=== PATIENT | male | born 1950 | race Caucasian/White ===

== ENCOUNTER 2019-12-04 10:09 | Outpatient (CLI) | payer MEDICARE, SELFPAY ==
--- NOTE | ~2019-12-04 | US_ITS ---
EXAMINATION: US carotid duplex BI DATE: 12/04/2019 11:09 INDICATION: Bilateral carotid stenosis. TECHNIQUE: Grayscale, color Doppler, and pulsed Doppler images of the cervical carotid arteries were obtained. The degree of vessel stenosis is placed in one of the following categories: normal, <50%, 5 0-69%, >=70% but less than near-occlusion, near-occlusion, or total occlusion. Note that percent sten osis relative to normal distal artery lumen diameter is indirectly measured from velocity measurement s as described by Stevan, et al. Radiology 2003; [id number]. COMPARISON: Ultrasound 03/21/2018 FINDINGS: RIGHT: The right common carotid artery (CCA) peak systolic velocity (PSV) is 64 cm/s. The right internal car otid artery (ICA) PSV is 167 cm/s. The right ICA end-diastolic velocity (EDV) is 36 cm/s. The right I CA/CCA PSV ratio is 2.6. Grayscale and color Doppler images yield an estimate of >=50% diameter reduc tion from plaque in the ICA. There is antegrade flow in the right vertebral artery. LEFT: The left CCA PSV is 69 cm/s. The left ICA PSV is 105 cm/s. The left ICA EDV is 29 cm/s. The left ICA/ CCA PSV ratio is 1.5. Grayscale and color Doppler images yield an estimate of >=50% diameter reductio n from plaque in the ICA. There is antegrade flow in the left vertebral artery. IMPRESSION: 1. 50-69% stenosis in the right internal carotid artery. 2. <50% stenosis in the left internal carotid artery. Reviewed, dictated and finalized at location A. NT BREAKER
== END 2019-12-04 10:10 | disposition home or self-care (01) ==
LOC: CHSIMG 10:12
PROVIDERS: PCP Internal Medicine; Visit Provider Internal Medicine
DX: I65.23 Occlusion and stenosis of bilateral carotid arteries (principal)
CPT/HCPCS: 93880

== ENCOUNTER 2020-03-13 20:00 | Inpatient (IN) | payer MEDICARE, SELFPAY ==
--- NOTE | ~2020-03-13 | US_ITS ---
EXAMINATION: US arterial ankle brachial ind DATE: 03/17/2020 10:22 INDICATION: Erythema and ulcers in the bilateral lower limbs. TECHNIQUE: Segmental pressures and plethysmographic and Doppler waveforms of the brachial and lower e xtremity arteries were obtained. COMPARISON: None. FINDINGS: Right and left brachial artery pressures of 147 mm Hg and 461 mm Hg, respectively, are concordant (no rmal difference <= 30 mmHg). The right ankle-brachial index (ANTHONY) is 0.50 (normal >= 0.9-1.0). The right great toe-brachial index (TBI) is unable to be ascertained due to no dopplerable pulse at the great toe (normal >= 0.65). Biph asic parvus et tardus arterial Doppler waveforms at the right posterior tibial and dorsalis pedis art eries. The left ANTHONY is 0.91. The left TBI is 0.78. Arterial Doppler waveforms are biphasic with brisk systol ic upstrokes at both the left posterior tibial and dorsalis pedis arteries. IMPRESSION: 1. Severe arterial occlusive disease to the right lower limb with severely decreased right ANTHONY and no dopplerable pulse at the right great toe. 2. Likely mild arterial occlusive disease in the left lower limb with borderline decreased left ANTHONY a nd normal left TBI. Reviewed, dictated and finalized at location A. IMPRESSION: 1. Severe arterial occlusive disease to the right lower limb with severely decr eased right ANTHONY and no dopplerable pulse at the right great toe. 2. Likely mild arterial occlusive disease in the left lower limb with borderlin e decreased left ANTHONY and normal left TBI.
--- NOTE | ~2020-03-13 | CT_ITS ---
EXAMINATION: CT abdomen pelvis wo con EXAM DATE: 03/13/2020 23:29 INDICATION: Left flank pain. TECHNIQUE: Spiral CT of the abdomen and pelvis was performed without contrast. Axial, coronal and sag ittal images were reviewed. The dose-length product (DLP) for this examination was 1174.10 mGy-cm. The exposure was tailored according to patient size (auto mA exposure control), and iterative reconst ruction (ASIR) was used as additional dose reduction technique. There is no prior study for comparis on. FINDINGS: There is no nephrolithiasis or hydronephrosis. The prostate is unremarkable. There are sm all bilateral inguinal fat-containing hernias. The right lateral wall of the bladder is thickened up to 1.3 cm. There is also bladder wall thickening below the left trigone. Possible transitional cell cancers. The liver, spleen, adrenal glands and pancreas are unremarkable. Gallbladder is unremarkab le. No biliary obstruction. There is no retroperitoneal or pelvic lymphadenopathy. There is moder ate scattered arteriosclerotic disease. The appendix is normal. The stomach and small bowel are unremarkable. There is expected amount of c olonic stool. No free intraperitoneal gas. The heart is normal in size. Sternotomy wires. There a re no pericardial or pleural effusions. The lung bases are unremarkable. There are no osteoblastic or osteolytic lesions identified. IMPRESSION: 1. 2 regions of bladder wall thickening, possible transitional cell cancers. Recommend cystoscopy. 2. No nephrolithiasis, hydronephrosis or acute intra-abdominal findings. 3. Moderate sigmoid diverticulosis. Reviewed, dictated and finalized at location G. IMPRESSION: 1. 2 regions of bladder wall thickening, possible transitional cell cancers. R ecommend cystoscopy. 2. No nephrolithiasis, hydronephrosis or acute intra-abdominal findings. 3. Moderate sigmoid diverticulosis.
--- NOTE | ~2020-03-13 | XR_ITS ---
EXAMINATION: XR lumbar spine 2-3V EXAM DATE: 03/13/2020 21:02 INDICATION: Left-sided low back pain. TECHNIQUE: Lumber spine frontal, lateral, lateral L5-S1 projections for interpretation. There is no prior study for comparison. FINDINGS: There are no acute fractures identified. Mild to moderate loss of L5 vertebral body height , mild diffuse loss of the other lumbar vertebral body heights. There is mild thoracolumbar disc dise ase. Mild to moderate lumbar facet arthropathy. No endplate erosive change. Sacrum, sacroiliac joints , sacral arcuate lines are intact. There is moderate abdominal aortic arteriosclerotic disease. IMPRESSION: 1. No acute lumbar findings. 2. Mild to moderate spondylosis. Reviewed, dictated and finalized at location A.
--- NOTE | ~2020-03-13 | XR_ITS ---
EXAMINATION: XR chest 2V EXAM DATE: 03/13/2020 21:02 INDICATION: Weakness. TECHNIQUE: Frontal and lateral projections of the chest obtained and reviewed. Comparison is made to prior examination from 05/24/2017. FINDINGS: Sternotomy wires are present without findings to suggest sternal dehiscence. The lungs are clear. There are no pleural effusions. The cardiomediastinal silhouette is within normal limits. There is no pneumothorax suspected. There are mild bony degenerative changes. IMPRESSION: No acute cardiopulmonary findings. Reviewed, dictated and finalized at location A.
--- NOTE | ~2020-03-13 | CT_ITS ---
EXAMINATION: CT abdomen pelvis wo/w con DATE: 03/16/2020 13:15 INDICATION: Gross hematuria TECHNIQUE: Computed tomography (CT) of the abdomen and pelvis was performed without intravenous contr ast. CT of the abdomen and pelvis was then performed with a total of 130 mL Omnipaque 350 intravenous contrast using a double-bolus technique for simultaneous opacification of the renal parenchyma and r enal collecting system. The dose-length product (DLP) was 2228.37 mGy-cm. Automated exposure control and iterative reconstruction technique were employed. COMPARISON: 03/13/2020 FINDINGS: The lung bases are clear. The heart size is normal. The liver, spleen,, gallbladder, and ad renal glands are normal. Punctate calcifications of the pancreas are consistent with chronic pancreat itis. The kidneys are unremarkable. There is irregular thickening in the left posterolateral wall and the right lateral wall of the urinary bladder. There is no hydronephrosis or hydroureter. There is c alcified atherosclerosis of the aorta and many of the other arteries. Bilateral inguinal lymph nodes measure up to 11 mm in short axis. There are surgical changes in the inguinal regions bilaterally. Va scular stents are noted in the partially imaged superficial femoral arteries. There is mild lumbar sp ondylosis. IMPRESSION: 1. Two areas of irregular wall thickening in the urinary bladder concerning for urothelial carcinoma. Mild bilateral inguinal lymphadenopathy may be reactive versus metastatic. Reviewed, dictated and finalized at location A.
[2020-03-13 20:06] VITALS: BP 165/85; PULSE 87; RESP 18; TEMP 36.5; O2SAT 100
--- NOTE | 2020-03-13 20:14 | PC.NURSE ---
Pt's states that he has not been to wound care in 3 weeks because patient is unable to get out of the house. took him to the ER at [facility] 2 weeks ago and was discharged home to f/u with wound care but has not done so.
--- NOTE | 2020-03-13 20:22 | ED.EXTPRO ---
HPI - Extremity Problem General Chief complaint: Extremity Problem,Nontraumatic Stated complaint: back pain/leg pain Time Seen by Provider: 03/13/20 20:13 History of Present Illness HPI Narrative: Patient is a 69-year-old male who presents the ER with his for left-sided back pain. Ongoing for 3 weeks. Was originally seen in [facility] at [facility] for his back pain. At that time they did not find anything but they want to admit him for possible fpc placement as he was having difficulty moving. He declined admission and went home. He has been at home since then. He is only able to assist with transfers first when he used to be able to ambulate independently with a walker. Patient has history of peripheral arterial disease and gets wound care in [place] as well for ulcerations and wounds to lower extremities that are all chronic. Patient has no new lower extremity pain or injury. Patient denies any injury related to his left side back pain. It is worsened with movements such as rolling over. No improvement with [facility]. Related Data Home Medications Medication Instructions Recorded Confirmed apixaban [Eliquis] mg 03/13/20 Allergies Allergy/AdvReac Type Severity Reaction Status Date / Time No Known Allergies Allergy Unknown Verified 03/13/20 20:11 Review of Systems Review of Systems: All systems reviewed & are unremarkable except as noted in HPI and below Constitutional: Constitutional: Denies chills, Denies fever(s) and Reports weakness ENT: Denies nasal congestion and Denies sore throat Respiratory: Respiratory: Denies cough and Denies dyspnea Gastrointestinal: Gastrointestinal: Denies abdominal pain, Denies nausea and Denies vomiting Genitourinary: Genitourinary: Denies dysuria and Denies urinary frequency Musculoskeletal: Musculoskeletal: Reports back pain (Left low back) and Denies arthralgias Integumentary/Breasts: Comments: Chronic skin changes lower extremities due to peripheral arterial disease. FOR[facility]LY [facility] Past Medical History Medical History (Updated 03/14/20 @ 00:26 by Sigifredo Diaz MD) Coronary artery disease DM type 2 (diabetes mellitus, type 2) GERD (gastroesophageal reflux disease) Hyperlipidemia Hypertension Peripheral arterial disease Surgical History Surgical History (Updated 03/14/20 @ 00:23 by Sigifredo Diaz MD) H/O cardiac catheterization History of revascularization procedure of lower extremity Hx of CABG Family History Family History (Updated 03/27/19 @ 14:12 by DOCTOR UNKNOWN) Other Cerebrovascular accident Depression Diabetes mellitus Family history of arthritis Family history of cardiovascular disease Family history of coronary artery disease Family history of hypercholesterolemia Family history of mental disorder Family history of obesity Family history of seizure disorder Hypertension Social History Social History Smoking status: Former smoker Smoking end date: 10/31/08 Alcohol intake: never Gender identity (if verbalized by the patient): Male Exam Narrative: Exam Narrative: GENERAL: Chronically ill-appearing, well-nourished, and in no acute distress. HEAD: Normocephalic, atraumatic. ENT: Mucous membranes moist. CHEST: Clear to auscultation. No respiratory distress. HEART: Regular rate and rhythm. Normal peripheral pulses. Dorsalis pedis pulses dopplered bilaterally. ABDOMEN: Soft, nontender, nondistended. EXTREMITIES: Normal range of motion. Tender to palpation over distal extremities is normal for him. Chronic venous stasis changes to bilateral lower extremities with sloughing skin and scabbing. No evidence of cellulitis or overt infection. Back: No midline tenderness of the thoracic or lumbar spine. There is mild left paraspinal muscular tenderness in the L5 region. No bruising or abrasions. SKIN: Warm, dry, no rash. Chronic changes lower legs. NEURO: No focal deficits. Alert and oriented x
[2020-03-13 20:50] LABS: Basophils Absolute Auto 0.1 K/mm3 (0.0-0.1); Basophils Percent Auto 0.6 % (0.2-1.2); Eosinophils Absolute Auto 0.2 K/mm3 (0-0.3); Hematocrit 49.6 % (42.0-52.0); Immature Granulocyte Absolute 0.03 K/mm3 (0.00-0.031); Immature Granulocyte Percent A 0.3 % (0-0.5); Lymphocytes Percent Auto 19.7 % (18.3-44.2); Mean Corpuscular HGB Conc 32.3 g/dl (32-36); Mean Corpuscular Hemoglobin 27.1 pg (26-34); Mean Corpuscular Volume 84.1 fl (80-100); Mean Platelet Volume 10.6 fl (7.4-10.4); Monocytes Absolute Auto 0.6 K/mm3 (0.1-0.6); Monocytes Percent Auto 6.4 % (2.6-8.5); Neutrophils Absolute Auto 6.9 K/mm3 (1.3-6.7); Platelet Count Result 309 k/mm3 (150-375); Red Cell Distribution Width 13.5 % (11.5-14.5); White Blood Count 9.7 K/mm3 (4.5-10.0)
[2020-03-13 21:03] LABS: Blood Urea Nitrogen 39 mg/dL (9-20); Calcium 9.8 mg/dL (8.4-10.2); Carbon Dioxide 30 mmol/L (22-30); Chloride 101 mmol/L (98-107); Estimated Glomerular Filt Rate > 60; Glucose 161 mg/dL (75-110); Potassium 4.5 mmol/L (3.4-5.0); Sodium 138 mmol/L (137-145)
[2020-03-13 21:12] VITALS: BP 132/47; PULSE 79; RESP 16; O2SAT 97
[2020-03-13 22:38] VITALS: BP 156/69; PULSE 77; RESP 18; O2SAT 97
[2020-03-13 22:51] LABS: Add Urine Microscopic? YES; Appearance Urine Cloudy (Clear); Bacteria Urine Trace /hpf; Bilirubin Urine Negative (Negative); Blood Urine 3+ (Negative); Color Urine Yellow (Yellow); Glucose Urine UA Negative (Negative); Ketones Urine Negative (Negative); Leukocyte Esterase Ur Negative LEU/UL (Negative); Mucus Urine Rare /lpf; Nitrate Urine Negative (Negative); Protein Urine 1+ mg/dL (Negative); RBC Urine 51-75 /hpf (0-2); Specific Grav Ur 1.016 (1.001-1.035); Squamous Epithelial Cell Urine Rare /hpf (Few)
[2020-03-14 00:09] VITALS: BP 125/60; PULSE 75; RESP 17; O2SAT 97
[2020-03-14 00:42] VITALS: BP 140/91; PULSE 82; RESP 19; O2SAT 95
--- NOTE | 2020-03-14 03:19 | ADMGEN ---
This patient, Ramana Gaines, was admitted to 2 Medical Room 257-. Patient/family oriented to hospital policies and general routines including ID bracelet, bed and alarms, visiting hours, pain management, procedures, bathroom and other care routines, personal items, smoking policy, room service/diet, and visiting hours. Valuables list has been completed. Information on how to activate the Rapid Response Team has been discussed. Patient/Family are encouraged to report perceived risks to care and to ask questions if they do not understand what they are told or what they should do.
[2020-03-14 03:24] VITALS: BMI 33.4
[2020-03-14 06:01] VITALS: BP 150/83; PULSE 79; RESP 18; TEMP 36.4; O2SAT 100
[2020-03-14 08:06] LABS: Glucose Point of Care 134 (65-105)
[2020-03-14 09:39] VITALS: BMI 10.0
[2020-03-14 09:40] VITALS: BMI 10.0
[2020-03-14] MEDS: TOLNAFTATE 1% POWDER 45 GM BTL 1 APPLIC TOPICAL ×2 (09:45→21:26)
[2020-03-14] MEDS: APIXABAN 5 MG TABLET PO (10:55)
[2020-03-14] MEDS: CLOPIDOGREL BISULFATE 75 MG TABLET PO (10:55)
[2020-03-14] MEDS: GABAPENTIN 300 MG CAPSULE PO ×2 (10:55→21:25)
[2020-03-14] MEDS: PANTOPRAZOLE 40 MG TABLET PO ×2 (10:56→21:26)
[2020-03-14] MEDS: LOSARTAN POTASSIUM 50 MG TABLET PO (10:56)
[2020-03-14 12:03] LABS: Glucose Point of Care 135 (65-105)
--- NOTE | 2020-03-14 12:44 | PM.IMHP ---
H&P: HPI History of Present Illness Chief complaint: Physical Deconditioning, Chronic Back Pain Narrative: Date of service: 03/14/2020 Ramana Gaines is a 69 year old male with a [facility] signficant for CAD, T2DM, HTN, and peripheral arterial disease who presented to the ED on on 03/13/2020 with complaints of back pain on his left side ongoing for 3 weeks. He has previously been evaluated at [facility] in [facility] for this pain. He was recommended to be admitted for possible retirement placement, however he denied admission. This information has been obtained via review of electronic medical records. Lumbar X-ray reveals mild to moderate spondylosis without any acute fracture. Patient is rather uncooperative. He refuses to answer my questions and repeatedly requests I leave the room and stop speaking to him. He is alert and oriented x3. He tells me he came to the hospital because his wanted him to. He denies having any back pain at this time. He is unable to tell me if he is having any back pain alarm symptoms including loss of bowel or bladder control, saddle anesthesia, acute weakness or numbness, or changes in gait. He does tell me he has been having diarrhea today. He also tells me that he has had wounds to his legs for quite a long time and sees a doctor for this but is unable to tell me where. He is unwilling to answer any further questions about his medical history, therefore additional information has been obtained from previous records. Attempts to reach his for further information have been unsuccessful. Review of Systems Review of Systems: Narrative: A 12 point review of systems was unobtainable due to patient refusal. ROS unobtainable: Yes other [facility] Past Medical History Medical History Coronary artery disease DM type 2 (diabetes mellitus, type 2) GERD (gastroesophageal reflux disease) Hyperlipidemia Hypertension Peripheral arterial disease Surgical History Surgical History H/O cardiac catheterization History of revascularization procedure of lower extremity Hx of CABG Family History Family History Sibling Family history of cardiovascular disease Father Family history of cardiovascular disease Other Cerebrovascular accident Depression Diabetes mellitus Family history of arthritis Family history of coronary artery disease Family history of hypercholesterolemia Family history of mental disorder Family history of obesity Family history of seizure disorder Hypertension Social History Social History (Updated 03/14/20 @ 17:01 by Carole Connors PA-C) Social History: The patient lives at home with his . He designates his as his surrogate decision maker. He is unwilling to disclose his code status to me, telling me my knows what I want. Additional social history obtained via review of records. Smoking status: Former smoker Tobacco type: cigarettes Second hand tobacco smoke exposure: Yes Smoking end date: 10/31/08 Alcohol intake: former Substance use: never Substance use type: does not use Gender identity (if verbalized by the patient): Male Spiritual care concerns: No Meds Home Medications and Allergies Home Medications Medication Instructions Recorded Confirmed Type apixaban [Eliquis] 5 mg PO DAILY 03/13/20 03/14/20 History atorvastatin 80 mg PO HS 03/14/20 03/14/20 History clopidogrel [Plavix] 75 mg PO DAILY 03/14/20 03/14/20 History diltiazem HCl 180 mg PO DAILY 03/14/20 03/14/20 History furosemide 40 mg PO DAILY 03/14/20 03/14/20 History gabapentin 300 mg PO TID 03/14/20 03/14/20 History glimepiride 4 mg PO BID 03/14/20 03/14/20 History isosorbide mononitrate 120 mg PO DAILY 03/14/20 03/14/20 History losartan 50 mg PO DAILY 03/14/20 03/14/20 H
[2020-03-14 13:22] LABS: Basophils Absolute Auto 0.1 K/mm3 (0.0-0.1); Basophils Percent Auto 0.5 % (0.2-1.2); Eosinophils Absolute Auto 0.1 K/mm3 (0-0.3); Eosinophils Percent Auto 1.3 % (0-4.4); Immature Granulocyte Absolute 0.03 K/mm3 (0.00-0.031); Immature Granulocyte Percent A 0.3 % (0-0.5); Lymphocytes Percent Auto 16.1 % (18.3-44.2); Mean Corpuscular HGB Conc 32.6 g/dl (32-36); Mean Corpuscular Hemoglobin 26.7 pg (26-34); Mean Platelet Volume 10.2 fl (7.4-10.4); Monocytes Absolute Auto 0.7 K/mm3 (0.1-0.6); Monocytes Percent Auto 6.5 % (2.6-8.5); Neutrophils Percent Auto 75.3 % (45.5-73.1); Platelet Count Result 287 k/mm3 (150-375); Red Blood Count 5.61 M/mm3 (4.6-6.20); Red Cell Distribution Width 13.3 % (11.5-14.5); White Blood Count 10.6 K/mm3 (4.5-10.0)
[2020-03-14 13:35] LABS: Alanine Aminotransferase 20 U/L (4-50); Albumin Level 3.9 g/dL (3.5-5.1); Alkaline Phosphatase 116 U/L (38-126); Aspartate Amino Transferase 26 U/L (17-59); Bilirubin,Total 0.5 mg/dL (0.2-1.3); Blood Urea Nitrogen 39 mg/dL (9-20); Calcium 9.4 mg/dL (8.4-10.2); Carbon Dioxide 23 mmol/L (22-30); Chloride 103 mmol/L (98-107); Estimated CRCL calculation 57 ml/min; Estimated Glomerular Filt Rate > 60; Glucose 139 mg/dL (75-110); Sodium 136 mmol/L (137-145)
[2020-03-14 13:43] LABS: INR 1.2; Prothrombin Time 14.6 Seconds (11.1-14.7)
[2020-03-14 13:44] LABS: Partial Thromboplastin Time 31.9 SECONDS (22.3-36.8)
[2020-03-14 16:00] VITALS: BP 136/80; PULSE 62; RESP 16; TEMP 36.3; O2SAT 94
[2020-03-14 16:44] LABS: Glucose Point of Care 136 (65-105)
--- NOTE | 2020-03-14 18:41 | PC.NURSE ---
multiple messages left with pharmacy about missing medications. 1700 dose of gabapentin due and medication is not on floor. med drawer is empty, requesting meds for bedtime and tomorrow
[2020-03-14] MEDS: ATORVASTATIN 40 MG TABLET 80 MG PO (21:26)
[2020-03-14 22:44] LABS: Glucose Point of Care 105 (65-105)
[2020-03-15] VITALS: BP 118/58; PULSE 74; RESP 18; TEMP 35.7; O2SAT 96
[2020-03-15 06:18] LABS: Basophils Percent Auto 0.4 % (0.2-1.2); Eosinophils Absolute Auto 0.2 K/mm3 (0-0.3); Eosinophils Percent Auto 2.5 % (0-4.4); Hematocrit 43.9 % (42.0-52.0); Hemoglobin 14.4 g/dL (14.0-18.0); Immature Granulocyte Absolute 0.03 K/mm3 (0.00-0.031); Immature Granulocyte Percent A 0.3 % (0-0.5); Lymphocytes Absolute Auto 1.95 K/mm3 (0.9-3.2); Lymphocytes Percent Auto 21.7 % (18.3-44.2); Mean Corpuscular HGB Conc 32.8 g/dl (32-36); Mean Corpuscular Hemoglobin 27.1 pg (26-34); Mean Corpuscular Volume 82.7 fl (80-100); Mean Platelet Volume 10.3 fl (7.4-10.4); Monocytes Absolute Auto 0.6 K/mm3 (0.1-0.6); Monocytes Percent Auto 6.5 % (2.6-8.5); Neutrophils Absolute Auto 6.2 K/mm3 (1.3-6.7); Neutrophils Percent Auto 68.6 % (45.5-73.1); Platelet Count Result 257 k/mm3 (150-375); Red Blood Count 5.31 M/mm3 (4.6-6.20); Red Cell Distribution Width 13.7 % (11.5-14.5)
[2020-03-15 06:37] LABS: Hemoglobin A1C 7.8 % (<5.7)
[2020-03-15 06:50] LABS: Alanine Aminotransferase 17 U/L (4-50); Albumin Level 3.7 g/dL (3.5-5.1); Alkaline Phosphatase 101 U/L (38-126); Aspartate Amino Transferase 25 U/L (17-59); Bilirubin,Total 0.7 mg/dL (0.2-1.3); Blood Urea Nitrogen 53 mg/dL (9-20); Calcium 9.1 mg/dL (8.4-10.2); Carbon Dioxide 22 mmol/L (22-30); Chloride 102 mmol/L (98-107); Estimated CRCL calculation 37 ml/min; Estimated Glomerular Filt Rate 40; Glucose 110 mg/dL (75-110); Magnesium 1.6 mg/dL (1.6-2.3); Potassium 4.2 mmol/L (3.4-5.0); Sodium 133 mmol/L (137-145)
[2020-03-15 07:59] LABS: Glucose Point of Care 93 (65-105)
[2020-03-15] MEDS: PANTOPRAZOLE 40 MG TABLET PO ×2 (09:47→22:08)
[2020-03-15] MEDS: TOLNAFTATE 1% POWDER 45 GM BTL 1 APPLIC TOPICAL ×2 (09:47→22:09)
[2020-03-15] MEDS: CLOPIDOGREL BISULFATE 75 MG TABLET PO (09:47)
[2020-03-15] MEDS: SACCHAROMYCES BOULARDII 250 MG CAPSULE PO ×2 (09:47→16:42)
[2020-03-15] MEDS: GABAPENTIN 300 MG CAPSULE PO ×3 (09:47→16:42)
[2020-03-15] MEDS: SODIUM CHLORIDE 0.9% IV 1,000 ML 100 ML IV CONT ×2 (09:48→22:07)
[2020-03-15] MEDS: APIXABAN 5 MG TABLET PO (09:48)
[2020-03-15 09:51] VITALS: BP 107/73; PULSE 80; RESP 18; TEMP 37.5; O2SAT 97
--- NOTE | 2020-03-15 11:04 | PM.IMPN ---
Progress Note: A&P Assessment and Plan (1) Back pain: Code(s): M54.9 - Dorsalgia, unspecified Status: Acute Assessment and Plan: Lumbar x-ray performed 03/13/2020 revealed mild to moderate spondylosis without any acute fracture or changes. Per chart review patient has had low back pain for 3 weeks which has decreased ability to perform ADLs. Back pain is localized to left lateral site without radiation or sensory deficits. Continue PT and OT Consult placed to care coordination for discharge planning. Home health has been arranged for further therapy Continue analgesics prn (2) Hematuria: Code(s): R31.9 - Hematuria, unspecified Status: Acute Assessment and Plan: Patient noted to have gross hematuria in ED. UA with 3+ blood and 51-[address] a/p reveals wall thickening with possible transitional cell cancers. Per conversation with , patient has had hematuria for approximately 1.5 months. He has previously been established with a urologist, Dr. Ramirez, for prostate issues, but hematuria has never been addressed. Consult placed to urology. Recommendations are greatly appreciated. Case was discussed with urologist Dr. Roman by Dr. Diaz in ED. Per documentation, patient can follow-up for outpatient cystoscopy with Dr. Roman. However, I have concerns that patient will be lost to follow-up if an outpatient appointment is not made for him shortly after discharge, as he is rather non-compliant with attending medical appointments. Continue to monitor. (3) Acute kidney injury: Code(s): N17.9 - Acute kidney failure, unspecified Status: Acute Assessment and Plan: At presentation, Cr 1.1, BUN 39, and GFR >60. Today, Cr is elevated at 1.7 and BUN 53. This may be prerenal as patient may be dehydrated due to diarrhea. He did appear euvolemic on exam. Additionally, this may be obstructive given possibility of bladder cancer, however CT did not note hydronephrosis. Patient does have a history of nonspecific prostate issues, per , and he endorses retention and hesitancy. He is urinating on his own without difficulty today. Begin trial of IV fluids Check urine sodium, urine creatinine, and urine eosinophils Will check bladder scan. Will consider placement of Ortiz catheter pending workup. Hold Losartan. Continue to monitor renal function Renally dose medications and avoid nephrotoxic agents. Metformin is on hold. (4) Diarrhea: Qualifiers: Diarrhea type: unspecified type Qualified Code(s): R19.7 - Diarrhea, unspecified Code(s): R19.7 - Diarrhea, unspecified Status: Acute Assessment and Plan: Patient had several episodes of loose stool upon admission. He reports diarrhea has been ongoing for several days. Patient appears euvolemic and electrolytes are stable. Etiology for diarrhea is unclear, however does not appear to be infectious cause. Patient is afebrile and without leukocytosis. Patient takes metformin sporadically which may contribute to GI upset. Continue to monitor Continue probiotic. Continue IV fluids given VIRGILIO (5) Physical deconditioning: Code(s): R53.81 - Other malaise Status: Acute Assessment and Plan: Patient was previously independent with his ADLs up until 3 weeks ago. Now he is requiring assistance with ADLs and has been unable to ambulate. Continue PT/OT. Recommendations are appreciated Home health has been arranged for further therapy upon discharge (6) Peripheral arterial disease: Code(s): I73.9 - Peripheral vascular disease, unspecified Status: Acute Assessment and Plan: Chronic. He is managed by wound care in [place]. Per discussion with his , he has not attended his wound care appointments in some time. She believes he sees a vascular specialist. He had a revascularization procedure on left lower extremity, however it is uncle
[2020-03-15 11:56] LABS: Glucose Point of Care 131 (65-105)
[2020-03-15 14:00] VITALS: BP 110/73; PULSE 65; RESP 15; TEMP 36.6; O2SAT 94
[2020-03-15 16:46] LABS: Glucose Point of Care 124 (65-105)
[2020-03-15 21:01] LABS: Creatinine Urine 136.6 mg/dL
[2020-03-15 21:09] LABS: Sodium Urine Random 33 meq/L
[2020-03-15 21:30] VITALS: BP 96/53; PULSE 66; RESP 14; TEMP 36.4; O2SAT 97
[2020-03-15] MEDS: ATORVASTATIN 40 MG TABLET 80 MG PO (22:08)
[2020-03-16 00:07] LABS: Glucose Point of Care 122 (65-105)
[2020-03-16 06:00] VITALS: BP 125/52; PULSE 67; RESP 16; TEMP 36.4; O2SAT 95
[2020-03-16 06:00] LABS: Hematocrit 42.8 % (42.0-52.0); Hemoglobin 13.8 g/dL (14.0-18.0); Mean Corpuscular HGB Conc 32.2 g/dl (32-36); Mean Corpuscular Hemoglobin 27.1 pg (26-34); Mean Corpuscular Volume 83.9 fl (80-100); Mean Platelet Volume 11.8 fl (7.4-10.4); Platelet Count Result 186 k/mm3 (150-375); Red Cell Distribution Width 13.6 % (11.5-14.5); White Blood Count 6.4 K/mm3 (4.5-10.0)
[2020-03-16] MEDS: SODIUM CHLORIDE 0.9% IV 1,000 ML 100 ML IV CONT ×2 (08:15→20:01)
[2020-03-16] MEDS: CLOPIDOGREL BISULFATE 75 MG TABLET PO (08:16)
[2020-03-16] MEDS: APIXABAN 5 MG TABLET PO (08:16)
[2020-03-16] MEDS: GABAPENTIN 300 MG CAPSULE PO ×2 (08:17→17:15)
[2020-03-16] MEDS: SACCHAROMYCES BOULARDII 250 MG CAPSULE PO ×2 (08:17→17:15)
[2020-03-16] MEDS: TOLNAFTATE 1% POWDER 45 GM BTL 1 APPLIC TOPICAL ×2 (08:17→20:03)
[2020-03-16] MEDS: PANTOPRAZOLE 40 MG TABLET PO ×2 (08:17→20:02)
[2020-03-16 08:36] LABS: Glucose Point of Care 89 (65-105)
[2020-03-16 10:12] LABS: Alanine Aminotransferase 17 U/L (4-50); Albumin Level 3.5 g/dL (3.5-5.1); Alkaline Phosphatase 88 U/L (38-126); Aspartate Amino Transferase 24 U/L (17-59); Bilirubin,Total 0.5 mg/dL (0.2-1.3); Blood Urea Nitrogen 44 mg/dL (9-20); Calcium 8.5 mg/dL (8.4-10.2); Carbon Dioxide 21 mmol/L (22-30); Chloride 107 mmol/L (98-107); Estimated CRCL calculation 52 ml/min; Estimated Glomerular Filt Rate 60; Glucose 129 mg/dL (75-110); Magnesium 1.6 mg/dL (1.6-2.3); Potassium 3.9 mmol/L (3.4-5.0); Sodium 136 mmol/L (137-145)
--- NOTE | 2020-03-16 11:48 | WPDURCON ---
Assessment and Plan Additional Plan Gross hematuria - creatinine elevation noted, but appears to have been transient; he would benefit from a CT urogram prior to cystoscopy. I have ordered the study. Urine for cytology as well. Urology Consult Note HPI Date Seen: 03/16/20 Requesting Physician: Carole Connors PA-C Primary Care Provider: Reshma Morelos MD Consult Narrative Narrative: Ramana Gaines is a 69 year old male who had hematuria noted in the ER. The patient states he has never seen blood in the urine. The note from the hospitalist states the patient's has seen hematuria in her for over 1 month. The patient has no current catheter. His CT scan without contrast showed bladder thickening, concerning for a bladder cancer. Review of Systems Review of Systems: All systems reviewed & are unremarkable except as noted in HPI and below (HPI) PMFSH Past Medical History Medical History Coronary artery disease DM type 2 (diabetes mellitus, type 2) GERD (gastroesophageal reflux disease) Hyperlipidemia Hypertension Peripheral arterial disease Surgical History Surgical History H/O cardiac catheterization History of revascularization procedure of lower extremity Hx of CABG Family History Family History Sibling Family history of cardiovascular disease Father Family history of cardiovascular disease Other Cerebrovascular accident Depression Diabetes mellitus Family history of arthritis Family history of coronary artery disease Family history of hypercholesterolemia Family history of mental disorder Family history of obesity Family history of seizure disorder Hypertension Social History Social History (Updated 03/14/20 @ 17:01 by Carole Connors PA-C) Social History: The patient lives at home with his . He designates his as his surrogate decision maker. He is unwilling to disclose his code status to me, telling me my knows what I want. Additional social history obtained via review of records. Smoking status: Former smoker Tobacco type: cigarettes Second hand tobacco smoke exposure: Yes Smoking end date: 10/31/08 Alcohol intake: former Substance use: never Substance use type: does not use Gender identity (if verbalized by the patient): Male Spiritual care concerns: No Meds Home Medications and Allergies Home Medications Medication Instructions Recorded Confirmed Type apixaban [Eliquis] 5 mg PO DAILY 03/13/20 03/14/20 History atorvastatin 80 mg PO HS 03/14/20 03/14/20 History clopidogrel [Plavix] 75 mg PO DAILY 03/14/20 03/14/20 History diltiazem HCl 180 mg PO DAILY 03/14/20 03/14/20 History furosemide 40 mg PO DAILY 03/14/20 03/14/20 History gabapentin 300 mg PO TID 03/14/20 03/14/20 History glimepiride 4 mg PO BID 03/14/20 03/14/20 History isosorbide mononitrate 120 mg PO DAILY 03/14/20 03/14/20 History losartan 50 mg PO DAILY 03/14/20 03/14/20 History metformin 500 mg PO BID 03/14/20 03/14/20 History omeprazole 40 mg PO DAILY 03/14/20 03/14/20 History Allergies Allergy/AdvReac Type Severity Reaction Status Date / Time No Known Allergies Allergy Unknown Verified 03/13/20 20:11 Vital Signs Vital Signs - 24 hr 03/15/20 14:00 03/15/20 21:30 03/16/20 06:00 Temperature 36.6 C 36.4 C L 36.4 C L Pulse Rate 65 66 67 Respiratory Rate 15 14 16 Blood Pressure 110/73 96/53 L 125/52 L Pulse Oximetry 94 97 95 Exam Const: General: comfortable and no acute distress Resp: Effort & Inspection: normal respiratory effort Psych: Appearance: disheveled Results Labs CBC & Chem 7: 03/16/20 05:17 03/16/20 09:52 Labs: Short CBC 03/13/20 03/14/20 03/15/20 Range/Units 20:42 13:05 05:34 WBC (4.5-10.0) K/mm3 Hgb (14.0
[2020-03-16 11:49] LABS: Glucose Point of Care 147 (65-105)
--- NOTE | 2020-03-16 12:53 | PC.NURSE ---
Unable to print specimen label for cystology pth urine specimen. Spoke with main lab, and was instructed to send urine in specimen cup with patient label and they will send it to pathology and print label for specimen.
--- NOTE | 2020-03-16 12:56 | PC.NURSE ---
Urine specimen sent to main lab with patient label on cup.
[2020-03-16 14:00] VITALS: BP 130/55; PULSE 66; RESP 18; TEMP 36.2; O2SAT 97
--- NOTE | 2020-03-16 16:19 | PM.IMPN ---
Progress Note: A&P Assessment and Plan (1) Back pain: Code(s): M54.9 - Dorsalgia, unspecified Status: Acute Assessment and Plan: Lumbar x-ray performed 03/13/2020 revealed mild to moderate spondylosis without any acute fracture or changes. Per chart review patient has had low back pain for 3 weeks which has decreased ability to perform ADLs. Back pain is localized to left lateral site without radiation or sensory deficits. Continue PT and OT Consult placed to care coordination for discharge planning. Home health previously arranged but patient is requiring jorge steady for lifts. would like to consider SNF placement. CC is working to secure SNF placement near patients home in [place]. (2) Hematuria: Code(s): R31.9 - Hematuria, unspecified Status: Acute Assessment and Plan: Patient noted to have gross hematuria in ED. UA with 3+ blood and 51-[address] a/p reveals wall thickening with possible transitional cell cancers. Per conversation with , patient has had hematuria for approximately 1.5 months. He has previously been established with a urologist, Dr. Ramirez, for prostate issues, but hematuria has never been addressed. Consult placed to urology. Recommendations are greatly appreciated. Patient had CT urogram today. Plan for cystoscopy soon. Urine has been collected for flow cytometry Continue to monitor. (3) Acute kidney injury: Code(s): N17.9 - Acute kidney failure, unspecified Status: Acute Assessment and Plan: At presentation, Cr 1.1, BUN 39, and GFR >60. Cr transiently elevated at 1.7 and BUN 53 on 03/15. This may have been prerenal as patient may be dehydrated due to diarrhea. He did appear euvolemic on exam. Additionally, this may be obstructive given possibility of bladder cancer, however CT did not note hydronephrosis. Patient does have a history of nonspecific prostate issues. Bladder scan performed 03/15 did not demonstrate retention. FeNa is 0.2% suggesting pre-renal etiology. Renal function has improved today with Cr 1.2 and BUN 44. Continue gentle IV fluids Continue to hold Losartan and metformin. Continue to monitor renal function Renally dose medications and avoid nephrotoxic agents. (4) Diarrhea: Qualifiers: Diarrhea type: unspecified type Qualified Code(s): R19.7 - Diarrhea, unspecified Code(s): R19.7 - Diarrhea, unspecified Status: Acute Assessment and Plan: Patient had several episodes of loose stool upon admission. He reports diarrhea has been ongoing for several days. Patient appears euvolemic and electrolytes are stable. Etiology for diarrhea is unclear, however does not appear to be infectious cause. Patient is afebrile and without leukocytosis. Patient takes metformin sporadically which may contribute to GI upset. No episodes of diarrhea today. Continue to monitor Continue probiotic. Continue IV fluids given VIRGILIO (5) Physical deconditioning: Code(s): R53.81 - Other malaise Status: Acute Assessment and Plan: Patient was previously independent with his ADLs up until 3 weeks ago. Now he is requiring assistance with ADLs and has been unable to ambulate. Continue PT/OT. Recommendations are appreciated SNF placement pending. Patient will require continued therapy. (6) Peripheral arterial disease: Code(s): I73.9 - Peripheral vascular disease, unspecified Status: Acute Assessment and Plan: Chronic. He is managed by wound care in [place]. Per discussion with his , he has not attended his wound care appointments in some time. She believes he sees a vascular specialist. He had a revascularization procedure on left lower extremity, however it is unclear when this was performed. He has good blood flow and sensation to legs. Wound care has evaluated his legs. Continue antifungal cream ANTHONY has been ordered Continue to monitor
[2020-03-16 16:48] LABS: Glucose Point of Care 154 (65-105)
[2020-03-16] MEDS: ATORVASTATIN 40 MG TABLET 80 MG PO (20:02)
[2020-03-16 22:00] VITALS: BP 117/53; PULSE 65; RESP 20; TEMP 36.5; O2SAT 96
[2020-03-17 00:45] LABS: Glucose Point of Care 125 (65-105)
[2020-03-17 05:46] LABS: Basophils Percent Auto 0.6 % (0.2-1.2); Eosinophils Absolute Auto 0.3 K/mm3 (0-0.3); Eosinophils Percent Auto 5.6 % (0-4.4); Hematocrit 38.7 % (42.0-52.0); Hemoglobin 12.6 g/dL (14.0-18.0); Immature Granulocyte Absolute 0.01 K/mm3 (0.00-0.031); Immature Granulocyte Percent A 0.2 % (0-0.5); Lymphocytes Absolute Auto 1.17 K/mm3 (0.9-3.2); Lymphocytes Percent Auto 22.7 % (18.3-44.2); Mean Corpuscular HGB Conc 32.6 g/dl (32-36); Mean Corpuscular Hemoglobin 27.2 pg (26-34); Mean Corpuscular Volume 83.6 fl (80-100); Mean Platelet Volume 10.2 fl (7.4-10.4); Monocytes Absolute Auto 0.3 K/mm3 (0.1-0.6); Monocytes Percent Auto 6.6 % (2.6-8.5); Neutrophils Absolute Auto 3.3 K/mm3 (1.3-6.7); Neutrophils Percent Auto 64.3 % (45.5-73.1); Platelet Count Result 187 k/mm3 (150-375); Red Blood Count 4.63 M/mm3 (4.6-6.20); Red Cell Distribution Width 13.5 % (11.5-14.5); White Blood Count 5.2 K/mm3 (4.5-10.0)
[2020-03-17 06:00] VITALS: BP 136/56; PULSE 64; RESP 18; TEMP 36.6; O2SAT 97
[2020-03-17] MEDS: SODIUM CHLORIDE 0.9% IV 1,000 ML 100 ML IV CONT (06:08)
[2020-03-17 06:09] LABS: Alanine Aminotransferase 15 U/L (4-50); Albumin Level 3.2 g/dL (3.5-5.1); Alkaline Phosphatase 81 U/L (38-126); Aspartate Amino Transferase 20 U/L (17-59); Bilirubin,Total 0.3 mg/dL (0.2-1.3); Blood Urea Nitrogen 28 mg/dL (9-20); Carbon Dioxide 26 mmol/L (22-30); Chloride 109 mmol/L (98-107); Estimated CRCL calculation 62 ml/min; Estimated Glomerular Filt Rate > 60; Glucose 110 mg/dL (75-110); Sodium 138 mmol/L (137-145)
[2020-03-17 08:16] LABS: Glucose Point of Care 86 (65-105)
[2020-03-17] MEDS: PANTOPRAZOLE 40 MG TABLET PO ×2 (09:45→20:45)
[2020-03-17] MEDS: CLOPIDOGREL BISULFATE 75 MG TABLET PO (09:45)
[2020-03-17] MEDS: SACCHAROMYCES BOULARDII 250 MG CAPSULE PO ×2 (09:45→16:38)
[2020-03-17] MEDS: APIXABAN 5 MG TABLET PO (09:46)
[2020-03-17] MEDS: GABAPENTIN 300 MG CAPSULE PO ×3 (09:46→16:38)
[2020-03-17] MEDS: TOLNAFTATE 1% POWDER 45 GM BTL 1 APPLIC TOPICAL ×2 (09:50→20:46)
[2020-03-17] MEDS: ACETAMINOPHEN 325 MG TABLET 650 MG PO (11:08)
[2020-03-17 11:45] LABS: Glucose Point of Care 159 (65-105)
--- NOTE | 2020-03-17 12:22 | WPDUROPN2 ---
Progress Note: A&P Assessment and Plan (1) Lesion of bladder: Code(s): N32.9 - Bladder disorder, unspecified Status: Acute Assessment and Plan: will plan for diagnostic cystoscopy tomorrow. Will likely do just under local. We are limited in what we can do as he is fully anticoagulated. If bladder abnormality is noted will need to schedule formal resection when he can be off blood thinner. (2) Hematuria: Code(s): R31.9 - Hematuria, unspecified Status: Acute Assessment and Plan: Resolved Subjective Subjective Date/Time Seen: 03/17/20 12:[address] scan noted. No specific complaints the current. He denies any gross hematuria. He has a urinal in his room with clear yellow urine. Exam Const: General: no acute distress Resp: Effort & Inspection: normal respiratory effort Urinary Catheter: Urinary Catheter: urine clear ( urinal. Not Ortiz) Skin: General skin exam: normal color Extrem: General: normal to inspection Psych: Mental Status: mental status grossly normal Objective Data Vital Signs Vital Signs: Vital Signs - 24 hr 03/16/20 14:00 03/16/20 22:00 03/17/20 06:00 Temperature 97.2 F L 97.7 F 97.9 F Pulse Rate 66 65 64 Respiratory Rate 18 20 18 Blood Pressure 130/55 L 117/53 L 136/56 L Pulse Oximetry 97 96 97 Intake/Output Intake/Output: Intake & Output 03/14/20 03/15/20 03/16/20 03/17/20 23:59 23:59 23:59 23:59 Intake Total 630 2130 2740 1440 Output Total 250 950 250 Balance 630 1880 1790 1190 Meds/Results Medications: Active Medications Generic Name Dose Route Start Last Admin Trade Name Freq PRN Reason Stop Dose Admin Acetaminophen 650 mg 03/14/20 00:13 03/17/20 11:08 Tylenol Tablet PO 650 mg Q4H PRN Administration Mild Pain (1-3) or Fever Hydrocodone Bitart/Acetaminophen 1 tab 03/14/20 00:13 03/15/20 22:07 [place] 5-325 Mg PO 1 tab Q4H PRN Administration Pain Rated 4-6 Apixaban 5 mg 03/14/20 09:00 03/17/20 09:46 Eliquis PO 5 mg DAILY ANNA Administration Atorvastatin Calcium 80 mg 03/14/20 21:00 03/16/20 20:02 Lipitor PO 80 mg HS ANNA Administration Clopidogrel Bisulfate 75 mg 03/14/20 09:00 03/17/20 09:45 Plavix PO 75 mg DAILY ANNA Administration Dextrose 12.5 gm 03/14/20 17:25 Dextrose 50% Syringe IV PUSH PRN PRN Hypoglycemia Protocol Diltiazem HCl 180 mg 03/14/20 09:00 03/17/20 09:46 Cardizem Cd PO 180 mg DAILY ANNA Administration Fentanyl Citrate 50 mcg 03/14/20 00:13 Sublimaze IV PUSH Q2H PRN Pain Rated 7-10 Gabapentin 300 mg 03/14/20 09:00 03/17/20 09:46 Neurontin PO 300 mg TID ANNA Administration Glucagon 1 mg 03/14/20 17:25 Glucagon For Inj IM PRN PRN Hypoglycemia Protocol Glucose 15 gm 03/14/20 17:25 Glutose 15 PO PRN PRN Hypoglycemia Protocol Dextrose 1,000 mls @ 100 mls/hr 03/14/20 17:25 Dextrose 5% 1,000 Ml IVPB PRN PRN Hypoglycemia Protocol Sodium Chloride 1,000 mls @ 100 mls/hr 03/15/20 09:00 03/17/20 06:08 Normal Saline Iv IV CONT 100 mls/hr .Q10H ANNA Administration Insulin Aspart 3 - 6 units 03/15/20 08:00 03/17/20 11:44 Novolog SUB-Q Not Given TIDWM ANNA Protocol Losartan Potassium 50 mg 03/14/20 09:00 03/14/20 10:56 Cozaar PO 04/14/20 09:01 50 mg DAILY ANNA Administration Miconazole Nitrate 1 applic 03/14/20 09:00 03/17/20 09:47 Aloe [place] TOPICAL 1 applic Q12HR ANNA Administration Ondansetron HCl 4 mg 03/14/20 00:13 Zofran Inj IV PUSH Q4H PRN Nausea Pantoprazole Sodium 40 mg 03/14/20 09:00 03/17/20 09:45 Protonix PO 40 mg Q12HR ANNA Administration Saccharomyces Boulardii 250 mg 03/15/20 09:00 03/17/20 09:45 Florastor PO 250 mg BID ANNA Administration Tolnaftate 1 applic 03/14/20 09:00 03/17/20 09:50 Tolnaftate 1% Powder
[2020-03-17 14:00] VITALS: BP 151/59; PULSE 66; RESP 19; TEMP 37.1; O2SAT 96
--- NOTE | 2020-03-17 15:43 | PM.IMPN ---
Progress Note: A&P Assessment and Plan (1) Hematuria: Code(s): R31.9 - Hematuria, unspecified Status: Acute Assessment and Plan: Patient noted to have gross hematuria in ED. UA with 3+ blood and 51-[address] a/p reveals wall thickening with possible transitional cell cancers. Per conversation with , patient has had hematuria for approximately 1.5 months. He has previously been established with a urologist, Dr. Ramirez, for prostate issues, but hematuria has never been addressed. Consult placed to urology. Recommendations are greatly appreciated. Plan for diagnostic cystoscopy tomorrow Urine has been collected for flow cytometry Continue to monitor. (2) Peripheral arterial disease: Code(s): I73.9 - Peripheral vascular disease, unspecified Status: Acute Assessment and Plan: Chronic. He is managed by wound care in [place]. Per discussion with his , he has not attended his wound care appointments in some time. She believes he sees a vascular specialist. He has a history of revascularization procedure on left lower extremity, however it is unclear when this was performed. He has good blood flow and sensation to legs. ANTHONY performed today reveals severe arterial occlusion to right lower limb with decreased right ANTHONY at 0.5 and no dopplerable pulse at right great toe, as well as mild arterial occlusive disease in left lower limb with borderline decreased left ANTHONY at 0.91. Consult placed to Dr. Ortiz for evaluation. Case discussed via phone. Wound care has evaluated his legs. Continue antifungal cream per wound care recommendations. Continue to monitor (3) Acute kidney injury: Code(s): N17.9 - Acute kidney failure, unspecified Status: Acute Assessment and Plan: At presentation, Cr 1.1, BUN 39, and GFR >60. Cr transiently elevated at 1.7 and BUN 53 on 03/15. This may have been prerenal as patient may be dehydrated due to diarrhea. He did appear euvolemic on exam. Additionally, this may be obstructive given possibility of bladder cancer, however CT did not note hydronephrosis. Patient does have a history of nonspecific prostate issues. Bladder scan performed 03/15 did not demonstrate retention. FeNa is 0.2% suggesting pre-renal etiology. Renal function has improved today with Cr 1.0 and BUN 28. Discontinue IV fluids. Patient is able to achieve adequate oral intake Continue to hold Losartan and metformin. Will likely be able to resume soon. Continue to monitor renal function Renally dose medications and avoid nephrotoxic agents. (4) Back pain: Code(s): M54.9 - Dorsalgia, unspecified Status: Acute Assessment and Plan: Lumbar x-ray performed 03/13/2020 revealed mild to moderate spondylosis without any acute fracture or changes. Per chart review patient has had low back pain for 3 weeks which has decreased ability to perform ADLs. Back pain is localized to left lateral site without radiation or sensory deficits. Continue PT and OT Consult placed to care coordination for discharge planning. Home health previously arranged but patient is requiring jorge steady for lifts. would like to consider SNF placement. He has been accepted for SNF placement in [place] pending negative COVID test. Nasopharyngeal swab has been ordered. (5) Diarrhea: Qualifiers: Diarrhea type: unspecified type Qualified Code(s): R19.7 - Diarrhea, unspecified Code(s): R19.7 - Diarrhea, unspecified Status: Acute Assessment and Plan: Patient had several episodes of loose stool upon admission. He reports diarrhea has been ongoing for several days. Patient appears euvolemic and electrolytes are stable. Etiology for diarrhea is unclear, however does not appear to be infectious cause. Patient is afebrile and without leukocytosis. Patient takes metformin sporadically which may contribute to GI upset. No episodes of diar
[2020-03-17 17:24] LABS: Glucose Point of Care 128 (65-105)
[2020-03-17] MEDS: ATORVASTATIN 40 MG TABLET 80 MG PO (20:45)
[2020-03-17 20:54] LABS: Glucose Point of Care 170 (65-105)
[2020-03-17 22:00] VITALS: BP 144/61; PULSE 62; RESP 16; TEMP 36.7; O2SAT 95
[2020-03-18] VITALS (7 sets, daily range): BP systolic 120–172; BP diastolic 50–93; PULSE 58–68; RESP 16–24; TEMP 36.2–36.7; O2SAT 93–100
--- NOTE | 2020-03-18 | ECHO_ITS ---
Patient Info Name: Ramana Gaines Age: 69 years : 1950 Gender: Male Ht: 65 in Wt: 201 lbs BSA: 2.08 m2 HR: 60 bpm BP: 150 / 62 mmHg Heart Rhythm: Sinus Rhythm Technical Quality: Good Exam Date: 03/18/2020 1:51 PM Exam Location: [facility] Patient Status: Inpatient Admit Date: 03/17/2020 Staff Ordering Physician: Baldemar Ortiz MD [employer] Technician: Nazario Brito RDCS Attending Provider: Patricia Acevedo PA-C Exam Type: CA echo doppler color flow Study Info Indications I48.0 - Paroxysmal atrial fibrillation Complete two-dimensional, color flow and Doppler transthoracic echocardiogram is performed. History/Risk Factors Atrial fibrillation. Summary 1. Left ventricular systolic function is normal, estimated at 55-60%. 2. Left ventricular septal wall motion is abnormal with septal motion related to bundle branch block. Left Ventricle Left ventricular systolic function is normal, estimated at 55-60%. Left ventricular septal wall motion is abnormal with septal motion related to bundle branch block. Left ventricular chamber dimension is normal. There is no increased left ventricular wall thickness. The left ventricular diastolic function is normal. Right Ventricle Right ventricular chamber dimension is normal. Right ventricular systolic function is normal. Left Atria Left atrial chamber dimension is normal. Right Atria Right atrial chamber dimension is normal. Aortic Valve The aortic valve is trileaflet. There is no aortic valve sclerosis. There is no aortic valve stenosis. There is no aortic valve regurgitation. Pulmonic Valve The pulmonic valve is normal. There is no pulmonic valve stenosis. There is no pulmonic regurgitation. Mitral Valve The mitral valve has normal leaflets. There is no mitral valve stenosis. There is no mitral valve regurgitation. Tricuspid Valve The tricuspid valve leaflets are normal. There is no significant tricuspid valve stenosis. There is no tricuspid valve regurgitation. Pericardium/Pleural The pericardium appears normal. There is no pericardial effusion. Aorta The aortic root size at the sinus of Valsalva is normal. The prox ascending aorta size is normal. Left Ventricular Outflow Tract Name Value Normal LVOT 2D LVOT Diameter 2.0 cm LVOT Doppler LVOT Peak Gradient 5 mmHg LVOT Mean Gradient 2 mmHg LVOT VTI 20 cm LVOT VTI/AV VTI Ratio 0.7 LVOT Stroke Volume 61 ml LVOT CO 3.7 l/min LVOT CI 1.8 l/min/m2 Mitral Valve Name Value Normal MV Doppler MV Decel [place] 442 cm/s2 MV PHT 48 ms
--- NOTE | 2020-03-18 04:34 | ECG_ITS ---
Measurements Intervals [place] Rate: 66 P: -31 IN: 142 QRS: 25 QRSD: 150 T: 26 QT: 414 QTc: 434 Interpretive Statements SINUS RHYTHM WITH SINUS ARRHYTHMIA RIGHT BUNDLE BRANCH BLOCK BASELINE ARTIFACT- I, II, III, AVR, V1-V2 ABNORMAL ECG Electronically Signed On 03-18-2020 11:28:35 CDT by Marty Wheat D.O.
[2020-03-18 05:43] LABS: Basophils Percent Auto 0.5 % (0.2-1.2); Eosinophils Absolute Auto 0.2 K/mm3 (0-0.3); Hematocrit 38.4 % (42.0-52.0); Hemoglobin 12.6 g/dL (14.0-18.0); Immature Granulocyte Absolute 0.02 K/mm3 (0.00-0.031); Immature Granulocyte Percent A 0.3 % (0-0.5); Lymphocytes Absolute Auto 1.35 K/mm3 (0.9-3.2); Lymphocytes Percent Auto 23.2 % (18.3-44.2); Mean Corpuscular HGB Conc 32.8 g/dl (32-36); Mean Corpuscular Hemoglobin 26.9 pg (26-34); Mean Corpuscular Volume 82.1 fl (80-100); Mean Platelet Volume 10.1 fl (7.4-10.4); Monocytes Absolute Auto 0.3 K/mm3 (0.1-0.6); Monocytes Percent Auto 5.5 % (2.6-8.5); Neutrophils Absolute Auto 3.9 K/mm3 (1.3-6.7); Neutrophils Percent Auto 66.5 % (45.5-73.1); Platelet Count Result 190 k/mm3 (150-375); Red Blood Count 4.68 M/mm3 (4.6-6.20); Red Cell Distribution Width 13.5 % (11.5-14.5); White Blood Count 5.8 K/mm3 (4.5-10.0)
[2020-03-18 06:04] LABS: Cholesterol 131 mg/dL (0-200); HDL Direct 29 mg/dL; Triglycerides 92 mg/dL (<150)
[2020-03-18 06:05] LABS: Alanine Aminotransferase 14 U/L (4-50); Albumin Level 3.3 g/dL (3.5-5.1); Alkaline Phosphatase 81 U/L (38-126); Aspartate Amino Transferase 19 U/L (17-59); Bilirubin,Total 0.3 mg/dL (0.2-1.3); Blood Urea Nitrogen 20 mg/dL (9-20); Calcium 8.2 mg/dL (8.4-10.2); Carbon Dioxide 25 mmol/L (22-30); Chloride 109 mmol/L (98-107); Estimated CRCL calculation 69 ml/min; Estimated Glomerular Filt Rate > 60; Glucose 114 mg/dL (75-110); Potassium 3.9 mmol/L (3.4-5.0); Sodium 140 mmol/L (137-145)
[2020-03-18 06:08] LABS: Iron 66 ug/dL (49-181)
[2020-03-18 06:14] LABS: LDL Cholesterol Direct 76 mg/dL
[2020-03-18 06:18] LABS: Percent Iron Saturation 23 % (20-50)
[2020-03-18 07:11] LABS: Folic Acid 9.6 ng/mL (2.76->20)
[2020-03-18 07:58] LABS: Glucose Point of Care 100 (65-105)
[2020-03-18] MEDS: PANTOPRAZOLE 40 MG TABLET PO ×2 (08:57→20:54)
[2020-03-18] MEDS: GABAPENTIN 300 MG CAPSULE PO ×2 (08:57→16:57)
[2020-03-18] MEDS: TOLNAFTATE 1% POWDER 45 GM BTL 1 APPLIC TOPICAL ×2 (08:58→20:55)
[2020-03-18] MEDS: SACCHAROMYCES BOULARDII 250 MG CAPSULE PO ×2 (08:58→16:58)
[2020-03-18] MEDS: APIXABAN 5 MG TABLET PO (11:01)
--- NOTE | 2020-03-18 11:05 | PM.CNCAR ---
Assessment and Plan Assessment and plan (1) Peripheral arterial disease: Code(s): I73.9 - Peripheral vascular disease, unspecified Status: Acute Assessment and Plan: He seems to have progressive disease, seems to be acute on chronic, with likely limb threatening ischemia of the right leg, in view of absent pulses and persistent pain. Will proceed with peripheral angiogram with possible treatment as indicated. (2) Hypertension: Code(s): I10 - Essential (primary) hypertension Status: Acute (3) Nonhealing ulcer of lower extremity limited to breakdown of skin: Code(s): L97.901 - Non-pressure chronic ulcer of unspecified part of unspecified lower leg limited to breakdown of skin Status: Acute Assessment and Plan: He has multiple ulcers more on the right leg, his skin lesions and skin disease of the legs seems to be due to arterial disease and venous disease at the same time in view of severe discoloration. However Dr. hugo is more responsible for his current symptoms now, will proceed with arterial angiogram and treatment as indicated, and consider further workup and treatment for the venous disease (4) Venous stasis dermatitis: Code(s): I87.2 - Venous insufficiency (chronic) (peripheral) Status: Acute Assessment and Plan: He has history of DVT recently, will need further venous workup with venous mapping, and venous duplex to evaluate the severity of his venous dysfunction, and to consider treatment as indicated. Obviously will treat the arterial disease 1st to prevent limb loss (5) History of DVT (deep vein thrombosis): Code(s): Z86.718 - Personal history of other venous thrombosis and embolism Status: Acute Assessment and Plan: He is on Eliquis, will have to put on hold for a day or so for angiogram Additional Plan Thank you for allowing me to participate in this patient's care, I will be following up with you. Please do not hesitate to call me for any other inquiry History of Present Illness History of Present Illness Consult date/time: 03/18/20 11:05 69 years old gentleman, with history of diabetes mellitus, history of known peripheral vascular disease, and history of coronary artery disease, was admitted to the hospital because of back pain, noted to have hematuria. Noted to have severe peripheral vascular disease with leg pain more so the right leg. He has severe discoloration of both legs with multiple ulcers on the right leg. He stated that he had a stent to the leg many years ago but does not recall details about that. He is not very active due to pain in the legs, he had history of DVT of left leg to month ago for which he is on Eliquis. He has history of known coronary disease with previous stent, but no recent chest pain, has mild shortness of breath, mild orthopnea no PNDs. He has severe leg pain, more so of the right leg with resting pain, and multiple ulcers on the right leg, with significant discoloration of both legs up to the knee Reason For Visit: Physical Deconditioning, Chronic Back Pain Review of Systems Constitutional: Constitutional: Reports as per HPI Cardiovascular: Cardiovascular: Reports as per HPI, Reports pedal edema and Reports leg edema Respiratory: Respiratory: Reports dyspnea on exertion Genitourinary: Genitourinary: Reports hematuria and Reports urinary hesitancy PMFSH Past Medical History Medical History Coronary artery disease DM type 2 (diabetes mellitus, type 2) DVT (deep venous thrombosis) GERD (gastroesophageal reflux disease) Hyperlipidemia Hypertension Peripheral arterial disease Surgical History Surgical History H/O cardiac catheterization History of revascularization procedure of lower extremity Hx of CABG Family History Family History S
[2020-03-18 11:36] LABS: Glucose Point of Care 97 (65-105)
[2020-03-18 12:33] LABS: Glucose Point of Care 86 (65-105)
[2020-03-18] MEDS: LIDOCAINE HCL 2% GEL UROJET 10 ML PKG MUCOUS MEM (13:10)
--- NOTE | 2020-03-18 13:10 | PM.PROC ---
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 As well as tumor along the right anterior wall lateral wall.) Procedure performed: Cystoscopy flexible Description of procedure: Patient was taken to the operative suite. He was correctly identified. He was prepped and draped usual sterile fashion. 2% viscous lidocaine was inserted into the urethra. Sixteen Tamazight flexible scope was then placed. His external sphincter was intact. Prostate has some lateral lobe hypertrophy was noted that the he he had a tumor growth at the bladder neck 2 o'clock position which probably measured at least cm and a half to 2 cm. He did has some discomfort with the scope and this was difficult to get a complete evaluation. It was noted however that he had further tumors along the right anterior lateral wall. The area in question altogether is greater than 5 cm. Scope was removed. Patient is taken recovery room stable condition. Patient has a lot of comorbid conditions and is dealing with clot clots and is legs. He has quite a bit of vascular issues in his lower extremities. He is currently on anticoagulants. Patient will require transurethral resection of these bladder tumors but will need to address his other issues and be able to come off of the Plavix. Anesthesia: local Surgeon: August Feliz MD Drains: No Packing: No Pathology: none sent Complications: No immediate complications Condition: stable Disposition: PACU
[2020-03-18 14:29] LABS: Glucose Point of Care 98 (65-105)
[2020-03-18 16:15] LABS: Glucose Point of Care 173 (65-105)
--- NOTE | 2020-03-18 16:20 | PM.IMPN ---
Progress Note: A&P Assessment and Plan (1) Hematuria: Code(s): R31.9 - Hematuria, unspecified Status: Acute Assessment and Plan: Patient noted to have gross hematuria in ED. UA with 3+ blood and 51-[address] abdomen/pelvis reveals wall thickening with possible transitional cell cancers. Per conversation with , patient has had hematuria for approximately 1.5 months. He has previously been established with a urologist, Dr. Ramirez, for prostate issues, but hematuria has never been addressed. He underwent cystoscopy today by Dr. Feliz which revealed tunmor growth at the bladder neck measuring approximately 1-2cm and further tumors at the right anterior lateral wall. He will need to be off plavix prior to further evaluation but will need transurethral resection of the bladder. He will undergo angiogram by Dr. Ortiz tomorrow. Continue follow-up with urology Urine has been collected for flow cytometry and pathology is pending Continue to monitor (2) Peripheral arterial disease: Code(s): I73.9 - Peripheral vascular disease, unspecified Status: Acute Assessment and Plan: Chronic. He is managed by wound care in [place]. Per discussion with his , he has not attended his wound care appointments in some time. She believes he sees a vascular specialist. He has a history of revascularization procedure on left lower extremity, however it is unclear when this was performed. He has palpable left DP and non-palpable right pedal pulses with doppler signal present to the right PT and DP. ANTHONY revealed severe arterial occlusion to right lower limb with decreased right ANTHONY at 0.5 and no dopplerable pulse at right great toe, as well as mild arterial occlusive disease in left lower limb with borderline decreased left ANTHONY at 0.91. Dr. Ortiz is on board. He likely has multifactorial venous and arterial disease and will plan to proceed with peripheral angiogram tomorrow with possible intervention as indicated. He will follow-up outpatient for his venous insuffiency. Wound care has evaluated his legs. Continue antifungal cream per wound care recommendations. Continue to monitor (3) Acute kidney injury: Code(s): N17.9 - Acute kidney failure, unspecified Status: Acute Assessment and Plan: At presentation, Cr 1.1, BUN 39, and GFR >60. Cr transiently elevated at 1.7 and BUN 53 on 03/15. This may have been prerenal as patient may be dehydrated due to diarrhea. He did appear euvolemic on exam. Additionally, this may be obstructive given possibility of bladder cancer, however CT did not note hydronephrosis. Patient does have a history of nonspecific prostate issues. Bladder scan performed 03/15 did not demonstrate retention. FeNa is 0.2% suggesting pre-renal etiology. Renal function has improved today with Cr 0.9 and BUN 20. Continue to hold metformin for now as glycemic control is adequate Continue to monitor renal function Renally dose medications and avoid nephrotoxic agents. (4) Back pain: Code(s): M54.9 - Dorsalgia, unspecified Status: Resolved Assessment and Plan: Lumbar x-ray performed 03/13/2020 revealed mild to moderate spondylosis without any acute fracture or changes. Per chart review patient has had low back pain for 3 weeks which has decreased ability to perform ADLs. Back pain is localized to left lateral site without radiation or sensory deficits. He reports that he is not having any back pain today. He reports that he feels his limited mobility is due to his lower extremity discomfort. Continue PT and OT Consult placed to care coordination for discharge planning and the patient will plan to discharge to SNF in [place]. COVID-19 testing required for admission to SNF was negative. Plan for outpatient follow-up if his back pain recurs (5) Diarrhea: Qualifiers: Diarrhea type: unspecified type Qualified Code(s): R19.7 - Diarrhe
[2020-03-18] MEDS: LOSARTAN POTASSIUM 50 MG TABLET PO (16:55)
[2020-03-18] MEDS: CLOPIDOGREL BISULFATE 75 MG TABLET PO (16:56)
[2020-03-18] MEDS: SODIUM CHLORIDE 0.9% IV 500 ML 100 ML IV CONT ×2 (17:01→22:04)
[2020-03-18] MEDS: ATORVASTATIN 40 MG TABLET 80 MG PO (20:55)
[2020-03-18] MEDS: ACETAMINOPHEN 325 MG TABLET 650 MG PO (20:58)
[2020-03-18 21:26] LABS: Glucose Point of Care 147 (65-105)
[2020-03-19] VITALS (20 sets, daily range): BP systolic 133–198; BP diastolic 56–92; PULSE 50–67; RESP 11–20; TEMP 35.8–36.6; O2SAT 96–99
[2020-03-19] MEDS: SODIUM CHLORIDE 0.9% IV 500 ML 100 ML IV CONT ×2 (03:08→08:27)
[2020-03-19 05:33] LABS: Hemoglobin 12.4 g/dL (14.0-18.0); Mean Corpuscular HGB Conc 32.6 g/dl (32-36); Mean Corpuscular Hemoglobin 27.1 pg (26-34); Mean Corpuscular Volume 83.2 fl (80-100); Mean Platelet Volume 10.4 fl (7.4-10.4); Platelet Count Result 164 k/mm3 (150-375); Red Blood Count 4.57 M/mm3 (4.6-6.20); Red Cell Distribution Width 13.6 % (11.5-14.5); White Blood Count 5.5 K/mm3 (4.5-10.0)
[2020-03-19 05:47] LABS: Alanine Aminotransferase 12 U/L (4-50); Albumin Level 2.9 g/dL (3.5-5.1); Alkaline Phosphatase 72 U/L (38-126); Aspartate Amino Transferase 19 U/L (17-59); Bilirubin,Total 0.3 mg/dL (0.2-1.3); Blood Urea Nitrogen 16 mg/dL (9-20); Calcium 8.2 mg/dL (8.4-10.2); Carbon Dioxide 26 mmol/L (22-30); Chloride 109 mmol/L (98-107); Estimated CRCL calculation 69 ml/min; Estimated Glomerular Filt Rate > 60; Glucose 109 mg/dL (75-110); Magnesium 1.3 mg/dL (1.6-2.3); Potassium 3.8 mmol/L (3.4-5.0); Sodium 137 mmol/L (137-145)
[2020-03-19 08:15] LABS: Glucose Point of Care 87 (65-105)
[2020-03-19] MEDS: MAGNESIUM SULF 2 GM/WATER 50ML 2 GM/50 ML BAG IVPB (08:25)
--- NOTE | 2020-03-19 08:36 | PM.IMPN ---
Progress Note: A&P Assessment and Plan (1) Hematuria: Qualifiers: Hematuria type: gross Qualified Code(s): R31.0 - Gross hematuria Code(s): R31.9 - Hematuria, unspecified Status: Acute Assessment and Plan: Patient noted to have gross hematuria in ED. UA with 3+ blood and 51-[address] abdomen/pelvis reveals wall thickening with possible transitional cell cancers. Per conversation with , patient has had hematuria for approximately 1.5 months. He has previously been established with a urologist, Dr. Ramirez, for prostate issues, but hematuria has never been addressed. He underwent cystoscopy today by Dr. Feliz which revealed tunmor growth at the bladder neck measuring approximately 1-2cm and further tumors at the right anterior lateral wall. He will need to be off plavix prior to further evaluation but will need transurethral resection of the bladder per urology. Continue follow-up with urology Urine has been collected for flow cytometry and reveals urothelial carcinoma. Await further urology recommendations which are greatly appreciated. Continue to monitor (2) Peripheral arterial disease: Code(s): I73.9 - Peripheral vascular disease, unspecified Status: Acute Assessment and Plan: Chronic. He is managed by wound care in [place]. Per discussion with his , he has not attended his wound care appointments in some time. She believes he sees a vascular specialist. He has a history of revascularization procedure on left lower extremity, however it is unclear when this was performed. He has palpable left DP and non-palpable right pedal pulses with doppler signal present to the right PT and DP. ANTHONY revealed severe arterial occlusion to right lower limb with decreased right ANTHONY at 0.5 and no dopplerable pulse at right great toe, as well as mild arterial occlusive disease in left lower limb with borderline decreased left ANTHONY at 0.91. Dr. Ortiz is on board. He likely has multifactorial venous and arterial disease and will plan to proceed with peripheral angiogram today with possible intervention as indicated. He will follow-up outpatient for his venous insufficiency. Wound care has evaluated his legs. Continue antifungal cream per wound care recommendations. Continue to monitor (3) Acute kidney injury: Code(s): N17.9 - Acute kidney failure, unspecified Status: Acute Assessment and Plan: At presentation, Cr 1.1, BUN 39, and GFR >60. Cr transiently elevated at 1.7 and BUN 53 on 5/16. This may have been prerenal as patient may be dehydrated due to diarrhea. He did appear euvolemic on exam. Additionally, this may be obstructive given possibility of bladder cancer, however CT did not note hydronephrosis. Patient does have a history of nonspecific prostate issues. Bladder scan performed 03/15 did not demonstrate retention. FeNa is 0.2% suggesting pre-renal etiology. Renal function has improved today with Cr 0.9 and BUN 16. Continue to hold metformin for now as glycemic control is adequate Continue to monitor renal function Renally dose medications and avoid nephrotoxic agents. (4) Back pain: Qualifiers: Back pain location: low back pain Chronicity: chronic Back pain laterality: bilateral Sciatica presence: without sciatica Qualified Code(s): M54.5 - Low back pain; G89.29 - Other chronic pain Code(s): M54.9 - Dorsalgia, unspecified Status: Resolved Assessment and Plan: Lumbar x-ray performed 03/13/2020 revealed mild to moderate spondylosis without any acute fracture or changes. Per chart review patient has had low back pain for 3 weeks which has decreased ability to perform ADLs. Back pain is localized to left lateral site without radiation or sensory deficits. He reports that he is not having any back pain today. He reports that he feels his limited mobility is due to his lower extremity discomfort. Continue PT and OT C
--- NOTE | 2020-03-19 08:49 | PC.NURSE ---
Spoke with medical laboratory technical officer, instructed to give all po 0900 meds except Lasix.
--- NOTE | 2020-03-19 08:55 | WPDANESPN ---
Anes - Prog Note Post-Op Date/Time: 03/19/20 08:55 Cardiovascular status: normal Respiratory status: normal Airway patency: baseline Mental status: baseline Post-Op hydration status: normal Vital Signs: Last Vital Signs Temp 35.8 C L 03/19/20 04:00 Pulse 57 L 03/19/20 04:00 Resp 20 03/19/20 04:00 BP 137/62 03/19/20 04:00 Pulse Ox 98 03/19/20 04:00 I/O: Intake & Output 03/18/20 03/19/20 03/19/20 23:59 07:59 15:59 Intake Total 740 500 500 Output Total 350 300 Balance 390 200 500 Laboratory Tests 03/19/20 05:10 03/19/20 05:10 03/17/20 03/18/20 03/18/20 12:04 11:28 12:30 WBC RBC Hgb Hct MCV MCH MCHC RDW Plt Count MPV Sodium Potassium Chloride Carbon Dioxide BUN Creatinine Estim Creat Clear Calc Estimated GFR Glucose POC Capillary Glucose 97 86 Calcium Magnesium Total Bilirubin AST ALT Alkaline Phosphatase Total Protein Albumin COVID-19 PCR Interp Not detected 03/18/20 03/18/20 03/18/20 14:26 16:13 20:53 WBC RBC Hgb Hct MCV MCH MCHC RDW Plt Count MPV Sodium Potassium Chloride Carbon Dioxide BUN Creatinine Estim Creat Clear Calc Estimated GFR Glucose POC Capillary Glucose 98 173 H 147 H Calcium Magnesium Total Bilirubin AST ALT Alkaline Phosphatase Total Protein Albumin COVID-19 PCR Interp 03/19/20 03/19/20 03/19/20 05:10 05:10 07:55 WBC 5.5 RBC 4.57 L Hgb 12.4 L Hct 38.0 L MCV 83.2 MCH 27.1 MCHC 32.6 RDW 13.6 Plt Count 164 MPV 10.4 Sodium 137 Potassium 3.8 Chloride 109 H Carbon Dioxide 26 BUN 16 Creatinine 0.90 Estim Creat Clear Calc 69 Estimated GFR > 60 Glucose 109 POC Capillary Glucose 87 Calcium 8.2 L Magnesium 1.3 L Total Bilirubin 0.3 AST 19 ALT 12 Alkaline Phosphatase 72 Total Protein 6.0 L Albumin 2.9 L COVID-19 PCR Interp Post-procedural complaints: none Patient Feedback: Patient satisfied with anesthetic care.
[2020-03-19] MEDS: GABAPENTIN 300 MG CAPSULE PO ×2 (08:57→17:40)
[2020-03-19] MEDS: SACCHAROMYCES BOULARDII 250 MG CAPSULE PO ×2 (08:57→17:40)
[2020-03-19] MEDS: LOSARTAN POTASSIUM 50 MG TABLET PO (08:58)
[2020-03-19] MEDS: PANTOPRAZOLE 40 MG TABLET PO ×2 (08:58→20:18)
[2020-03-19] MEDS: TOLNAFTATE 1% POWDER 45 GM BTL 1 APPLIC TOPICAL ×2 (09:10→20:25)
[2020-03-19] MEDS: CLOPIDOGREL BISULFATE 75 MG TABLET PO (09:48)
[2020-03-19 11:38] LABS: Glucose Point of Care 87 (65-105)
--- NOTE | 2020-03-19 12:58 | PC.NURSE ---
Pt to dairy laboratory technician via hospital bed. IV intact.
--- NOTE | 2020-03-19 12:59 | WPDMODSED ---
Moderate Sedation Note-Pt Data Patient Data Allergies Allergy/AdvReac Type Severity Reaction Status Date / Time No Known Allergies Allergy Unknown Verified 03/13/20 20:11 Home Medications Medication Instructions Recorded Confirmed Type apixaban [Eliquis] 5 mg PO DAILY 03/13/20 03/14/20 History atorvastatin 80 mg PO HS 03/14/20 03/14/20 History clopidogrel [Plavix] 75 mg PO DAILY 03/14/20 03/14/20 History diltiazem HCl 180 mg PO DAILY 03/14/20 03/14/20 History furosemide 40 mg PO DAILY 03/14/20 03/14/20 History gabapentin 300 mg PO TID 03/14/20 03/14/20 History glimepiride 4 mg PO BID 03/14/20 03/14/20 History isosorbide mononitrate 120 mg PO DAILY 03/14/20 03/14/20 History losartan 50 mg PO DAILY 03/14/20 03/14/20 History metformin 500 mg PO BID 03/14/20 03/14/20 History omeprazole 40 mg PO DAILY 03/14/20 03/14/20 History Current Medications: Active Medications Acetaminophen (Tylenol Tablet) 650 mg PO Q4H PRN PRN Reason: Mild Pain (1-3) or Fever Last Admin: 03/18/20 20:58 Dose: 650 mg Documented by: Hydrocodone Bitart/Acetaminophen ([place] 5-325 Mg) 1 tab PO Q4H PRN PRN Reason: Pain Rated 4-6 Last Admin: 03/19/20 09:01 Dose: 1 tab Documented by: Atorvastatin Calcium (Lipitor) 80 mg PO [facility] Last Admin: 03/18/20 20:55 Dose: 80 mg Documented by: Clopidogrel Bisulfate (Plavix) 75 mg PO DAILY [facility] Last Admin: 03/19/20 09:48 Dose: 75 mg Documented by: Dextrose (Dextrose 50% Syringe) 12.5 gm IV PUSH PRN PRN; Protocol PRN Reason: Hypoglycemia Diltiazem HCl (Cardizem Cd) 180 mg PO DAILY [facility] Last Admin: 03/19/20 08:58 Dose: 180 mg Documented by: Fentanyl Citrate (Sublimaze) 50 mcg IV PUSH Q2H PRN PRN Reason: Pain Rated 7-10 Furosemide (Lasix Tablet) 20 mg PO DAILY [facility] Last Admin: 03/19/20 08:49 Dose: Not Given Documented by: Gabapentin (Neurontin) 300 mg PO TID [facility] Last Admin: 03/19/20 08:57 Dose: 300 mg Documented by: Glucagon (Glucagon For Inj) 1 mg IM PRN PRN; Protocol PRN Reason: Hypoglycemia Glucose (Glutose 15) 15 gm PO PRN PRN; Protocol PRN Reason: Hypoglycemia Dextrose (Dextrose 5% 1,000 Ml) 1,000 mls @ 100 mls/hr IVPB PRN PRN; Protocol PRN Reason: Hypoglycemia Sodium Chloride (Normal Saline Iv) 500 mls @ 100 mls/hr IV CONT .Q5H [facility] Last Admin: 03/19/20 08:27 Dose: 100 mls/hr Documented by: Insulin Aspart (Novolog) 3 - 6 units SUB-Q TIDWM [facility]; Protocol Last Admin: 03/19/20 08:27 Dose: Not Given Documented by: Losartan Potassium (Cozaar) 50 mg PO DAILY [facility] Stop: 04/14/20 09:01 Last Admin: 03/19/20 08:58 Dose: 50 mg Documented by: Miconazole Nitrate (Aloe [place]) 1 applic TOPICAL Q12HR [facility] Last Admin: 03/18/20 20:55 Dose: 1 applic Documented by: Ondansetron HCl (Zofran Inj) 4 mg IV PUSH Q4H PRN PRN Reason: Nausea Pantoprazole Sodium (Protonix) 40 mg PO Q12HR [facility] Last Admin: 03/19/20 08:58 Dose: 40 mg Documented by: Saccharomyces Boulardii (Florastor) 250 mg PO BID [facility] Last Admin: 03/19/20 08:57 Dose: 250 mg Documented by: Silver Nitrate (Aquacel-Ag 4 X 4.7 Dressing) 1 each TOPICAL QAM [facility] Tolnaftate (Tolnaftate 1% Powder) 1 applic TOPICAL Q12HR [facility] Last Admin: 03/18/20 20:55 Dose: 1 applic Documented by: Sedation/Anesthesia: No previous sedation/anesthesia problems (including family history). [facility] Past Medical History Medical History Coronary artery disease DM type 2 (diabetes mellitus, type 2) DVT (deep venous thrombosis) GERD (gastroesophageal reflux disease) Hyperlipidemia Hypertension Peripheral arterial disease Surgical History Surgical History H/O cardiac catheterization History of revascularization procedure of lower extremity Hx of CABG Family History Family History Sibling Family history of cardiovascular disease Father Family history of cardiovascu
--- NOTE | 2020-03-19 14:11 | PCOTNOTE ---
Attempted to see patient this pm, however patient off floor to cath lab manager for angiogram.
[2020-03-19 14:57] LABS: Activated Clotting Time 219 sec (74-137)
--- NOTE | 2020-03-19 15:43 | WPDCARDPROC ---
Cardiac Cath Procedure Note Date of procedure:: 03/19/20 Performing physician:: Baldemar Ortiz MD Procedure: 1. Access to the left common femoral artery using ultrasound guidance. 2. Insertion of a catheter into the left common femoral artery, and advancement of the catheter to the abdominal aorta. 3. Abdominal aorta angiogram with distal runoff. 4. Selective right common femoral artery angiogram with distal runoff. 5. Selective right SFA angiogram using contralateral access. 6. Balloon angioplasty to the distal SFA mid SFA and proximal SFA. 7. Intravascular ultrasound to the popliteal artery on the right side, distal SFA, mid right SFA, proximal right SFA, and right common femoral. 8. Final angiogram 9. Conscious sedation starting time is 1:30, ending time is 3:30 p.m. using total of 4 mg of Versed, 125 micro crown fentanyl Checkout Supervisor: Dr. Baldemar Ortiz Complications: None. Sedation: Conscious sedation, local anesthesia, using 4 mg of Versed said, 125 mcg of fentanyl, and using 1% lidocaine for local anesthesia. Technique: After informed consent was obtained from patient, was brought to the research lab assistant, put in the research lab assistant table, prepped and draped in usual sterile fashion. Five [place] sheath was inserted into the left common femoral artery using ultrasound guidance, through the sheath 5 [place] omni Flush catheter was inserted advanced to the abdominal aorta abdominal aorta angiogram with distal runoff was obtained. Catheter then was pulled to the level of the aortic bifurcation and subsequently over the guidewire was advanced to the contralateral side, advanced all the way to right common femoral artery, the wire was used to exchange the catheter into glide catheter, over the catheter the wire was exchanged into glide wire, and was advanced through the stented area of the right SFA. Subsequently the sheath was exchanged over the guidewire into 6 [place] crossover sheath for applying treatment. Lesions were identified, subsequently I was able to cross the total occlusion of the SFA stents with using support catheter seeker and Glidewire. Once the Glidewire and the Seeker catheter reached the popliteal artery popliteal artery angiogram was done to ensure the presence of the catheter into the true. The wire was exchanged into 014 [place] wire, and over the wire balloon angioplasty was done using 7 x 100 balloon, doing multiple inflation to the area that is occluded. Post balloon angioplasty, angiogram was done showed presybeterian of the flow but with very sluggish flow and with multiple lesions. This was treated with high-pressure balloons, but in spite of multiple inflations of the there continued to be significant limitation of the flow, and due to that and it was decided to do intravascular ultrasound. Intravascular ultrasound was done throughout vessels showed diffuse thrombosis of the SFA possibly causing the total occlusion and causing diminished flow. At that time it was decided that this would be to put a [place] catheter for tPA infusion overnight with low dose to try to improve the blood flow. Infusion catheter was inserted over the guidewire, and connected to tPA for infusion overnight. This sheath was sutured in place, patient observed no complication, he was taken from the research lab assistant to his room in stable condition stable vital signs. Hemodynamics: aortic pressure 164/60 . Angiographic findings: Abdominal aorta shows [id number] diffuse disease with no obstructive lesions. Renal arteries patent bilaterally. Left common iliac is patent with minimal disease, left external iliac is patent left common femoral is patent with minimal disease, left internal iliac is patent, left SFA showed multiple stents but seems to be widely open. On the right side right common iliac is patent, with minimal disease, right external iliac is patent with minimal disease, right internal iliac is patent with minimal disease, right common femoral is patent with minimal
[2020-03-19 16:15] LABS: Basophils Percent Auto 0.7 % (0.2-1.2); Eosinophils Absolute Auto 0.4 K/mm3 (0-0.3); Eosinophils Percent Auto 6.4 % (0-4.4); Hematocrit 39.2 % (42.0-52.0); Hemoglobin 12.9 g/dL (14.0-18.0); Immature Granulocyte Absolute 0.02 K/mm3 (0.00-0.031); Immature Granulocyte Percent A 0.3 % (0-0.5); Lymphocytes Absolute Auto 1.42 K/mm3 (0.9-3.2); Lymphocytes Percent Auto 23.9 % (18.3-44.2); Mean Corpuscular HGB Conc 32.9 g/dl (32-36); Mean Corpuscular Hemoglobin 27.1 pg (26-34); Mean Corpuscular Volume 82.4 fl (80-100); Mean Platelet Volume 10.3 fl (7.4-10.4); Monocytes Absolute Auto 0.3 K/mm3 (0.1-0.6); Monocytes Percent Auto 5.5 % (2.6-8.5); Neutrophils Absolute Auto 3.8 K/mm3 (1.3-6.7); Neutrophils Percent Auto 63.2 % (45.5-73.1); Platelet Count Result 168 k/mm3 (150-375); Red Blood Count 4.76 M/mm3 (4.6-6.20); Red Cell Distribution Width 13.6 % (11.5-14.5)
[2020-03-19 16:24] LABS: INR 1.2; Prothrombin Time 14.6 Seconds (11.1-14.7)
--- NOTE | 2020-03-19 16:30 | PC.NURSE ---
This patient, Ramana Gaines, was received from [[phone] ] on 03/19/20 at 1656. Personal belongings list checked and signed. Patient/family oriented to unit policies and routines Report received from MARYLU Beltrán at bedside.
[2020-03-19] MEDS: HEPARIN SOD/D5W 100 UNITS/ML 25,000 UNITS/250 ML BAG 10 UNITS IV CONT (16:40)
[2020-03-19] MEDS: SODIUM CHLORIDE 0.9% IV 1,000 ML 60 ML IV CONT (16:41)
[2020-03-19 16:43] LABS: Partial Thromboplastin Time > 200.0 SECONDS (22.3-36.8)
[2020-03-19 17:35] LABS: Glucose Point of Care 84 (65-105)
[2020-03-19] MEDS: ATORVASTATIN 40 MG TABLET 80 MG PO (20:18)
[2020-03-19 22:20] LABS: Fibrinogen 410 mg/dl (215-510)
[2020-03-20] VITALS (38 sets, daily range): BP systolic 107–169; BP diastolic 46–108; PULSE 49–79; RESP 12–18; TEMP 36.1–36.9; O2SAT 90–100
[2020-03-20 04:49] LABS: Basophils Percent Auto 0.6 % (0.2-1.2); Eosinophils Absolute Auto 0.3 K/mm3 (0-0.3); Eosinophils Percent Auto 4.6 % (0-4.4); Hematocrit 39.8 % (42.0-52.0); Hemoglobin 12.9 g/dL (14.0-18.0); Immature Granulocyte Absolute 0.02 K/mm3 (0.00-0.031); Immature Granulocyte Percent A 0.3 % (0-0.5); Lymphocytes Absolute Auto 1.09 K/mm3 (0.9-3.2); Lymphocytes Percent Auto 17.3 % (18.3-44.2); Mean Corpuscular HGB Conc 32.4 g/dl (32-36); Mean Corpuscular Hemoglobin 27.3 pg (26-34); Mean Corpuscular Volume 84.3 fl (80-100); Mean Platelet Volume 10.7 fl (7.4-10.4); Monocytes Absolute Auto 0.3 K/mm3 (0.1-0.6); Neutrophils Absolute Auto 4.6 K/mm3 (1.3-6.7); Neutrophils Percent Auto 73.2 % (45.5-73.1); Platelet Count Result 118 k/mm3 (150-375); Red Blood Count 4.72 M/mm3 (4.6-6.20); Red Cell Distribution Width 13.7 % (11.5-14.5); White Blood Count 6.3 K/mm3 (4.5-10.0)
[2020-03-20 06:58] LABS: Blood Urea Nitrogen 11 mg/dL (9-20); Calcium 8.2 mg/dL (8.4-10.2); Carbon Dioxide 25 mmol/L (22-30); Chloride 105 mmol/L (98-107); Estimated CRCL calculation 87 ml/min; Estimated Glomerular Filt Rate > 60; Glucose 108 mg/dL (75-110); Magnesium 1.4 mg/dL (1.6-2.3); Potassium 4.2 mmol/L (3.4-5.0); Sodium 135 mmol/L (137-145)
--- NOTE | 2020-03-20 08:41 | P.PCNCC_ITS ---
Cardiac Cath Procedure Note Date of procedure:: 03/20/20 Performing physician:: Baldemar Ortiz MD Procedure: 1. Selective angiogram to the right SFA using contralateral access, using previously inserted catheter. 2. Selective angiogram to the left common femoral artery with distal runoff. Technique: After informed consent obtained the patient was brought to the photographic laboratory technician prepped and draped usual sterile fashion, the catheter was already inserted into the right SFA, was pulled to mid level and hand injection of contrast was done to visualize the distal portion of the stented SFA, the catheter then was pulled to the proximal portion of the SFA and repeat angiogram was done. At this point the catheter was completely removed out of the body, and the crossover sheath was exchanged over guidewire into a short 6 [place] sheath, the sheath was used for angiogram to the left common femoral artery with distal runoff. At the end the sheath was removed applying pressure for hemostasis. Angiographic findings: Right SFA is patent with good flow, minimal distal SFA disease, but good flow noted. Popliteal vessel noted and good 2 vessel distal runoff left common femoral is patent, profundus is patent on the left, there is a graft going from the common femoral going to popliteal which is patent. Summary: successful lysis of the thrombus and the right SFA, with patent SFA and now on the right side. Patent left-sided fem-pop graft. Recommendation: continue medical treatment start medication, long-term he will be better with long-term anticoagulation to prevent further thrombosis
--- NOTE | 2020-03-20 08:52 | PM.PNCARD ---
Progress Note: A&P Assessment and Plan (1) Peripheral arterial disease: Code(s): I73.9 - Peripheral vascular disease, unspecified Status: Acute Assessment and Plan: had angiogram yesterday revealing totally occluded right SFA, treated with balloon angioplasty and subsequently had a catheter infusion overnight with tPA, today has repeat angiogram showed patent right SFA. A he will be better on anticoagulation long-term to prevent further thrombosis. Will start his Eliquis as soon as okay with Urology. (2) Hypertension: Qualifiers: Hypertension type: essential hypertension Qualified Code(s): I10 - Essential (primary) hypertension Code(s): I10 - Essential (primary) hypertension Status: Chronic (3) Nonhealing ulcer of lower extremity limited to breakdown of skin: Code(s): L97.901 - Non-pressure chronic ulcer of unspecified part of unspecified lower leg limited to breakdown of skin Status: Acute Assessment and Plan: He has multiple ulcers more on the right leg, his skin lesions and skin disease of the legs seems to be due to arterial disease and venous disease. he still has multiple venous ulcers, which should be treated with wound care, and subsequently in the long-term future I would work on treatment of his veins to improve that, for the time being his totally occluded right SFA is treated, to prevent limb loss (4) Venous stasis dermatitis: Code(s): I87.2 - Venous insufficiency (chronic) (peripheral) Status: Acute Assessment and Plan: He has history of DVT recently, will need further venous workup with venous mapping, and venous duplex to evaluate the severity of his venous dysfunction, and to consider treatment as indicated. Obviously will treat the arterial disease 1st to prevent limb loss (5) History of DVT (deep vein thrombosis): Code(s): Z86.718 - Personal history of other venous thrombosis and embolism Status: Acute Assessment and Plan: He is okay start back on Eliquis whenever it is okay with Urology Additional Plan Thank you for allowing me to participate in this patient's care, I will be following up with you. Please do not hesitate to call me for any other inquiry Subjective Date/time seen: 03/20/20 08:52 He feels okay today, he had infusion of tPA overnight through a catheter, catheter was removed today angiogram was done showed patent SFA stents. Exam Narrative: Exam Narrative: Awake alert oriented x3 not in acute distress Neck is supple no obvious JVD, no carotid bruit Chest: Good air entry bilaterally, lungs are clear to auscultation and percussion bilaterally Cardiovascular: Regular rate and rhythm, 2/6 systolic murmur noted left sternal border Abdomen: Soft nontender bowel sounds positive Extremities: Full significant discoloration of both legs, with multiple oozing ulcers on the right leg, he has decreased pulses in the left leg and absent pulses on the right leg Objective Data Vital Signs Vital Signs: Vital Signs - 24 hr 03/19/20 16:30 03/19/20 16:45 03/19/20 17:00 Temperature 36.4 C Pulse Rate 63 62 63 Respiratory Rate 15 16 15 Blood Pressure 198/65 H 136/59 L 156/62 H Pulse Oximetry 97 97 97 03/19/20 17:15 03/19/20 17:30 03/19/20 17:45 Temperature Pulse Rate 67 54 L 67 Respiratory Rate 13 12 17 Blood Pressure 145/65 H 154/63 H 151/56 H Pulse Oximetry 98 97 99 03/19/20 18:00 03/19/20 18:15 03/19/20 18:30 Temperature Pulse Rate 63 62 58 L Respiratory Rate 16 16 13 Blood Pressure 135/63 150/65 H 143/92 H Pulse Oximetry 97 99 98 03/19/20 19:05 03/19/20 19:16 03/19/20 19:30 Temperature Pulse Rate 51 L 53 L 55 L Respiratory Rate 13 11 L 13 Blood Pressure 139/64 Pulse Oximetry 96 98 96 03/19/20 20:00 03/19/20 20:01 03/19/20 20:30 Temperature 36.6 C Pulse Rate 52 L 51 L 54 L Respiratory Rate 11 L 13 11 L Blood Pressure 133/59 L Pulse Oximetry 98 98 99 03/19
--- NOTE | 2020-03-20 08:55 | PM.PNCARD ---
Progress Note: A&P Assessment and Plan (1) Peripheral arterial disease: Code(s): I73.9 - Peripheral vascular disease, unspecified Status: Acute Assessment and Plan: had angiogram yesterday revealing totally occluded right SFA, treated with balloon angioplasty and subsequently had a catheter infusion overnight with tPA. (2) Hypertension: Qualifiers: Hypertension type: essential hypertension Qualified Code(s): I10 - Essential (primary) hypertension Code(s): I10 - Essential (primary) hypertension Status: Chronic (3) Nonhealing ulcer of lower extremity limited to breakdown of skin: Code(s): L97.901 - Non-pressure chronic ulcer of unspecified part of unspecified lower leg limited to breakdown of skin Status: Acute Assessment and Plan: He has multiple ulcers more on the right leg, his skin lesions and skin disease of the legs seems to be due to arterial disease and venous disease. he still has multiple venous ulcers, which should be treated with wound care, and subsequently in the long-term future I would work on treatment of his veins to improve that, for the time being his totally occluded right SFA is treated, to prevent limb loss (4) Venous stasis dermatitis: Code(s): I87.2 - Venous insufficiency (chronic) (peripheral) Status: Acute Assessment and Plan: He has history of DVT recently, will need further venous workup with venous mapping, and venous duplex to evaluate the severity of his venous dysfunction, and to consider treatment as indicated. Obviously will treat the arterial disease 1st to prevent limb loss (5) History of DVT (deep vein thrombosis): Code(s): Z86.718 - Personal history of other venous thrombosis and embolism Status: Acute Assessment and Plan: He is okay start back on Eliquis whenever it is okay with Urology Additional Plan Thank you for allowing me to participate in this patient's care, I will be following up with you. Please do not hesitate to call me for any other inquiry Subjective Date/time seen: 03/19/20 15:55 underwent angiogram revealed total occluded right SFA stents, treated with balloon angioplasty followed by insertion of infusion catheter to treat the thrombosis Exam Narrative: Exam Narrative: Awake alert oriented x3 not in acute distress Neck is supple no obvious JVD, no carotid bruit Chest: Good air entry bilaterally, lungs are clear to auscultation and percussion bilaterally Cardiovascular: Regular rate and rhythm, 2/6 systolic murmur noted left sternal border Abdomen: Soft nontender bowel sounds positive Extremities: Full significant discoloration of both legs, with multiple oozing ulcers on the right leg, he has decreased pulses in the left leg and absent pulses on the right leg Objective Data Vital Signs Vital Signs: Vital Signs - 24 hr 03/19/20 16:30 03/19/20 16:45 03/19/20 17:00 Temperature 36.4 C Pulse Rate 63 62 63 Respiratory Rate 15 16 15 Blood Pressure 198/65 H 136/59 L 156/62 H Pulse Oximetry 97 97 97 03/19/20 17:15 03/19/20 17:30 03/19/20 17:45 Temperature Pulse Rate 67 54 L 67 Respiratory Rate 13 12 17 Blood Pressure 145/65 H 154/63 H 151/56 H Pulse Oximetry 98 97 99 03/19/20 18:00 03/19/20 18:15 03/19/20 18:30 Temperature Pulse Rate 63 62 58 L Respiratory Rate 16 16 13 Blood Pressure 135/63 150/65 H 143/92 H Pulse Oximetry 97 99 98 03/19/20 19:05 03/19/20 19:16 03/19/20 19:30 Temperature Pulse Rate 51 L 53 L 55 L Respiratory Rate 13 11 L 13 Blood Pressure 139/64 Pulse Oximetry 96 98 96 03/19/20 20:00 03/19/20 20:01 03/19/20 20:30 Temperature 36.6 C Pulse Rate 52 L 51 L 54 L Respiratory Rate 11 L 13 11 L Blood Pressure 133/59 L Pulse Oximetry 98 98 99 03/19/20 21:01 03/19/20 22:00 03/19/20 23:00 Temperature Pulse Rate 52 L 58 L 50 L Respiratory Rate 11 L 14 13 Blood Pressure 148/66 H 161/75 H 137/63 Pulse Oximetry 9
[2020-03-20] MEDS: LOSARTAN POTASSIUM 25 MG TABLET 75 MG PO (09:54)
[2020-03-20] MEDS: FUROSEMIDE 20 MG TABLET PO (09:54)
[2020-03-20] MEDS: CLOPIDOGREL BISULFATE 75 MG TABLET PO (09:54)
[2020-03-20] MEDS: GABAPENTIN 300 MG CAPSULE PO ×3 (09:54→18:25)
[2020-03-20] MEDS: PANTOPRAZOLE 40 MG TABLET PO ×2 (09:54→20:30)
[2020-03-20] MEDS: TOLNAFTATE 1% POWDER 45 GM BTL 1 APPLIC TOPICAL ×2 (09:55→20:30)
[2020-03-20] MEDS: SACCHAROMYCES BOULARDII 250 MG CAPSULE PO ×2 (09:55→18:25)
[2020-03-20 09:56] LABS: Activated Clotting Time 158 sec (74-137)
[2020-03-20] MEDS: SODIUM CHLORIDE 0.9% IV 1,000 ML 50 ML IV CONT (09:56)
[2020-03-20] MEDS: MAGNESIUM SULF 2 GM/WATER 50ML 2 GM/50 ML BAG IVPB (09:56)
[2020-03-20 09:57] LABS: Glucose Point of Care 85 (65-105)
--- NOTE | 2020-03-20 10:01 | WPDCNINT ---
Assessment and Plan Assessment and plan (1) Arterial thrombosis: Code(s): I74.9 - Embolism and thrombosis of unspecified artery Status: Acute Assessment and Plan: patient had angiogram done yesterday which showed SFA thrombosis. balloon angioplasty was done and tPA infusion was started through the arterial catheter. patient patient went back back for repeat angiogram to medical lab assistant today which showed right SFA to be patent with good flow. tPA catheter was removed and infusion discontinued patient will need anticoagulation to be resumed once cleared by urology (2) Peripheral arterial disease: Code(s): I73.9 - Peripheral vascular disease, unspecified Status: Acute Assessment and Plan: see above (3) Hematuria: Qualifiers: Hematuria type: gross Qualified Code(s): R31.0 - Gross hematuria Code(s): R31.9 - Hematuria, unspecified Status: Acute Assessment and Plan: management per urology. patient is being worked up for bladder cancer anticoagulation is on hold (4) Acute kidney injury: Code(s): N17.9 - Acute kidney failure, unspecified Status: Acute Assessment and Plan: Creatinine has normalized replace low magnesium (5) Nonhealing ulcer of lower extremity limited to breakdown of skin: Code(s): L97.901 - Non-pressure chronic ulcer of unspecified part of unspecified lower leg limited to breakdown of skin Status: Acute Assessment and Plan: wound care is following patient is being transferred out of ICU postprocedure now once the sheath is removed as he is hemodynamically stable asymptomatic apart from chronic pain in his leg and not on any IV infusions [employer] Consult Note Consult date: 03/20/20 Time Seen: 10:00 HPI: Ramana Gaines is a 69 year old male with past medical history of coronary artery disease, diabetes, hypertension, PAD who was admitted on 03/13 with back pain and hematuria. patient was seen by urology and his CT scan showed bladder thickening. patient was also in [facility] and was managed with IV fluid and discontinuation of his ARB and metformin. patient had a cystoscopy done on 03/18 patient had chronic foot wounds from peripheral arterial disease. patient underwent diagnostic angiogram yesterday which showed severe peripheral arterial disease and total occlusion of SFA that has an old stent in it. Right-sided. double balloon angioplasties were done but good results were not obtained hence patient was started on tPA infusion true left femoral catheter and admitted to ICU for closer monitoring overnight. this morning when I saw the patient complained of pain in his right leg which was unchanged but 10/, pain was sharp did not radiate anywhere else, continuous, relieved with pain medication, worse with movement and touching Review of Systems Review of Systems: Narrative: pain in right leg 10 at the wound site All systems reviewed & are unremarkable except as noted in HPI and below PMFSH Past Medical History Medical History Coronary artery disease DM type 2 (diabetes mellitus, type 2) DVT (deep venous thrombosis) GERD (gastroesophageal reflux disease) Hyperlipidemia Hypertension Peripheral arterial disease Surgical History Surgical History H/O cardiac catheterization History of revascularization procedure of lower extremity Hx of CABG Family History Family History Sibling Family history of cardiovascular disease Father Family history of cardiovascular disease Other Cerebrovascular accident Depression Diabetes mellitus Family history of arthritis Family history of coronary artery disease Family history of hypercholesterolemia Family history of mental disorder Family history of obesity Family history of seizure disor
--- NOTE | 2020-03-20 10:02 | PCPTNOTE ---
Spoke with nurse regarding therapy re-evaluation due to decline in medical status. However, unable to participate in therapy due to sheath in leg. Will attempt re-eval on 03/21/20.
[2020-03-20 11:07] LABS: Partial Thromboplastin Time 38.8 SECONDS (22.3-36.8)
--- NOTE | 2020-03-20 11:50 | PM.IMPN ---
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 UA with 3+ blood and 51-[address] abdomen/pelvis revealed wall thickening with possible transitional cell cancers. Per conversation with , patient had hematuria for approximately 1.5 months. He was previously established with Dr. Ramirez, urology, for prostate issues, but hematuria has never been addressed. He underwent cystoscopy today by Dr. Feliz which revealed tumor growth at the bladder neck measuring approximately 1-2cm and further tumors at the right anterior lateral wall. He will need to be off plavix prior to further evaluation but will need transurethral resection of the bladder per urology. He did develop hematuria earlier today per nursing reports. He received tPA per Dr. Ortiz overnight due to arterial stent thrombosis. Continue follow-up with urology. Will await further urology recommendations but Dr. Ortiz would like to resume eliquis with his first dose tonight pending urology clearance. Urine has been collected for flow cytometry and reveals urothelial carcinoma. Await further urology recommendations which are greatly appreciated. Continue to monitor (2) Peripheral arterial disease: Code(s): I73.9 - Peripheral vascular disease, unspecified Status: Acute Assessment and Plan: Chronic. He is managed by wound care in [place]. Per discussion with his , he has not attended his wound care appointments in some time. She believes he sees a vascular specialist and has a hx of revascularization. He has wounds to the lower extremities bilaterally with rest pain in the RLE. ANTHONY revealed severe arterial occlusion to right lower limb with decreased right ANTHONY at 0.5 and no dopplerable pulse at right great toe, as well as mild arterial occlusive disease in left lower limb with borderline decreased left ANTHONY at 0.91. He underwent angiogram by Dr. Ortiz 03/19 which revealed total occlusion of the right SFA stent and balloon angioplasty was performed with persistent thrombosis so he was treated with overnight tPA. He underwent repeat angiogram today which revealed patent right SFA. Dr. Ortiz has recommended eliquis long-term to prevent further thrombosis. Dr. Ortiz is on board. He likely has multifactorial venous and arterial disease contributing to his pain and lower extremity ulcers. He will continue to follow-up outpatient with Dr. Ortiz for his multifactorial PVD. Continue plavix Plan to begin eliquis this evening pending urology clearance Wound care has evaluated his legs. Continue recommendations per wound care. Continue to monitor (3) Acute kidney injury: Code(s): N17.9 - Acute kidney failure, unspecified Status: Acute Assessment and Plan: At presentation, Cr 1.1, BUN 39, and GFR >60. Cr transiently elevated at 1.7 and BUN 53 on 03/15. Cr is 0.7 and BUN 11. Continue to hold metformin for now as glycemic control is adequate Continue to monitor renal function Renally dose medications and avoid nephrotoxic agents. (4) Back pain: Qualifiers: Back pain laterality: bilateral Back pain location: low back pain Chronicity: chronic Sciatica presence: without sciatica Qualified Code(s): M54.5 - Low back pain; G89.29 - Other chronic pain Code(s): M54.9 - Dorsalgia, unspecified Status: Resolved Assessment and Plan: Resolved. Lumbar x-ray performed 03/13/2020 revealed mild to moderate spondylosis without any acute fracture or changes. Per chart review patient has had low back pain localized to the left lateral side for 3 weeks which has decreased ability to perform ADLs. Back pain is localized to left lateral site without radiation or sensory deficits. His pain has resolved. Continue PT and OT Cons
[2020-03-20 13:42] LABS: Glucose Point of Care 96 (65-105)
--- NOTE | 2020-03-20 13:55 | PCOTNOTE ---
Pt unable to be seen of occupational therapy on 03/20/2020 due to change in medical status. PT reported that pt was not appropriate to be seen for therapy due to sheath placed in leg. Will continue per POC frequency and duration tomorrow.
--- NOTE | 2020-03-20 15:26 | WPDUROPN2 ---
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 Schwartz on 04/09/2020 at 9:45am to discuss surgical approach. (2) Hematuria: Qualifiers: Hematuria type: gross Qualified Code(s): R31.0 - Gross hematuria Code(s): R31.9 - Hematuria, unspecified Status: Acute Assessment and Plan: Resolved at this time. Ok to restart Eliquis with Plavix. If patient starts to have gross hematuria, place a 3 way [place]antiago and start CBI. Will re-assess patient tomorrow after being on both anticoagulants. Ultimately, he does need these bladder tumors resected eventually and will have to come off of anticoagulants to do so, this can be done down the road when his wounds improve. If these anticoagulants are absolutely necessary to improve his condition, proceed with them and the catheter will have to be present if gross hematuria presents itself. Subjective Subjective Date/Time Seen: 03/20/20 15:26 Patient was given TPA/Heparin infusion overnight which caused gross hematuria, which has improved throughout the day. Most recent urination shows resolution of the hematuria, it was reported to be yellow and clear. We were asked to evaluate him to see if starting Eliquis with Plavix is permitted. Review of Systems Cardiovascular: Cardiovascular: Reports no additional cardiovascular complaints Respiratory: Respiratory: Reports no additional respiratory complaints Gastrointestinal: Gastrointestinal: Denies abdominal pain, Denies nausea and Denies vomiting Genitourinary: Genitourinary: Denies hematuria, Denies dysuria, Denies flank pain, Denies testicular pain and Denies urinary urgency Exam Cardio: Rate: regular rate Rhythm: regular rhythm GI: GI Palp: No abdominal tenderness : Meatus: meatus normal Scrotum: scrotum normal (mildly edematous ) Skin: Wounds: wounds noted (BLE upper and lower portions circumfrentially, with bloody/clear drainage) Objective Data Vital Signs Vital Signs: Vital Signs - 24 hr 03/19/20 16:30 03/19/20 16:45 03/19/20 17:00 Temperature 97.6 F Pulse Rate 63 62 63 Respiratory Rate 15 16 15 Blood Pressure 198/65 H 136/59 L 156/62 H Pulse Oximetry 97 97 97 03/19/20 17:15 03/19/20 17:30 03/19/20 17:45 Temperature Pulse Rate 67 54 L 67 Respiratory Rate 13 12 17 Blood Pressure 145/65 H 154/63 H 151/56 H Pulse Oximetry 98 97 99 03/19/20 18:00 03/19/20 18:15 03/19/20 18:30 Temperature Pulse Rate 63 62 58 L Respiratory Rate 16 16 13 Blood Pressure 135/63 150/65 H 143/92 H Pulse Oximetry 97 99 98 03/19/20 19:05 03/19/20 19:16 03/19/20 19:30 Temperature Pulse Rate 51 L 53 L 55 L Respiratory Rate 13 11 L 13 Blood Pressure 139/64 Pulse Oximetry 96 98 96 03/19/20 20:00 03/19/20 20:01 03/19/20 20:30 Temperature 97.9 F Pulse Rate 52 L 51 L 54 L Respiratory Rate 11 L 13 11 L Blood Pressure 133/59 L Pulse Oximetry 98 98 99 03/19/20 21:01 03/19/20 22:00 03/19/20 23:00 Temperature Pulse Rate 52 L 58 L 50 L Respiratory Rate 11 L 14 13 Blood Pressure 148/66 H 161/75 H 137/63 Pulse Oximetry 98 98 99 03/19/20 23:20 03/20/20 00:00 03/20/20 01:00 Temperature 97.9 F Pulse Rate 50 L 58 L 49 L Respiratory Rate 13 12 12 Blood Pressure 153/67 H 142/55 H Pulse Oximetry 99 98 99 03/20/20 02:00 03/20/20 03:00 03/20/20 03:27 Temperature Pulse Rate 58 L 61 58 L Respiratory Rate 13 15 15 Blood Pressure 154/59 H 150/62 H Pulse Oximetry 97 98 97 03/20/20 04:00 03/20/20 04:56 03/20/20 06:00 Temperature 97.8 F Pulse Rate 61 58 L 66 Respiratory Rate 15 16 17 Blood Pressure 154/65 H 160/58 H Pulse Oximetry 100 100 100 03/20/20 07:45 03/20/20 08:00 03/20/20 09:00 Temperature 98.4 F Pulse Rate 68 72 72 Respiratory Rate 16 17 Blood Pressure 143/66
[2020-03-20 18:30] LABS: Glucose Point of Care 97 (65-105)
--- NOTE | 2020-03-20 18:50 | PC.NURSE ---
Patient received from ICU room 6. Patient oriented to the room.
--- NOTE | 2020-03-20 18:58 | PC.NURSE ---
This patient, Ramana Gaines, was transferred to [facility] on 03/20/20 at 1845. Personal belongings sent with patient. Belongings list checked. Report given to MARYLU Collado. Left groin puncture site and all skin wounds assessed at bedside with receiving RN. Appropriate documentation sent with patient.
[2020-03-20] MEDS: APIXABAN 5 MG TABLET PO (20:30)
[2020-03-20] MEDS: ATORVASTATIN 40 MG TABLET 80 MG PO (20:30)
[2020-03-20 20:52] LABS: Glucose Point of Care 133 (65-105)
[2020-03-21] VITALS (9 sets, daily range): BP systolic 110–125; BP diastolic 47–56; PULSE 57–74; RESP 16–22; TEMP 36–36.9; O2SAT 95–99; BMI 10.0
[2020-03-21 05:38] LABS: Hematocrit 36.2 % (42.0-52.0); Hemoglobin 11.7 g/dL (14.0-18.0); Mean Corpuscular HGB Conc 32.3 g/dl (32-36); Mean Corpuscular Hemoglobin 26.8 pg (26-34); Mean Platelet Volume 10.8 fl (7.4-10.4); Platelet Count Result 152 k/mm3 (150-375); Red Blood Count 4.36 M/mm3 (4.6-6.20); Red Cell Distribution Width 13.8 % (11.5-14.5); White Blood Count 9.3 K/mm3 (4.5-10.0)
[2020-03-21 05:49] LABS: Blood Urea Nitrogen 13 mg/dL (9-20); Calcium 8.1 mg/dL (8.4-10.2); Carbon Dioxide 26 mmol/L (22-30); Chloride 106 mmol/L (98-107); Estimated CRCL calculation 62 ml/min; Estimated Glomerular Filt Rate > 60; Glucose 127 mg/dL (75-110); Magnesium 1.5 mg/dL (1.6-2.3); Potassium 4.5 mmol/L (3.4-5.0); Sodium 135 mmol/L (137-145)
[2020-03-21 07:58] LABS: Glucose Point of Care 113 (65-105)
[2020-03-21] MEDS: SACCHAROMYCES BOULARDII 250 MG CAPSULE PO ×2 (09:02→16:43)
[2020-03-21] MEDS: PANTOPRAZOLE 40 MG TABLET PO ×2 (09:02→20:27)
[2020-03-21] MEDS: GABAPENTIN 300 MG CAPSULE PO ×3 (09:02→16:43)
[2020-03-21] MEDS: APIXABAN 5 MG TABLET PO ×2 (09:02→20:27)
[2020-03-21] MEDS: FUROSEMIDE 20 MG TABLET PO (09:02)
[2020-03-21] MEDS: LOSARTAN POTASSIUM 25 MG TABLET 75 MG PO (09:02)
[2020-03-21] MEDS: CLOPIDOGREL BISULFATE 75 MG TABLET PO (09:02)
[2020-03-21] MEDS: TOLNAFTATE 1% POWDER 45 GM BTL 1 APPLIC TOPICAL ×2 (09:03→20:27)
--- NOTE | 2020-03-21 09:26 | WPDUROPN2 ---
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 Feliz at upcoming telehealth appointment in March. No further evaluation or treatment at this time, ok to discharge when medically stable. (2) Hematuria: Qualifiers: Hematuria type: gross Qualified Code(s): R31.0 - Gross hematuria Code(s): R31.9 - Hematuria, unspecified Status: Acute Assessment and Plan: Resolved. Subjective Subjective Date/Time Seen: 03/21/20 09:26 Patient doing very well after starting Eliquis combined with Plavix. Urine is clear and [place] in color, no hematuria noted. Review of Systems Cardiovascular: Cardiovascular: Reports no additional cardiovascular complaints Respiratory: Respiratory: Reports no additional respiratory complaints Gastrointestinal: Gastrointestinal: Denies abdominal pain, Denies nausea and Denies vomiting Genitourinary: Genitourinary: Denies hematuria, Denies dysuria, Denies flank pain and Denies urinary urgency Exam Resp: Effort & Inspection: normal respiratory effort Cardio: Rate: regular rate GI: GI Palp: No Tenderness to palpation present (GI) : Meatus: meatus normal Scrotum: scrotum normal Objective Data Vital Signs Vital Signs: Vital Signs - 24 hr 03/20/20 10:00 03/20/20 11:00 03/20/20 11:30 Temperature Pulse Rate 67 68 67 Respiratory Rate 18 18 16 Blood Pressure 142/64 H 150/76 H 162/76 H Pulse Oximetry 100 100 96 03/20/20 11:40 03/20/20 11:45 03/20/20 11:50 Temperature Pulse Rate 71 69 77 Respiratory Rate 18 16 15 Blood Pressure 136/59 L 142/55 H 150/103 H Pulse Oximetry 90 96 100 03/20/20 11:55 03/20/20 12:00 03/20/20 12:05 Temperature Pulse Rate 79 78 75 Respiratory Rate 12 16 17 Blood Pressure 164/79 H 169/63 H 142/67 H Pulse Oximetry 100 100 100 03/20/20 12:10 03/20/20 12:15 03/20/20 12:20 Temperature Pulse Rate 76 76 73 Respiratory Rate 18 16 18 Blood Pressure 166/73 H 132/108 H 162/64 H Pulse Oximetry 95 96 92 03/20/20 12:30 03/20/20 12:45 03/20/20 13:00 Temperature Pulse Rate 73 68 68 Respiratory Rate 18 17 15 Blood Pressure 168/64 H 139/64 107/67 Pulse Oximetry 92 92 92 03/20/20 13:15 03/20/20 13:30 03/20/20 13:42 Temperature 97.9 F Pulse Rate 59 L 66 68 Respiratory Rate 14 15 17 Blood Pressure 125/50 L 118/53 L 118/53 L Pulse Oximetry 100 100 98 03/20/20 13:45 03/20/20 14:00 03/20/20 14:15 Temperature Pulse Rate 66 65 66 Respiratory Rate 15 16 15 Blood Pressure 118/53 L 130/52 L 118/53 L Pulse Oximetry 100 100 100 03/20/20 15:15 03/20/20 16:00 03/20/20 16:15 Temperature Pulse Rate 66 65 56 L Respiratory Rate 15 16 14 Blood Pressure 118/53 L 124/58 L 123/62 Pulse Oximetry 100 98 96 03/20/20 20:00 03/20/20 21:07 03/20/20 22:00 Temperature 97.0 F L Pulse Rate 74 74 71 Respiratory Rate 14 16 Blood Pressure 122/46 L Pulse Oximetry 96 98 03/21/20 00:00 03/21/20 04:10 03/21/20 05:58 Temperature 98.4 F Pulse Rate 64 69 67 Respiratory Rate 16 Blood Pressure 118/52 L Pulse Oximetry 95 03/21/20 08:00 Temperature Pulse Rate 74 Respiratory Rate Blood Pressure Pulse Oximetry Intake/Output Intake/Output: Intake & Output 03/18/20 03/19/20 03/20/20 03/21/20 23:59 23:59 23:59 23:59 Intake Total 1680 1165 193 2160 Output Total 0621 779 8363 300 Balance 330 320 -993 858 Meds/Results Medications: Active Medications Generic Name Dose Route Start Last Admin Trade Name Freq PRN Reason Stop Dose Admin Acetaminophen 650 mg 03/14/20 00:13 03/18/20 20:58 Tylenol Tablet PO 650 mg Q4H PRN Administration Mild Pain (1-3) or Fever Hydrocodone Bitart/Acetaminophen 1 tab 03/14/20 00:13 03/21/20 09:06 [place] 5-325 Mg PO 1 tab Q4H PRN Administration Pain Rated 4-6
--- NOTE | 2020-03-21 10:33 | PM.DS ---
DS: Admitting Diagnosis Admitting Diagnosis Admitting Diagnosis: Dorsalgia, unspecified DS: Summary Time Spent with Patient Time attestation: Total time spent providing and/or coordinating discharge services: 45 minutes DS: Data Data Completed and Pending Completed studies during hospitalization: Pending at discharge 03/16/20 11:57 Cytology [PTH] Routine Labs on day of discharge: Labs from last 24 hours 03/21/20 03/21/20 03/21/20 07:54 05:10 05:10 WBC 9.3 RBC 4.36 L Hgb 11.7 L Hct 36.2 L MCV 83.0 MCH 26.8 MCHC 32.3 RDW 13.8 Plt Count 152 MPV 10.8 H APTT Sodium 135 L Potassium 4.5 Chloride 106 Carbon Dioxide 26 BUN 13 Creatinine 1.00 Estim Creat Clear Calc 62 Estimated GFR > 60 Glucose 127 H POC Capillary Glucose 113 H Calcium 8.1 L Magnesium 1.5 L 03/20/20 03/20/20 03/20/20 20:29 18:28 13:39 WBC RBC Hgb Hct MCV MCH MCHC RDW Plt Count MPV APTT Sodium Potassium Chloride Carbon Dioxide BUN Creatinine Estim Creat Clear Calc Estimated GFR Glucose POC Capillary Glucose 133 H 97 96 Calcium Magnesium 03/20/20 10:40 WBC RBC Hgb Hct MCV MCH MCHC RDW Plt Count MPV APTT 38.8 H Sodium Potassium Chloride Carbon Dioxide BUN Creatinine Estim Creat Clear Calc Estimated GFR Glucose POC Capillary Glucose Calcium Magnesium Discharge Plan Discharge Attending physician on discharge: Carolin Pearson Consulting providers: Teofilo Simon ; Baldemar Ortiz Discharging Clinician: Patricia Acevedo Patient Disposition: SNF Activity: as tolerated Diet: heart healthy Discharge Instructions: Hospital Discharge Instructions Proceed to the emergency department if you develop chest pain, shortness of breath or difficulty breathing, lightheadedness, dizziness, or any other life-threatening symptoms. For all other concerns, follow-up with your PCP or specialists. Follow-up Instructions Follow-up with Dr. Feliz, urology, regarding your bladder tumors. Follow-up with Dr. Ortiz, cardiology, for your peripheral arterial disease and venous disease in your legs. Follow-up with your primary care doctor within 1 week for a hospital check-up. You will have labs repeated at [facility]. The results will be sent to your PCP and domestic freight forwarder. You will need to follow-up on these lab results. Urology Instructions: Follow up with Dr. Feliz for a Telehealth appointment on 04/09/2020 at 9:45am. He will send a text message to the patient's cell phone, patient will select the message and engage in person to person conversation. Patient Instructions: Antibiotic Form, Apixaban (By mouth), Pain Management (GEN) Stand Alone Forms: General Discharge Information, Correction Discharge Follow-up/Referrals: Baldemar Ortiz MD [Physician] - Call for Appointment (Follow-up with Dr. Ortiz in 1 week. Call his office to schedule your appointment. ) Reshma Morelos MD [Primary Care Provider] - Call for Appointment (Follow-up with Dr. Morelos in 1 week for a hospital follow-up appointment. ) August Feliz MD [Physician] - 04/09/20 9:45 am (This will be a telehealth appointment. You will get a text message to your cell phone, patient will select the message and engage in person to person conversation.) Discharge Medications: New hydrocodone-acetaminophen 5-325 mg Tablet 1 tab PO Q4H PRN (Reason: Pain Rated 4-6) 14 Days Qty: 30 RF: 0 acetaminophen [Mapap (acetaminophen)] 325 mg Tablet 650 mg PO Q4H PRN (Reason: Mild Pain (1-3) Or Fever) 14 Days Qty: 30 RF: 0 Aloe [place] Antifungal (micon) 2 % Ointment 1 applic topical Q12HR Qty: 1692 RF: 0 Eliquis 5 mg Tablet 5 mg PO Q12HR 14 Days Qty: 28 RF: 0 magnesium oxide 400 mg (241.3 mg magnesium) Tablet 200 mg PO Q12HR
[2020-03-21] MEDS: MAGNESIUM OXIDE 200 MG TABLET PO ×2 (11:27→20:27)
[2020-03-21 11:33] LABS: Glucose Point of Care 180 (65-105)
[2020-03-21 16:46] LABS: Glucose Point of Care 123 (65-105)
[2020-03-21] MEDS: ATORVASTATIN 40 MG TABLET 80 MG PO (20:26)
[2020-03-21 20:51] LABS: Glucose Point of Care 117 (65-105)
[2020-03-22] VITALS (7 sets, daily range): BP systolic 96–116; BP diastolic 45–60; PULSE 61–83; RESP 18–20; TEMP 36–36.7; O2SAT 95–99
--- NOTE | 2020-03-22 08:42 | PM.IMPN ---
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 UA with 3+ blood and 51-[address] abdomen/pelvis revealed wall thickening with possible transitional cell cancers. Per conversation with , patient had hematuria for approximately 1.5 months. He was previously established with Dr. Ramirez, urology, for prostate issues, but hematuria has never been addressed. He underwent cystoscopy today by Dr. Feliz which revealed tumor growth at the bladder neck measuring approximately 1-2cm and further tumors at the right anterior lateral wall. He will need to hold plavix and eliquis for surgical intervention for his bladder tumors which will be done outpatient once he is cleared from cardiology to hold these mediations. He received overnight tPA per Dr. Ortiz overnight 03/19 due to arterial stent thrombosis and developed transient hematuria while on tPA but this has resolved and urine is clear today on eliquis and plavix. Urine has been collected for flow cytometry and reveals urothelial carcinoma. He will follow-up with Dr. Feliz outpatient to discuss surgical options for his bladder tumor. An appointment has been scheduled. Continue to monitor (2) Peripheral arterial disease: Code(s): I73.9 - Peripheral vascular disease, unspecified Status: Acute Assessment and Plan: Chronic. He is managed by wound care in [place]. Per discussion with his , he has not attended his wound care appointments in some time. She believes he sees a vascular specialist and has a hx of revascularization. He has wounds to the lower extremities bilaterally with rest pain in the RLE. ANTHONY revealed severe arterial occlusion to right lower limb with decreased right ANTHONY at 0.5 and no dopplerable pulse at right great toe, as well as mild arterial occlusive disease in left lower limb with borderline decreased left ANTHONY at 0.91. He underwent angiogram by Dr. Ortiz 03/19 which revealed total occlusion of the right SFA stent and balloon angioplasty was performed with persistent thrombosis so he was treated with overnight tPA. He underwent repeat angiogram today which revealed patent right SFA. Dr. Ortiz has recommended eliquis long-term to prevent further thrombosis. Dr. Ortiz is on board. He likely has multifactorial venous and arterial disease contributing to his pain and lower extremity ulcers. He will continue to follow-up outpatient with Dr. Ortiz for his multifactorial PVD. Continue plavix Continue eliquis 5mg PO BID. Monitor closely for bleeding. I spent extensive time explaining signs of bleeding and what to watch out for with the patient. Wound care has evaluated his legs. Continue recommendations per wound care. Continue to monitor (3) Acute kidney injury: Code(s): N17.9 - Acute kidney failure, unspecified Status: Acute Assessment and Plan: At presentation, Cr 1.1, BUN 39, and GFR >60. Cr transiently elevated at 1.7 and BUN 53 on 03/15. On 03/21, Cr is 1.0 and BUN 13. Will plan to resume metformin at discharge as his renal function is at baseline and will repeat BMP in 5 days. Continue to monitor renal function Renally dose medications and avoid nephrotoxic agents. (4) Back pain: Qualifiers: Back pain laterality: bilateral Back pain location: low back pain Chronicity: chronic Sciatica presence: without sciatica Qualified Code(s): M54.5 - Low back pain; G89.29 - Other chronic pain Code(s): M54.9 - Dorsalgia, unspecified Status: Resolved Assessment and Plan: Resolved. Lumbar x-ray performed 03/13/2020 revealed mild to moderate spondylosis without any acute fracture or changes. Per chart review patient has had low back pain localized to the left lateral side for 3 weeks which has decreased abili
[2020-03-22] MEDS: GABAPENTIN 300 MG CAPSULE PO ×3 (08:45→17:09)
[2020-03-22] MEDS: FUROSEMIDE 20 MG TABLET PO (08:45)
[2020-03-22] MEDS: MAGNESIUM OXIDE 200 MG TABLET PO ×2 (08:45→20:41)
[2020-03-22] MEDS: TOLNAFTATE 1% POWDER 45 GM BTL 1 APPLIC TOPICAL ×2 (08:46→20:42)
[2020-03-22] MEDS: PANTOPRAZOLE 40 MG TABLET PO ×2 (08:46→20:41)
[2020-03-22] MEDS: APIXABAN 5 MG TABLET PO ×2 (08:46→20:41)
[2020-03-22] MEDS: SACCHAROMYCES BOULARDII 250 MG CAPSULE PO ×2 (08:46→17:09)
[2020-03-22] MEDS: CLOPIDOGREL BISULFATE 75 MG TABLET PO (08:46)
[2020-03-22] MEDS: LOSARTAN POTASSIUM 25 MG TABLET 75 MG PO (08:46)
[2020-03-22 09:15] LABS: Magnesium 1.3 mg/dL (1.6-2.3)
--- NOTE | 2020-03-22 09:16 | PM.IMPN ---
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 UA with 3+ blood and 51-[address] abdomen/pelvis revealed wall thickening with possible transitional cell cancers. Per conversation with , patient had hematuria for approximately 1.5 months. He was previously established with Dr. Ramirez, urology, for prostate issues, but hematuria has never been addressed. He underwent cystoscopy by Dr. Feliz 03/18 which revealed tumor growth at the bladder neck measuring approximately 1-2cm and further tumors at the right anterior lateral wall. He will need to hold plavix and eliquis for surgical intervention for his bladder tumors which will be done outpatient once he is cleared from cardiology to hold these mediations. He received overnight tPA per Dr. Ortiz overnight 03/19 due to arterial stent thrombosis and developed transient hematuria while on tPA but this has resolved and urine remains clear on eliquis and plavix. Urine has been collected for flow cytometry and reveals urothelial carcinoma. He will follow-up with Dr. Feliz outpatient to discuss surgical options for his bladder tumor. An appointment has been scheduled. Continue to monitor (2) Peripheral arterial disease: Code(s): I73.9 - Peripheral vascular disease, unspecified Status: Acute Assessment and Plan: Chronic. He is managed by wound care in [place]. Per discussion with his , he has not attended his wound care appointments in some time. She believes he sees a vascular specialist and has a hx of revascularization. He has wounds to the lower extremities bilaterally with rest pain in the RLE. ANTHONY revealed severe arterial occlusion to right lower limb with decreased right ANTHONY at 0.5 and no dopplerable pulse at right great toe, as well as mild arterial occlusive disease in left lower limb with borderline decreased left ANTHONY at 0.91. He underwent angiogram by Dr. Ortiz 03/19 which revealed total occlusion of the right SFA stent and balloon angioplasty was performed with persistent thrombosis so he was treated with overnight tPA. He underwent repeat angiogram 03/20 which revealed patent right SFA. Dr. Ortiz has recommended eliquis long-term to prevent further thrombosis. Dr. Ortiz is on board. He likely has multifactorial venous and arterial disease contributing to his pain and lower extremity ulcers. He will continue to follow-up outpatient with Dr. Ortiz for his multifactorial PVD. Continue plavix Continue atorvastatin, he is on high-intensity dosing Continue eliquis 5mg PO BID Monitor closely for bleeding. I spent extensive time explaining signs of bleeding and what to watch out for with the patient. Wound care has evaluated his legs. Continue recommendations per wound care. Continue to monitor (3) Acute kidney injury: Code(s): N17.9 - Acute kidney failure, unspecified Status: Acute Assessment and Plan: At presentation, Cr 1.1, BUN 39, and GFR >60. Cr transiently elevated at 1.7 and BUN 53 on 03/15. On 03/21, Cr is 1.0 and BUN 13. Will resume metformin today as he is at baseline renal function Continue to monitor renal function Renally dose medications and avoid nephrotoxic agents. (4) Back pain: Qualifiers: Back pain laterality: bilateral Back pain location: low back pain Chronicity: chronic Sciatica presence: without sciatica Qualified Code(s): M54.5 - Low back pain; G89.29 - Other chronic pain Code(s): M54.9 - Dorsalgia, unspecified Status: Resolved Assessment and Plan: Resolved. Lumbar x-ray performed 03/13/2020 revealed mild to moderate spondylosis without any acute fracture or changes. Per chart review patient has had low back pain localized to the left lateral side for 3 weeks which has decreased
[2020-03-22] MEDS: ISOSORBIDE MONONITRATE 60 MG TAB.ER.24H 120 MG PO (09:28)
[2020-03-22] MEDS: metFORMIN HCL 500 MG TABLET PO ×2 (10:11→17:09)
[2020-03-22] MEDS: MAGNESIUM SULF 2 GM/WATER 50ML 2 GM/50 ML BAG IVPB (10:11)
[2020-03-22 12:21] LABS: Glucose Point of Care 126 (65-105)
[2020-03-22 18:08] LABS: Glucose Point of Care 127 (65-105)
[2020-03-22] MEDS: ATORVASTATIN 40 MG TABLET 80 MG PO (20:41)
[2020-03-22 20:57] LABS: Glucose Point of Care 112 (65-105)
[2020-03-23 06:00] VITALS: BP 108/54; PULSE 71; RESP 18; TEMP 36.2; O2SAT 97
[2020-03-23 06:14] LABS: Blood Urea Nitrogen 23 mg/dL (9-20); Carbon Dioxide 27 mmol/L (22-30); Chloride 103 mmol/L (98-107); Estimated CRCL calculation 40 ml/min; Estimated Glomerular Filt Rate 43; Glucose 110 mg/dL (75-110); Magnesium 1.7 mg/dL (1.6-2.3); Potassium 3.9 mmol/L (3.4-5.0); Sodium 132 mmol/L (137-145)
[2020-03-23] MEDS: SACCHAROMYCES BOULARDII 250 MG CAPSULE PO ×2 (08:08→16:47)
[2020-03-23] MEDS: MAGNESIUM OXIDE 200 MG TABLET PO ×2 (08:08→20:09)
[2020-03-23] MEDS: GABAPENTIN 300 MG CAPSULE PO ×3 (08:08→16:47)
[2020-03-23] MEDS: metFORMIN HCL 500 MG TABLET PO (08:08)
[2020-03-23] MEDS: PANTOPRAZOLE 40 MG TABLET PO ×2 (08:08→20:09)
[2020-03-23] MEDS: FUROSEMIDE 20 MG TABLET PO (08:08)
[2020-03-23] MEDS: LOSARTAN POTASSIUM 25 MG TABLET 75 MG PO (08:09)
[2020-03-23] MEDS: ISOSORBIDE MONONITRATE 60 MG TAB.ER.24H 120 MG PO (08:09)
[2020-03-23] MEDS: CLOPIDOGREL BISULFATE 75 MG TABLET PO (08:09)
[2020-03-23] MEDS: APIXABAN 5 MG TABLET PO ×2 (08:09→20:09)
[2020-03-23] MEDS: TOLNAFTATE 1% POWDER 45 GM BTL 1 APPLIC TOPICAL ×2 (08:10→20:10)
[2020-03-23 09:22] LABS: Glucose Point of Care 90 (65-105)
[2020-03-23 12:24] LABS: Glucose Point of Care 109 (65-105)
[2020-03-23] MEDS: ACETAMINOPHEN 325 MG TABLET 650 MG PO (12:41)
[2020-03-23 14:00] VITALS: BP 94/44; PULSE 63; RESP 16; TEMP 36.1; O2SAT 95
--- NOTE | 2020-03-23 15:25 | PM.IMPN ---
Progress Note: A&P Assessment and Plan (1) Acute kidney injury: Code(s): N17.9 - Acute kidney failure, unspecified Status: Acute Assessment and Plan: At presentation, Cr 1.1, BUN 39, and GFR >60. Cr transiently elevated at 1.7 and BUN 53 on 03/15. On 03/21, Cr is 1.0 and BUN 13. Today, Cr is 1.6 and BUN 23. I suspect that he may have a component of contrast-induced nephropathy from angiogram x2. Will hold metformin and losartan for now Continue to monitor renal function Renally dose medications and avoid nephrotoxic agents. 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 UA with 3+ blood and 51-[address] abdomen/pelvis revealed wall thickening with possible transitional cell cancers. Per conversation with , patient had hematuria for approximately 1.5 months. He was previously established with Dr. Ramirez, urology, for prostate issues, but hematuria has never been addressed. He underwent cystoscopy by Dr. Feliz 03/18 which revealed tumor growth at the bladder neck measuring approximately 1-2cm and further tumors at the right anterior lateral wall. He will need to hold plavix and eliquis for surgical intervention for his bladder tumors which will be done outpatient once he is cleared from cardiology to hold these mediations. He received overnight tPA per Dr. Ortiz overnight 03/19 due to arterial stent thrombosis and developed transient hematuria while on tPA but this has resolved and urine remains clear on eliquis and plavix. Urine has been collected for flow cytometry and reveals urothelial carcinoma. He will follow-up with Dr. Feliz outpatient to discuss surgical options for his bladder tumor. An appointment has been scheduled. Continue to monitor (3) Peripheral arterial disease: Code(s): I73.9 - Peripheral vascular disease, unspecified Status: Acute Assessment and Plan: Chronic. He is managed by wound care in [place]. Per discussion with his , he has not attended his wound care appointments in some time. She believes he sees a vascular specialist and has a hx of revascularization. He has wounds to the lower extremities bilaterally with rest pain in the RLE. ANTHONY revealed severe arterial occlusion to right lower limb with decreased right ANTHONY at 0.5 and no dopplerable pulse at right great toe, as well as mild arterial occlusive disease in left lower limb with borderline decreased left ANTHONY at 0.91. He underwent angiogram by Dr. Ortiz 03/19 which revealed total occlusion of the right SFA stent and balloon angioplasty was performed with persistent thrombosis so he was treated with overnight tPA. He underwent repeat angiogram 03/20 which revealed patent right SFA. Dr. Ortiz has recommended eliquis long-term to prevent further thrombosis. Dr. Ortiz is on board. He likely has multifactorial venous and arterial disease contributing to his pain and lower extremity ulcers. He will continue to follow-up outpatient with Dr. Ortiz for his multifactorial PVD. Continue plavix Continue atorvastatin, he is on high-intensity dosing Continue eliquis 5mg PO BID Monitor closely for bleeding. I spent extensive time explaining signs of bleeding and what to watch out for with the patient. Wound care has evaluated his legs. Continue recommendations per wound care. Continue to monitor (4) Back pain: Qualifiers: Back pain laterality: bilateral Back pain location: low back pain Chronicity: chronic Sciatica presence: without sciatica Qualified Code(s): M54.5 - Low back pain; G89.29 - Other chronic pain Code(s): M54.9 - Dorsalgia, unspecified Status: Resolved Assessment and Plan: Resolved. He initially presented with low back pain for 3 weeks which decreased his ability to perform ADLs and likely contributed to his
[2020-03-23 18:18] LABS: Glucose Point of Care 144 (65-105)
[2020-03-23 20:00] VITALS: PULSE 63; RESP 16; O2SAT 95
[2020-03-23] MEDS: ATORVASTATIN 40 MG TABLET 80 MG PO (20:09)
[2020-03-23 20:28] LABS: Glucose Point of Care 147 (65-105)
[2020-03-23 22:00] VITALS: BP 100/50; PULSE 59; RESP 12; TEMP 36.4; O2SAT 95
[2020-03-24 06:00] VITALS: BP 109/52; PULSE 58; RESP 18; TEMP 36.8; O2SAT 93
[2020-03-24 06:04] LABS: Blood Urea Nitrogen 30 mg/dL (9-20); Calcium 8.2 mg/dL (8.4-10.2); Carbon Dioxide 28 mmol/L (22-30); Chloride 101 mmol/L (98-107); Estimated CRCL calculation 35 ml/min; Estimated Glomerular Filt Rate 37; Glucose 118 mg/dL (75-110); Magnesium 1.6 mg/dL (1.6-2.3); Potassium 3.9 mmol/L (3.4-5.0); Sodium 133 mmol/L (137-145)
[2020-03-24 06:06] LABS: Hemoglobin 9.8 g/dL (14.0-18.0); Mean Corpuscular HGB Conc 31.6 g/dl (32-36); Mean Corpuscular Hemoglobin 26.8 pg (26-34); Mean Corpuscular Volume 84.7 fl (80-100); Mean Platelet Volume 11.2 fl (7.4-10.4); Platelet Count Result 151 k/mm3 (150-375); Red Blood Count 3.66 M/mm3 (4.6-6.20); Red Cell Distribution Width 14.4 % (11.5-14.5); White Blood Count 6.2 K/mm3 (4.5-10.0)
[2020-03-24 08:37] LABS: Glucose Point of Care 102 (65-105)
[2020-03-24] MEDS: SODIUM CHLORIDE 0.9% IV 1,000 ML 75 ML IV CONT ×2 (09:15→22:45)
[2020-03-24] MEDS: APIXABAN 5 MG TABLET PO ×2 (09:16→20:10)
[2020-03-24] MEDS: CLOPIDOGREL BISULFATE 75 MG TABLET PO (09:16)
[2020-03-24] MEDS: FUROSEMIDE 20 MG TABLET PO (09:16)
[2020-03-24] MEDS: MAGNESIUM OXIDE 200 MG TABLET PO ×2 (09:17→20:10)
[2020-03-24] MEDS: GABAPENTIN 300 MG CAPSULE PO ×3 (09:17→16:07)
[2020-03-24] MEDS: SACCHAROMYCES BOULARDII 250 MG CAPSULE PO ×2 (09:17→16:07)
[2020-03-24] MEDS: TOLNAFTATE 1% POWDER 45 GM BTL 1 APPLIC TOPICAL ×2 (09:17→20:09)
[2020-03-24] MEDS: PANTOPRAZOLE 40 MG TABLET PO ×2 (09:17→20:10)
[2020-03-24] MEDS: ISOSORBIDE MONONITRATE 60 MG TAB.ER.24H 120 MG PO (09:17)
[2020-03-24 11:55] LABS: Glucose Point of Care 117 (65-105)
[2020-03-24 14:00] VITALS: BP 123/60; PULSE 72; RESP 18; TEMP 36.6; O2SAT 94
--- NOTE | 2020-03-24 16:00 | PM.IMPN ---
Progress Note: A&P Assessment and Plan (1) Acute kidney injury: Code(s): N17.9 - Acute kidney failure, unspecified Status: Acute Assessment and Plan: At presentation, Cr 1.1, BUN 39, and GFR >60. Cr transiently elevated at 1.7 and BUN 53 on 03/15. On 03/21, Cr is 1.0 and BUN 13. Today, Cr is 1.8 and BUN 30. I suspect that he may have a component of contrast-induced nephropathy from angiogram x2. Continue gentle IV fluids which were started today (03/24) Will hold metformin and losartan for now Continue to monitor renal function Renally dose medications and avoid nephrotoxic agents. 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 UA with 3+ blood and 51-[address] abdomen/pelvis revealed wall thickening with possible transitional cell cancers. Per conversation with , patient had hematuria for approximately 1.5 months. He was previously established with Dr. Ramirez, urology, for prostate issues, but hematuria has never been addressed. He underwent cystoscopy by Dr. Feliz 03/18 which revealed tumor growth at the bladder neck measuring approximately 1-2cm and further tumors at the right anterior lateral wall. He will need to hold plavix and eliquis for surgical intervention for his bladder tumors which will be done outpatient once he is cleared from cardiology to hold these mediations. He received overnight tPA per Dr. Ortiz overnight 03/19 due to arterial stent thrombosis and developed transient hematuria while on tPA but this has resolved and urine remains clear on eliquis and plavix. Urine has been collected for flow cytometry and reveals urothelial carcinoma. He will follow-up with Dr. Feliz outpatient to discuss surgical options for his bladder tumor. An appointment has been scheduled. Continue to monitor (3) Peripheral arterial disease: Code(s): I73.9 - Peripheral vascular disease, unspecified Status: Acute Assessment and Plan: Chronic. He is managed by wound care in [place]. Per discussion with his , he has not attended his wound care appointments in some time. She believes he sees a vascular specialist and has a hx of revascularization. He has wounds to the lower extremities bilaterally with rest pain in the RLE. ANTHONY revealed severe arterial occlusion to right lower limb with decreased right ANTHONY at 0.5 and no dopplerable pulse at right great toe, as well as mild arterial occlusive disease in left lower limb with borderline decreased left ANTHONY at 0.91. He underwent angiogram by Dr. Ortiz 03/19 which revealed total occlusion of the right SFA stent and balloon angioplasty was performed with persistent thrombosis so he was treated with overnight tPA. He underwent repeat angiogram 03/20 which revealed patent right SFA. Dr. Ortiz has recommended eliquis long-term to prevent further thrombosis. Dr. Ortiz is on board. He likely has multifactorial venous and arterial disease contributing to his pain and lower extremity ulcers. He will continue to follow-up outpatient with Dr. Ortiz for his multifactorial PVD. Continue plavix Continue atorvastatin, he is on high-intensity dosing Continue eliquis 5mg PO BID Monitor closely for bleeding. I spent extensive time explaining signs of bleeding and what to watch out for with the patient. Wound care has evaluated his legs. Continue recommendations per wound care. Continue to monitor (4) Back pain: Qualifiers: Back pain laterality: bilateral Back pain location: low back pain Chronicity: chronic Sciatica presence: without sciatica Qualified Code(s): M54.5 - Low back pain; G89.29 - Other chronic pain Code(s): M54.9 - Dorsalgia, unspecified Status: Resolved Assessment and Plan: Resolved. He initially presented with low back pain for 3 weeks which decreas
[2020-03-24 17:14] LABS: Glucose Point of Care 138 (65-105)
[2020-03-24] MEDS: ATORVASTATIN 40 MG TABLET 80 MG PO (20:10)
[2020-03-24 22:00] VITALS: BP 132/61; PULSE 62; RESP 16; TEMP 36.1; O2SAT 95
[2020-03-24 22:52] LABS: Glucose Point of Care 149 (65-105)
[2020-03-25 05:34] LABS: Blood Urea Nitrogen 22 mg/dL (9-20); Calcium 8.3 mg/dL (8.4-10.2); Carbon Dioxide 30 mmol/L (22-30); Chloride 103 mmol/L (98-107); Estimated CRCL calculation 52 ml/min; Estimated Glomerular Filt Rate 60; Glucose 130 mg/dL (75-110); Magnesium 1.2 mg/dL (1.6-2.3); Potassium 3.6 mmol/L (3.4-5.0); Sodium 135 mmol/L (137-145)
[2020-03-25 05:58] VITALS: BP 128/51; PULSE 60; RESP 16; TEMP 36.1; O2SAT 95
[2020-03-25 07:59] LABS: Glucose Point of Care 116 (65-105)
[2020-03-25] MEDS: MAGNESIUM SULF 2 GM/WATER 50ML 2 GM/50 ML BAG IVPB (09:35)
[2020-03-25] MEDS: SACCHAROMYCES BOULARDII 250 MG CAPSULE PO ×2 (09:39→16:54)
[2020-03-25] MEDS: ISOSORBIDE MONONITRATE 60 MG TAB.ER.24H 120 MG PO (09:40)
[2020-03-25] MEDS: CLOPIDOGREL BISULFATE 75 MG TABLET PO (09:40)
[2020-03-25] MEDS: FUROSEMIDE 20 MG TABLET PO (09:40)
[2020-03-25] MEDS: GABAPENTIN 300 MG CAPSULE PO ×3 (09:40→16:54)
[2020-03-25] MEDS: PANTOPRAZOLE 40 MG TABLET PO (09:40)
[2020-03-25] MEDS: APIXABAN 5 MG TABLET PO (09:41)
[2020-03-25] MEDS: TOLNAFTATE 1% POWDER 45 GM BTL 1 APPLIC TOPICAL (09:42)
[2020-03-25 11:32] LABS: Glucose Point of Care 129 (65-105)
--- NOTE | 2020-03-25 13:44 | PM.DS ---
DS: Admitting Diagnosis Admitting Diagnosis Admitting Diagnosis: Dorsalgia, unspecified DS: Discharge Diagnosis Discharge Diagnosis (1) Peripheral arterial disease: Code(s): I73.9 - Peripheral vascular disease, unspecified Status: Acute Assessment and Plan: S/p balloon angioplasty and tPA by Dr. Ortiz. He will continue eliquis. He will continue antifungal ointment to wounds. He will follow up with Dr. Trujillo on 03/31/2020 at 11:45 am. 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 Feliz 03/18 which revealed tumor growth at the bladder neck measuring approximately 1-2cm and further tumors at the right anterior lateral wall. He has a phone visit with Dr. Feliz scheduled for 04/09/20 at 9:45 am (3) Acute kidney injury: Code(s): N17.9 - Acute kidney failure, unspecified Status: Acute Assessment and Plan: Improved at discharge with BUN 22 and Creatinine 1.2. He will repeat BMP in 5 days. (4) Back pain: Qualifiers: Back pain laterality: bilateral Back pain location: low back pain Chronicity: chronic Sciatica presence: without sciatica Qualified Code(s): M54.5 - Low back pain; G89.29 - Other chronic pain Code(s): M54.9 - Dorsalgia, unspecified Status: Resolved Assessment and Plan: He will continue PT/OT at [facility] in [place]. (5) Normocytic anemia: Code(s): D64.9 - Anemia, unspecified Status: Acute Assessment and Plan: Iron panel, B12, and folate within normal limits. At discharge, Hgb 9.8 and Hct 31.0. He will repeat CBC in 5 days. (6) DM type 2 (diabetes mellitus, type 2): Qualifiers: Diabetes mellitus complication detail: with other skin ulcer Diabetes mellitus complication status: with skin complications Diabetes mellitus primary clinician insulin use: without fdc use Qualified Code(s): E11.622 - Type 2 diabetes mellitus with other skin ulcer Code(s): E11.9 - Type 2 diabetes mellitus without complications Status: Chronic Assessment and Plan: A1c on 03/15/2020 was 7.8. His blood sugers were well controlled and glimepiride was held in order to prevent hypoglycemia. Recommended to monitor blood sugars at SNF and record for PCP review. (7) Hypertension: Qualifiers: Hypertension type: essential hypertension Qualified Code(s): I10 - Essential (primary) hypertension Code(s): I10 - Essential (primary) hypertension Status: Chronic Assessment and Plan: Blood pressures were well controlled in the low/normal range. (8) Physical deconditioning: Code(s): R53.81 - Other malaise Status: Acute Assessment and Plan: He will continue PT/OT at [facility] in [place]. (9) Hypomagnesemia: Code(s): E83.42 - Hypomagnesemia Status: Acute Assessment and Plan: He will continue PO magnesium oxide and repeat magnesium levels in 5 days with results to PCP. DS: Summary Hospital Course Reason for hospitalization: Back Pain Hospital Course: Date of admission: 03/13/2020 Date of discharge: 03/25/2020 Ramana Gaines is a 69 year old male with a PMH significant for CAD, T2DM, HTN, and peripheral arterial disease who presented to the ED on 03/13/2020 with complaints of back pain on his left side ongoing for 3 weeks and difficulty ambulating. At presentation, CBC wnl, BMP wnl with exception of BUN elevated at 39, urine cloudy with 3+ blood and 51-75 RBC, CXR with no acute cardiopulmonary findings, lumbar spine X-ray revealing no acute lumbar changes with mild to moderate spondylosis, and CT a/p revealing 2 regions of bladder wall thickening suggestive of possible transitional cell cancers, no nephrolithiasis, hydronephosis, or acute abdominal findings. He was admitted to the hospitalist service
--- NOTE | 2020-03-25 13:50 | PCDIET ---
Nutrition LOS Complete: Pt current nutrition is DBCC. Nutrition recommendation: Agree Last recorded weight is 91.1 kg. Bowel Motility: 03/18 (mg oxide noted) Labs Reviewed:Na 135, BUN 22, Glucose 130, Mg 1.2 Meds Noted:Mag Oxide, Lasix, Lipitor, Metformin, Florastor, Protonix Additional Notes: Seeing pt today due to LOS. Pt awaiting placement to SNF. Diet is appropriate and pt is eating 95-100% of meals. No n/v or GI pain. Skin WNL. No immediate nutrition needs at this time. We will continue to monitor every seven days.
[2020-03-25 14:00] VITALS: BP 132/54; PULSE 78; RESP 18; TEMP 36.8; O2SAT 100
[2020-03-25 18:24] LABS: Glucose Point of Care 167 (65-105)
== END 2020-03-25 17:34 | DRG 253 ==
LOC: ANHED 03-14 00:25 → ANH2MED 03-14 00:35 → ANHICU 03-20 07:28 → ANH2MED 03-24 14:39 → ANHICU 03-26 08:17
PROVIDERS: Physician Assistant; Specialist; Urology; Admitting Provider Internal Medicine; Emergency Provider Emergency Medicine; PCP Internal Medicine; Visit Provider Physician Assistant
PROC: 0TJB8ZZ Inspection of Bladder, Via Natural or Artificial Opening Endoscopic (ICD-10-PCS; CPT 52352; principal; 2020-03-18 13:00)
PROC: 047K3ZZ Dilation of Right Femoral Artery, Percutaneous Approach (ICD-10-PCS; CPT 75630; principal; 2020-03-19 13:00)
PROC: 047K3ZZ Dilation of Right Femoral Artery, Percutaneous Approach (ICD-10-PCS; CPT 36200; 2020-03-19 13:00)
PROC: 047K3ZZ Dilation of Right Femoral Artery, Percutaneous Approach (ICD-10-PCS; CPT 37224; 2020-03-19 13:00)
PROC: 047K3ZZ Dilation of Right Femoral Artery, Percutaneous Approach (ICD-10-PCS; CPT 37252; 2020-03-19 13:00)
PROC: 047K3ZZ Dilation of Right Femoral Artery, Percutaneous Approach (ICD-10-PCS; 2020-03-19 13:00)
PROC: (CPT 75716; principal; 2020-03-20 08:00)
PROC: (CPT 36200; 2020-03-20 08:00)
DX: I70.239 Atherosclerosis of native arteries of right leg with ulceration of unspecified site (principal); N17.9 Acute kidney failure, unspecified; I70.92 Chronic total occlusion of artery of the extremities; T82.856A Stenosis of peripheral vascular stent, initial encounter; L97.911 Non-pressure chronic ulcer of unspecified part of right lower leg limited to breakdown of skin; C67.2 Malignant neoplasm of lateral wall of bladder; I87.2 Venous insufficiency (chronic) (peripheral); D64.9 Anemia, unspecified; I10 Essential (primary) hypertension; R31.9 Hematuria, unspecified; M54.5 Low back pain; G89.29 Other chronic pain; R19.7 Diarrhea, unspecified; Z86.718 Personal history of other venous thrombosis and embolism; E11.622 Type 2 diabetes mellitus with other skin ulcer; R53.81 Other malaise; E83.42 Hypomagnesemia; Z11.59 Encounter for screening for other viral diseases
CPT/HCPCS: 36200; 36415; 37211; 37224; 37252; 71046; 72100; 74176; 74178; 75630; 75716; 80048; 80053; 80061; 81001; 82570; 82607; 82728; 82746; 83036; 83540; 83550; 83735; 84300; 85025; 85027; 85384; 85610; 85730; 85999; 87635; 88108; 93005; 93306; 93922; 96361; 96374; 97110; 97116; 97162; 97164; 97165; 97168; 97530; 97535; 99285; A9270; C1725; C1753; C1757; C1769; C1887; C1894; G0378; J1644; J2250; J2997; J3010; J3370; J3475; J7030; J7040; Q9967; U0003

== ENCOUNTER 2021-06-08 22:39 | Observation (INO) | payer MEDICARE, SELFPAY ==
--- NOTE | ~2021-06-08 | US_ITS ---
EXAMINATION: US art doppler w press LE BI DATE: 06/09/2021 10:37 INDICATION: Peripheral vascular disease. TECHNIQUE: Doppler waveforms and Doppler ultrasound images of the lower extremity arteries were obtai simi. COMPARISON: ABIs 03/17/2020 FINDINGS: The patient was unable to tolerate the cuffs for pressure measurements. The Doppler waveforms are bip hasic in right common femoral artery and popliteal artery. There is no detectable flow in right super ficial femoral artery or posterior tibial artery. Right dorsalis pedis is obscured by bandages. Doppl er waveforms are biphasic in left common femoral artery and left dorsalis pedis. There is no detectab le flow in left superficial femoral artery. Doppler of left popliteal artery demonstrates retrograde flow, likely from distal collateral inflow. Arterial flow in left posterior tibial artery was audible , but could not be recorded. IMPRESSION: 1. No detectable flow in right superficial femoral artery. Reestablish flow in right popliteal artery , but no flow in right posterior tibial artery. Right dorsalis pedis not evaluated. 2. No detectable flow in left superficial femoral artery. Reestablish flow in left popliteal artery. Reviewed, dictated and finalized at location A. IMPRESSION: 1. No detectable flow in right superficial femoral artery. Reestablish flow in right popliteal artery, but no flow in right posterior tibial artery. Right james salis pedis not evaluated. 2. No detectable flow in left superficial femoral artery. Reestablish flow in l eft popliteal artery.
--- NOTE | ~2021-06-08 | CT_ITS ---
EXAMINATION: CT brain wo con DATE: 06/09/2021 03:09 INDICATION: Fall. Weakness. TECHNIQUE: Computed tomography (CT) of the head was performed without intravenous contrast. The mA wa s adjusted according to patient size. Iterative reconstruction technique was employed. Exam dose: 60 5.33 mGy-cm total exam DLP. COMPARISON: None FINDINGS: Bilateral vertebral artery, basilar artery and bilateral carotid siphon internal carotid ar kinza calcifications. There is nonspecific diminished attenuation of the cerebral white matter, likely due to chronic small vessel ischemic changes. No intracranial mass lesion or hemorrhage or cerebrovascular accident is evident. No midline shift or mass effect effect. No subdural or epidural hematoma. The orbital contents are unremarkable. There is central and cortical cerebral atrophy with moderately prominent degree and moderate cerebell ar atrophy. IMPRESSION: Cerebral and cerebellar volume loss Cerebral atherosclerosis and chronic small vessel ischemic changes of cerebral white matter No acute intracranial abnormality Reviewed, dictated and finalized at [facility]. Reviewed, dictated and finalized at location A.
--- NOTE | ~2021-06-08 | XR_ITS ---
EXAMINATION: XR hip RT 2V w AP pelvis DATE: 06/08/2021 23:11 INDICATION: Right hip pain post fall TECHNIQUE: Anteroposterior view of the pelvis and anteroposterior and frog-leg lateral views of the r ight hip were obtained. COMPARISON: None. FINDINGS: Bone alignment is normal. No fracture. Bilateral hip joint spaces are relatively preserved. Postopera tive changes along the medial aspect of the bilateral thighs with multiple surgical clips as well as vascular stenting along the bilateral femoral arteries. IMPRESSION: 1. No acute osseous abnormality. Reviewed, dictated and finalized at location A.
--- NOTE | ~2021-06-08 | XR_ITS ---
EXAMINATION: XR chest 2V DATE: 06/08/2021 23:11 INDICATION: Weakness and generalized chest pain after multiple falls. TECHNIQUE: frontal and lateral views of the chest were obtained. COMPARISON: Chest radiograph dated 03/13/2020 FINDINGS: The lungs remain clear with no focal airspace opacities, pulmonary edema, pleural effusion or pneumot horax. The cardiomediastinal silhouette is normal. Median sternotomy wires, ostial markers and medias tinal surgical clips consistent with prior coronary artery bypass grafting. IMPRESSION: 1. No acute cardiopulmonary disease. Reviewed, dictated and finalized at location A.
[2021-06-08 22:42] VITALS: BP 128/84; PULSE 82; RESP 16; TEMP 36.9; O2SAT 98
--- NOTE | 2021-06-08 22:46 | ECG_ITS ---
Measurements Intervals [place] Rate: 80 P: [place]: 0 QRS: 26 QRSD: 132 T: 7 QT: 372 QTc: 430 Interpretive Statements SINUS RHYTHM WITH SINUS ARRHYTHMIA ATRIAL PREMATURE COMPLEXES RIGHT BUNDLE BRANCH BLOCK BASELINE ARTIFACT- I, II, III, AVR, AVL, AVF, V6 ABNORMAL ECG Electronically Signed On 06-10-2021 8:56:05 CDT by Marty Wheat D.O.
[2021-06-08 23:44] LABS: Basophils Absolute Auto 0.1 K/mm3 (0.0-0.1); Basophils Percent Auto 0.6 % (0.2-1.2); Eosinophils Absolute Auto 0.4 K/mm3 (0-0.3); Eosinophils Percent Auto 3.7 % (0-4.4); Hematocrit 42.7 % (42.0-52.0); Hemoglobin 13.2 g/dL (14.0-18.0); Immature Granulocyte Absolute 0.05 K/mm3 (0.00-0.031); Immature Granulocyte Percent A 0.5 % (0-0.5); Lymphocytes Absolute Auto 1.15 K/mm3 (0.9-3.2); Lymphocytes Percent Auto 12.3 % (18.3-44.2); Mean Corpuscular HGB Conc 30.9 g/dl (32-36); Mean Corpuscular Hemoglobin 25.7 pg (26-34); Mean Corpuscular Volume 83.1 fl (80-100); Mean Platelet Volume 10.1 fl (7.4-10.4); Monocytes Absolute Auto 0.6 K/mm3 (0.1-0.6); Monocytes Percent Auto 5.9 % (2.6-8.5); Neutrophils Absolute Auto 7.2 K/mm3 (1.3-6.7); Platelet Count Result 304 k/mm3 (150-375); Red Blood Count 5.14 M/mm3 (4.6-6.20); Red Cell Distribution Width 16.3 % (11.5-14.5); White Blood Count 9.4 K/mm3 (4.5-10.0)
[2021-06-08 23:56] LABS: Alanine Aminotransferase 16 U/L (4-50); Albumin Level 4.2 g/dL (3.5-5.1); Alkaline Phosphatase 106 U/L (38-126); Anion Gap 10 mmol/L (8-16); Aspartate Amino Transferase 30 U/L (17-59); Bilirubin,Total 0.6 mg/dL (0.2-1.3); Blood Urea Nitrogen 52 mg/dL (9-20); Calcium 9.9 mg/dL (8.4-10.2); Carbon Dioxide 26 mmol/L (22-30); Chloride 100 mmol/L (98-107); Estimated CRCL calculation 30 ml/min; Estimated Glomerular Filt Rate 31; Glucose 218 mg/dL (65-110); Potassium 4.3 mmol/L (3.4-5.0); Sodium 136 mmol/L (137-145)
[2021-06-09 01:41] VITALS: BP 133/68; PULSE 78; RESP 14; O2SAT 98
--- NOTE | 2021-06-09 02:30 | PC.NURSE ---
asked pt for urine sample. pt states he is unable to go at this time and is declining a straight catheter.
[2021-06-09] MEDS: SODIUM CHLORIDE 0.9% IV 1,000 ML 999 ML IV CONT (03:51)
--- NOTE | 2021-06-09 04:27 | ED.WEAKNESS ---
HPI - Weakness General Chief complaint: Weakness Stated complaint: R hip pain Time Seen by Provider: 06/09/21 02:17 Source: patient, family, RN notes reviewed and old records reviewed Mode of arrival: wheelchair History of Present Illness HPI Narrative: This is a 70 year old male with history of DM, Peripheral arterial disease, hyper tension who presents for evaluation of weakness. Patient has chronic pain to his legs and chronic wounds. His is stating that last week fell but he reported he was fine so he was not sent to hospital. He started feeling weak since then. He has decreased appetite and he is not eating or drinking much. He states he does not want to walk due to increasing pain to his legs. He has wounds to his legs that are followed by wound clinic but he has not been to his oppointment this week. He denies chest pain, nausea, vomiting, cough or shortness of breath. He reports chronic numbness to left leg but denies worsen numbness. Related Data Home Medications Medication Instructions Recorded Confirmed atorvastatin 80 mg PO HS 03/14/20 03/14/20 clopidogrel [Plavix] 75 mg PO DAILY 03/14/20 03/14/20 diltiazem HCl 180 mg PO DAILY 03/14/20 03/14/20 furosemide 40 mg PO DAILY 03/14/20 03/14/20 gabapentin 300 mg PO TID 03/14/20 03/14/20 glimepiride 4 mg PO BID 03/14/20 03/14/20 isosorbide mononitrate 120 mg PO DAILY 03/14/20 03/14/20 losartan 50 mg PO DAILY 03/14/20 03/14/20 metformin 500 mg PO BID 03/14/20 03/14/20 omeprazole 40 mg PO DAILY 03/14/20 03/14/20 Allergies Allergy/AdvReac Type Severity Reaction Status Date / Time No Known Allergies Allergy Unknown Verified 06/09/21 07:51 Review of Systems Review of Systems: All systems reviewed & are unremarkable except as noted in HPI and below Constitutional: Constitutional: Reports weakness ENT: Denies epistaxis and Denies sore throat Cardiovascular: Cardiovascular: Denies chest pain Respiratory: Respiratory: Denies cough and Denies dyspnea Gastrointestinal: Gastrointestinal: Denies abdominal pain, Reports nausea and Denies vomiting Musculoskeletal: Musculoskeletal: Reports arthralgias Neurologic: Denies headache(s), Denies focal weakness and Reports weakness PMFSH Past Medical History Medical History (Updated 06/09/21 @ 05:28 by Alysa Doshi MD) Coronary artery disease DM type 2 (diabetes mellitus, type 2) DVT (deep venous thrombosis) GERD (gastroesophageal reflux disease) Hyperlipidemia Hypertension Peripheral arterial disease Surgical History Surgical History H/O cardiac catheterization History of revascularization procedure of lower extremity Hx of CABG Family History Family History Sibling Family history of cardiovascular disease Father Family history of cardiovascular disease Other Cerebrovascular accident Depression Diabetes mellitus Family history of arthritis Family history of coronary artery disease Family history of hypercholesterolemia Family history of mental disorder Family history of obesity Family history of seizure disorder Hypertension Social History Social History Social History: The patient lives at home with his . He designates his as his surrogate decision maker. He is unwilling to disclose his code status to me, telling me my knows what I want. Additional social history obtained via review of records. Smoking status: Former smoker Tobacco type: cigarettes Second hand tobacco smoke exposure: Yes Smoking end date: 10/31/08 Alcohol intake: never Substance use: never Substance use type: does not use Gender identity (if verbalized by the patient): Male Spiritual care concerns: No Exam Const: General: no acute distress, alert and ill appearing chronically Nutritional Appearance: ob
[2021-06-09 05:32] VITALS: BP 136/55; PULSE 61; RESP 13; O2SAT 97
--- NOTE | 2021-06-09 06:01 | PC.NURSE ---
pt is refusing to give urine sample. pt refusing straight catheter at this time.
[2021-06-09 07:30] VITALS: BP 147/55; PULSE 100; RESP 18; TEMP 36.4; O2SAT 99; BMI 34.8
--- NOTE | 2021-06-09 07:57 | ADMGEN ---
This patient, Ramana Gaines, was admitted to Medical Room 243-. Patient/family oriented to hospital policies and general routines including ID bracelet, bed and alarms, visiting hours, pain management, procedures, bathroom and other care routines, personal items, smoking policy, room service/diet, and visiting hours. Information on how to activate the Rapid Response Team has been discussed. Patient/Family are encouraged to report perceived risks to care and to ask questions if they do not understand what they are told or what they should do.
[2021-06-09 08:49] LABS: Glucose Point of Care 90 mg/dl (65-105)
--- NOTE | 2021-06-09 08:55 | PM.IMHP ---
H&P: HPI History of Present Illness Date/Time: 06/09/21 08:55 Chief Complaint: weakness Narrative: Ramana Gaines is a 70 year old man with a past medical history significant for PAD (with chronic BLE ulcers); hypertension; and DM type II; who has been admitted after presenting to the ED with complaints of weakness. The patient is a poor historian and reluctant to answer any questions. While in the ED his reported that he had a fall last week without injury and has been feeling weak since then. He reported a poor oral intake while in the ED. When I asked him about his appetite he did not provide any details and just said he eats sometimes. He does tell me he hasn't been walking and wants to be able to walk. He was discharged from our facility back in February and is supposed to be seen weekly by the wound care center, however he tells me he has not been seen in over a month. He was seen by Dr. Ortiz (cardiology) on last admission, but he doesn't know if he has had any follow up visit. During interview and exam he denied any BAILEY, fever, chills, CP, SOB, N/V/D. ED evaluation included and revealed: BUN/Cr 52/2.1; BG 218; Hgb 13.2. WBC is within normal limits. IV antibiotics were initiated and wound care nurse was consulted. The patient has been admitted for further treatment and evaluation. Review of Systems Review of Systems: All systems reviewed & are unremarkable except as noted in HPI and below PMFSH Past Medical History Medical History Coronary artery disease DM type 2 (diabetes mellitus, type 2) DVT (deep venous thrombosis) GERD (gastroesophageal reflux disease) Hyperlipidemia Hypertension Peripheral arterial disease Surgical History Surgical History H/O cardiac catheterization History of revascularization procedure of lower extremity Hx of CABG Family History Family History Sibling Family history of cardiovascular disease Father Family history of cardiovascular disease Son Depression Son Family history of seizure disorder Other Family history of seizure disorder Other Cerebrovascular accident Diabetes mellitus Family history of arthritis Family history of coronary artery disease Family history of hypercholesterolemia Family history of mental disorder Family history of obesity Hypertension Social History Social History Social History: The patient lives at home with his . He designates his as his surrogate decision maker. He is unwilling to disclose his code status to me, telling me my knows what I want. Additional social history obtained via review of records. Smoking status: Former smoker Tobacco type: cigarettes Second hand tobacco smoke exposure: Yes Smoking end date: 10/31/08 Alcohol intake: never Substance use: never Substance use type: does not use Gender identity (if verbalized by the patient): Male Spiritual care concerns: No Meds Home Medications and Allergies Home Medications Medication Instructions Recorded Confirmed Type atorvastatin 80 mg PO HS 03/14/20 06/09/21 History diltiazem HCl 120 mg PO DAILY 03/14/20 06/09/21 History furosemide 40 mg PO DAILY 03/14/20 06/09/21 History gabapentin 600 mg PO TID 03/14/20 06/09/21 History glimepiride 4 mg PO BID 03/14/20 06/09/21 History isosorbide mononitrate 120 mg PO DAILY 03/14/20 06/09/21 History losartan 50 mg PO DAILY 03/14/20 06/09/21 History metformin 500 mg PO BID 03/14/20 06/09/21 History omeprazole 40 mg PO DAILY 03/14/20 06/09/21 History acetaminophen [Mapap 650 mg PO Q4H PRN 14 Days #30 03/21/20 06/09/21 Rx (acetaminophen)] tablet magnesium oxide 200 mg PO Q12HR 3 Days #3 tablet 03/21/20 Rx miconazole nitrate [Aloe [place] 1 applic TOPICAL Q
--- NOTE | 2021-06-09 10:01 | PM.CNCAR ---
Assessment and Plan Assessment and plan (1) Peripheral arterial disease: Code(s): I73.9 - Peripheral vascular disease, unspecified Status: Acute Assessment and Plan: 70-year-old male with CAD with history of CABG per patient- op report not available, PAD, hypertension, diabetes mellitus, CKD, history of DVT on chronic anticoagulation. Patient is status post right SFA balloon angioplasty followed by local thrombolytic treatment with tPA on 03/19/[address] Ortiz. Patient presents with generalized weakness and lower extremity discomfort. He has chronic bilateral lower extremity wounds. - Severe obstructive PAD is reported on noninvasive vascular testing. Initiate anticoagulation with heparin. Patient has acute kidney injury. IV hydration, and plan on peripheral angiogram as soon as renal function stabilizes. - Resume antiplatelet treatment with clopidogrel 75 mg p.o. daily. Continue statin. (2) Nonhealing ulcer of lower extremity limited to breakdown of skin: Code(s): L97.901 - Non-pressure chronic ulcer of unspecified part of unspecified lower leg limited to breakdown of skin Status: Acute Assessment and Plan: Local wound care; appropriate antibiotics as necessary (3) Acute on chronic kidney failure: Code(s): N17.9 - Acute kidney failure, unspecified; N18.9 - Chronic kidney disease, unspecified Status: Acute Assessment and Plan: IV hydration. Consider Nephrology evaluation. History of Present Illness History of Present Illness Consult date/time: 06/09/21 10:01 DATE OF CONSULT: 06/09/2021 REASON FOR CONSULT: PVD REQUESTING PHYSICIAN:Marcelina Ortega APN-C CHIEF COMPLAINT: leg pain HPI: 70-year-old male with CAD with history of CABG per patient- op report not available, PAD, hypertension, diabetes mellitus, CKD, history of DVT on chronic anticoagulation. Patient presented to [facility] Room on 06/09/2021 with complaints of generalized weakness and leg discomfort. Patient is status post right SFA balloon angioplasty followed by local thrombolytic treatment with tPA on 03/19/[address] Ortiz. Apparently, patient has not had follow-up with the Wound Care Clinic post intervention. Patient is somewhat a poor historian due to what appears to be cognitive impairment. He states that he has had chronic ulcers for about 1 month. He is unable to walk at baseline. At present, he denies chest pain or shortness of breath. He gives history of CAD with unknown interventions in the past. 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 Patient's lab work shows acute on chronic renal insufficiency. Echo from 03/18/2020 showed normal LV systolic function. Reason For Visit: acute kidney injury,weakness,bilateral leg ulcers Review of Systems Review of Systems: General: Positive for fatigue Psychological: Negative for anxiety, depression Ophthalmic: negative for loss of vision ENT: Negative for epistaxis, headaches Allergy and immunology: Negative for hives, nasal congestion Hematologic and lymphatic: Negative for overt bleeding problems Endocrine: Negative for hot flashes, palpitations Respiratory: Negative for cough, hemoptysis Cardiovascular: Negative for chest pain Gastrointestinal: Negative for abdominal pain Musculoskeletal: positive for leg pain Neurological: Negative for weakness Dermatological: positive for bilateral lower extremity ulcers with discoloration PMFSH Past Medical History Medical History Coronary artery disease DM type 2 (diabetes mellitus, type 2) DVT (deep venous thrombosis) GERD (gastroesophageal reflux disease) Hyperlipidemia Hypertension Peripheral arterial disease Surgical History Surgical History H/O cardiac catheterization History of revascularization procedure of lower extremity Hx of CABG
[2021-06-09] MEDS: SODIUM CHLORIDE 0.9% IV 1,000 ML 50 ML IV CONT (10:59)
[2021-06-09 11:01] LABS: Hemoglobin A1C 7.2 % (<5.7)
[2021-06-09 11:48] LABS: Magnesium 1.5 mg/dL (1.6-2.3)
[2021-06-09 12:00] VITALS: BP 136/67; PULSE 71; RESP 18; TEMP 36.1; O2SAT 93
--- NOTE | 2021-06-09 12:07 | WPDMODSED ---
Moderate Sedation Note-Pt Data Patient Data Allergies Allergy/AdvReac Type Severity Reaction Status Date / Time No Known Allergies Allergy Unknown Verified 06/09/21 07:51 Home Medications Medication Instructions Recorded Confirmed Type atorvastatin 80 mg PO HS 03/14/20 06/09/21 History clopidogrel [Plavix] 75 mg PO DAILY 03/14/20 06/09/21 History diltiazem HCl 120 mg PO DAILY 03/14/20 06/09/21 History furosemide 40 mg PO DAILY 03/14/20 06/09/21 History gabapentin 600 mg PO TID 03/14/20 06/09/21 History glimepiride 4 mg PO BID 03/14/20 06/09/21 History isosorbide mononitrate 120 mg PO DAILY 03/14/20 06/09/21 History losartan 50 mg PO DAILY 03/14/20 06/09/21 History metformin 500 mg PO BID 03/14/20 03/14/20 History omeprazole 40 mg PO DAILY 03/14/20 06/09/21 History acetaminophen [Mapap 650 mg PO Q4H PRN 14 Days #30 03/21/20 06/09/21 Rx (acetaminophen)] tablet apixaban [Eliquis] 5 mg PO Q12HR 14 Days #28 tablet 03/21/20 Rx magnesium oxide 200 mg PO Q12HR 3 Days #3 tablet 03/21/20 Rx miconazole nitrate [Aloe [place] 1 applic TOPICAL Q12HR #1692 gm 03/21/20 Rx Antifungal (micon)] hydrocodone-acetaminophen 1 tab PO Q6-8H PRN 06/09/21 06/09/21 History Current Medications: Active Medications Clopidogrel Bisulfate (Clopidogrel Bisulfate 75 Mg Tablet) 75 mg PO QAM ANNA Dextrose (Dextrose 50% 25 Gm/50 Ml Syringe) 12.5 gm IV PUSH PRN PRN; Protocol PRN Reason: Hypoglycemia Glucagon (Glucagon For Inj 1 Mg Vial) 1 mg IM PRN PRN; Protocol PRN Reason: Hypoglycemia Glucose (Glucose Oral Gel 15 Gm Of Glucse In 37.5 Gm Tube) 15 gm PO PRN PRN; Protocol PRN Reason: Hypoglycemia Piperacillin Sod/Tazobactam Sod (Zosyn 2.25 Gm/D5w 50 Ml) 2.25 gm in 50 mls @ 100 mls/hr IVPB Q6H ANNA Last Admin: 06/09/21 10:58 Dose: 100 mls/hr Documented by: Sodium Chloride (Normal Saline Iv) 1,000 mls @ 50 mls/hr IV CONT .Q20H ANNA Last Admin: 06/09/21 10:59 Dose: 50 mls/hr Documented by: Dextrose (Dextrose 5% 1,000 Ml) 1,000 mls @ 100 mls/hr IVPB PRN PRN; Protocol PRN Reason: Hypoglycemia Insulin Aspart (Insulin Aspart (*Bkc) 100 Units/Ml) 2 - 5 units SUB-Q TIDWM ANNA; Protocol Ondansetron HCl (Ondansetron Inj 4 Mg/2 Ml Vial) 4 mg IV PUSH Q4H PRN PRN Reason: Nausea Sedation/Anesthesia: No previous sedation/anesthesia problems (including family history). PMFSH Past Medical History Medical History Coronary artery disease DM type 2 (diabetes mellitus, type 2) DVT (deep venous thrombosis) GERD (gastroesophageal reflux disease) Hyperlipidemia Hypertension Peripheral arterial disease Surgical History Surgical History H/O cardiac catheterization History of revascularization procedure of lower extremity Hx of CABG Family History Family History Sibling Family history of cardiovascular disease Father Family history of cardiovascular disease Son Depression Son Family history of seizure disorder Other Family history of seizure disorder Other Cerebrovascular accident Diabetes mellitus Family history of arthritis Family history of coronary artery disease Family history of hypercholesterolemia Family history of mental disorder Family history of obesity Hypertension Social History Social History Social History: The patient lives at home with his . He designates his as his surrogate decision maker. He is unwilling to disclose his code status to me, telling me my knows what I want. Additional social history obtained via review of records. Smoking status: Former smoker Tobacco type: cigarettes Second hand tobacco smoke exposure: Yes Smoking end date: 10/31/08 Alcohol intake: never Substance use: never Substance use type: does not use Gender identity (if verbalized by the patient): Male Sp
--- NOTE | 2021-06-09 12:08 | PM.IMHP ---
H&P: HPI History of Present Illness Date/Time: 06/09/21 12:08 chief complaint: Chest pain, shortness of breath HPI: 70-year-old male with CAD, history of PCI/stenting of LCX at outside hospital -intervention report not available; hypertension, diabetes mellitus, ESRD on hemodialysis, dyslipidemia with history of intolerance to statins in the form of myalgia. Patient was referred by Dr. Wheat for coronary angiogram in the setting of anginal chest pain, shortness of breath and abnormal dobutamine stress echo. Patient had dobutamine stress echo performed at [facility] on 03/12/2021 which reportedly showed global hypokinesis at peak stress with apical akinesis. Patient reports that he is awaiting renal transplant as well. Chief Complaint: chest pain, shortness of breath PMFSH Past Medical History Medical History (Updated 06/09/21 @ 12:11 by Orlando Posey MD) Coronary artery disease DM type 2 (diabetes mellitus, type 2) DVT (deep venous thrombosis) GERD (gastroesophageal reflux disease) Hyperlipidemia Hypertension Peripheral arterial disease Surgical History Surgical History H/O cardiac catheterization History of revascularization procedure of lower extremity Hx of CABG Family History Family History Sibling Family history of cardiovascular disease Father Family history of cardiovascular disease Son Depression Son Family history of seizure disorder Other Family history of seizure disorder Other Cerebrovascular accident Diabetes mellitus Family history of arthritis Family history of coronary artery disease Family history of hypercholesterolemia Family history of mental disorder Family history of obesity Hypertension Social History Social History Social History: The patient lives at home with his . He designates his as his surrogate decision maker. He is unwilling to disclose his code status to me, telling me my knows what I want. Additional social history obtained via review of records. Smoking status: Former smoker Tobacco type: cigarettes Second hand tobacco smoke exposure: Yes Smoking end date: 10/31/08 Alcohol intake: never Substance use: never Substance use type: does not use Gender identity (if verbalized by the patient): Male Spiritual care concerns: No Meds Home Medications and Allergies Home Medications Medication Instructions Recorded Confirmed Type atorvastatin 80 mg PO HS 03/14/20 06/09/21 History clopidogrel [Plavix] 75 mg PO DAILY 03/14/20 06/09/21 History diltiazem HCl 120 mg PO DAILY 03/14/20 06/09/21 History furosemide 40 mg PO DAILY 03/14/20 06/09/21 History gabapentin 600 mg PO TID 03/14/20 06/09/21 History glimepiride 4 mg PO BID 03/14/20 06/09/21 History isosorbide mononitrate 120 mg PO DAILY 03/14/20 06/09/21 History losartan 50 mg PO DAILY 03/14/20 06/09/21 History metformin 500 mg PO BID 03/14/20 03/14/20 History omeprazole 40 mg PO DAILY 03/14/20 06/09/21 History acetaminophen [Mapap 650 mg PO Q4H PRN 14 Days #30 03/21/20 06/09/21 Rx (acetaminophen)] tablet apixaban [Eliquis] 5 mg PO Q12HR 14 Days #28 tablet 03/21/20 Rx magnesium oxide 200 mg PO Q12HR 3 Days #3 tablet 03/21/20 Rx miconazole nitrate [Aloe [place] 1 applic TOPICAL Q12HR #1692 gm 03/21/20 Rx Antifungal (micon)] hydrocodone-acetaminophen 1 tab PO Q6-8H PRN 06/09/21 06/09/21 History Allergies Allergy/AdvReac Type Severity Reaction Status Date / Time No Known Allergies Allergy Unknown Verified 06/09/21 07:51 Vital Signs Vital Signs - 24 hr 06/08/21 22:42 06/09/21 01:41 06/09/21 05:32 Temperature 36.9 C Pulse Rate 82 78 61 Respiratory Rate 16 14 13 Blood Pressure 128/84 133/68 136/55 L Pulse Oximetry 98 98 97 06/09/21 07:30 Temperature 36.4 C L Pulse Rate 100 Respiratory Rate 18 Bl
--- NOTE | 2021-06-09 12:12 | WPDCARDPROC ---
Cardiac Cath Procedure Note Date of procedure:: 06/09/21 Performing physician:: Orlando Posey MD Procedure Procedure performed:: CARDIAC CATHETERIZATION AND PERCUTANEOUS CORONARY INTERVENTION REPORT DATE OF PROCEDURE: 06/09/2021 INDICATION FOR PROCEDURE: chest pain, shortness of breath, abnormal dobutamine stress echo; history of CAD BRIEF CLINICAL HISTORY: 70-year-old male with CAD, history of PCI/stenting of LCX at outside hospital -intervention report not available; hypertension, diabetes mellitus, ESRD on hemodialysis, dyslipidemia with history of intolerance to statins in the form of myalgia. Patient was referred by Dr. Wheat for coronary angiogram in the setting of anginal chest pain, shortness of breath and abnormal dobutamine stress echo. Patient had dobutamine stress echo performed at [facility] on 03/12/2021 prior consideration for renal transplant which reportedly showed global hypokinesis at peak stress with apical akinesis. Coronary angiogram was recommended. Benefits and risks of the procedure were discussed with the patient in depth, and informed consent was obtained prior to the procedure. Risks of the procedure include but are not limited to vascular complications including groin hematoma, retroperitoneal bleed, vessel perforation; periprocedural NM, cardiac arrhythmias, stroke, contrast induced nephropathy, and . After discussing all the benefits, risks and alternatives, patient was willing to proceed with the procedure. PROCEDURES PERFORMED: 1. Left heart catheterization- Selective left and right coronary angiogram; left ventriculogram and hemodynamic assessment 2. Percutaneous coronary intervention- a) IFR of proximal LAD b) intravascular ultrasound (IVUS) of ostial-proximal LAD 3. Moderate sedation-CPT code 20523 MODERATE SEDATION: Midazolam 2 mg; fentanyl 50 mcg. Start time 1109 , Stop time 1202 ; Total [id number] time 53 minutes; Leigh Ann Bran RN was trained observer for moderate sedation. ACCESS SITE: Right common femoral artery PROCEDURE NOTE: After obtaining informed consent, patient was brought to catheterization lab and prepped and draped in a usual sterile manner. After local anesthesia with lidocaine, right common femoral artery access was taken with micropuncture needle followed by insertion of a 5 Estonian sheath. Selective left and right coronary angiogram was performed using 5 Estonian JL4 and JR4 catheters respectively. Orthogonal views were taken. Next, a 5 Estonian pigtail catheter was advanced in the LV cavity and was flushed with normal saline. LV pressure measurement was performed. After this, left ventriculogram was performed. The catheter was flushed again, and gradient across the aortic valve was measured on the pullback of the catheter. The angiographic and IFR and IVUS findings are given below. FINDINGS: LEFT MAIN CORONARY: The left main coronary artery is a large caliber, long vessel with minimal plaque in the distal segment. The vessel bifurcates into LAD and left circumflex branches. LEFT ANTERIOR DESCENDING ARTERY: The LAD is a large caliber vessel in the proximal most segment, poorly defined about 50 to 60% stenosis seen in the proximal segment at the origin of the diagonal branch ( IFR and IVUS findings described below). The vessel tapers distally and reaches LV apex. D1 is a medium caliber vessel with poorly defined stenosis at the ostium. D2 is a medium caliber vessel without significant focal stenosis. Remaining diagonal branches are small caliber vessels. LEFT CIRCUMFLEX ARTERY: The left circumflex artery is a medium caliber vessel; gives rise to small caliber OM1 branch with mild diffuse disease in the proximal segment; a medium caliber OM2 branch with mild diffuse disease in the proximal segment. Mid distal LCX has stents extending into the proximal segment of the OM 3 branch. High-grade, multi segment about 90% InStent restenoses seen. RIGHT CORONARY AR
[2021-06-09] MEDS: CLOPIDOGREL BISULFATE 75 MG TABLET PO (12:53)
[2021-06-09] MEDS: MAGNESIUM SULF 2 GM/WATER 50ML 2 GM/50 ML BAG IVPB (12:53)
[2021-06-09 13:19] LABS: Basophils Absolute Auto 0.1 K/mm3 (0.0-0.1); Basophils Percent Auto 0.8 % (0.2-1.2); Eosinophils Absolute Auto 0.6 K/mm3 (0-0.3); Eosinophils Percent Auto 8.1 % (0-4.4); Hematocrit 39.2 % (42.0-52.0); Immature Granulocyte Absolute 0.03 K/mm3 (0.00-0.031); Immature Granulocyte Percent A 0.4 % (0-0.5); Lymphocytes Absolute Auto 1.34 K/mm3 (0.9-3.2); Lymphocytes Percent Auto 17.3 % (18.3-44.2); Mean Corpuscular HGB Conc 30.6 g/dl (32-36); Mean Corpuscular Hemoglobin 25.7 pg (26-34); Mean Corpuscular Volume 83.9 fl (80-100); Monocytes Absolute Auto 0.7 K/mm3 (0.1-0.6); Monocytes Percent Auto 8.4 % (2.6-8.5); Platelet Count Result 262 k/mm3 (150-375); Red Blood Count 4.67 M/mm3 (4.6-6.20); Red Cell Distribution Width 16.3 % (11.5-14.5); White Blood Count 7.7 K/mm3 (4.5-10.0)
[2021-06-09 14:37] LABS: Glucose Point of Care 101 mg/dl (65-105)
[2021-06-09] MEDS: HYDROcodone/acetaminophen (*CRX) 5-325 MG TABLET 1 TAB PO (15:57)
[2021-06-09] MEDS: GABAPENTIN 300 MG CAPSULE 600 MG PO (16:00)
[2021-06-09 16:16] LABS: Add Urine Microscopic? YES; Appearance Urine Clear (Clear); Bilirubin Urine Negative (Negative); Blood Urine 1+ (Negative); Color Urine Yellow (Yellow); Glucose Urine UA Negative (Negative); Ketones Urine Negative (Negative); Leukocyte Esterase Ur 1+ LEU/UL (Negative); Nitrate Urine Negative (Negative); Protein Urine Negative (Negative); Specific Grav Ur 1.018 (1.001-1.035); Squamous Epithelial Cell Urine Occasional /hpf (Few)
[2021-06-09] MEDS: HEPARIN SOD/D5W 100 UNITS/ML 25,000 UNITS/250 ML BAG 13 UNITS IV CONT (16:36)
[2021-06-09 18:15] LABS: Glucose Point of Care 181 mg/dl (65-105)
[2021-06-09 21:47] VITALS: BP 142/58; PULSE 67; RESP 18; TEMP 36.2; O2SAT 95
[2021-06-09] MEDS: PANTOPRAZOLE 40 MG TABLET PO (22:14)
[2021-06-09] MEDS: ATORVASTATIN 40 MG TABLET 80 MG PO (22:14)
[2021-06-09] MEDS: MAGNESIUM OXIDE 200 MG TABLET PO (22:14)
[2021-06-09 22:30] LABS: Glucose Point of Care 129 mg/dl (65-105)
[2021-06-09 22:59] LABS: Partial Thromboplastin Time 78.2 SECONDS (22.3-36.8)
[2021-06-10] MEDS: HYDROcodone/acetaminophen (*CRX) 5-325 MG TABLET 1 TAB PO ×2 (02:03→08:41)
[2021-06-10 05:45] LABS: Basophils Absolute Auto 0.1 K/mm3 (0.0-0.1); Basophils Percent Auto 0.7 % (0.2-1.2); Eosinophils Absolute Auto 0.7 K/mm3 (0-0.3); Eosinophils Percent Auto 8.5 % (0-4.4); Hematocrit 34.8 % (42.0-52.0); Hemoglobin 11.2 g/dL (14.0-18.0); Immature Granulocyte Absolute 0.02 K/mm3 (0.00-0.031); Immature Granulocyte Percent A 0.3 % (0-0.5); Lymphocytes Absolute Auto 1.38 K/mm3 (0.9-3.2); Mean Corpuscular HGB Conc 32.2 g/dl (32-36); Mean Corpuscular Hemoglobin 26.1 pg (26-34); Mean Corpuscular Volume 81.1 fl (80-100); Mean Platelet Volume 10.4 fl (7.4-10.4); Monocytes Absolute Auto 0.5 K/mm3 (0.1-0.6); Monocytes Percent Auto 6.8 % (2.6-8.5); Neutrophils Absolute Auto 5.1 K/mm3 (1.3-6.7); Neutrophils Percent Auto 65.7 % (45.5-73.1); Platelet Count Result 267 k/mm3 (150-375); Red Blood Count 4.29 M/mm3 (4.6-6.20); Red Cell Distribution Width 16.1 % (11.5-14.5); White Blood Count 7.7 K/mm3 (4.5-10.0)
[2021-06-10 05:47] LABS: Partial Thromboplastin Time 121.5 SECONDS (22.3-36.8)
[2021-06-10 05:51] LABS: Alanine Aminotransferase 12 U/L (4-50); Albumin Level 3.1 g/dL (3.5-5.1); Alkaline Phosphatase 85 U/L (38-126); Anion Gap 6 mmol/L (8-16); Aspartate Amino Transferase 20 U/L (17-59); Bilirubin,Total 0.6 mg/dL (0.2-1.3); Blood Urea Nitrogen 38 mg/dL (9-20); Calcium 9.3 mg/dL (8.4-10.2); Carbon Dioxide 24 mmol/L (22-30); Chloride 106 mmol/L (98-107); Estimated CRCL calculation 43 ml/min; Estimated Glomerular Filt Rate 46; Glucose 110 mg/dL (65-110); Potassium 4.1 mmol/L (3.4-5.0); Sodium 136 mmol/L (137-145)
[2021-06-10 06:00] VITALS: BP 119/65; PULSE 70; RESP 20; TEMP 36.3; O2SAT 93
[2021-06-10 07:20] LABS: EDCOVIDSCREEN Negative (Negative)
[2021-06-10 08:40] LABS: Glucose Point of Care 89 mg/dl (65-105)
[2021-06-10] MEDS: CLOPIDOGREL BISULFATE 75 MG TABLET PO (08:42)
[2021-06-10] MEDS: ISOSORBIDE MONONITRATE 60 MG TAB.ER.24H 120 MG PO (08:42)
[2021-06-10] MEDS: GABAPENTIN 300 MG CAPSULE 600 MG PO (08:42)
[2021-06-10 08:43] LABS: Magnesium 1.8 mg/dL (1.6-2.3)
[2021-06-10] MEDS: MAGNESIUM OXIDE 200 MG TABLET PO (08:44)
[2021-06-10] MEDS: PANTOPRAZOLE 40 MG TABLET PO (08:44)
--- NOTE | 2021-06-10 08:55 | PM.TDS ---
Transfer Discharge Sum: Prov Provider Date of admission: 06/09/21 05:29 Primary care physician: Reshma Morelos MD Admitting clinician: Jonathan Godinez MD Consults: 06/09/21 Consult to Physician Routine Comment: Spoke to Yareli Ramirez @ 09:38am (,[place]) Consulting Provider: Dejuan Mccord supervisor [employer]/MD group to consult: Baldemar Ortiz Reason for consultation: PVD Has provider been notified: Yes 06/09/21 05:30 Wound/ET Consult Routine Reason for Consult:: bilateral leg ulcer DS: Admitting Diagnosis Admitting Diagnosis Peripheral arterial disease DS: Discharge Diagnosis Discharge Diagnosis (1) Peripheral arterial disease: Code(s): I73.9 - Peripheral vascular disease, unspecified Status: Acute Assessment and Plan: BLE arterial dopplers: 1. No detectable flow in right superficial femoral artery. Reestablish flow in right popliteal artery, but no flow in right posterior tibial artery. Right dorsalis pedis not evaluated. 2. No detectable flow in left superficial femoral artery. Reestablish flow in left popliteal artery. Seen in consultation by cardiology and started on heparin drip. He has been accepted for transfer to [facility] for angiogram with possible angioplasty. Has been accepted by hospitalist Dr. Mario with consultation by cognos bi developer Dr. Posey. (2) Nonhealing ulcer of lower extremity limited to breakdown of skin: Code(s): L97.901 - Non-pressure chronic ulcer of unspecified part of unspecified lower leg limited to breakdown of skin Status: Acute Assessment and Plan: Has not been compliant with wound care follow-up. He has bilateral ulcers of lower extremities. Was started on IV Zosyn for suspected superimposed bacterial infection. Remained afebrile without leukocytosis. Evaluated by wound care nurse. Further care on transfer. (3) Acute on chronic kidney failure: Code(s): N17.9 - Acute kidney failure, unspecified; N18.9 - Chronic kidney disease, unspecified Status: Acute Assessment and Plan: Creatinine was 2.1 at presentation, improved to 1.5 with gentle IV fluids. Diuretics and ARB on hold. Continue to monitor renal function. (4) Hypertension: Qualifiers: Hypertension type: essential hypertension Qualified Code(s): I10 - Essential (primary) hypertension Code(s): I10 - Essential (primary) hypertension Status: Chronic Assessment and Plan: BP well controlled. ARB and diuretics on hold as above. (5) DM type 2 (diabetes mellitus, type 2): Qualifiers: Diabetes mellitus complication detail: with other skin ulcer Diabetes mellitus complication status: with skin complications Diabetes mellitus termite exterminator helper insulin use: without skilled nursing use Qualified Code(s): E11.622 - Type 2 diabetes mellitus with other skin ulcer Code(s): E11.9 - Type 2 diabetes mellitus without complications Status: Chronic Assessment and Plan: A1c 7.2. Monitored with Accu-Cheks and covered with sliding scale insulin. Oral agents on hold. (6) Hypomagnesemia: Code(s): E83.42 - Hypomagnesemia Status: Acute Assessment and Plan: Magnesium 1.5 at presentation. Received 2 g IV magnesium sulfate and started on p.o. magnesium oxide. Magnesium improved to 1.8. (7) History of DVT (deep vein thrombosis): Code(s): Z86.718 - Personal history of other venous thrombosis and embolism Status: Acute Assessment and Plan: On Eliquis at home. Transitioned to heparin drip during hospitalization. Remains on heparin drip. Transfer Discharge Sum: Med Medications Active and Home Medications: Home Medications atorvastatin 80 mg PO HS 03/14/20 [History Confirmed 06/09/21] diltiazem HCl 120 mg PO DAILY 03/14/20 [History Confirmed 06/09/21] furosemide 40 mg PO DAILY 03/14/20 [History Confirmed 06/09/21] gabapentin 600 mg PO TID 03/14/20 [History Confirm
[2021-06-10 15:32] LABS: SARS-CoV-2 RNA PCR Negative
== END 2021-06-10 10:30 ==
LOC: ANHED 06-09 05:28 → ANH2MED 06-09 05:58
PROVIDERS: Nurse Practitioner; Nurse Practitioner Adult Health; Physician Assistant; Admitting Provider Internal Medicine; Emergency Provider General Practice; PCP Internal Medicine; Visit Provider Internal Medicine
DX: E11.51 Type 2 diabetes mellitus with diabetic peripheral angiopathy without gangrene (principal); E11.622 Type 2 diabetes mellitus with other skin ulcer; L97.921 Non-pressure chronic ulcer of unspecified part of left lower leg limited to breakdown of skin; L97.911 Non-pressure chronic ulcer of unspecified part of right lower leg limited to breakdown of skin; I70.248 Atherosclerosis of native arteries of left leg with ulceration of other part of lower leg; I70.238 Atherosclerosis of native arteries of right leg with ulceration of other part of lower leg; R53.1 Weakness; N17.9 Acute kidney failure, unspecified; I12.0 Hypertensive chronic kidney disease with stage 5 chronic kidney disease or end stage renal disease; N18.9 Chronic kidney disease, unspecified; E11.22 Type 2 diabetes mellitus with diabetic chronic kidney disease; E83.42 Hypomagnesemia; I25.10 Atherosclerotic heart disease of native coronary artery without angina pectoris; E78.5 Hyperlipidemia, unspecified; K21.9 Gastro-esophageal reflux disease without esophagitis; Z20.822 Contact with and (suspected) exposure to COVID-19; Z86.718 Personal history of other venous thrombosis and embolism; Z95.1 Presence of aortocoronary bypass graft; Z87.891 Personal history of nicotine dependence; Z79.84 Long term (current) use of oral hypoglycemic drugs; Z79.02 Long term (current) use of antithrombotics/antiplatelets; Z79.01 Long term (current) use of anticoagulants
CPT/HCPCS: 36415; 70450; 71046; 73502; 80053; 81001; 82948; 83036; 83735; 85025; 85610; 85730; 87040; 87086; 87426; 93005; 93923; 96361; 96365; 96366; 96367; 96375; 99285; A9270; C9803; G0378; J1644; J2543; J3475; J7030; U0003; U0005

== ENCOUNTER 2021-10-30 22:59 | Inpatient (IN) | payer MEDICARE, SELFPAY ==
--- NOTE | ~2021-10-30 | XR_ITS ---
EXAMINATION: XR barium swallow modified DATE: 11/04/2021 11:30 INDICATION: Orogastric tube. Testing for possible oral feeding. TECHNIQUE: The patient was given barium-containing material of multiple consistencies to swallow by t willy speech pathologist while I performed fluoroscopy. Dose-area product was 1.145 Gy-cm2. 1.5 minutes fluoroscopy time FINDINGS: Oral Stage: Within functional limits Pharyngeal Phase: Reduced laryngeal elevation Reduced tongue base retraction Laryngeal penetration, trace, with thin liquids Cervical/Esophageal Stage: Within functional limits IMPRESSION: Modified esophagram findings as above. Please refer to the speech therapy report for spec ific recommendations. Reviewed, dictated and finalized at [facility]. Reviewed, dictated and finalized at [facility]. ICAL MATERIAL HANDLER IMPRESSION: Modified esophagram findings as above. Please refer to the speech t herapy report for specific recommendations.
--- NOTE | ~2021-10-30 | XR_ITS ---
EXAMINATION: XR chest PICC line DATE: 11/01/2021 18:57 INDICATION: Central line placement. TECHNIQUE: A single frontal view of the chest was obtained. COMPARISON: Chest 2 views 06/08/2021, CT abdomen and pelvis 03/16/2020 FINDINGS: There are airspace opacities in right lower lung zone. No pleural effusion or pneumothorax. The heart size is normal. Median sternotomy wires and mediastinal surgical clips are seen, likely fr om prior coronary artery bypass grafting. A left upper extremity peripherally inserted central venous catheter (PICC) is seen with tip at the superior cavoatrial junction. IMPRESSION: 1. PICC tip at the superior cavoatrial junction. 2. Airspace opacities in right lower lung zone, consistent with atelectasis versus pneumonia. Reviewed, dictated and finalized at [facility]. ER TUBING SPLICER IMPRESSION: 1. PICC tip at the superior cavoatrial junction. 2. Airspace opacities in right lower lung zone, consistent with atelectasis [place] reggie pneumonia.
--- NOTE | ~2021-10-30 | CT_ITS ---
EXAMINATION: CT brain wo con EXAM DATE: 10/31/2021 00:18 INDICATION: Head injury. Unwitnessed fall. Laceration right side above eyebrow. TECHNIQUE: Spiral CT of the head was performed without contrast. Axial, coronal and sagittal images were reviewed. The dose-length product (DLP) for this examination was 605.33 mGy-cm. The exposure w as tailored according to patient size, and iterative reconstruction (ASIR) was used as additional dos e reduction technique. Comparison is made to prior examination from 06/09/2021. FINDINGS: There is no acute intraparenchymal hemorrhage. No evidence of intraparenchymal brain mass lesion. No evidence of acute infarction. Please note that initial head CT has limited sensitivity f or small or acute infarctions. There is mild to moderate periventricular and subcortical hypodensi ty, nonspecific but probably related to small vessel ischemic disease. There is ventricular promine nce out of proportion to sulci which is suspected most likely central atrophy rather than hydrocephal us. Normal pressure hydrocephalus cannot be excluded (clinical triad ataxia/gait disturbance, raymond ia, urinary incontinence). There is intracranial carotid arteriosclerosis. There are no extra-axia l collections. There is no mass effect or midline shift. The orbits are unremarkable. Small right frontal scalp contusion The visualized sinuses and mastoid air cells are well aerated. IMPRESSION: 1. Small right frontal scalp contusion. 2. Chronic age related findings. Reviewed, dictated and finalized at location . E PARTS CUTTER
--- NOTE | 2021-10-30 23:06 | ED.FALL ---
HPI - Fall General Chief Complaint: Fall Stated Complaint: fall/head lac Time Seen by Provider: 10/30/21 23:00 History of Present Illness HPI Narrative: 71-year-old male presenting to the emergency department from a local [facility] for evaluation after having a fall from bed. Patient states he fell from bed and did strike his head. Patient denies any loss of consciousness. Patient does have a laceration to his right forehead. Patient denies any other pain or injury from the fall. Patient was complaining of pain at his sacral decubitus ulcer. Patient has only been at his current [facility] for approximately 4 days. Patient was recently transferred there from [facility] in [place]. At that hospital he did have the PICC line placed and was on IV antibiotics for his ulcer. At his current [facility] patient is currently only onno IV antibiotics. Patient's medical records from [facility] reviewed. Patient was hospitalized at [facility] from 08/26 to 10/26 Related Data Home Medications Medication Instructions Recorded Confirmed atorvastatin 80 mg PO HS 03/14/20 06/09/21 diltiazem HCl 120 mg PO DAILY 03/14/20 06/09/21 furosemide 40 mg PO DAILY 03/14/20 06/09/21 gabapentin 600 mg PO TID 03/14/20 06/09/21 glimepiride 4 mg PO BID 03/14/20 06/09/21 isosorbide mononitrate 120 mg PO DAILY 03/14/20 06/09/21 losartan 50 mg PO DAILY 03/14/20 06/09/21 metformin 500 mg PO BID 03/14/20 06/09/21 omeprazole 40 mg PO DAILY 03/14/20 06/09/21 apixaban [Eliquis] 5 mg PO Q12H 06/09/21 06/09/21 hydrocodone-acetaminophen 1 tab PO Q6-8H PRN 06/09/21 06/09/21 Allergies Allergy/AdvReac Type Severity Reaction Status Date / Time No Known Allergies Allergy Unknown Verified 06/09/21 07:51 Review of Systems Review of Systems: CONSTITUTIONAL: Denies fever, chills, or sweats. EYES: Denies visual changes, redness, or discharge. ENT: Denies rhinorrhea, congestion, sore throat, or otalgia. CARDIOVASCULAR: Denies chest pain, palpitations, or edema. RESPIRATORY: Denies cough or dyspnea. GASTROINTESTINAL: Denies abdominal pain, nausea, vomiting, or diarrhea. GENITOURINARY: Denies dysuria or hematuria. SKIN: Decubitus ulcer, laceration on right forehead MUSCULOSKELETAL: Denies back pain, joint pain, or myalgia. NEUROLOGIC: Denies headache, numbness, or weakness. PSYCHIATRIC: Denies anxiety or depression. [facility] Past Medical History Medical History (Updated 10/31/21 @ 06:54 by Leobardo Strange MD) Coronary artery disease DM type 2 (diabetes mellitus, type 2) DVT (deep venous thrombosis) GERD (gastroesophageal reflux disease) Hyperlipidemia Hypertension Peripheral arterial disease Surgical History Surgical History H/O cardiac catheterization History of revascularization procedure of lower extremity Hx of CABG Family History Family History Sibling Family history of cardiovascular disease Father Family history of cardiovascular disease Son Depression Son Family history of seizure disorder Other Family history of seizure disorder Other Cerebrovascular accident Diabetes mellitus Family history of arthritis Family history of coronary artery disease Family history of hypercholesterolemia Family history of mental disorder Family history of obesity Hypertension Social History Social History Social History: The patient lives at home with his . He designates his as his surrogate decision maker. He is unwilling to disclose his code status to me, telling me my knows what I want. Additional social history obtained via review of records. Smoking status: Former smoker Tobacco type: cigarettes Second hand tobacco smoke exposure: Yes Smoking end date: 10/31/08 Alcohol intake: never Substance use: never Substan
[2021-10-30 23:11] VITALS: BP 134/75; PULSE 110; RESP 16; TEMP 36.9; O2SAT 98
[2021-10-31] VITALS (10 sets, daily range): BP systolic 90–123; BP diastolic 43–59; PULSE 88–107; RESP 12–26; TEMP 36.3–36.6; O2SAT 94–100; BMI 28.0
--- NOTE | 2021-10-31 01:43 | PC.NURSE ---
3 RNs including myself attempted blood draw. Lab called and steam crane operator
[2021-10-31 04:03] LABS: Basophils Absolute Auto 0.1 K/mm3 (0.0-0.1); Basophils Percent Auto 0.3 % (0.2-1.2); Eosinophils Absolute Auto 0.2 K/mm3 (0-0.3); Eosinophils Percent Auto 1.4 % (0-4.4); Hemoglobin 9.5 g/dL (14.0-18.0); Immature Granulocyte Absolute 0.07 K/mm3 (0.00-0.031); Immature Granulocyte Percent A 0.5 % (0-0.5); Immature Platelet Fraction Pct 2.7 % (0.9-11.2); Lymphocytes Percent Auto 9.8 % (18.3-44.2); Mean Corpuscular HGB Conc 31.7 g/dl (32-36); Mean Corpuscular Hemoglobin 28.2 pg (26-34); Mean Platelet Volume 9.9 fl (7.4-10.4); Monocytes Percent Auto 6.6 % (2.6-8.5); Neutrophils Absolute Auto 12.4 K/mm3 (1.3-6.7); Neutrophils Percent Auto 81.4 % (45.5-73.1); Platelet Count Result 265 k/mm3 (150-375); Red Blood Count 3.37 M/mm3 (4.6-6.20); Red Cell Distribution Width 18.1 % (11.5-14.5); White Blood Count 15.3 K/mm3 (4.5-10.0)
[2021-10-31 04:11] LABS: Prothrombin Time 12.6 Seconds (11.1-14.7)
[2021-10-31 04:15] LABS: Lactic Acid Reflex 1.1 mmol/L (0.7-2.1)
[2021-10-31 04:48] LABS: Alanine Aminotransferase 45 U/L (4-50); Albumin Level 3.1 g/dL (3.5-5.1); Alkaline Phosphatase 108 U/L (38-126); Anion Gap 9 mmol/L (8-16); Aspartate Amino Transferase 58 U/L (17-59); Bilirubin,Total 0.5 mg/dL (0.2-1.3); Blood Urea Nitrogen 73 mg/dL (9-20); Calcium 8.8 mg/dL (8.4-10.2); Carbon Dioxide 25 mmol/L (22-30); Chloride 93 mmol/L (98-107); Estimated CRCL calculation 35 ml/min; Estimated Glomerular Filt Rate 40; Glucose 148 mg/dL (65-110); Potassium 5.6 mmol/L (3.4-5.0); Sodium 127 mmol/L (137-145)
[2021-10-31 04:54] LABS: Anisocytosis 1+ (NORMAL); Platelet Estimate Adequate (Adequate)
--- NOTE | 2021-10-31 06:55 | ECG_ITS ---
Measurements Intervals [place] Rate: 98 P: -23 NM: 139 QRS: -18 QRSD: 138 T: 57 QT: 365 QTc: 467 Interpretive Statements SINUS RHYTHM RIGHT BUNDLE BRANCH BLOCK MINIMAL Q WAVES- INFERIOR LEADS BASELINE ARTIFACT- I, II, III, AVR, AVL, AVF, V1, V3-V6 ABNORMAL ECG Electronically Signed On 10-31-2021 8:33:38 HELPDESK MANAGER by Marty Wheat D.O.
--- NOTE | 2021-10-31 07:29 | PC.NURSE ---
RN at bedside trying for ultrasound IV at this time.
--- NOTE | 2021-10-31 07:39 | PC.NURSE ---
Spoke with NH and to inform them that the pt will be admitted to the hospital.
[2021-10-31] MEDS: SODIUM POLYSTYRENE SULFONONATE 15 GM/60 ML BTL 30 GM PO (07:47)
[2021-10-31] MEDS: DEXTROSE 50% 25 GM/50 ML SYRINGE IV PUSH (07:47)
[2021-10-31] MEDS: SODIUM CHLORIDE 0.9% IV 1,000 ML 150 ML IV CONT (07:47)
[2021-10-31] MEDS: INSULIN HUMAN REGULAR (*BKC) 100 UNITS/ML IV PUSH (07:48)
--- NOTE | 2021-10-31 10:38 | PC.NURSE ---
changed pt's diaper, new sheets placed on bed and new dressing placed on pressure ulcer on the coccyx. rolled a blanket under the patient for some relief off of the pressure ulcer. pt resting in bed quietly at this time.
--- NOTE | 2021-10-31 16:07 | PM.IMHP ---
H&P: HPI History of Present Illness Date/Time: 10/31/21 16:07 Chief Complaint: fall Narrative: 71-year-old male presenting to the emergency department from a local [facility] for evaluation after having a fall from bed. he has no recollection of his the reason for coming to this hospital. He does know where he is at. According to the ED in or he fell on the bread and did hit his head but denies any loss of consciousness. He has a laceration on his right forehead. He reports lower extremity pain and also pain in his Coccyx. He has sacral decubitus ulcer which is not aware of. He has been transferred from [facility] in [facility] and for further rehabilitation and has a PICC line in [place] but has not been getting any antibiotics. According to the note he has been hospitalized at [facility] from 08/26 to 10/26. Review of medical records from [facility] septic shock secondary to MRSA bacteremia and cavitary Klebsiella pneumoniae Acute respiratory failure needing intubation Decubitus ulcer needing debridement Hematuria suspect urothelial carcinoma on Ortiz catheter Acute metabolic encephalopathy Acute right lower extremity DVT status post IVC filter currently not on anticoagulation due to high risk of bleeding Peripheral vascular disease status post lower extremity stents on dual antiplatelet therapy started again on 10/21 history of fem-pop bypass Acute blood loss anemia VIRGILIO CKD stage 3 Hypokalemia Dyslipidemia Left medial gluteus pressure injury status post debridement on 09/01/2021 Left heel pressure injury bilateral lower leg venous ulcer Diabetes mellitus type 2 poorly controlled History of coronary disease status post CABG Proximal atrial fibrillation on Eliquis Chronic systolic heart failure LVEF 35-39% Initially admitted to the ICU Review of Systems Review of Systems: - CONSTITUTIONAL: Denies weight loss, fever and chills. - HEENT: Denies changes in vision and hearing - RESPIRATORY: Denies SOB and cough. - CV: Denies palpitations and CP. - GI: Denies abdominal pain, nausea, vomiting and diarrhea. - : Denies dysuria and urinary frequency. - MSK: Denies myalgia and joint pain. - SKIN: Denies rash and pruritus. - NEUROLOGICAL: Denies headache and syncope. - PSYCHIATRIC: Denies recent changes in mood. Denies anxiety and depression. All systems reviewed & are unremarkable except as noted in HPI and below Constitutional: Constitutional: Reports fatigue and Reports weakness Neurologic: Reports weakness Endocrine: Endocrine: Reports fatigue PMFSH Past Medical History Medical History (Updated 10/31/21 @ 19:04 by Vijay Malagon MD) Coronary artery disease DM type 2 (diabetes mellitus, type 2) DVT (deep venous thrombosis) GERD (gastroesophageal reflux disease) Hyperlipidemia Hypertension Peripheral arterial disease Surgical History Surgical History H/O cardiac catheterization History of revascularization procedure of lower extremity Hx of CABG Family History Family History Sibling Family history of cardiovascular disease Father Family history of cardiovascular disease Son Depression Son Family history of seizure disorder Other Family history of seizure disorder Other Cerebrovascular accident Diabetes mellitus Family history of arthritis Family history of coronary artery disease Family history of hypercholesterolemia Family history of mental disorder Family history of obesity Hypertension Social History Social History Social History: The patient lives at home with his . He designates his as his surrogate decision maker. He is unwilling to disclose his code status to me, telling me my knows what I want. Additional social history obtained via review of records. Smoking
[2021-10-31 17:26] LABS: Basophils Absolute Auto 0.1 K/mm3 (0.0-0.1); Basophils Percent Auto 0.5 % (0.2-1.2); Eosinophils Absolute Auto 0.3 K/mm3 (0-0.3); Eosinophils Percent Auto 2.2 % (0-4.4); Hematocrit 30.2 % (42.0-52.0); Hemoglobin 9.4 g/dL (14.0-18.0); Immature Granulocyte Absolute 0.07 K/mm3 (0.00-0.031); Immature Granulocyte Percent A 0.6 % (0-0.5); Lymphocytes Absolute Auto 2.58 K/mm3 (0.9-3.2); Lymphocytes Percent Auto 22.9 % (18.3-44.2); Mean Corpuscular HGB Conc 31.1 g/dl (32-36); Mean Corpuscular Hemoglobin 28.8 pg (26-34); Mean Corpuscular Volume 92.6 fl (80-100); Mean Platelet Volume 9.9 fl (7.4-10.4); Monocytes Absolute Auto 0.7 K/mm3 (0.1-0.6); Monocytes Percent Auto 5.8 % (2.6-8.5); Neutrophils Absolute Auto 7.6 K/mm3 (1.3-6.7); Platelet Count Result 250 k/mm3 (150-375); Red Blood Count 3.26 M/mm3 (4.6-6.20); Red Cell Distribution Width 18.2 % (11.5-14.5); White Blood Count 11.3 K/mm3 (4.5-10.0)
[2021-10-31 17:41] LABS: Alanine Aminotransferase 35 U/L (4-50); Albumin Level 2.9 g/dL (3.5-5.1); Alkaline Phosphatase 116 U/L (38-126); Anion Gap 10 mmol/L (8-16); Aspartate Amino Transferase 42 U/L (17-59); Bilirubin,Total 0.4 mg/dL (0.2-1.3); Blood Urea Nitrogen 68 mg/dL (9-20); Calcium 8.6 mg/dL (8.4-10.2); Carbon Dioxide 26 mmol/L (22-30); Chloride 95 mmol/L (98-107); Estimated CRCL calculation 30 ml/min; Estimated Glomerular Filt Rate 33; Glucose 138 mg/dL (65-110); Magnesium 2.3 mg/dL (1.6-2.3); Sodium 131 mmol/L (137-145)
[2021-10-31] MEDS: SODIUM CHLORIDE 0.9% IV 1,000 ML 75 ML IV CONT (21:57)
[2021-10-31] MEDS: ATORVASTATIN 40 MG TABLET 80 MG FEED TUBE (21:57)
[2021-10-31 22:57] LABS: Glucose Point of Care 134 mg/dl (65-105)
[2021-11-01] VITALS (9 sets, daily range): BP systolic 107–119; BP diastolic 44–68; PULSE 81–106; RESP 18–21; TEMP 36.2–36.4; O2SAT 92–100
[2021-11-01] MEDS: LANSOPRAZOLE ORAL SUSP 30 MG/10 ML ORAL.SUSP FEED TUBE (06:11)
[2021-11-01 06:19] LABS: Glucose Point of Care 195 mg/dl (65-105)
[2021-11-01 06:23] LABS: Basophils Percent Auto 0.6 % (0.2-1.2); Hemoglobin 9.4 g/dL (14.0-18.0); Immature Granulocyte Absolute 0.04 K/mm3 (0.00-0.031); Immature Granulocyte Percent A 0.5 % (0-0.5); Lymphocytes Percent Auto 19.1 % (18.3-44.2); Mean Corpuscular HGB Conc 29.4 g/dl (32-36); Mean Corpuscular Hemoglobin 28.8 pg (26-34); Mean Corpuscular Volume 98.2 fl (80-100); Mean Platelet Volume 9.9 fl (7.4-10.4); Monocytes Percent Auto 6.7 % (2.6-8.5); Neutrophils Percent Auto 70.1 % (45.5-73.1); Platelet Count Result 210 k/mm3 (150-375); Red Blood Count 3.26 M/mm3 (4.6-6.20); Red Cell Distribution Width 18.6 % (11.5-14.5); White Blood Count 8.8 K/mm3 (4.5-10.0)
[2021-11-01 06:24] LABS: Basophils Absolute Auto 0.1 K/mm3 (0.0-0.1); Eosinophils Absolute Auto 0.3 K/mm3 (0-0.3); Lymphocytes Absolute Auto 1.68 K/mm3 (0.9-3.2); Monocytes Absolute Auto 0.6 K/mm3 (0.1-0.6); Neutrophils Absolute Auto 6.2 K/mm3 (1.3-6.7)
[2021-11-01 06:34] LABS: Alanine Aminotransferase 35 U/L (4-50); Albumin Level 2.9 g/dL (3.5-5.1); Alkaline Phosphatase 114 U/L (38-126); Anion Gap 10 mmol/L (8-16); Aspartate Amino Transferase 41 U/L (17-59); Bilirubin,Total 0.4 mg/dL (0.2-1.3); Blood Urea Nitrogen 72 mg/dL (9-20); CRP 7.8 mg/dL (<1.0); Calcium 8.4 mg/dL (8.4-10.2); Carbon Dioxide 20 mmol/L (22-30); Chloride 100 mmol/L (98-107); Creatine Kinase 272 U/L (55-170); Estimated CRCL calculation 25 ml/min; Estimated Glomerular Filt Rate 31; Glucose 191 mg/dL (65-110); Magnesium 2.4 mg/dL (1.6-2.3); Potassium 5.1 mmol/L (3.4-5.0); Sodium 130 mmol/L (137-145)
[2021-11-01 07:58] LABS: Glucose Point of Care 167 mg/dl (65-105)
[2021-11-01] MEDS: CLOPIDOGREL BISULFATE 75 MG TABLET FEED TUBE (08:43)
--- NOTE | 2021-11-01 09:49 | PM.IMPN ---
Progress Note: A&P Assessment and Plan (1) Acute hyponatremia: Code(s): E87.1 - Hypo-osmolality and hyponatremia Status: Acute (2) Head injury: Qualifiers: Encounter type: initial encounter Qualified Code(s): S09.90XA - Unspecified injury of head, initial encounter Code(s): S09.90XA - Unspecified injury of head, initial encounter Status: Acute (3) Sacral decubitus ulcer: Qualifiers: Pressure injury stage: unspecified pressure injury stage Qualified Code(s): L89.159 - Pressure ulcer of sacral region, unspecified stage Code(s): L89.159 - Pressure ulcer of sacral region, unspecified stage Status: Acute (4) Acute hyperkalemia: Code(s): E87.5 - Hyperkalemia Status: Acute (5) Peripheral arterial disease: Code(s): I73.9 - Peripheral vascular disease, unspecified Status: Acute (6) Nonhealing ulcer of lower extremity limited to breakdown of skin: Code(s): L97.901 - Non-pressure chronic ulcer of unspecified part of unspecified lower leg limited to breakdown of skin Status: Acute (7) Acute on chronic kidney failure: Code(s): N17.9 - Acute kidney failure, unspecified; N18.9 - Chronic kidney disease, unspecified Status: Acute (8) Weakness: Code(s): R53.1 - Weakness Status: Acute (9) Coronary artery disease: Code(s): I25.10 - Atherosclerotic heart disease of [place] coronary artery without angina pectoris Status: Acute (10) Hypertension: Qualifiers: Hypertension type: essential hypertension Qualified Code(s): I10 - Essential (primary) hypertension Code(s): I10 - Essential (primary) hypertension Status: Chronic (11) DM type 2 (diabetes mellitus, type 2): Qualifiers: Diabetes mellitus intermodal dispatcher insulin use: without half-way use Diabetes mellitus complication status: with skin complications Diabetes mellitus complication detail: with other skin ulcer Qualified Code(s): E11.622 - Type 2 diabetes mellitus with other skin ulcer Code(s): E11.9 - Type 2 diabetes mellitus without complications Status: Chronic (12) History of DVT (deep vein thrombosis): Code(s): Z86.718 - Personal history of other venous thrombosis and embolism Status: Acute (13) Normocytic anemia: Code(s): D64.9 - Anemia, unspecified Status: Acute (14) Urothelial carcinoma: Code(s): C68.9 - Malignant neoplasm of urinary organ, unspecified Status: Acute Additional Plan # fall at the NH # Head injury without loss of consciousness head CT with right frontal scalp contusion # Leukocytosis # Bacteremia: GPCC. started on vancomycin. picc in place from last admission. may need to remove the picc # Anemia mild # Hyponatremia 127 # VIRGILIO and CKD stage 3 creatinine 1.7 with BUN of 73 , continue gentle ivf. # Hyperkalemia given Kayexalate # Coronary artery disease Status post CABG # DM2 type 2 (diabetes mellitus, type 2) on insulin # DVT (deep venous thrombosis) s/p ivc filter palcement anticoagulation was attempted but because hematuria and hence stopped # GERD (gastroesophageal reflux disease) # Hyperlipidemia # Hypertension # Peripheral arterial disease chronic bilateral lower extremity ulcers # DVT Proph: used to be on eliquis but now on hold due to risk of bleeding. scds in place. tried contacting his , but could not reach her. left voicemail 10/31/2021 # code status: Full. notes from [facility] suggest, he was moved to DNR. tried to contact who is not able to reached. # history of septic shock secondary to MRSA bacteremia and cavitary Klebsiella pneumoniae 08/20 #Acute respiratory failure needing intubation extubated now on room air #Decubitus ulcer needing debridement # newly diagnosed stage 2 urothelial carcinoma T2 N0 M0 #Acute metabolic encephalopathy #Acute right lower extremity DVT status post IVC filter currently not on anticoagulation due
[2021-11-01 11:44] LABS: Glucose Point of Care 132 mg/dl (65-105)
--- NOTE | 2021-11-01 12:01 | PCSTNOTE ---
Patient refused bedside swallowing evaluation (BSE). Therapist explained that he might be able to start receiving food and drink by mouth after the BSE is completed. Patient agreed to cooperate. However, once the therapist set up the necessary items a second time, patient again refused because he did not want his bed elevated at all due to the anticipated pain. He requested that we wait and check with him tomorrow. ]
[2021-11-01] MEDS: SILVER NITRATE (*SP) STICK 4 EACH TOPICAL (14:30)
[2021-11-01] MEDS: SODIUM CHLORIDE 0.9% IV 1,000 ML 75 ML IV CONT (15:06)
--- NOTE | 2021-11-01 16:03 | PM.CNGS ---
Assessment and Plan Assessment and plan (1) Sacral decubitus ulcer: Onset Date: Unknown Qualifiers: Pressure injury stage: unspecified pressure injury stage Qualified Code(s): L89.159 - Pressure ulcer of sacral region, unspecified stage Code(s): L89.159 - Pressure ulcer of sacral region, unspecified stage Status: Acute Assessment and Plan: To me this would appears to be far enough away from the anal opening that perhaps we can get a seal and use a wound VAC. greater than 75% of the internal lining appears to be healthy tissue. I did d?bride just a 1 or 2 sq cm area cephalad in the wound this date and use a little silver nitrate. Will have the wound care nurses evaluate for possible use of wound VAC on Tuesday or Tuesday of this week. For now daily saline moistened 4x4s covered with dry once and tape and change as needed is adequate. (2) Nonhealing ulcer of lower extremity limited to breakdown of skin: Code(s): L97.901 - Non-pressure chronic ulcer of unspecified part of unspecified lower leg limited to breakdown of skin Status: Acute Assessment and Plan: All except the 1 on the back of his right appeared to be fairly superficial breakdown areas. May be related with venous stasis. Today we applied lotion to his very dry skin all surfaces the port wounds below his knee bilaterally. Telfa was applied over the superficial breakdown sites and his mid foot to knee were wrapped with a 3 in in then a 4 in Jose Miguel wrap. May need to use silver gel on the open areas and will discuss this with care nurses as he may be a candidate for a wound a blue type dressing for his bilatera lower extremities and these superficial wounds. (3) DM type 2 (diabetes mellitus, type 2): Qualifiers: Diabetes mellitus complication detail: with other skin ulcer Diabetes mellitus complication status: with skin complications Diabetes mellitus half-way insulin use: without termite renewal inspector use Qualified Code(s): E11.622 - Type 2 diabetes mellitus with other skin ulcer Code(s): E11.9 - Type 2 diabetes mellitus without complications Status: Chronic Assessment and Plan: As per Hospitalist service (4) Peripheral arterial disease: Code(s): I73.9 - Peripheral vascular disease, unspecified Status: Acute Assessment and Plan: Could recheck lower extrimity arterial doppler studies to see if arterial flow os adequate for healing below the knee History of Present Illness Consult details Consult date: 11/01/21 Reason for consult: wound care (Large sacral decubitus, superficial breakdown on legs) Requesting physician: Camilo,MD Lucia Narrative: Mr. Ramana Gaines is a 71-year-old white male with extensive recent medical history including just being discharged from a long hospital stay and her band I will annoyed. Please see the history and physical for further details. I was asked to see him in consultation regarding a fairly clean large sacral decubitus and venous stasis ulcers of his bilateral lower extremities. He also has a history of previous peripheral vascular disease and has a stent in the left upper leg placed earlier this year (2020) for arterial peripheral vascular disease. Apparently at the [facility] he rolled or fell out of bed and was brought here for evaluation. Head CT was negative within patient was admitted for his multiple medical problems I was asked to help follow-up on his wounds. Therefore I am seeing him this date. Review of Systems Review of Systems: ROS unobtainable: Yes unobtainable due to mental status (see Medical H & P for extensive list of all his problems and recent hospita) [facility] Past Medical History Medical History (Updated 11/01/21 @ 16:29 by Jose Clarke MD) Coronary artery disease DM type 2 (diabetes mellitus, type 2) DVT (deep venous thrombosis) GERD (gastroesophageal reflux disease) Hyperlipidemia Hypertension
[2021-11-01 16:29] LABS: Glucose Point of Care 119 mg/dl (65-105)
[2021-11-01] MEDS: FERROUS SULFATE LIQUID 325 MG/7.4 ML ELIXIR FEED TUBE (20:39)
[2021-11-01] MEDS: ATORVASTATIN 40 MG TABLET 80 MG FEED TUBE (20:39)
[2021-11-01] MEDS: HEPARIN SODIUM 5,000 UNITS/ML VIAL 5000 UNITS SUB-Q (20:41)
[2021-11-01] MEDS: SODIUM CHLORIDE NASAL GEL 14.1 GM 1 APPLIC NASAL (20:41)
[2021-11-01 22:08] LABS: Glucose Point of Care 175 mg/dl (65-105)
[2021-11-01] MEDS: ACETAMINOPHEN/CODEINE ELIXIR (*CRX) 120-12 MG/5 ML UDC 10 ML FEED TUBE (22:44)
[2021-11-02] VITALS (12 sets, daily range): BP systolic 108–141; BP diastolic 50–73; PULSE 84–101; RESP 16–21; TEMP 36.2–36.7; O2SAT 98–100; BMI 28.0; BMI 10.0
[2021-11-02] MEDS: ALTEPLASE 2 MG VIAL (CATHFLO) IV PUSH ×3 (00:29→00:32)
[2021-11-02 02:23] LABS: Glucose Point of Care 136 mg/dl (65-105)
[2021-11-02 06:07] LABS: Basophils Absolute Auto 0.1 K/mm3 (0.0-0.1); Basophils Percent Auto 0.4 % (0.2-1.2); Eosinophils Absolute Auto 0.3 K/mm3 (0-0.3); Eosinophils Percent Auto 2.5 % (0-4.4); Hematocrit 28.1 % (42.0-52.0); Hemoglobin 8.7 g/dL (14.0-18.0); Immature Granulocyte Absolute 0.05 K/mm3 (0.00-0.031); Immature Granulocyte Percent A 0.4 % (0-0.5); Lymphocytes Absolute Auto 1.32 K/mm3 (0.9-3.2); Lymphocytes Percent Auto 11.6 % (18.3-44.2); Mean Corpuscular Hemoglobin 28.4 pg (26-34); Mean Corpuscular Volume 91.8 fl (80-100); Mean Platelet Volume 10.1 fl (7.4-10.4); Monocytes Absolute Auto 0.5 K/mm3 (0.1-0.6); Monocytes Percent Auto 4.7 % (2.6-8.5); Neutrophils Absolute Auto 9.1 K/mm3 (1.3-6.7); Neutrophils Percent Auto 80.4 % (45.5-73.1); Platelet Count Result 245 k/mm3 (150-375); Red Blood Count 3.06 M/mm3 (4.6-6.20); Red Cell Distribution Width 18.1 % (11.5-14.5); White Blood Count 11.4 K/mm3 (4.5-10.0)
[2021-11-02 06:37] LABS: Alanine Aminotransferase 29 U/L (4-50); Albumin Level 2.7 g/dL (3.5-5.1); Alkaline Phosphatase 117 U/L (38-126); Anion Gap 8 mmol/L (8-16); Aspartate Amino Transferase 31 U/L (17-59); Bilirubin,Total 0.3 mg/dL (0.2-1.3); Blood Urea Nitrogen 53 mg/dL (9-20); Calcium 8.4 mg/dL (8.4-10.2); Carbon Dioxide 21 mmol/L (22-30); Chloride 102 mmol/L (98-107); Estimated CRCL calculation 34 ml/min; Estimated Glomerular Filt Rate 46; Glucose 202 mg/dL (65-110); Potassium 4.7 mmol/L (3.4-5.0); Sodium 131 mmol/L (137-145)
[2021-11-02] MEDS: LANSOPRAZOLE ORAL SUSP 30 MG/10 ML ORAL.SUSP FEED TUBE (07:21)
[2021-11-02] MEDS: SODIUM CHLORIDE 0.9% IV 1,000 ML 75 ML IV CONT (07:25)
[2021-11-02 07:36] LABS: Glucose Point of Care 197 mg/dl (65-105)
--- NOTE | 2021-11-02 07:59 | PCPTNOTE ---
refused therapy, stating he does not want therapy.
--- NOTE | 2021-11-02 08:18 | PC.NURSE ---
CXR results read to Dr. Malagon. Per Dr. Malagon, received orders okay to use PICC line.
[2021-11-02] MEDS: FERROUS SULFATE LIQUID 325 MG/7.4 ML ELIXIR FEED TUBE ×2 (09:11→16:12)
[2021-11-02] MEDS: ASPIRIN 81 MG CHEWABLE TABLET PO (09:11)
[2021-11-02] MEDS: HEPARIN SODIUM 5,000 UNITS/ML VIAL 5000 UNITS SUB-Q ×2 (09:11→20:27)
[2021-11-02] MEDS: METOPROLOL TARTRATE 12.5 MG TABLET FEED TUBE ×2 (09:11→20:27)
[2021-11-02] MEDS: CLOPIDOGREL BISULFATE 75 MG TABLET FEED TUBE (09:11)
--- NOTE | 2021-11-02 11:05 | PCSTNOTE ---
Patient was again requested to participate in the bedside swallow evaluation however he again refused this morning as he states his bottom is still sore and he does not want to sit up. He denied the reason he refused was due to anticipated difficulty swallowing.
--- NOTE | 2021-11-02 11:15 | PCOTNOTE ---
Attempted to evaluate for occupational therapy. Pt. refused to get up and participate because he wants to sleep. Will attempt later
[2021-11-02 12:31] LABS: Glucose Point of Care 133 mg/dl (65-105)
--- NOTE | 2021-11-02 13:00 | WPDCDIQUERY2 ---
CDI Query Clarification Request -Progress note on 11/01 states that you did debride just a 1 or 2 sq cm area cephalad in the wound . Please further specify if debridement was excisional or nonexcisional and also please specify the depth of the debridement. <Yuridia Noonan RN - Last Filed: 11/02/21 13:03> Provider Comments This was an excisional debridement of muscle no bone (again minimal less than 1-2 centimeters squared of tissue). DJ <Jose Clarke MD - Last Filed: 11/02/21 21:15>
--- NOTE | 2021-11-02 14:04 | PM.IMPN ---
Progress Note: A&P Assessment and Plan (1) Acute hyponatremia: Code(s): E87.1 - Hypo-osmolality and hyponatremia Status: Acute (2) Head injury: Qualifiers: Encounter type: initial encounter Qualified Code(s): S09.90XA - Unspecified injury of head, initial encounter Code(s): S09.90XA - Unspecified injury of head, initial encounter Status: Acute (3) Sacral decubitus ulcer: Onset Date: Unknown Qualifiers: Pressure injury stage: unspecified pressure injury stage Qualified Code(s): L89.159 - Pressure ulcer of sacral region, unspecified stage Code(s): L89.159 - Pressure ulcer of sacral region, unspecified stage Status: Acute (4) Acute hyperkalemia: Code(s): E87.5 - Hyperkalemia Status: Acute (5) Peripheral arterial disease: Code(s): I73.9 - Peripheral vascular disease, unspecified Status: Acute (6) Nonhealing ulcer of lower extremity limited to breakdown of skin: Code(s): L97.901 - Non-pressure chronic ulcer of unspecified part of unspecified lower leg limited to breakdown of skin Status: Acute (7) Acute on chronic kidney failure: Code(s): N17.9 - Acute kidney failure, unspecified; N18.9 - Chronic kidney disease, unspecified Status: Acute (8) Weakness: Code(s): R53.1 - Weakness Status: Acute (9) Coronary artery disease: Code(s): I25.10 - Atherosclerotic heart disease of [place] coronary artery without angina pectoris Status: Acute (10) Hypertension: Qualifiers: Hypertension type: essential hypertension Qualified Code(s): I10 - Essential (primary) hypertension Code(s): I10 - Essential (primary) hypertension Status: Chronic (11) DM type 2 (diabetes mellitus, type 2): Qualifiers: Diabetes mellitus fdc insulin use: without fdc use Diabetes mellitus complication status: with skin complications Diabetes mellitus complication detail: with other skin ulcer Qualified Code(s): E11.622 - Type 2 diabetes mellitus with other skin ulcer Code(s): E11.9 - Type 2 diabetes mellitus without complications Status: Chronic (12) History of DVT (deep vein thrombosis): Code(s): Z86.718 - Personal history of other venous thrombosis and embolism Status: Acute (13) Normocytic anemia: Code(s): D64.9 - Anemia, unspecified Status: Acute (14) Urothelial carcinoma: Code(s): C68.9 - Malignant neoplasm of urinary organ, unspecified Status: Acute Additional Plan # fall at the NH # Head injury without loss of consciousness head CT with right frontal scalp contusion # Leukocytosis mild persistent # Bacteremia: [facility]. started on vancomycin. picc in place from last admission. may need to remove the picc # sacral decubitus ulcer extensive but no obvious signs of infection. General surgery consulted and had debridement done at bedside 11/01/2021 # Anemia mild continue monitor no acute sign of bleeding # Hyponatremia 127 on admission continues improve slowly # VIRGILIO and CKD stage 3 creatinine 1.7 with BUN of 73 , continue gentle ivf. Renal failure improved will stop IV fluid today increases tube feeds as discussed with dietitian for adequate calorie intake # Hyperkalemia given Kayexalate not resolved # Coronary artery disease Status post CABG # DM2 type 2 (diabetes mellitus, type 2) on insulin blood sugar trend at goal which was reviewed # recent DVT (deep venous thrombosis) s/p ivc filter palcement anticoagulation was attempted but because of hematuria anticoagulation attempt was stopped # GERD (gastroesophageal reflux disease) # Hyperlipidemia # Hypertension # Peripheral arterial disease chronic bilateral lower extremity ulcers with some infection currently wound culture from leg ulcers are showing no growth. # DVT Proph: used to be on eliquis but now on hold due to risk of bleeding. scds in place. # code status: Full. notes from
[2021-11-02] MEDS: CENTRAL LINE FLUSH 10 ML IV PUSH ×2 (14:56→21:34)
--- NOTE | 2021-11-02 16:23 | PCSTNOTE ---
Therapist attempted again to complete swallowing evaluation however patient refused to sit up, wanting to drink water from reclining position Due to lack of swallowing safety, could not offer water. When questioned patient denied difficulty swallowing, says he has no appetite and does not express understanding of why he has tube feedings.
[2021-11-02 18:19] LABS: Glucose Point of Care 143 mg/dl (65-105)
--- NOTE | 2021-11-02 18:20 | PC.NURSE ---
Calorie count order cancelled d/t patients NPO status. Patient is strictly tube feedings, continuously, at this point.
[2021-11-02] MEDS: ATORVASTATIN 40 MG TABLET 80 MG FEED TUBE (20:29)
[2021-11-02] MEDS: SODIUM CHLORIDE NASAL GEL 14.1 GM 1 APPLIC NASAL (20:29)
[2021-11-02 20:37] LABS: Glucose Point of Care 148 mg/dl (65-105)
--- NOTE | 2021-11-02 21:17 | PM.PNGS ---
Progress Note: A&P Assessment and Plan (1) Sacral decubitus ulcer: Onset Date: Unknown Qualifiers: Pressure injury stage: unspecified pressure injury stage Qualified Code(s): L89.159 - Pressure ulcer of sacral region, unspecified stage Code(s): L89.159 - Pressure ulcer of sacral region, unspecified stage Status: Acute Assessment and Plan: This is the main reason I was asked to see the patient. Wound care nurses have evaluated his sacral decubitus apparently there is not enough room to create a good seal inferiorly between the edge of the wound and the anal area. Therefore, we will continue to use saline dressings to sacral decubitus. This will need to be done either once or twice a day depending on if they are trying out. One small area of the left upper portion of the wound may benefit from some Santyl. Nutritional assessment is appreciated. Agree with increased tube feedings to 24 hours and protein supplement to aid wound healing. (2) Peripheral arterial disease: Onset Date: Unknown Code(s): I73.9 - Peripheral vascular disease, unspecified Status: Acute Assessment and Plan: Old records in charge show that in 2019 the patient was transferred from [facility] to [place] for intervention or a narrowing in his femoral or iliac vessels. Could consider arterial Doppler ultrasound at some point if patient is willing to reassess blood flow to his lower extremities to see if there is adequate flow to lead to healing. However, this time patient is refusing multiple test. This include simple test such as his bedside swallow to see if he can begin in a oral diet again. I discussed these things with him significantly encouraged to be cooperative to do these things in LEs he wants to in to give up and become comfort care only. At this time he told me tonight that he is not willing to give up at this time period (3) Nonhealing ulcer of lower extremity limited to breakdown of skin: Code(s): L97.901 - Non-pressure chronic ulcer of unspecified part of unspecified lower leg limited to breakdown of skin Status: Acute Assessment and Plan: The patient would not allow dressing changes or assessment of these wounds today. He is however wearing moderate compression Jose Miguel wraps put on yesterday and the Molina boots to protect his skin of the lower extremities. When asked he would not even wiggle his toes for me today. He stated I cannot do that while and the Molina boots on . I explained to him that there is a possibility that the infection that was detected in his blood cultures may be coming from one of his wounds and its important to do dressing changes on these even though it causes some pain. This could be scheduled for a time half an hour to hour after his pain medication. I discussed this with this nurse today. (4) DM type 2 (diabetes mellitus, type 2): Onset Date: Unknown Qualifiers: Diabetes mellitus terminal gauger supervisor insulin use: without penitentiary use Diabetes mellitus complication status: with skin complications Diabetes mellitus complication detail: with other skin ulcer Qualified Code(s): E11.622 - Type 2 diabetes mellitus with other skin ulcer Code(s): E11.9 - Type 2 diabetes mellitus without complications Status: Chronic Assessment and Plan: Seems to be in reasonable control. This however mkes the patient more susceptible to infections of his open wounds. (5) Venous stasis dermatitis: Onset Date: Unknown Code(s): I87.2 - Venous insufficiency (chronic) (peripheral) Status: Acute Assessment and Plan: [place] wound ostomy care nurses today saw the patient and also let me know that they had seen him approximately year to 2 years ago and he had the same problems on his lower legs. That time he was also somewhat uncooperative. They state they eventually ended up letting him go because of his noncompliance and would n
[2021-11-03] VITALS (8 sets, daily range): BP systolic 101–143; BP diastolic 45–66; PULSE 83–101; RESP 18–21; TEMP 36.1–36.6; O2SAT 98–100
[2021-11-03 00:18] LABS: Glucose Point of Care 138 mg/dl (65-105)
[2021-11-03] MEDS: CENTRAL LINE FLUSH 20 ML IV PUSH (04:45)
[2021-11-03 04:53] LABS: Basophils Absolute Auto 0.1 K/mm3 (0.0-0.1); Basophils Percent Auto 0.7 % (0.2-1.2); Eosinophils Absolute Auto 0.5 K/mm3 (0-0.3); Eosinophils Percent Auto 5.3 % (0-4.4); Hematocrit 27.3 % (42.0-52.0); Hemoglobin 8.3 g/dL (14.0-18.0); Immature Granulocyte Absolute 0.03 K/mm3 (0.00-0.031); Immature Granulocyte Percent A 0.4 % (0-0.5); Lymphocytes Absolute Auto 1.31 K/mm3 (0.9-3.2); Lymphocytes Percent Auto 15.5 % (18.3-44.2); Mean Corpuscular HGB Conc 30.4 g/dl (32-36); Mean Corpuscular Hemoglobin 28.6 pg (26-34); Mean Corpuscular Volume 94.1 fl (80-100); Mean Platelet Volume 9.7 fl (7.4-10.4); Monocytes Absolute Auto 0.5 K/mm3 (0.1-0.6); Monocytes Percent Auto 5.7 % (2.6-8.5); Neutrophils Absolute Auto 6.1 K/mm3 (1.3-6.7); Neutrophils Percent Auto 72.4 % (45.5-73.1); Platelet Count Result 237 k/mm3 (150-375); Red Cell Distribution Width 17.9 % (11.5-14.5); White Blood Count 8.4 K/mm3 (4.5-10.0)
[2021-11-03 05:09] LABS: Alanine Aminotransferase 25 U/L (4-50); Albumin Level 2.6 g/dL (3.5-5.1); Alkaline Phosphatase 112 U/L (38-126); Anion Gap 7 mmol/L (8-16); Aspartate Amino Transferase 30 U/L (17-59); Bilirubin,Total 0.2 mg/dL (0.2-1.3); Blood Urea Nitrogen 38 mg/dL (9-20); Calcium 8.5 mg/dL (8.4-10.2); Carbon Dioxide 23 mmol/L (22-30); Chloride 102 mmol/L (98-107); Estimated CRCL calculation 43 ml/min; Estimated Glomerular Filt Rate 59; Glucose 193 mg/dL (65-110); Magnesium 1.8 mg/dL (1.6-2.3); Potassium 4.6 mmol/L (3.4-5.0); Sodium 132 mmol/L (137-145)
[2021-11-03] MEDS: CENTRAL LINE FLUSH 10 ML IV PUSH (05:21)
[2021-11-03 05:28] LABS: Glucose Point of Care 188 mg/dl (65-105)
[2021-11-03] MEDS: LANSOPRAZOLE ORAL SUSP 30 MG/10 ML ORAL.SUSP FEED TUBE (05:45)
[2021-11-03] MEDS: FERROUS SULFATE LIQUID 325 MG/7.4 ML ELIXIR FEED TUBE ×2 (09:13→17:18)
[2021-11-03] MEDS: HEPARIN SODIUM 5,000 UNITS/ML VIAL 5000 UNITS SUB-Q ×2 (09:13→20:27)
[2021-11-03] MEDS: ASPIRIN 81 MG CHEWABLE TABLET PO (09:13)
[2021-11-03] MEDS: CLOPIDOGREL BISULFATE 75 MG TABLET FEED TUBE (09:13)
[2021-11-03] MEDS: METOPROLOL TARTRATE 12.5 MG TABLET FEED TUBE ×2 (09:14→20:27)
--- NOTE | 2021-11-03 11:08 | PCSTNOTE ---
Please refer to the Bedside Swallow Evaluation in the EMR. Please note, silent aspiration cannot be ruled out at bedside.
[2021-11-03 11:32] LABS: Glucose Point of Care 188 mg/dl (65-105)
--- NOTE | 2021-11-03 13:20 | PCNFU ---
Nutrition Follow-Up Complete: Increased protein needs as related to wounds as evidenced by pressure ulcers noted. Goal: Meet estimated nutritional needs Will continue current goal. Pt current nutrition is Glucerna 1.2 at 75 ml/hr over 22 hours. Last recorded weight is 76.6 kg-stable Bowel Motility:+BM reported /3 Labs Reviewed: Na 132, Alb 2.6,BUN 38, Hct 27.3,Hgb 8.3 Meds Noted:Ferrous Sulfate, Lopressor, Vancomycin,Lipitor, Plavix Skin: stage IV PU-sacrum, unstageable-coccyx, unstageable-left heel. Additional Notes: Patient currently on continuous tube feedings of Glucerna 1.2 at 75 ml/hr over 22 hours providing 1980 kcals/99 gms protein/1328 ml water. Free water flush 30 ml q 4 hours. Protein modular of Brian BID given via PEG tube. Agree with diet orders. 11/03-bedside swallow eval, recommending MBS. Monitoring: will monitor every Tuesday and Tuesday.
--- NOTE | 2021-11-03 13:36 | PCSTNOTE ---
Patient's MBS is scheduled for 8:15 Tuesday morning.
--- NOTE | 2021-11-03 14:56 | PM.IMPN ---
Progress Note: A&P Assessment and Plan (1) Acute hyponatremia: Code(s): E87.1 - Hypo-osmolality and hyponatremia Status: Acute (2) Head injury: Qualifiers: Encounter type: initial encounter Qualified Code(s): S09.90XA - Unspecified injury of head, initial encounter Code(s): S09.90XA - Unspecified injury of head, initial encounter Status: Acute (3) Sacral decubitus ulcer: Onset Date: Unknown Qualifiers: Pressure injury stage: unspecified pressure injury stage Qualified Code(s): L89.159 - Pressure ulcer of sacral region, unspecified stage Code(s): L89.159 - Pressure ulcer of sacral region, unspecified stage Status: Acute (4) Acute hyperkalemia: Code(s): E87.5 - Hyperkalemia Status: Acute (5) Peripheral arterial disease: Onset Date: Unknown Code(s): I73.9 - Peripheral vascular disease, unspecified Status: Acute (6) Nonhealing ulcer of lower extremity limited to breakdown of skin: Code(s): L97.901 - Non-pressure chronic ulcer of unspecified part of unspecified lower leg limited to breakdown of skin Status: Acute (7) Acute on chronic kidney failure: Code(s): N17.9 - Acute kidney failure, unspecified; N18.9 - Chronic kidney disease, unspecified Status: Acute (8) Weakness: Code(s): R53.1 - Weakness Status: Acute (9) Coronary artery disease: Code(s): I25.10 - Atherosclerotic heart disease of [place] coronary artery without angina pectoris Status: Acute (10) Hypertension: Qualifiers: Hypertension type: essential hypertension Qualified Code(s): I10 - Essential (primary) hypertension Code(s): I10 - Essential (primary) hypertension Status: Chronic (11) DM type 2 (diabetes mellitus, type 2): Onset Date: Unknown Qualifiers: Diabetes mellitus mcfp insulin use: without buttermilk drier operator use Diabetes mellitus complication status: with skin complications Diabetes mellitus complication detail: with other skin ulcer Qualified Code(s): E11.622 - Type 2 diabetes mellitus with other skin ulcer Code(s): E11.9 - Type 2 diabetes mellitus without complications Status: Chronic (12) History of DVT (deep vein thrombosis): Code(s): Z86.718 - Personal history of other venous thrombosis and embolism Status: Acute (13) Normocytic anemia: Code(s): D64.9 - Anemia, unspecified Status: Acute (14) Urothelial carcinoma: Code(s): C68.9 - Malignant neoplasm of urinary organ, unspecified Status: Acute Additional Plan # fall at the NH # Head injury without loss of consciousness head CT with right frontal scalp contusion # Leukocytosis, normalized today # Bacteremia: 1 blood culture coag-negative staphylococci, other blood culture is negative at this time. Will continue on vancomycin. Will remove PICC line for possible contamination and place peripheral line # sacral decubitus ulcer extensive but no obvious signs of infection. General surgery consulted and had debridement done at bedside 11/01/2021. Cannot have a wound VAC on the based on location. Appreciate wound nurses input. # Anemia mild continue monitor no acute sign of bleeding. # Hyponatremia 127 on admission continues improve slowly # VIRGILIO and CKD stage 3 creatinine 1.7 with BUN of 73 , improved to creatinine 1.2, BUN 38. Will discontinue IV fluid at this time since his to feedings are going. # Hyperkalemia , resolved. # Coronary artery disease Status post CABG # DM2 type 2 (diabetes mellitus, type 2) on insulin blood sugar trend at goal which was reviewed # recent DVT (deep venous thrombosis) s/p ivc filter palcement anticoagulation was attempted but because of hematuria anticoagulation attempt was stopped # GERD (gastroesophageal reflux disease) # Hyperlipidemia # Hypertension # Peripheral arterial disease chronic bilateral lower extremity ulcers with some inf
[2021-11-03] MEDS: ACETAMINOPHEN/CODEINE ELIXIR (*CRX) 120-12 MG/5 ML UDC 10 ML FEED TUBE (17:23)
[2021-11-03 18:32] LABS: Glucose Point of Care 185 mg/dl (65-105)
[2021-11-03] MEDS: ATORVASTATIN 40 MG TABLET 80 MG FEED TUBE (20:26)
[2021-11-03] MEDS: SODIUM CHLORIDE NASAL GEL 14.1 GM 1 APPLIC NASAL (20:27)
--- NOTE | 2021-11-03 20:48 | PM.PNGS ---
Progress Note: A&P Assessment and Plan (1) Sacral decubitus ulcer: Onset Date: Unknown Qualifiers: Pressure injury stage: unspecified pressure injury stage Qualified Code(s): L89.159 - Pressure ulcer of sacral region, unspecified stage Code(s): L89.159 - Pressure ulcer of sacral region, unspecified stage Status: Acute Assessment and Plan: This is the main reason I was asked to see the patient. Wound care nurses have evaluated his sacral decubitus apparently there is not enough room to create a good seal inferiorly between the edge of the wound and the anal area. Therefore, we will continue to use saline dressings to sacral decubitus. This will need to be done either once or twice a day depending on if they are drying out. One small area of the left upper portion of the wound may benefit from some Santyl. ( Discussed with wound care nurse and they felt that the granulating bed of this sacral decubitus looked pretty good Tuesday morning so will not use Santyl for now) Nutritional assessment is appreciated. Agree with increased tube feedings to 24 hours and protein supplement to aid wound healing. (2) Peripheral arterial disease: Onset Date: Unknown Code(s): I73.9 - Peripheral vascular disease, unspecified Status: Acute Assessment and Plan: Old records in chart show that in 2019 the patient was transferred from [facility] to [place] for intervention or a narrowing in his femoral or iliac vessels. Could consider arterial Doppler ultrasound at some point if patient is willing to reassess blood flow to his lower extremities to see if there is adequate flow to lead to healing. However, this time patient is refusing multiple test. This include simple test such as his bedside swallow to see if he can begin in a oral diet again. I discussed these things with him significantly encouraged to be cooperative to do these things unless he wants to in to give up and become comfort care only. At this time he told me tonight that he is not willing to give up at this time . (3) Nonhealing ulcer of lower extremity limited to breakdown of skin: Code(s): L97.901 - Non-pressure chronic ulcer of unspecified part of unspecified lower leg limited to breakdown of skin Status: Acute Assessment and Plan: The patient would not allow dressing changes or assessment of these wounds yesterday day. he apparently did let the nurses change the dressings after I talked to him yesterday but she did not put the Jose Miguel wraps back on as ordered. I was present for the dressing change on the right leg today and we were placing silver gel Telfa and Jose Miguel wraps back in place and the Molina boots to protect his skin of the lower extremities. Wound cultures from a his leg are negative so far. (4) DM type 2 (diabetes mellitus, type 2): Onset Date: Unknown Qualifiers: Diabetes mellitus complication detail: with other skin ulcer Diabetes mellitus complication status: with skin complications Diabetes mellitus long term care phlebotomist insulin use: without long term care phlebotomist use Qualified Code(s): E11.622 - Type 2 diabetes mellitus with other skin ulcer Code(s): E11.9 - Type 2 diabetes mellitus without complications Status: Chronic Assessment and Plan: Seems to be in reasonable control. This however mkes the patient more susceptible to infections of his open wounds. (5) Venous stasis dermatitis: Onset Date: Unknown Code(s): I87.2 - Venous insufficiency (chronic) (peripheral) Status: Acute Assessment and Plan: [place] wound ostomy care nurses saw the patient and also let me know that they had seen him approximately year to 2 years ago and he had the same problems on his lower legs. That time he was also somewhat uncooperative. They state they eventually ended up letting him go because of his noncompliance and would not see him in the outpatient wound clinic because of it
[2021-11-04 00:09] LABS: Glucose Point of Care 153 mg/dl (65-105)
[2021-11-04 06:00] VITALS: BP 131/48; PULSE 84; RESP 20; TEMP 36.3; O2SAT 98
[2021-11-04 06:04] LABS: Anion Gap 7 mmol/L (8-16); Blood Urea Nitrogen 39 mg/dL (9-20); Calcium 8.7 mg/dL (8.4-10.2); Carbon Dioxide 26 mmol/L (22-30); Chloride 99 mmol/L (98-107); Estimated CRCL calculation 56 ml/min; Estimated Glomerular Filt Rate > 60; Glucose 179 mg/dL (65-110); Magnesium 1.6 mg/dL (1.6-2.3); Potassium 5.2 mmol/L (3.4-5.0); Sodium 132 mmol/L (137-145)
[2021-11-04 06:08] LABS: Glucose Point of Care 163 mg/dl (65-105)
[2021-11-04] MEDS: LANSOPRAZOLE ORAL SUSP 30 MG/10 ML ORAL.SUSP FEED TUBE (06:14)
[2021-11-04 06:39] LABS: Hematocrit 28.3 % (42.0-52.0); Hemoglobin 8.7 g/dL (14.0-18.0); Mean Corpuscular HGB Conc 30.7 g/dl (32-36); Mean Corpuscular Hemoglobin 28.9 pg (26-34); Platelet Count Result 263 k/mm3 (150-375); Red Blood Count 3.01 M/mm3 (4.6-6.20); Red Cell Distribution Width 17.7 % (11.5-14.5); White Blood Count 9.1 K/mm3 (4.5-10.0)
[2021-11-04 07:54] LABS: Glucose Point of Care 179 mg/dl (65-105)
[2021-11-04] MEDS: ACETAMINOPHEN/CODEINE ELIXIR (*CRX) 120-12 MG/5 ML UDC 10 ML FEED TUBE (09:40)
[2021-11-04 09:43] VITALS: PULSE 84
[2021-11-04] MEDS: FERROUS SULFATE LIQUID 325 MG/7.4 ML ELIXIR FEED TUBE ×2 (09:43→17:06)
[2021-11-04] MEDS: METOPROLOL TARTRATE 12.5 MG TABLET FEED TUBE ×2 (09:43→20:18)
[2021-11-04] MEDS: ASPIRIN 81 MG CHEWABLE TABLET FEED TUBE (09:43)
[2021-11-04] MEDS: MAGNESIUM OXIDE 400 MG TABLET FEED TUBE (09:43)
[2021-11-04] MEDS: CLOPIDOGREL BISULFATE 75 MG TABLET FEED TUBE (09:43)
[2021-11-04] MEDS: HEPARIN SODIUM 5,000 UNITS/ML VIAL 5000 UNITS SUB-Q ×2 (09:44→20:18)
--- NOTE | 2021-11-04 11:38 | PCSTNOTE ---
Please refer to the Modified Barium Swallow Evaluation in the EMR.
--- NOTE | 2021-11-04 11:46 | PCDIET ---
Physician consult for tube feeding recommendations. Patient had MBS today, recommending regular diet type with Mildly Thick liquids, Level 2. Tube feeding recommendations: Glucerna 1.2 at 100 ml/hr from 1800 -0600 hours providing 1440 kcals/72 gms protein/966 ml water. Free water flush 30 ml q 4 hours. Increased kcal needs due to wounds. Recommend oral supplement of Glucerna shakes for additional 220 kcals and 10 gms protein. Thank you for the consult.
[2021-11-04 13:03] LABS: Glucose Point of Care 219 mg/dl (65-105)
[2021-11-04] MEDS: INSULIN ASPART (*BKC) 100 UNITS/ML SUB-Q (13:04)
--- NOTE | 2021-11-04 13:54 | PM.PNGS ---
Progress Note: A&P Assessment and Plan (1) Sacral decubitus ulcer: Onset Date: Unknown Qualifiers: Pressure injury stage: unspecified pressure injury stage Qualified Code(s): L89.159 - Pressure ulcer of sacral region, unspecified stage Code(s): L89.159 - Pressure ulcer of sacral region, unspecified stage Status: Acute Assessment and Plan: Sacral decubitus ulcer healing well with granulation tissue forming. Not a candidate for a wound vac due to location of the wound near the anal verge. Continue local wound care with saline soaked gauze dressing changes to the sacral wound twice daily. Okay to discharge to SNF from our standpoint when okay with other services. (2) Peripheral arterial disease: Onset Date: Unknown Code(s): I73.9 - Peripheral vascular disease, unspecified Status: Acute Assessment and Plan: EMR showed that in 2019 he was transferred to [place] for vascular intervention due to narrowing femoral or iliac vessels. Patient has refused further workup for lower extremity arterial disease. Could consider this in the future if the patient is willing. He has been educated on the importance of arterial flow with wound healing. (3) Nonhealing ulcer of lower extremity limited to breakdown of skin: Code(s): L97.901 - Non-pressure chronic ulcer of unspecified part of unspecified lower leg limited to breakdown of skin Status: Acute Assessment and Plan: Bilateral lower extremity wounds appear to be healing well with granulation tissue forming. No signs of infection or cellulitis on exam. Wound culture showed no organism growth. Continue local wound care with silver gel dressing changes, telfa, and lisa wraps. Continue waffle boots for pressure reduction and protecting his skin. Okay to discharge from a surgical standpoint. No need for antibiotics for his lower extremity or sacral wounds. (4) DM type 2 (diabetes mellitus, type 2): Onset Date: Unknown Qualifiers: Diabetes mellitus usp insulin use: without usp use Diabetes mellitus complication status: with skin complications Diabetes mellitus complication detail: with other skin ulcer Qualified Code(s): E11.622 - Type 2 diabetes mellitus with other skin ulcer Code(s): E11.9 - Type 2 diabetes mellitus without complications Status: Chronic (5) Venous stasis dermatitis: Onset Date: Unknown Code(s): I87.2 - Venous insufficiency (chronic) (peripheral) Status: Acute Assessment and Plan: History of noncompliance and unable to be followed in the wound clinic due to his noncompliance issues. Continue lisa wraps. Elevate lower extremities when at rest. Additional Plan I have discussed the patient's case and plan of care with Dr. Clarke. He has also discussed the plan with the Hospitalist. From our standpoint there is no need for antibiotics for his wounds. Hospitalist feels the positive blood culture in 1/2 bottles is a contamination. Will defer antibiotics on discharge to the primary team. Subjective Subjective Date/Time Seen: 11/04/21 09:02 Patient reports: no new complaints and afebrile Interval history: This is a 71 yo M who presented to the hospital with multiple lower leg wounds bilaterally and a sacral decubitus ulcer s/p fall at the SNF. He has been treated with IV abx and local wound care. His PICC Line was removed d/t positive blood cultures and concern for possible bacteremia with the central line as a source. He has been refusing care/treatment/dressing changes from our nursing/staff. Wound care evaluated the patient and felt he was not a candidate for a wound VAC on the sacral decubitus due to the location. Patient seen and examined today with the nurse at the bedside to change all of his dressings. He agreed to allow me to change his dressings and evaluate his wounds. Exam Const: General: comfortable, no acute distress,
[2021-11-04 14:00] VITALS: BP 139/70; PULSE 93; RESP 16; TEMP 36.2; O2SAT 100
--- NOTE | 2021-11-04 15:22 | PM.DS ---
DS: Admitting Diagnosis Discharge Date 11/04/21 Admitting Diagnosis Unwitnessed fall DS: Discharge Diagnosis Discharge Diagnosis (1) Acute hyponatremia: Code(s): E87.1 - Hypo-osmolality and hyponatremia Status: Acute Assessment and Plan: Patient is a 71-year-old man with a history recent ICU admission at [facility] 08/26-10/26 for septic shock secondary to MRSA bacteremia and cavitary Klebsiella pneumonia with acute respiratory failure needing intubation, decubitus ulcer needing debridement, acute right lower extremity DVT status post IVC filter placement, who presented [facility] for evaluation after he had fallen out of bed. Initial vitals showed stable blood pressure 134/75, tachycardic heart rate 110, afebrile, normal oxygenation at 98% on room air. Initial labs showed leukocytosis at 15,300 elevated neutrophils at 81%, normocytic anemia with a hemoglobin of 9.5, hematocrit 30%. Slight hyponatremia at 127, hyperkalemia of 5.6, VIRGILIO with a creatinine 1.7, BUN 73, normal lactic acid. Normal LFTs. CT head showed small right frontal scalp contusion, chronic age-related findings. Chest x-ray showed airspace opacities in right lower lung zone, consistent with atelectasis versus pneumonia. PICC tip at the superior cavoatrial junction. Patient was admitted into the hospital for large sacral decubitus ulcer with consultation to General surgery, leukocytosis with further workup and monitoring. During the patient's hospitalization in 1 of his blood cultures began growing coag-negative staph and he was started on IV vancomycin until further culturing was completed. General surgery evaluated the patient has wounds and did a bedside debridement and otherwise has recommendations for continued dressing changes to his sacral decubitus ulcer as well as his wounds to his legs. It was felt that the coag-negative staph was a contamination from his PICC line that was still in place. His PICC line was removed and he is otherwise stable for discharge at this time with improved renal function, electrolytes, and normalized leukocytosis. Will discharge on a few more days of oral Bactrim for continued treatment. Probiotic given. Patient will return back to his living facility in stable condition. Follow-up instructions given. Return to ER warnings given. Patient understands and agrees the plan all questions answered. During the patient's admission, he was refusing multiple tests. At his living facility prior he was doing tube feedings at night and eating during the day. During his admission we are concerned for aspiration and finally was able to do a modified barium swallow which found the patient to need mildly thickened liquids and a diabetic diet with regular consistency. Continue with aspiration precautions upon discharge. Since he had not been eating by mouth his glucose was within normal range and his Lantus and Lispro had been placed on hold. Told the facility to continue monitoring glucose 4 times a day and once he begins eating and drinking more they can further adjust his insulin. (2) Head injury: Qualifiers: Encounter type: initial encounter Qualified Code(s): S09.90XA - Unspecified injury of head, initial encounter Code(s): S09.90XA - Unspecified injury of head, initial encounter Status: Acute (3) Sacral decubitus ulcer: Onset Date: Unknown Qualifiers: Pressure injury stage: unspecified pressure injury stage Qualified Code(s): L89.159 - Pressure ulcer of sacral region, unspecified stage Code(s): L89.159 - Pressure ulcer of sacral region, unspecified stage Status: Acute (4) Acute hyperkalemia: Code(s): E87.5 - Hyperkalemia Status: Acute (5) Peripheral arterial disease: Onset Date: Unknown Code(s): I73.9 - Peripheral vascular disease, unspecified Status: Acute (6) Nonhealing ulcer of l
[2021-11-04 15:37] LABS: EDCOVIDSCREEN Negative (Negative)
[2021-11-04 17:26] LABS: Glucose Point of Care 181 mg/dl (65-105)
--- NOTE | 2021-11-04 18:14 | PC.NURSE ---
Report given to Vicky LYNNE at [facility] and notified of ambulance ETA at 0000.
[2021-11-04 20:18] VITALS: PULSE 82
[2021-11-04] MEDS: ATORVASTATIN 40 MG TABLET 80 MG FEED TUBE (20:18)
[2021-11-04] MEDS: SODIUM CHLORIDE NASAL GEL 14.1 GM 1 APPLIC NASAL (20:18)
[2021-11-04 20:29] VITALS: BP 133/66; PULSE 98; RESP 14; TEMP 36.8; O2SAT 98
== END 2021-11-04 22:50 | DRG 580 ==
LOC: ANHED 10-31 06:44 → ANH3MEDSUR 10-31 09:28 → ANH2MED 10-31 15:04
PROVIDERS: Internal Medicine; Admitting Provider Internal Medicine; Emergency Provider Emergency Medicine; PCP Internal Medicine; Visit Provider Physician Assistant
DX: L89.154 Pressure ulcer of sacral region, stage 4 (principal); E87.1 Hypo-osmolality and hyponatremia; L97.429 Non-pressure chronic ulcer of left heel and midfoot with unspecified severity; L97.918 Non-pressure chronic ulcer of unspecified part of right lower leg with other specified severity; L97.829 Non-pressure chronic ulcer of other part of left lower leg with unspecified severity; I13.0 Hypertensive heart and chronic kidney disease with heart failure and stage 1 through stage 4 chronic kidney disease, or unspecified chronic kidney disease; I50.22 Chronic systolic (congestive) heart failure; N17.9 Acute kidney failure, unspecified; C68.8 Malignant neoplasm of overlapping sites of urinary organs; R78.81 Bacteremia; I83.019 Varicose veins of right lower extremity with ulcer of unspecified site; S00.83XA Contusion of other part of head, initial encounter; W06.XXXA Fall from bed, initial encounter; B95.7 Other staphylococcus as the cause of diseases classified elsewhere; D63.1 Anemia in chronic kidney disease; E87.5 Hyperkalemia; E11.51 Type 2 diabetes mellitus with diabetic peripheral angiopathy without gangrene; E11.621 Type 2 diabetes mellitus with foot ulcer; E11.622 Type 2 diabetes mellitus with other skin ulcer; E11.22 Type 2 diabetes mellitus with diabetic chronic kidney disease; E78.5 Hyperlipidemia, unspecified; I48.91 Unspecified atrial fibrillation; I25.10 Atherosclerotic heart disease of native coronary artery without angina pectoris; K21.9 Gastro-esophageal reflux disease without esophagitis; N18.30 Chronic kidney disease, stage 3 unspecified; Z86.718 Personal history of other venous thrombosis and embolism; Z79.01 Long term (current) use of anticoagulants; Z20.822 Contact with and (suspected) exposure to COVID-19; Z87.891 Personal history of nicotine dependence; Z95.1 Presence of aortocoronary bypass graft; Z79.4 Long term (current) use of insulin; Z66 Do not resuscitate; Z79.84 Long term (current) use of oral hypoglycemic drugs; Z86.14 Personal history of Methicillin resistant Staphylococcus aureus infection; I87.2 Venous insufficiency (chronic) (peripheral); Z93.1 Gastrostomy status; Z91.19 Patient's noncompliance with other medical treatment and regimen
CPT/HCPCS: 36415; 70450; 80048; 80053; 82550; 82948; 83605; 83735; 84134; 85025; 85027; 85055; 85610; 86140; 87040; 87070; 87077; 87186; 87205; 87426; 92610; 92611; 93005; 96361; 96365; 96366; 96375; 97161; 97166; 99285; A9270; C9803; G0378; J1644; J1815; J2997; J3370; J7030

== ENCOUNTER 2021-11-17 20:43 | Inpatient (IN) | payer MEDICARE, MEDICAID, SELFPAY ==
--- NOTE | ~2021-11-17 | CT_ITS ---
EXAMINATION: CT abdomen pelvis w con DATE: 11/18/2021 02:04 INDICATION: Decubitus ulcer TECHNIQUE: Computed tomography (CT) of the abdomen and pelvis was performed with 100 cc Omnipaque 350 intravenous contrast. Automated exposure control and iterative reconstruction technique were employe d. Exam dose: 1273.19 mGy-cm total exam DLP. COMPARISON: 03/16/2020 CT abdomen pelvis FINDINGS: Status post sternotomy. There is dependent right lower lobe infiltrate and/atelectasis. The lower lung zones are otherwise unremarkable. Heart size is normal. Coronary artery calcifications. N o pericardial or pleural effusion. Small sliding hiatal hernia. No hepatic, splenic, pancreatic, and adrenal or renal space-occupying mass lesion is evident. The gal lbladder is present. No bile duct or pancreatic duct dilatation. No urinary tract calculus or hydroureteronephrosis. A Ortiz catheter is present within the evacuated urinary bladder. There is some thickening and enhancement of the wall of the urinary bladder; urothel ial carcinoma and/or cystitis for prostate cancer are not excluded. There is atherosclerotic calcification of the abdominal aorta but no aneurysm. IVC filter in the inferior vena cava beneath the level of the renal veins. No intraperitoneal or retroperitoneal or pelvic mass lesion or adenopathy or ascites. Small bilateral fat-containing inguinal hernias. Very small fat-containing umbilical hernia. Gastrostomy tube in stomach. Normal appendix. Diverticulosis of the sigmoid and descending colon; no CT evidence of diverticulitis . There is a large decubitus ulcer overlying and involving the right gluteus dana measuring 9 cm wit h an 3.3 cm depth. Erosion along the posterior sacral plate and fragmented coccyx raise question of p ossible osteomyelitis. Consider MRI for further evaluation of possible osteomyelitis. Diffuse idiopathic skeletal hyperostosis of the thoracic spine. Mild chronic L5 compression fracture deformity. IMPRESSION: Large decubitus ulcer of the right buttock extending to the gluteus dana with possibl e osteomyelitic involvement of the sacrum and coccyx; consider MRI correlation as clinically appropri ate Thickening and enhancement of the urinary bladder wall; consider urothelial carcinoma, cystitis and/o r prostate neoplasm Small sliding hiatal hernia IVC filter Diverticulosis of sigmoid and descending colon; no evidence of diverticulitis Reviewed, dictated and finalized at [facility]. Reviewed, dictated and finalized at [facility]. SQL SERVER DEVELOPER IMPRESSION: Large decubitus ulcer of the right buttock extending to the gluteu s dana with possible osteomyelitic involvement of the sacrum and coccyx; con director digital communications MRI correlation as clinically appropriate Thickening and enhancement of the urinary bladder wall; consider urothelial car cinoma, cystitis and/or prostate neoplasm Small sliding hiatal hernia IVC filter Diverticulosis of sigmoid and descending colon; no evidence of diverticulitis
--- NOTE | ~2021-11-17 | US_ITS ---
EXAMINATION: US arterial ankle brachial ind DATE: 11/24/2021 18:10 INDICATION: Bilateral lower extremity ulcers TECHNIQUE: Segmental pressures and plethysmographic and Doppler waveforms of the brachial and lower e xtremity arteries were obtained. COMPARISON: 03/17/2020 ultrasound arterial ankle-brachial index FINDINGS: Right and left brachial artery pressures of 164 mm Hg and 150 mm Hg, respectively, are concordant (no rmal difference <= 30 mmHg). The right ankle-brachial index (ANTHONY) is now obtained. The patient could not tolerate measurement of t he ankle pressures due to ulcers. (normal >= 0.9-1.0). The right great toe-brachial index (TBI) is 0. 41 (normal >= 0.65). Arterial Doppler waveforms are biphasic. The left ANTHONY is 0.98 measured at the dorsalis pedis artery. The patient could not tolerate the measur ement at the posterior tibial artery. The left TBI is 0.60. Arterial Doppler waveforms are biphasic. IMPRESSION: Limited examination due to inability of patient to tolerate pressure measurements at the ankles Normal left ANTHONY of 0.98 Abnormally low TBI of 0.41 on the right and 0.60 on the left Reviewed, dictated and finalized at [facility]. Reviewed, dictated and finalized at [facility]. KER PRESS OPERATOR IMPRESSION: Limited examination due to inability of patient to tolerate pressu re measurements at the ankles Normal left ANTHONY of 0.98 Abnormally low TBI of 0.41 on the right and 0.60 on the left
--- NOTE | ~2021-11-17 | CT_ITS ---
EXAMINATION: CT brain wo con DATE: 11/17/2021 21:21 INDICATION: Head injury. TECHNIQUE: Computed tomography (CT) of the head was performed without intravenous contrast. The mA wa s adjusted according to patient size. Iterative reconstruction technique was employed. The dose-lengt h product was 681.00 mGy-cm. COMPARISON: Head CT 10/31/2021 FINDINGS: There is diffuse brain volume loss. There are scattered areas of low attenuation in the cer ebral white matter. There is no intracranial hemorrhage, acute infarction, or abnormal intracranial m ass lesion. The ventricles are normal in size. The paranasal sinuses are clear. The orbits are normal . There are small mastoid effusions. IMPRESSION: 1. Stable mild nonspecific cerebral white matter disease, which likely represents chronic small vesse l ischemic disease. Reviewed, dictated and finalized at [facility]. T IMPRESSION: 1. Stable mild nonspecific cerebral white matter disease, which likely represen ts chronic small vessel ischemic disease.
--- NOTE | ~2021-11-17 | XR_ITS ---
EXAMINATION: XR chest 1V DATE: 11/17/2021 21:25 INDICATION: Hypertension. Fall on floor. TECHNIQUE: A single frontal view of the chest was obtained. COMPARISON: Chest single view 11/01/2021, CT abdomen and pelvis 03/16/2020 FINDINGS: The chest demonstrates clear lungs without pneumonia, pleural effusion, or pneumothorax. Th e heart size is normal. Median sternotomy wires and mediastinal surgical clips are seen, likely from prior coronary artery bypass grafting. There is a filter in the inferior vena cava. A gastrostomy tub e is noted. IMPRESSION: 1. No acute cardiopulmonary disease. Reviewed, dictated and finalized at [facility]. LE DRM CONSULTANT
[2021-11-17 20:47] VITALS: BP 107/66; PULSE 101; RESP 18; TEMP 36.6; O2SAT 97
[2021-11-17 22:31] VITALS: BP 121/60; PULSE 100; RESP 17; O2SAT 100
[2021-11-17 22:40] LABS: Basophils Absolute Auto 0.1 K/mm3 (0.0-0.1); Basophils Percent Auto 0.5 % (0.2-1.2); Eosinophils Absolute Auto 0.2 K/mm3 (0-0.3); Hematocrit 33.1 % (42.0-52.0); Hemoglobin 10.3 g/dL (14.0-18.0); Immature Granulocyte Absolute 0.18 K/mm3 (0.00-0.031); Lymphocytes Absolute Auto 2.06 K/mm3 (0.9-3.2); Mean Corpuscular HGB Conc 31.1 g/dl (32-36); Mean Corpuscular Hemoglobin 28.3 pg (26-34); Mean Corpuscular Volume 90.9 fl (80-100); Mean Platelet Volume 9.8 fl (7.4-10.4); Monocytes Percent Auto 5.7 % (2.6-8.5); Neutrophils Absolute Auto 13.8 K/mm3 (1.3-6.7); Neutrophils Percent Auto 79.8 % (45.5-73.1); Platelet Count Result 431 k/mm3 (150-375); Red Blood Count 3.64 M/mm3 (4.6-6.20); Red Cell Distribution Width 17.2 % (11.5-14.5); White Blood Count 17.2 K/mm3 (4.5-10.0)
--- NOTE | 2021-11-17 22:50 | ED.FALL ---
HPI - Fall General Chief Complaint: Fall Stated Complaint: GLF - BED RIDDEN Time Seen by Provider: 11/17/21 20:54 History of Present Illness HPI Narrative: Patient is a 71-year-old male who presents ER status post fall. Patient is bedridden and was in a bed and dropped something. He reached down to pick it up when he rolled and fell 18 inches striking his head on the ground. No loss consciousness. He does take Plavix. He has abrasion over the bridge of his nose and has superficial lac to his left index finger. He also has another skin wound has been dressed by the alf on the left hand. Patient has no other reports of pain. No distress. No other concerns. Denies headache or change in vision. Related Data Home Medications Medication Instructions Recorded Confirmed atorvastatin 80 mg FEEDING TUBE HS 03/14/20 11/18/21 aspirin 81 mg PO DAILY 10/31/21 11/18/21 clopidogrel 75 mg FEEDING TUBE DAILY 10/31/21 11/18/21 ferrous sulfate 325 mg FEEDING TUBE DAILY 10/31/21 11/18/21 gel base no.41 (bulk) [Hydrogel] 1 ea MISCELLANEOUS DAILY 10/31/21 11/18/21 insulin glargine [Lantus U-100 30 unit SUBCUT HS 10/31/21 11/18/21 Insulin] insulin lispro [Humalog U-100 15 unit SUBCUT BID 10/31/21 11/18/21 Insulin] metoprolol succinate 12.5 mg PO DAILY 10/31/21 11/18/21 pantoprazole 40 mg PO DAILY 10/31/21 11/18/21 acetaminophen [Mapap 650 mg FEEDING TUBE Q4H PRN 11/18/21 11/18/21 (acetaminophen)] bisacodyl 10 mg RECTAL DAILY PRN 11/18/21 11/18/21 furosemide [Lasix] 40 mg FEEDING TUBE DAILY 11/18/21 11/18/21 lisinopril 5 mg FEEDING TUBE DAILY 11/18/21 11/18/21 magnesium citrate [Citroma] 300 ml FEEDING TUBE DAILY PRN 11/18/21 11/18/21 magnesium hydroxide [Milk of 400 mg FEEDING TUBE DAILY PRN 11/18/21 11/18/21 Magnesia] silver sulfadiazine [Silvadene] 1 applic TOPICAL BID 11/18/21 11/18/21 tramadol 50 mg PO TID PRN 11/18/21 11/18/21 Allergies Allergy/AdvReac Type Severity Reaction Status Date / Time No Known Allergies Allergy Unknown Verified 10/31/21 23:18 Review of Systems Review of Systems: All systems reviewed & are unremarkable except as noted in HPI and below Eyes: Eyes: Denies change in vision Gastrointestinal: Gastrointestinal: Denies nausea and Denies vomiting Integumentary/Breasts: Skin/Breast: Denies erythema and Denies rash Comments: Skin abrasions Neurologic: Denies syncope, Denies headache(s) and Denies numbness PMFSH Past Medical History Medical History (Updated 11/18/21 @ 07:43 by Sigifredo Diaz MD) Coronary artery disease DM type 2 (diabetes mellitus, type 2) (Unknown) DVT (deep venous thrombosis) GERD (gastroesophageal reflux disease) Hyperlipidemia Hypertension Peripheral arterial disease (Unknown) Surgical History Surgical History (Updated 11/18/21 @ 05:09 by Jonathan Godinez MD) H/O cardiac catheterization History of revascularization procedure of lower extremity Hx of CABG Family History Family History Sibling Family history of cardiovascular disease Father Family history of cardiovascular disease Son Depression Son Family history of seizure disorder Other Family history of seizure disorder Other Cerebrovascular accident Diabetes mellitus Family history of arthritis Family history of coronary artery disease Family history of hypercholesterolemia Family history of mental disorder Family history of obesity Hypertension Social History Social History Social History: The patient lives at home with his . He designates his as his surrogate decision maker. He is unwilling to disclose his code status to me, telling me my knows what I want. Additional social history obtained via review of records. Smoking status: Unknown if ever smoked Tobacco type: cigarettes Second hand tobacco smoke exposure: Yes Smoking end
[2021-11-17 22:55] LABS: Platelet Clumps Present; Platelet Estimate Increased (Adequate)
--- NOTE | 2021-11-17 23:21 | PC.NURSE ---
Phlebotomy here for difficult lab draw.
[2021-11-17 23:37] LABS: Anion Gap 11 mmol/L (8-16); Blood Urea Nitrogen 79 mg/dL (9-20); Calcium 9.5 mg/dL (8.4-10.2); Carbon Dioxide 25 mmol/L (22-30); Chloride 93 mmol/L (98-107); Estimated CRCL calculation 48 ml/min; Estimated Glomerular Filt Rate 59; Glucose 134 mg/dL (65-110); Potassium 5.5 mmol/L (3.4-5.0); Sodium 129 mmol/L (137-145)
[2021-11-18] VITALS (12 sets, daily range): BP systolic 90–129; BP diastolic 44–93; PULSE 87–111; RESP 16–22; TEMP 36.2–36.8; O2SAT 96–100; BMI 28.5
--- NOTE | 2021-11-18 01:44 | PC.NURSE ---
Pt to CT scan via stretcher at this time.
--- NOTE | 2021-11-18 02:59 | PM.IMHP ---
H&P: HPI History of Present Illness Date/Time: 11/18/21 02:59 Chief Complaint: Fall Narrative: This is a 71-year-old male with past medical history significant for decubitus ulcer, peripheral vascular disease, chronic nonhealing ulcer of of lower extremity, prolonged ICU stay due to Klebsiella pneumoniae cavitary pneumonia and septic shock with respiratory failure and ventilator support. Patient had been discharged to half-way however patient had a prior presentation to [facility] after he had fallen out of bed at that time patient require sharp debridement of his sacral decubitus ulcer at bedside and was discharged eventually back to half-way he comes back today after he had fallen out of bed again and in emergency room evaluation he was found to have a worsening decubitus ulcer. Patient is a very poor historian he denies any discomfort or any complaints at the time of my visit and can not really tell why he ended up in a half-way. Preliminary workup was significant for CT of abdomen and pelvis with worsening decubitus ulcer and bone exposure a UA was significant for numerous wbc's patient with chronic indwelling Ortiz catheter. In emergency room patient received Zosyn and vanco and decision has been made to admit the patient for further evaluation, management and treatment. Review of Systems Review of Systems: Fall out of bed ROS unobtainable: Yes other (Patient can not really tell much about his disease process.) [facility] Past Medical History Medical History (Updated 11/18/21 @ 05:09 by Jonathan Godinez MD) Coronary artery disease DM type 2 (diabetes mellitus, type 2) (Unknown) DVT (deep venous thrombosis) GERD (gastroesophageal reflux disease) Hyperlipidemia Hypertension Peripheral arterial disease (Unknown) Surgical History Surgical History (Updated 11/18/21 @ 05:09 by Jonathan Godinez MD) H/O cardiac catheterization History of revascularization procedure of lower extremity Hx of CABG Family History Family History Sibling Family history of cardiovascular disease Father Family history of cardiovascular disease Son Depression Son Family history of seizure disorder Other Family history of seizure disorder Other Cerebrovascular accident Diabetes mellitus Family history of arthritis Family history of coronary artery disease Family history of hypercholesterolemia Family history of mental disorder Family history of obesity Hypertension Social History Social History Social History: The patient lives at home with his . He designates his as his surrogate decision maker. He is unwilling to disclose his code status to me, telling me my knows what I want. Additional social history obtained via review of records. Smoking status: Former smoker Tobacco type: cigarettes Second hand tobacco smoke exposure: Yes Smoking end date: 10/31/08 Alcohol intake: former Substance use: never Substance use type: does not use Gender identity (if verbalized by the patient): Male Spiritual care concerns: No Meds Home Medications and Allergies Home Medications Medication Instructions Recorded Confirmed Type atorvastatin 80 mg PO HS 03/14/20 10/31/21 History acetaminophen [Mapap 650 mg PO Q4H PRN 14 Days #30 03/21/20 10/31/21 Rx (acetaminophen)] tablet aspirin 81 mg PO DAILY 10/31/21 10/31/21 History clopidogrel 75 mg FEEDING TUBE DAILY 10/31/21 10/31/21 History ferrous sulfate 325 mg FEEDING TUBE DAILY 10/31/21 10/31/21 History gel base no.41 (bulk) [Hydrogel] 1 ea MISCELLANEOUS DAILY 10/31/21 10/31/21 History insulin glargine [Lantus U-100 30 unit SUBCUT DAILY 10/31/21 10/31/21 History Insulin] insulin lispro [Humalog U-100 15 unit SUBCUT BID 10/31/21 10/31/21 History Insulin] metoprolol succinate 12.5 mg PO DAILY 10/31/21 10/31/21 H
[2021-11-18] MEDS: MORPHINE SULFATE (*CRX) 4 MG/ML INJ IV PUSH (03:52)
[2021-11-18 04:02] LABS: Add Urine Microscopic? YES; Appearance Urine Clear (Clear); Bacteria Urine Trace /hpf; Bilirubin Urine Negative (Negative); Blood Urine 2+ (Negative); Color Urine Yellow (Yellow); Glucose Urine UA Negative (Negative); Ketones Urine Negative (Negative); Leukocyte Esterase Ur 3+ LEU/UL (Negative); Nitrate Urine Negative (Negative); Protein Urine Negative (Negative); RBC Urine >75 /hpf (0-2); Specific Grav Ur 1.017 (1.001-1.035); Urobilinogen Urine Negative mg/dL (<2.0); WBC Clumps Urine Present /HPF; WBC Urine 51-75 /hpf
[2021-11-18] MEDS: SODIUM CHLORIDE 0.9% IV 1,000 ML 125 ML IV CONT ×2 (06:12→20:14)
--- NOTE | 2021-11-18 06:34 | PC.NURSE ---
This patient, Ramana Gaines, was admitted to Medical Room 340-01. Patient/family oriented to hospital policies and general routines including ID bracelet, bed and alarms, visiting hours, pain management, procedures, bathroom and other care routines, personal items, smoking policy, room service/diet, and visiting hours. Information on how to activate the Rapid Response Team has been discussed. Patient/Family are encouraged to report perceived risks to care and to ask questions if they do not understand what they are told or what they should do. All wound photographed and redressed, wound consult placed.
[2021-11-18 07:42] LABS: Glucose Point of Care 201 mg/dl (65-105)
[2021-11-18 09:26] LABS: Basophils Absolute Auto 0.1 K/mm3 (0.0-0.1); Basophils Percent Auto 0.5 % (0.2-1.2); Eosinophils Absolute Auto 0.1 K/mm3 (0-0.3); Eosinophils Percent Auto 0.5 % (0-4.4); Hematocrit 27.9 % (42.0-52.0); Hemoglobin 9.1 g/dL (14.0-18.0); Immature Granulocyte Absolute 0.12 K/mm3 (0.00-0.031); Immature Granulocyte Percent A 0.9 % (0-0.5); Lymphocytes Absolute Auto 1.97 K/mm3 (0.9-3.2); Lymphocytes Percent Auto 14.8 % (18.3-44.2); Mean Corpuscular HGB Conc 32.6 g/dl (32-36); Mean Corpuscular Hemoglobin 28.4 pg (26-34); Mean Corpuscular Volume 87.2 fl (80-100); Mean Platelet Volume 9.5 fl (7.4-10.4); Monocytes Absolute Auto 0.8 K/mm3 (0.1-0.6); Monocytes Percent Auto 5.9 % (2.6-8.5); Neutrophils Absolute Auto 10.3 K/mm3 (1.3-6.7); Neutrophils Percent Auto 77.4 % (45.5-73.1); Platelet Count Result 376 k/mm3 (150-375); White Blood Count 13.3 K/mm3 (4.5-10.0)
--- NOTE | 2021-11-18 09:32 | PM.CNGS ---
Assessment and Plan Assessment and plan (1) Sacral decubitus ulcer: Onset Date: Unknown Qualifiers: Pressure injury stage: unspecified pressure injury stage Qualified Code(s): L89.159 - Pressure ulcer of sacral region, unspecified stage Code(s): L89.159 - Pressure ulcer of sacral region, unspecified stage Status: Acute Assessment and Plan: Large chronic sacral decubitus ulcer with possible bone exposed, but no necrotic tissue or purulent drainage that would require surgical debridement at this time. CT suggesting possible osteomyelitis of the sacrum and coccyx. Will initiate local wound care with silver gel dressing changes. Continue broad-spectrum IV antibiotics. MRI pelvis ordered today. Will need frequent turning to reduce pressure to his wounds. I discussed the importance of compliance with the patient today since he has refused a lot of his care in the past. (2) Osteomyelitis of sacrum: Code(s): M46.28 - Osteomyelitis of vertebra, sacral and sacrococcygeal region Status: Acute Assessment and Plan: Continue broad-spectrum IV antibiotics. MRI ordered. (3) Nonhealing ulcer of lower extremity limited to breakdown of skin: Code(s): L97.901 - Non-pressure chronic ulcer of unspecified part of unspecified lower leg limited to breakdown of skin Status: Acute Assessment and Plan: Chronic bilateral lower leg ulcers that are nonhealing. There is no active infection or necrotic tissue that would indicate surgical intervention at this time, and there does not appear to be cellulitis of his lower extremities. These are likely multifactorial from his chronic peripheral vascular (arterial and venous) disease, noncompliance with wound care, immobility, and potentially poor nutrition. I have ordered ABIs to further evaluate his arterial flow. He has an extensive history of peripheral arterial disease requiring revascularization procedures. Will also initiate local wound care with silver gel dressing changes. Continue using waffle boots and keep his heels elevated off of the bed to reduce pressure. This does not appear to be the source of his possible sepsis. (4) Sepsis: Code(s): A41.9 - Sepsis, unspecified organism Status: Acute Assessment and Plan: Criteria met on admission with leukocytosis, tachycardia, and potential source of infection. Source suspected to be UTI versus possible osteomyelitis. MRI ordered of pelvis. Continue broad-spectrum IV antibiotics and IV fluid resuscitation. Urine culture and blood cultures pending. No significant drainage from his wounds today that I felt would prompt wound cultures. Monitor labs. (5) Acute UTI: Code(s): N39.0 - Urinary tract infection, site not specified Status: Acute Assessment and Plan: Continue IV antibiotics, urine culture pending. Could consider Urology consultation considering the UTI and his urothelial carcinoma. (6) Peripheral arterial disease: Onset Date: Unknown Code(s): I73.9 - Peripheral vascular disease, unspecified Status: Acute Assessment and Plan: ABIs ordered today to further evaluate his arterial flow. This could be contributing to the poor healing of his lower leg ulcers. (7) Venous stasis dermatitis: Onset Date: Unknown Code(s): I87.2 - Venous insufficiency (chronic) (peripheral) Status: Chronic Assessment and Plan: Will discuss potentially having ALEXANDREA wraps applied to his lower extremities to help with compression. (8) Urothelial carcinoma: Code(s): C68.9 - Malignant neoplasm of urinary organ, unspecified Status: Acute Assessment and Plan: Chronic indwelling santiago catheter in place. Diagnosed in 2020. (9) Coronary artery disease: Code(s): I25.10 - Atherosclerotic heart disease of [place] coronary artery without angina pectoris Status: Chronic (10) DM type 2 (diabetes mellitus, type 2): Onset
[2021-11-18 09:51] LABS: Anion Gap 10 mmol/L (8-16); Blood Urea Nitrogen 79 mg/dL (9-20); Calcium 8.9 mg/dL (8.4-10.2); Carbon Dioxide 25 mmol/L (22-30); Chloride 91 mmol/L (98-107); Estimated CRCL calculation 32 ml/min; Estimated Glomerular Filt Rate 43; Glucose 195 mg/dL (65-110); Potassium 5.8 mmol/L (3.4-5.0); Sodium 126 mmol/L (137-145)
[2021-11-18 10:36] LABS: CRP 6.8 mg/dL (<1.0)
--- NOTE | 2021-11-18 10:48 | PM.IMPN ---
Progress Note: A&P Assessment and Plan (1) Sepsis: Code(s): A41.9 - Sepsis, unspecified organism Status: Acute Assessment and Plan: Patient is a 71-year-old man with a history recent ICU admission at [facility] 08/26-10/26 for septic shock secondary to MRSA bacteremia and cavitary Klebsiella pneumonia with acute respiratory failure needing intubation, decubitus ulcer needing debridement, acute right lower extremity DVT status post IVC filter placement, recent hospitalization at our facility 10/31/21-11/04/21 for fall out of bed and treated with broad spectrum Abx for possible decubitus wound infection and was on a total of 7 days of treatment, who presented to the emergency room from his local half-way facility for evaluation after he had fallen out of bed yet again. Initial vitals showed stable blood pressure 107/66, tachycardic heart rate 101, afebrile, normal oxygenation at 97% on room air. Initial labs showed leukocytosis at 17,200 elevated neutrophils at 79%, normocytic anemia with a hemoglobin of 10.3, hematocrit 33%. Slight hyponatremia at 129, hyperkalemia of 5.5, VIRGILIO with a creatinine 1.2, BUN 79. Normal LFTs. Urinalysis is suspicious for UTI with 3+ leukocyte esterase, 51-75 WBCs and WBC clumps present. Urine culture and blood culture pending. CT Head showed Stable mild nonspecific cerebral white matter disease, which likely represents chronic small vessel ischemic disease. Chest x-ray showed No acute cardiopulmonary disease. Abd Pelvis CT showed Large decubitus ulcer of the right buttock extending to the gluteus dana with possible osteomyelitic involvement of the sacrum and coccyx; consider MRI correlation as clinically appropriate. Thickening and enhancement of the urinary bladder wall; consider urothelial carcinoma, cystitis and/or prostate neoplasm. Small sliding hiatal hernia. IVC filter. Diverticulosis of sigmoid and descending colon; no evidence of diverticulitis. Patient was admitted into the hospital for large sacral decubitus ulcer with concerns for osteomyelitis with consultation to General surgery, meeting criteria for sepsis with leukocytosis, tachycardia in the setting of UTI and osteomyelitis of sacral decubitus ulcer. Vitals today are normal, leukocytosis improving to 13,300 in neutrophil count 77%. Continue with IV broad-spectrum antibiotics with vancomycin and Zosyn #1, until urine culture and blood cultures return Talked with the surgical team who states his wounds are looking fairly good at this time and he will not be taken to the OR for any debridements. We will continue with further workup and evaluation of possible osteomyelitis with an MRI which is yet to be completed Continue monitoring. Appreciate surgical input. (2) Osteomyelitis of sacrum: Code(s): M46.28 - Osteomyelitis of vertebra, sacral and sacrococcygeal region Status: Acute Assessment and Plan: Obtaining MRI for further evaluation (3) Acute UTI: Code(s): N39.0 - Urinary tract infection, site not specified Status: Acute Assessment and Plan: Broad-spectrum antibiotics at this time. Has a chronic Ortiz which puts him at higher risk of UTIs. Pending urine culture results. (4) Sacral decubitus ulcer: Onset Date: Unknown Qualifiers: Pressure injury stage: unspecified pressure injury stage Qualified Code(s): L89.159 - Pressure ulcer of sacral region, unspecified stage Code(s): L89.159 - Pressure ulcer of sacral region, unspecified stage Status: Acute Assessment and Plan: See above. (5) Acute hyponatremia: Code(s): E87.1 - Hypo-osmolality and hyponatremia Status: Acute Assessment and Plan: Sodium on arrival was 129 which is about his baseline from prior ho
[2021-11-18 12:23] LABS: Glucose Point of Care 156 mg/dl (65-105)
[2021-11-18] MEDS: METOPROLOL SUCCINATE EXT REL 12.5 MG TABCR PO (12:40)
[2021-11-18] MEDS: PANTOPRAZOLE 40 MG TABLET PO (12:44)
[2021-11-18] MEDS: CLOPIDOGREL BISULFATE 75 MG TABLET FEED TUBE (12:44)
[2021-11-18] MEDS: FUROSEMIDE 40 MG TABLET FEED TUBE (12:44)
[2021-11-18] MEDS: TOLNAFTATE 1% POWDER 45 GM BTL 1 APPLIC TOPICAL (12:45)
[2021-11-18] MEDS: FERROUS SULFATE 324 MG TABLET BY MOUTH (12:45)
[2021-11-18] MEDS: SILVERGEL (ELTA) 45 ML 1 APPLIC TOPICAL (12:46)
[2021-11-18] MEDS: WATER FOR IRRIGATION, STERILE 1,000 ML BOTTLE 1000 ML (12:47)
[2021-11-18] MEDS: lisinopriL 5 MG TABLET FEED TUBE (12:51)
[2021-11-18] MEDS: SODIUM POLYSTYRENE SULFONONATE 15 GM/60 ML BTL RECTAL (13:00)
--- NOTE | 2021-11-18 14:16 | PC.NURSE ---
1407: MRI department called at this time, need to know if stents are MRI compatible before MRI can be done. 1408: Called Bernice (MORIS) at this time, updated that MRI will need to know what kind of stents patient have, before MRI can be done. Referred me to call Handy). 1409: Called Lynn FELICIANO) at this time, asked if she knw what kind of stent the patient have, stated to call the to see if she knew. 1410: Called patient multiple times, no answer.
[2021-11-18 16:19] LABS: Glucose Point of Care 160 mg/dl (65-105)
[2021-11-18] MEDS: ATORVASTATIN 40 MG TABLET 80 MG FEED TUBE (20:26)
[2021-11-18 23:43] LABS: Glucose Point of Care 163 mg/dl (65-105)
--- NOTE | 2021-11-18 23:44 | PC.NURSE ---
ctaheter insertion date unknown
[2021-11-19] VITALS (8 sets, daily range): BP systolic 102–126; BP diastolic 44–67; PULSE 88–105; RESP 16–20; TEMP 36–36.7; O2SAT 95–100
[2021-11-19] MEDS: SODIUM CHLORIDE 0.9% IV 1,000 ML 125 ML IV CONT (04:36)
[2021-11-19 06:42] LABS: Basophils Absolute Auto 0.1 K/mm3 (0.0-0.1); Basophils Percent Auto 0.5 % (0.2-1.2); Eosinophils Absolute Auto 0.2 K/mm3 (0-0.3); Hematocrit 27.9 % (42.0-52.0); Hemoglobin 8.6 g/dL (14.0-18.0); Immature Granulocyte Absolute 0.13 K/mm3 (0.00-0.031); Immature Granulocyte Percent A 1.2 % (0-0.5); Lymphocytes Absolute Auto 1.53 K/mm3 (0.9-3.2); Lymphocytes Percent Auto 13.5 % (18.3-44.2); Mean Corpuscular HGB Conc 30.8 g/dl (32-36); Mean Corpuscular Hemoglobin 28.3 pg (26-34); Mean Corpuscular Volume 91.8 fl (80-100); Mean Platelet Volume 9.6 fl (7.4-10.4); Monocytes Absolute Auto 0.6 K/mm3 (0.1-0.6); Monocytes Percent Auto 5.5 % (2.6-8.5); Neutrophils Absolute Auto 8.7 K/mm3 (1.3-6.7); Neutrophils Percent Auto 77.3 % (45.5-73.1); Platelet Count Result 347 k/mm3 (150-375); Red Blood Count 3.04 M/mm3 (4.6-6.20); Red Cell Distribution Width 17.3 % (11.5-14.5); White Blood Count 11.3 K/mm3 (4.5-10.0)
[2021-11-19 07:03] LABS: Prealbumin 17.7 mg/dL (17.6-36.0)
[2021-11-19 07:18] LABS: Anion Gap 12 mmol/L (8-16); Blood Urea Nitrogen 81 mg/dL (9-20); CRP 12.2 mg/dL (<1.0); Calcium 8.6 mg/dL (8.4-10.2); Carbon Dioxide 23 mmol/L (22-30); Chloride 97 mmol/L (98-107); Estimated CRCL calculation 25 ml/min; Estimated Glomerular Filt Rate 31; Glucose 209 mg/dL (65-110); Potassium 5.2 mmol/L (3.4-5.0); Sodium 132 mmol/L (137-145)
[2021-11-19 08:04] LABS: Glucose Point of Care 198 mg/dl (65-105)
[2021-11-19] MEDS: METOPROLOL SUCCINATE EXT REL 12.5 MG TABCR PO (08:15)
[2021-11-19] MEDS: traMADol HCL (*CRX) 50 MG TABLET PO (08:15)
[2021-11-19] MEDS: FERROUS SULFATE 324 MG TABLET BY MOUTH (08:15)
[2021-11-19] MEDS: lisinopriL 5 MG TABLET FEED TUBE (08:15)
[2021-11-19] MEDS: FUROSEMIDE 40 MG TABLET FEED TUBE (08:15)
[2021-11-19] MEDS: CLOPIDOGREL BISULFATE 75 MG TABLET FEED TUBE (08:15)
[2021-11-19] MEDS: PANTOPRAZOLE 40 MG TABLET PO ×3 (08:16→17:46)
[2021-11-19] MEDS: ENOXAPARIN 40 MG/0.4 ML SYRINGE SUB-Q (08:16)
[2021-11-19] MEDS: SILVERGEL (ELTA) 45 ML 1 APPLIC TOPICAL (08:17)
[2021-11-19] MEDS: TOLNAFTATE 1% POWDER 45 GM BTL 1 APPLIC TOPICAL ×2 (08:18→20:54)
[2021-11-19] MEDS: ASPIRIN 81 MG CHEWABLE TABLET FEED TUBE (08:19)
--- NOTE | 2021-11-19 09:33 | PM.PNGS ---
Progress Note: A&P Assessment and Plan (1) Sacral decubitus ulcer: Onset Date: Unknown Qualifiers: Pressure injury stage: unspecified pressure injury stage Qualified Code(s): L89.159 - Pressure ulcer of sacral region, unspecified stage Code(s): L89.159 - Pressure ulcer of sacral region, unspecified stage Status: Acute Assessment and Plan: Large chronic sacral decubitus ulcer with possible small area of bone exposed, but no necrotic tissue or purulent drainage that would require surgical debridement at this time. CT suggesting possible osteomyelitis of the sacrum and coccyx. Will re-initiate local wound care with silver gel dressing changes. Continue broad-spectrum IV antibiotics. MRI pelvis ordered for today.( however, checking in the afternoon this is on hold because information is needed on his peripheral vascular stents from [facility] in [place] and [facility] or these to in his early because of his previous peripheral vascular disease interventions in his legs ). Will need frequent turning to reduce pressure to his wounds. I discussed the importance of compliance with the patient today since he has refused a lot of his care in the past. Nursing is also ordering a special bed for him with a more air type mattress for pressure relief. Patient now having very loose stools so will insert a stool containment device into the rectum if he can tolerate it. This will help protect the skin surrounding his sacral decubitus which is becoming increasingly irritated and erythematous more from contact with liquid stool than from any signs of infection coming from the wound. (2) Osteomyelitis of sacrum: Code(s): M46.28 - Osteomyelitis of vertebra, sacral and sacrococcygeal region Status: Acute Assessment and Plan: This is possible but not yet proven. Continue broad-spectrum IV antibiotics. MRI ordered. Will evaluate results of MRI and then consider whether surgical intervention of the bone that is involved will be necessary or whether we can proceed with long-term IV antibiotics for treatment. (3) Nonhealing ulcer of lower extremity limited to breakdown of skin: Code(s): L97.901 - Non-pressure chronic ulcer of unspecified part of unspecified lower leg limited to breakdown of skin Status: Acute Assessment and Plan: Chronic bilateral lower leg ulcers that are nonhealing. There is no active infection or necrotic tissue that would indicate surgical intervention at this time, and there does not appear to be cellulitis of his lower extremities. These are likely multifactorial from his chronic peripheral vascular (arterial and venous) disease, noncompliance with wound care, immobility, and potentially poor nutrition. ABIs to further evaluate his arterial flow. Still pending today He has an extensive history of peripheral arterial disease requiring revascularization procedures. Will also initiate local wound care with silver gel dressing changes. Continue using waffle boots and keep his heels elevated off of the bed to reduce pressure. This does not appear to be the source of his possible sepsis. (4) Sepsis: Code(s): A41.9 - Sepsis, unspecified organism Status: Acute Assessment and Plan: Criteria met on admission with leukocytosis, tachycardia, and potential source of infection. Source suspected to be UTI versus possible osteomyelitis. MRI ordered of pelvis. Continue broad-spectrum IV antibiotics and IV fluid resuscitation. Urine culture and blood cultures pending. No significant drainage from his wounds today that I felt would prompt wound cultures. Monitor labs. (5) Acute UTI: Code(s): N39.0 - Urinary tract infection, site not specified Status: Acute Assessment and Plan: Continue IV antibiotics, urine culture pending. Could consider Urology consultation considering the UTI and his urothelial carcinoma. (6) Peripheral arteria
--- NOTE | 2021-11-19 10:19 | PM.IMPN ---
Progress Note: A&P Assessment and Plan (1) Sepsis: Code(s): A41.9 - Sepsis, unspecified organism Status: Acute Assessment and Plan: Patient is a 71-year-old man with a history recent ICU admission at [facility] 08/26-10/26 for septic shock secondary to MRSA bacteremia and cavitary Klebsiella pneumonia with acute respiratory failure needing intubation, decubitus ulcer needing debridement, acute right lower extremity DVT status post IVC filter placement, recent hospitalization at our facility 10/31/21-11/04/21 for fall out of bed and treated with broad spectrum Abx for possible decubitus wound infection and was on a total of 7 days of treatment, who presented to the emergency room from his local long term facility for evaluation after he had fallen out of bed yet again. Initial vitals showed stable blood pressure 107/66, tachycardic heart rate 101, afebrile, normal oxygenation at 97% on room air. Initial labs showed leukocytosis at 17,200 elevated neutrophils at 79%, normocytic anemia with a hemoglobin of 10.3, hematocrit 33%. Slight hyponatremia at 129, hyperkalemia of 5.5, VIRGILIO with a creatinine 1.2, BUN 79. Normal LFTs. Urinalysis is suspicious for UTI with 3+ leukocyte esterase, 51-75 WBCs and WBC clumps present. Urine culture and blood culture pending. CT Head showed Stable mild nonspecific cerebral white matter disease, which likely represents chronic small vessel ischemic disease. Chest x-ray showed No acute cardiopulmonary disease. Abd Pelvis CT showed Large decubitus ulcer of the right buttock extending to the gluteus dana with possible osteomyelitic involvement of the sacrum and coccyx; consider MRI correlation as clinically appropriate. Thickening and enhancement of the urinary bladder wall; consider urothelial carcinoma, cystitis and/or prostate neoplasm. Small sliding hiatal hernia. IVC filter. Diverticulosis of sigmoid and descending colon; no evidence of diverticulitis. Patient was admitted into the hospital for large sacral decubitus ulcer with concerns for osteomyelitis with consultation to General surgery, meeting criteria for sepsis with leukocytosis, tachycardia in the setting of UTI and osteomyelitis of sacral decubitus ulcer. Vitals today are normal, leukocytosis improving to 11,300 in neutrophil count 77%. Continue with IV broad-spectrum antibiotics with vancomycin #2 and switched Zosyn #1 to imipenem because his creatinine is rising. Urine culture shows no growth. Blood cultures are negative to date. Talked with the surgical team who states his wounds are looking fairly good at this time and he will not be taken to the OR for any debridement. We will continue with further workup and evaluation of possible osteomyelitis with an MRI which is yet to be completed Continue monitoring. Appreciate surgical input. (2) Osteomyelitis of sacrum: Code(s): M46.28 - Osteomyelitis of vertebra, sacral and sacrococcygeal region Status: Acute Assessment and Plan: Obtaining MRI for further evaluation (3) Diarrhea: Code(s): R19.7 - Diarrhea, unspecified Status: Acute Assessment and Plan: Began having diarrhea last night. Could be related to IV Zosyn so this was switched today. Talked to the dietitian who is going to [facility] trauma to help bulk in his stools. Surgery may place a rectal tube if he continues to have stools frequently and needing to keep the dressing clean and dry to prevent further infection. (4) Acute UTI: Code(s): N39.0 - Urinary tract infection, site not specified Status: Acute Assessment and Plan: Broad-spectrum antibiotics at this time. Has a chronic Ortiz which puts him at higher risk of UTIs. Urine culture shows no growth. (5) Sacral decubitus ulcer:
[2021-11-19] MEDS: LOPERAMIDE HCL 2 MG CAPSULE 4 MG FEED TUBE (11:22)
[2021-11-19 11:29] LABS: Glucose Point of Care 169 mg/dl (65-105)
--- NOTE | 2021-11-19 12:58 | PCDIET ---
spoke with SUZE Elliott today regarding nutrition status. Patient is having poor oral intake. New orders for continuous tube feedings of Glucerna 1.2 at 70 ml/hr over 22 hours. This will provide 1848 kcals/92 gms protein/1240 ml water. Free water flush 30 ml q 4 hours. Protein Modular of Brian BID for wound healing being flushed. We will continue oral diet order DBCC and Mildly Thick liquids, Level 2. Agree with diet orders. Will monitor every Tuesday and Tuesday.
[2021-11-19] MEDS: SACCHAROMYCES BOULARDII 250 MG CAPSULE PO ×2 (14:20→17:46)
[2021-11-19 14:51] LABS: Hematocrit 30.2 % (42.0-52.0); Hemoglobin 9.2 g/dL (14.0-18.0)
--- NOTE | 2021-11-19 14:56 | PCPTNOTE ---
I went back into the room to make sure that all needs were met before I left the floor and he remembered who I was and attempted to show me movement of his LE. There was trace quad contraction noted. I do not change my recommendation at this time.
[2021-11-19 16:56] LABS: Glucose Point of Care 121 mg/dl (65-105)
[2021-11-19] MEDS: ATORVASTATIN 40 MG TABLET 80 MG FEED TUBE (20:48)
[2021-11-19] MEDS: PSYLLIUM SUGAR FREE POWDER PACKET 1 PACKET FEED TUBE (20:48)
[2021-11-19 21:07] LABS: Glucose Point of Care 223 mg/dl (65-105)
[2021-11-20 03:34] VITALS: BP 100/70; PULSE 98; RESP 22; TEMP 36.1; O2SAT 92
[2021-11-20 04:00] VITALS: BP 100/70; PULSE 98; RESP 22; TEMP 36.1; O2SAT 92
[2021-11-20 05:41] LABS: Basophils Absolute Auto 0.1 K/mm3 (0.0-0.1); Basophils Percent Auto 0.3 % (0.2-1.2); Eosinophils Absolute Auto 0.2 K/mm3 (0-0.3); Eosinophils Percent Auto 1.1 % (0-4.4); Hematocrit 31.1 % (42.0-52.0); Hemoglobin 9.7 g/dL (14.0-18.0); Immature Granulocyte Absolute 0.15 K/mm3 (0.00-0.031); Lymphocytes Absolute Auto 1.83 K/mm3 (0.9-3.2); Lymphocytes Percent Auto 12.4 % (18.3-44.2); Mean Corpuscular HGB Conc 31.2 g/dl (32-36); Mean Corpuscular Hemoglobin 28.3 pg (26-34); Mean Corpuscular Volume 90.7 fl (80-100); Mean Platelet Volume 9.3 fl (7.4-10.4); Monocytes Absolute Auto 0.7 K/mm3 (0.1-0.6); Monocytes Percent Auto 4.7 % (2.6-8.5); Neutrophils Absolute Auto 11.9 K/mm3 (1.3-6.7); Neutrophils Percent Auto 80.5 % (45.5-73.1); Platelet Count Result 380 k/mm3 (150-375); Red Blood Count 3.43 M/mm3 (4.6-6.20); Red Cell Distribution Width 17.1 % (11.5-14.5); White Blood Count 14.8 K/mm3 (4.5-10.0)
[2021-11-20 06:02] LABS: Anion Gap 11 mmol/L (8-16); Blood Urea Nitrogen 90 mg/dL (9-20); CRP 8.7 mg/dL (<1.0); Calcium 9.1 mg/dL (8.4-10.2); Carbon Dioxide 22 mmol/L (22-30); Chloride 99 mmol/L (98-107); Estimated CRCL calculation 20 ml/min; Estimated Glomerular Filt Rate 24; Glucose 179 mg/dL (65-110); Potassium 5.9 mmol/L (3.4-5.0); Sodium 132 mmol/L (137-145)
--- NOTE | 2021-11-20 08:10 | PCOTNOTE ---
Attempted OT evaluation this AM. Patient declining any/all activity despite encouragement. He declines attempting to move from supine to the edge of bed, stating, please don't, it will hurt my backside .
[2021-11-20] MEDS: SODIUM POLYSTYRENE SULFONONATE 15 GM/60 ML BTL PO (09:35)
[2021-11-20] MEDS: traMADol HCL (*CRX) 50 MG TABLET PO (09:35)
[2021-11-20] MEDS: ENOXAPARIN 40 MG/0.4 ML SYRINGE SUB-Q (09:35)
[2021-11-20] MEDS: METOPROLOL SUCCINATE EXT REL 12.5 MG TABCR PO (09:35)
[2021-11-20] MEDS: lisinopriL 5 MG TABLET FEED TUBE (09:35)
[2021-11-20] MEDS: PSYLLIUM SUGAR FREE POWDER PACKET 1 PACKET FEED TUBE ×2 (09:35→22:09)
[2021-11-20] MEDS: ASPIRIN 81 MG CHEWABLE TABLET FEED TUBE (09:35)
[2021-11-20] MEDS: SACCHAROMYCES BOULARDII 250 MG CAPSULE PO ×3 (09:35→17:24)
[2021-11-20] MEDS: FERROUS SULFATE 324 MG TABLET BY MOUTH (09:35)
[2021-11-20] MEDS: PANTOPRAZOLE 40 MG TABLET PO ×2 (09:35→17:24)
[2021-11-20] MEDS: TOLNAFTATE 1% POWDER 45 GM BTL 1 APPLIC TOPICAL ×2 (09:36→22:11)
[2021-11-20] MEDS: SILVERGEL (ELTA) 45 ML 1 APPLIC TOPICAL (09:36)
[2021-11-20 09:55] VITALS: BP 129/46; PULSE 93; RESP 18; TEMP 36.2; O2SAT 100
--- NOTE | 2021-11-20 11:18 | PCNFU ---
Nutrition Follow-Up Complete: Increased protein needs as related to wounds as evidenced by Stage IV Pressure Ulcer to saccrum and Deep Tissue on left heels. Goal: Meet estimated nutritional needs Patient progressing towards goal. We will continue current goal Pt current nutrition is Glucerna 1.2 at 70 ml/hr over 22 hours with oral diet of DBCC with Mildly Thick liquids, Level 2 Last recorded weight is 77.9 kg, stable Bowel Motility:Recal Tube in place. Labs Reviewed:Glu 179, BUN 90, K 5.9,Na 132, Hct 31.1,Hgb 9.7 Meds Noted:Vancomycin, Ultram, Florastor, Metamucil, Protonix, Plavix, Lipitor, Lovenox, Lasix, Vancomycin, Prinivil, Toprol. Skin: Stage IV PU-sacrum. Additional Notes: Patient remains on continuous tube feeding of Glucerna 1.2 due to lack of appetite. Current tube feeding is providing 1848 kcals/92 gms protein/1240 ml water. Free water flush 30 ml q 4 hours. Protein Modular is being flush of Brian BID for wound healing. PO intake is encouraged, agree with diet orders. Will monitor every Tuesday and Tuesday
[2021-11-20 12:17] LABS: Glucose Point of Care 184 mg/dl (65-105)
--- NOTE | 2021-11-20 13:21 | PM.PNGS ---
Progress Note: A&P Assessment and Plan (1) Sacral decubitus ulcer: Onset Date: Unknown Qualifiers: Pressure injury stage: unspecified pressure injury stage Qualified Code(s): L89.159 - Pressure ulcer of sacral region, unspecified stage Code(s): L89.159 - Pressure ulcer of sacral region, unspecified stage Status: Acute Assessment and Plan: Large chronic sacral decubitus ulcer with possible small area of bone exposed, but no necrotic tissue or purulent drainage that would require surgical debridement at this time. CT suggesting possible osteomyelitis of the sacrum and coccyx. Will re-initiate local wound care with silver gel dressing changes. Continue broad-spectrum IV antibiotics. MRI pelvis ordered for today.( however, checking in the afternoon this is on hold because information is needed on his peripheral vascular stents from [facility] in [employer] and [facility] or these to in his early because of his previous peripheral vascular disease interventions in his legs ). Will need frequent turning to reduce pressure to his wounds Nursing is also ordering a special bed for him with a more air type mattress for pressure relief. Patient now having very loose stools so now has a stool containment device into the rectum and he is tolerating it. This will help protect the skin surrounding his sacral decubitus which is becoming increasingly irritated and erythematous more from contact with liquid stool than from any signs of infection coming from the wound. Since this is been working well I contacted the wound care nurse today and with his examined dressing change today we decided to go ahead and try placing a wound VAC on this large sacral wound. It appears there may be enough purchase of skin between the posterior anal opening and the edge of the wound such that now that he has a wound containment CIS system in the rectum that this may work well over the weekend since the nurses will not need to be cleaning his anal and buttock area as much. This may also let his irritated skin around the decubitus heel. (2) Osteomyelitis of sacrum: Code(s): M46.28 - Osteomyelitis of vertebra, sacral and sacrococcygeal region Status: Acute Assessment and Plan: This is possible but not yet proven. Continue broad-spectrum IV antibiotics. MRI ordered. Will evaluate results of MRI and then consider whether surgical intervention of the bone that is involved will be necessary or whether we can proceed with long-term IV antibiotics for treatment. (3) Nonhealing ulcer of lower extremity limited to breakdown of skin: Code(s): L97.901 - Non-pressure chronic ulcer of unspecified part of unspecified lower leg limited to breakdown of skin Status: Acute Assessment and Plan: Chronic bilateral lower leg ulcers that are nonhealing. There is no active infection or necrotic tissue that would indicate surgical intervention at this time, and there does not appear to be cellulitis of his lower extremities. These are likely multifactorial from his chronic peripheral vascular (arterial and venous) disease, noncompliance with wound care, immobility, and potentially poor nutrition. ABIs to further evaluate his arterial flow. Still pending today ( apparently are diagnostic unit here is not functional). He has an extensive history of peripheral arterial disease requiring revascularization procedures. Will also initiate local wound care with silver gel dressing changes. Continue using waffle boots and keep his heels elevated off of the bed to reduce pressure. This does not appear to be the source of his possible sepsis. (4) Sepsis: Code(s): A41.9 - Sepsis, unspecified organism Status: Acute Assessment and Plan: Criteria met on admission with leukocytosis, tachycardia, and potential source of infection. Source suspected to be UTI versus possible osteomyelitis. MRI ordered of pelvis. C
[2021-11-20 14:12] VITALS: BP 119/54; PULSE 89; RESP 18; TEMP 36.7; O2SAT 99
--- NOTE | 2021-11-20 14:16 | PM.IMPN ---
Progress Note: A&P Assessment and Plan (1) Sepsis: Code(s): A41.9 - Sepsis, unspecified organism Status: Acute Assessment and Plan: Patient is a 71-year-old man with a history recent ICU admission at [facility] 08/26-10/26 for septic shock secondary to MRSA bacteremia and cavitary Klebsiella pneumonia with acute respiratory failure needing intubation, decubitus ulcer needing debridement, acute right lower extremity DVT status post IVC filter placement, recent hospitalization at our facility 10/31/21-11/04/21 for fall out of bed and treated with broad spectrum Abx for possible decubitus wound infection and was on a total of 7 days of treatment, who presented to the emergency room from his local alf facility for evaluation after he had fallen out of bed yet again. Initial vitals showed stable blood pressure 107/66, tachycardic heart rate 101, afebrile, normal oxygenation at 97% on room air. Initial labs showed leukocytosis at 17,200 elevated neutrophils at 79%, normocytic anemia with a hemoglobin of 10.3, hematocrit 33%. Slight hyponatremia at 129, hyperkalemia of 5.5, VIRGILIO with a creatinine 1.2, BUN 79. Normal LFTs. Urinalysis is suspicious for UTI with 3+ leukocyte esterase, 51-75 WBCs and WBC clumps present. Urine culture and blood culture pending. CT Head showed Stable mild nonspecific cerebral white matter disease, which likely represents chronic small vessel ischemic disease. Chest x-ray showed No acute cardiopulmonary disease. Abd Pelvis CT showed Large decubitus ulcer of the right buttock extending to the gluteus dana with possible osteomyelitic involvement of the sacrum and coccyx; consider MRI correlation as clinically appropriate. Thickening and enhancement of the urinary bladder wall; consider urothelial carcinoma, cystitis and/or prostate neoplasm. Small sliding hiatal hernia. IVC filter. Diverticulosis of sigmoid and descending colon; no evidence of diverticulitis. Patient was admitted into the hospital for large sacral decubitus ulcer with concerns for osteomyelitis with consultation to General surgery, meeting criteria for sepsis with leukocytosis, tachycardia in the setting of UTI and osteomyelitis of sacral decubitus ulcer. Vitals today are normal, leukocytosis still elevated today. Continue with IV broad-spectrum antibiotics with vancomycin #3 and switched Zosyn #2 to imipenem because his creatinine is rising. Urine culture shows no growth. Blood cultures are negative to date. Talked with the surgical team who states his wounds are looking fairly good at this time and he will not be taken to the OR for any debridement. We will continue with further workup and evaluation of possible osteomyelitis with an MRI which is yet to be completed Continue monitoring. Appreciate surgical input. (2) Osteomyelitis of sacrum: Code(s): M46.28 - Osteomyelitis of vertebra, sacral and sacrococcygeal region Status: Acute Assessment and Plan: Obtaining MRI for further evaluation (3) Diarrhea: Code(s): R19.7 - Diarrhea, unspecified Status: Acute Assessment and Plan: Began having diarrhea last night. Could be related to IV Zosyn so this was switched today. Talked to the dietitian who is going to [facility] to help bulk in his stools. Surgery may place a rectal tube if he continues to have stools frequently and needing to keep the dressing clean and dry to prevent further infection. (4) Acute UTI: Code(s): N39.0 - Urinary tract infection, site not specified Status: Acute Assessment and Plan: Broad-spectrum antibiotics at this time. Has a chronic Ortiz which puts him at higher risk of UTIs. Urine culture shows no growth. (5) Sacral decubitus ulcer: Onset Date: Unknown
[2021-11-20 16:43] LABS: Potassium 5.1 mmol/L (3.4-5.0)
[2021-11-20 16:46] LABS: Glucose Point of Care 171 mg/dl (65-105)
[2021-11-20 19:38] VITALS: BP 124/53; PULSE 90; RESP 18; TEMP 36.1; O2SAT 95
[2021-11-20 20:23] LABS: Glucose Point of Care 189 mg/dl (65-105)
[2021-11-20] MEDS: ATORVASTATIN 40 MG TABLET 80 MG FEED TUBE (22:09)
[2021-11-21 06:30] VITALS: BP 149/50; PULSE 98; RESP 18; TEMP 36.6; O2SAT 97
[2021-11-21 07:50] LABS: Basophils Absolute Auto 0.1 K/mm3 (0.0-0.1); Basophils Percent Auto 0.3 % (0.2-1.2); Eosinophils Absolute Auto 0.3 K/mm3 (0-0.3); Eosinophils Percent Auto 1.7 % (0-4.4); Hematocrit 32.1 % (42.0-52.0); Hemoglobin 9.5 g/dL (14.0-18.0); Immature Granulocyte Absolute 0.16 K/mm3 (0.00-0.031); Immature Granulocyte Percent A 0.9 % (0-0.5); Lymphocytes Absolute Auto 2.04 K/mm3 (0.9-3.2); Lymphocytes Percent Auto 11.4 % (18.3-44.2); Mean Corpuscular HGB Conc 29.6 g/dl (32-36); Mean Corpuscular Hemoglobin 28.2 pg (26-34); Mean Corpuscular Volume 95.3 fl (80-100); Mean Platelet Volume 9.3 fl (7.4-10.4); Monocytes Absolute Auto 0.8 K/mm3 (0.1-0.6); Monocytes Percent Auto 4.4 % (2.6-8.5); Neutrophils Absolute Auto 14.5 K/mm3 (1.3-6.7); Neutrophils Percent Auto 81.3 % (45.5-73.1); Platelet Count Result 385 k/mm3 (150-375); Red Blood Count 3.37 M/mm3 (4.6-6.20); Red Cell Distribution Width 17.2 % (11.5-14.5); White Blood Count 17.8 K/mm3 (4.5-10.0)
[2021-11-21 08:00] LABS: Anion Gap 8 mmol/L (8-16); Blood Urea Nitrogen 84 mg/dL (9-20); Carbon Dioxide 22 mmol/L (22-30); Chloride 100 mmol/L (98-107); Estimated CRCL calculation 22 ml/min; Estimated Glomerular Filt Rate 27; Glucose 207 mg/dL (65-110); Potassium 4.9 mmol/L (3.4-5.0); Sodium 130 mmol/L (137-145)
[2021-11-21 08:05] LABS: Glucose Point of Care 249 mg/dl (65-105)
[2021-11-21 08:32] VITALS: O2SAT 97
[2021-11-21 08:37] LABS: Anisocytosis 1+ (NORMAL); Ovalocytes 1+ (NORMAL); Platelet Estimate Adequate (Adequate)
[2021-11-21 09:09] LABS: Vancomycin Trough 29.1 ug/mL (10.0-20.0)
[2021-11-21] MEDS: INSULIN ASPART (*BKC) 100 UNITS/ML SUB-Q ×3 (09:18→17:08)
[2021-11-21] MEDS: PSYLLIUM SUGAR FREE POWDER PACKET 1 PACKET FEED TUBE ×2 (09:25→20:22)
[2021-11-21] MEDS: ENOXAPARIN 40 MG/0.4 ML SYRINGE SUB-Q (09:25)
[2021-11-21 09:26] VITALS: PULSE 68
[2021-11-21] MEDS: FERROUS SULFATE 324 MG TABLET BY MOUTH (09:26)
[2021-11-21] MEDS: SACCHAROMYCES BOULARDII 250 MG CAPSULE PO ×3 (09:26→17:09)
[2021-11-21] MEDS: METOPROLOL SUCCINATE EXT REL 12.5 MG TABCR PO (09:26)
[2021-11-21] MEDS: ASPIRIN 81 MG CHEWABLE TABLET FEED TUBE (09:26)
[2021-11-21] MEDS: lisinopriL 5 MG TABLET FEED TUBE (09:26)
[2021-11-21] MEDS: PANTOPRAZOLE 40 MG TABLET PO ×2 (09:26→17:09)
[2021-11-21] MEDS: SILVERGEL (ELTA) 45 ML 1 APPLIC TOPICAL (09:27)
[2021-11-21] MEDS: TOLNAFTATE 1% POWDER 45 GM BTL 1 APPLIC TOPICAL ×2 (09:27→20:22)
--- NOTE | 2021-11-21 12:13 | PM.IMPN ---
Progress Note: A&P Assessment and Plan (1) Sepsis: Code(s): A41.9 - Sepsis, unspecified organism Status: Acute Assessment and Plan: Patient is a 71-year-old man with a history recent ICU admission at [facility] 08/26-10/26 for septic shock secondary to MRSA bacteremia and cavitary Klebsiella pneumonia with acute respiratory failure needing intubation, decubitus ulcer needing debridement, acute right lower extremity DVT status post IVC filter placement, recent hospitalization at our facility 10/31/21-11/04/21 for fall out of bed and treated with broad spectrum Abx for possible decubitus wound infection and was on a total of 7 days of treatment, who presented to the emergency room from his local group home facility for evaluation after he had fallen out of bed yet again. Initial vitals showed stable blood pressure 107/66, tachycardic heart rate 101, afebrile, normal oxygenation at 97% on room air. Initial labs showed leukocytosis at 17,200 elevated neutrophils at 79%, normocytic anemia with a hemoglobin of 10.3, hematocrit 33%. Slight hyponatremia at 129, hyperkalemia of 5.5, VIRGILIO with a creatinine 1.2, BUN 79. Normal LFTs. Urinalysis is suspicious for UTI with 3+ leukocyte esterase, 51-75 WBCs and WBC clumps present. Urine culture and blood culture pending. CT Head showed Stable mild nonspecific cerebral white matter disease, which likely represents chronic small vessel ischemic disease. Chest x-ray showed No acute cardiopulmonary disease. Abd Pelvis CT showed Large decubitus ulcer of the right buttock extending to the gluteus dana with possible osteomyelitic involvement of the sacrum and coccyx; consider MRI correlation as clinically appropriate. Thickening and enhancement of the urinary bladder wall; consider urothelial carcinoma, cystitis and/or prostate neoplasm. Small sliding hiatal hernia. IVC filter. Diverticulosis of sigmoid and descending colon; no evidence of diverticulitis. Patient was admitted into the hospital for large sacral decubitus ulcer with concerns for osteomyelitis with consultation to General surgery, meeting criteria for sepsis with leukocytosis, tachycardia in the setting of UTI and osteomyelitis of sacral decubitus ulcer. Vitals today are normal, leukocytosis still elevated today. Continue with IV broad-spectrum antibiotics with vancomycin #4 and switched Zosyn #2 to imipenem #2 because his creatinine is rising. Urine culture shows no growth. Blood cultures are negative to date. Talked with the surgical team who states his wounds are looking fairly good at this time and he will not be taken to the OR for any debridement. We will continue with further workup and evaluation of possible osteomyelitis with an MRI which is yet to be completed Continue monitoring. Appreciate surgical input. (2) Osteomyelitis of sacrum: Code(s): M46.28 - Osteomyelitis of vertebra, sacral and sacrococcygeal region Status: Acute Assessment and Plan: Obtaining MRI for further evaluation (3) Diarrhea: Code(s): R19.7 - Diarrhea, unspecified Status: Acute Assessment and Plan: Began having diarrhea last night. Could be related to IV Zosyn so this was switched today. Talked to the dietitian who is going to add banatrol to help bulk in his stools. Surgery placed a rectal tube to keep the dressing clean and dry to prevent further infection. (4) Acute UTI: Code(s): N39.0 - Urinary tract infection, site not specified Status: Acute Assessment and Plan: Broad-spectrum antibiotics at this time. Has a chronic Ortiz which puts him at higher risk of UTIs. Urine culture shows no growth. (5) Sacral decubitus ulcer: Onset Date: Unknown Qualifiers: Pressure injury stage: unspecifie
[2021-11-21 12:15] LABS: Glucose Point of Care 241 mg/dl (65-105)
--- NOTE | 2021-11-21 12:16 | PCOTNOTE ---
Attempted to evaluate for occupational therapy. Pt. refused to participate and requested that he be left alone.
[2021-11-21 14:00] VITALS: BP 106/49; PULSE 91; RESP 18; TEMP 36.5; O2SAT 100
[2021-11-21 16:43] LABS: Glucose Point of Care 203 mg/dl (65-105)
[2021-11-21] MEDS: ATORVASTATIN 40 MG TABLET 80 MG FEED TUBE (20:22)
[2021-11-22 01:09] LABS: Glucose Point of Care 204 mg/dl (65-105)
[2021-11-22 07:00] LABS: Glucose Point of Care 232 mg/dl (65-105)
[2021-11-22 07:06] LABS: Basophils Absolute Auto 0.1 K/mm3 (0.0-0.1); Basophils Percent Auto 0.4 % (0.2-1.2); Eosinophils Absolute Auto 0.4 K/mm3 (0-0.3); Eosinophils Percent Auto 3.1 % (0-4.4); Hematocrit 27.2 % (42.0-52.0); Hemoglobin 8.2 g/dL (14.0-18.0); Immature Granulocyte Absolute 0.12 K/mm3 (0.00-0.031); Lymphocytes Absolute Auto 1.65 K/mm3 (0.9-3.2); Lymphocytes Percent Auto 13.7 % (18.3-44.2); Mean Corpuscular HGB Conc 30.1 g/dl (32-36); Mean Corpuscular Hemoglobin 27.7 pg (26-34); Mean Corpuscular Volume 91.9 fl (80-100); Mean Platelet Volume 9.2 fl (7.4-10.4); Monocytes Absolute Auto 0.5 K/mm3 (0.1-0.6); Monocytes Percent Auto 4.3 % (2.6-8.5); Neutrophils Absolute Auto 9.4 K/mm3 (1.3-6.7); Neutrophils Percent Auto 77.5 % (45.5-73.1); Platelet Count Result 341 k/mm3 (150-375); Red Blood Count 2.96 M/mm3 (4.6-6.20); Red Cell Distribution Width 17.1 % (11.5-14.5); White Blood Count 12.1 K/mm3 (4.5-10.0)
[2021-11-22 07:25] LABS: Anion Gap 10 mmol/L (8-16); Blood Urea Nitrogen 78 mg/dL (9-20); CRP 6.8 mg/dL (<1.0); Calcium 8.7 mg/dL (8.4-10.2); Carbon Dioxide 23 mmol/L (22-30); Chloride 100 mmol/L (98-107); Estimated CRCL calculation 27 ml/min; Estimated Glomerular Filt Rate 35; Glucose 237 mg/dL (65-110); Potassium 4.2 mmol/L (3.4-5.0); Sodium 133 mmol/L (137-145)
[2021-11-22 08:11] LABS: Glucose Point of Care 204 mg/dl (65-105)
[2021-11-22 09:59] VITALS: PULSE 70
[2021-11-22] MEDS: SACCHAROMYCES BOULARDII 250 MG CAPSULE PO ×3 (09:59→16:57)
[2021-11-22] MEDS: METOPROLOL SUCCINATE EXT REL 12.5 MG TABCR PO (09:59)
[2021-11-22] MEDS: FERROUS SULFATE 324 MG TABLET BY MOUTH (09:59)
[2021-11-22] MEDS: lisinopriL 5 MG TABLET FEED TUBE (09:59)
[2021-11-22] MEDS: PANTOPRAZOLE 40 MG TABLET PO ×2 (09:59→16:57)
[2021-11-22] MEDS: ENOXAPARIN 40 MG/0.4 ML SYRINGE SUB-Q (09:59)
[2021-11-22] MEDS: PSYLLIUM SUGAR FREE POWDER PACKET 1 PACKET FEED TUBE ×2 (09:59→20:48)
[2021-11-22] MEDS: ASPIRIN 81 MG CHEWABLE TABLET FEED TUBE (09:59)
[2021-11-22] MEDS: TOLNAFTATE 1% POWDER 45 GM BTL 1 APPLIC TOPICAL ×2 (10:00→20:49)
[2021-11-22] MEDS: INSULIN ASPART (*BKC) 100 UNITS/ML SUB-Q ×2 (10:00→13:14)
[2021-11-22] MEDS: SILVERGEL (ELTA) 45 ML 1 APPLIC TOPICAL (10:00)
--- NOTE | 2021-11-22 11:53 | PM.IMPN ---
Progress Note: A&P Assessment and Plan (1) Sepsis: Code(s): A41.9 - Sepsis, unspecified organism Status: Acute Assessment and Plan: Patient is a 71-year-old man with a history recent ICU admission at [facility] 08/26-10/26 for septic shock secondary to MRSA bacteremia and cavitary Klebsiella pneumonia with acute respiratory failure needing intubation, decubitus ulcer needing debridement, acute right lower extremity DVT status post IVC filter placement, recent hospitalization at our facility 10/31/21-11/04/21 for fall out of bed and treated with broad spectrum Abx for possible decubitus wound infection and was on a total of 7 days of treatment, who [facility] for [facility] after he had fallen out of bed yet again. Initial vitals showed stable blood pressure 107/66, tachycardic heart rate 101, afebrile, normal oxygenation at 97% on room air. Initial labs showed leukocytosis at 17,200 elevated neutrophils at 79%, normocytic anemia with a hemoglobin of 10.3, hematocrit 33%. Slight hyponatremia at 129, hyperkalemia of 5.5, VIRGILIO with a creatinine 1.2, BUN 79. Normal LFTs. Urinalysis is suspicious for UTI with 3+ leukocyte esterase, 51-75 WBCs and WBC clumps present. Urine culture and blood culture pending. CT Head showed Stable mild nonspecific cerebral white matter disease, which likely represents chronic small vessel ischemic disease. Chest x-ray showed No acute cardiopulmonary disease. Abd Pelvis CT showed Large decubitus ulcer of the right buttock extending to the gluteus dana with possible osteomyelitic involvement of the sacrum and coccyx; consider MRI correlation as clinically appropriate. Thickening and enhancement of the urinary bladder wall; consider urothelial carcinoma, cystitis and/or prostate neoplasm. Small sliding hiatal hernia. IVC filter. Diverticulosis of sigmoid and descending colon; no evidence of diverticulitis. Patient was admitted into the hospital for large sacral decubitus ulcer with concerns for osteomyelitis with consultation to General surgery, meeting criteria for sepsis with leukocytosis, tachycardia in the setting of UTI and osteomyelitis of sacral decubitus ulcer. Vitals today are normal, leukocytosis still elevated today. Continue with IV broad-spectrum antibiotics with vancomycin #5 and switched Zosyn #2 to imipenem #3 because his creatinine was rising. Urine culture shows no growth. Blood cultures are negative to date. Talked with the surgical team who states his wounds are looking fairly good and placed a wound VAC tuesday11/20/21. Continue monitoring and there are no place to take the patient to the OR at this time. We will continue with further workup and evaluation of possible osteomyelitis with an MRI which is yet to be completed Continue monitoring. Appreciate surgical input. (2) Osteomyelitis of sacrum: Code(s): M46.28 - Osteomyelitis of vertebra, sacral and sacrococcygeal region Status: Acute Assessment and Plan: Obtaining MRI for further evaluation (3) Diarrhea: Code(s): R19.7 - Diarrhea, unspecified Status: Acute Assessment and Plan: Began having diarrhea last night. Could be related to IV Zosyn so this was switched today. Talked to the dietitian who is going to add banatrol to help bulk in his stools. Surgery placed a rectal tube to keep the dressing clean and dry to prevent further infection. (4) Acute UTI: Code(s): N39.0 - Urinary tract infection, site not specified Status: Acute Assessment and Plan: Broad-spectrum antibiotics at this time. Has a chronic Ortiz which puts him at higher risk of UTIs. Urine culture shows no growth. (5) Sacral decubitus ulcer: Onset Date: Unknown
--- NOTE | 2021-11-22 13:00 | PCOTNOTE ---
Cancelled pt. therapy evaluation orders. Pt. has consistently refused to participate in therapy evaluation and activity outside of therapy. Pt. is decidedly dependent at baseline and not appropriate for therapy services at this time. Re-order if pt. willingness and motivation increases.
[2021-11-22 13:08] LABS: Glucose Point of Care 213 mg/dl (65-105)
[2021-11-22 14:00] VITALS: BP 114/52; PULSE 75; RESP 16; TEMP 36.8; O2SAT 97
[2021-11-22 16:35] LABS: Glucose Point of Care 181 mg/dl (65-105)
[2021-11-22 20:42] VITALS: BP 111/42; PULSE 96; RESP 16; TEMP 37.2; O2SAT 100
[2021-11-22] MEDS: ATORVASTATIN 40 MG TABLET 80 MG FEED TUBE (20:48)
[2021-11-22 23:52] LABS: Glucose Point of Care 171 mg/dl (65-105)
[2021-11-23 05:59] VITALS: BP 125/53; PULSE 85; RESP 18; TEMP 37; O2SAT 99
[2021-11-23 06:48] LABS: Basophils Percent Auto 0.4 % (0.2-1.2); Eosinophils Absolute Auto 0.4 K/mm3 (0-0.3); Eosinophils Percent Auto 3.7 % (0-4.4); Hematocrit 25.8 % (42.0-52.0); Hemoglobin 7.9 g/dL (14.0-18.0); Immature Granulocyte Percent A 0.9 % (0-0.5); Immature Platelet Fraction Pct 1.6 % (0.9-11.2); Lymphocytes Absolute Auto 1.54 K/mm3 (0.9-3.2); Mean Corpuscular HGB Conc 30.6 g/dl (32-36); Mean Corpuscular Hemoglobin 28.3 pg (26-34); Mean Corpuscular Volume 92.5 fl (80-100); Mean Platelet Volume 9.7 fl (7.4-10.4); Monocytes Absolute Auto 0.6 K/mm3 (0.1-0.6); Monocytes Percent Auto 5.1 % (2.6-8.5); Neutrophils Absolute Auto 8.4 K/mm3 (1.3-6.7); Neutrophils Percent Auto 75.9 % (45.5-73.1); Platelet Count Result 312 k/mm3 (150-375); Red Blood Count 2.79 M/mm3 (4.6-6.20)
[2021-11-23 06:52] LABS: Glucose Point of Care 175 mg/dl (65-105)
[2021-11-23 07:12] LABS: Anion Gap 9 mmol/L (8-16); Blood Urea Nitrogen 63 mg/dL (9-20); Calcium 8.6 mg/dL (8.4-10.2); Carbon Dioxide 21 mmol/L (22-30); Chloride 101 mmol/L (98-107); Estimated CRCL calculation 37 ml/min; Estimated Glomerular Filt Rate 50; Glucose 183 mg/dL (65-110); Potassium 4.3 mmol/L (3.4-5.0); Sodium 131 mmol/L (137-145)
[2021-11-23 08:01] LABS: Glucose Point of Care 204 mg/dl (65-105)
[2021-11-23] MEDS: PANTOPRAZOLE 40 MG TABLET PO ×2 (08:39→17:20)
[2021-11-23] MEDS: METOPROLOL SUCCINATE EXT REL 12.5 MG TABCR PO (08:39)
[2021-11-23] MEDS: FERROUS SULFATE 324 MG TABLET BY MOUTH (08:39)
[2021-11-23] MEDS: ENOXAPARIN 40 MG/0.4 ML SYRINGE SUB-Q (08:39)
[2021-11-23] MEDS: PSYLLIUM SUGAR FREE POWDER PACKET 1 PACKET FEED TUBE ×2 (08:39→20:46)
[2021-11-23] MEDS: lisinopriL 5 MG TABLET FEED TUBE (08:39)
[2021-11-23] MEDS: SACCHAROMYCES BOULARDII 250 MG CAPSULE PO ×3 (08:39→17:20)
[2021-11-23] MEDS: ASPIRIN 81 MG CHEWABLE TABLET FEED TUBE (08:39)
[2021-11-23] MEDS: TOLNAFTATE 1% POWDER 45 GM BTL 1 APPLIC TOPICAL ×2 (08:40→20:46)
[2021-11-23] MEDS: SILVERGEL (ELTA) 45 ML 1 APPLIC TOPICAL (08:40)
[2021-11-23] MEDS: traMADol HCL (*CRX) 50 MG TABLET PO (08:51)
[2021-11-23] MEDS: INSULIN ASPART (*BKC) 100 UNITS/ML SUB-Q (11:45)
[2021-11-23 11:50] LABS: Glucose Point of Care 206 mg/dl (65-105)
[2021-11-23 14:06] VITALS: BP 122/62; PULSE 88; RESP 20; TEMP 36.5; O2SAT 99
--- NOTE | 2021-11-23 14:15 | WPDCDIQUERY2 ---
CDI Query Clarification Request -Acute UTI, Has a chronic Santiago which puts him at higher risk of UTIs , and urine culture shows no growth has been documented -11/18 urine culture- no growth. -Chronic indwelling santiago catheter has been documented. Please clarify if UTI has been ruled in, ruled out, or unable to determine. Also, if ruled in, please also clarify if it is caused by/associated with indwelling catheter, not caused by/associated with indwelling catheter or unable to determine.
--- NOTE | 2021-11-23 14:18 | PM.PNGS ---
Progress Note: A&P Assessment and Plan (1) Sacral decubitus ulcer: Onset Date: Unknown Qualifiers: Pressure injury stage: unspecified pressure injury stage Qualified Code(s): L89.159 - Pressure ulcer of sacral region, unspecified stage Code(s): L89.159 - Pressure ulcer of sacral region, unspecified stage Status: Acute Assessment and Plan: Stage IV large chronic sacral decubitus ulcer with possible osteomyelitis. Wound vac dressing not staying intact with stool leakage from the rectal tube into the dressing today. Will discontinue the wound vac and start daily dressing changes with silver gel and gauze packing. Currently on a specialty mattress. Continue rectal tube for now while he continues to have liquid stool, if his stool starts solidifying, then would have to consider removing. Continue frequent turning. (2) Osteomyelitis of sacrum: Code(s): M46.28 - Osteomyelitis of vertebra, sacral and sacrococcygeal region Status: Acute Assessment and Plan: Possible osteomyelitis suggested on CT, this could also be bony erosion from his stage IV sacral decubitus ulcer rather than truly osteomyelitis. MRI pending? Could consider bone biopsy. Continue IV antibiotics for now. (3) Nonhealing ulcer of lower extremity limited to breakdown of skin: Code(s): L97.901 - Non-pressure chronic ulcer of unspecified part of unspecified lower leg limited to breakdown of skin Status: Acute Assessment and Plan: Chronic bilateral lower leg ulcers that are nonhealing. There is no active infection or necrotic tissue that would indicate surgical intervention at this time, and there does not appear to be cellulitis of his lower extremities. These are likely multifactorial from his chronic peripheral vascular (arterial and venous) disease, noncompliance with wound care, immobility, and potentially poor nutrition. Continue local wound care with silver gel dressing changes. Continue using waffle boots and keep his heels elevated off of the bed to reduce pressure. (4) Sepsis: Code(s): A41.9 - Sepsis, unspecified organism Status: Acute Assessment and Plan: Criteria met on admission with leukocytosis, tachycardia, and potential source of infection. Source UTI versus possible osteomyelitis. Blood cultures with no growth. Urine culture no growth. Awaiting MRI of pelvis. Continue IV Primaxin (Day 5) and Vancomycin (Day 6). (5) Peripheral arterial disease: Onset Date: Unknown Code(s): I73.9 - Peripheral vascular disease, unspecified Status: Acute Assessment and Plan: This could be contributing to the poor healing of his lower leg ulcers. ABIs were ordered last week but I still do not see that this has been done. Will look into this today. (6) Venous stasis dermatitis: Onset Date: Unknown Code(s): I87.2 - Venous insufficiency (chronic) (peripheral) Status: Chronic Assessment and Plan: Now using mild compression with ALEXANDREA wraps applied to his lower extremities to help with compression. (7) Urothelial carcinoma: Code(s): C68.9 - Malignant neoplasm of urinary organ, unspecified Status: Acute Assessment and Plan: Diagnosed in 2020, now with a chronic indwelling urinary catheter in place. Ortiz changed upon admission due to possible urinary tract infection, urine culture showed no growth. (8) Coronary artery disease: Code(s): I25.10 - Atherosclerotic heart disease of [place] coronary artery without angina pectoris Status: Chronic (9) DM type 2 (diabetes mellitus, type 2): Onset Date: Unknown Qualifiers: Diabetes mellitus complication detail: with other skin ulcer Diabetes mellitus complication status: with skin complications Diabetes mellitus nursing home insulin use: without nursing home use Qualified Code(s): E11.622 - Type 2 diabetes mellitus with other skin ulcer Code(s): E11.9 - Type 2 di
--- NOTE | 2021-11-23 15:00 | PM.IMPN ---
Progress Note: A&P Assessment and Plan (1) Sepsis: Code(s): A41.9 - Sepsis, unspecified organism Status: Acute Assessment and Plan: Criteria for sepsis present on admission with leukocytosis, tachycardia in the setting of suspected UTI (ruled out) and possible osteomyelitis of sacral decubitus ulcer. Vitals today are stable. Blood and urine cultures negative. Continue with IV broad-spectrum antibiotics for possible osteomyelitis. (2) Osteomyelitis of sacrum: Code(s): M46.28 - Osteomyelitis of vertebra, sacral and sacrococcygeal region Status: Acute Assessment and Plan: Possible osteomyelitis of the sacrum noted on imaging. Still waiting to hear on possible MRI. Clinically nontoxic. White count remains slightly elevated. He is non febrile. CRP trend noted, 6.8 yesterday. Continue broad-spectrum antibiotics including imipenem and vancomycin. Still waiting to hear on possible MRI which would be most beneficial. May need bone biopsy to rule in or rule out. Wound VAC and wound management per General surgery. (3) Sacral decubitus ulcer: Onset Date: Unknown Qualifiers: Pressure injury stage: unspecified pressure injury stage Qualified Code(s): L89.159 - Pressure ulcer of sacral region, unspecified stage Code(s): L89.159 - Pressure ulcer of sacral region, unspecified stage Status: Acute Assessment and Plan: See above. (4) Diarrhea: Code(s): R19.7 - Diarrhea, unspecified Status: Acute Assessment and Plan: Patient had diarrhea for a couple of days and he was started on banatrol to help bulk up this stools which his has done. Continue fecal management system in attempts to keep his wound and wound VAC clean. (5) Acute hyponatremia: Code(s): E87.1 - Hypo-osmolality and hyponatremia Status: Acute Assessment and Plan: Seems to be a chronic finding for the patient. Sodium was 129 on admission and is 131 today. Patient is drinking water but not eating well and was started on tube feeds per dietitian. Appears euvolemic, monitor periodically. (6) Nonhealing ulcer of lower extremity limited to breakdown of skin: Code(s): L97.901 - Non-pressure chronic ulcer of unspecified part of unspecified lower leg limited to breakdown of skin Status: Acute Assessment and Plan: Patient has significant peripheral vascular disease and chronic wounds. Followed by surgery and wound nurse. (7) DM type 2 (diabetes mellitus, type 2): Onset Date: Unknown Qualifiers: Diabetes mellitus termite technician insulin use: without termite technician use Diabetes mellitus complication status: with skin complications Diabetes mellitus complication detail: with other skin ulcer Qualified Code(s): E11.622 - Type 2 diabetes mellitus with other skin ulcer Code(s): E11.9 - Type 2 diabetes mellitus without complications Status: Chronic Assessment and Plan: Glucose trends were reviewed. He has been ranging between 130 and 230. Continue to hold basal insulin given poor oral intake. Continue sliding scale insulin. Hypoglycemic protocol in place. 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 (9) Normocytic anemia: Code(s): D64.9 - Anemia, unspecified Status: Acute Assessment and Plan: Hemoglobin has been
[2021-11-23 16:29] LABS: Glucose Point of Care 184 mg/dl (65-105)
[2021-11-23 19:23] VITALS: BP 105/71; PULSE 90; RESP 17; TEMP 36.6; O2SAT 99
[2021-11-23 20:00] VITALS: PULSE 90; RESP 17; O2SAT 99
[2021-11-23 20:39] LABS: Glucose Point of Care 212 mg/dl (65-105)
[2021-11-23] MEDS: ATORVASTATIN 40 MG TABLET 80 MG FEED TUBE (20:45)
[2021-11-24] VITALS (8 sets, daily range): BP systolic 119–154; BP diastolic 45–69; PULSE 88–96; RESP 14–20; TEMP 36.1–37.1; O2SAT 96–99
[2021-11-24 00:30] LABS: Glucose Point of Care 207 mg/dl (65-105)
[2021-11-24 06:23] LABS: Glucose Point of Care 242 mg/dl (65-105)
[2021-11-24 06:24] LABS: Hematocrit 26.5 % (42.0-52.0); Hemoglobin 8.2 g/dL (14.0-18.0); Mean Corpuscular HGB Conc 30.9 g/dl (32-36); Mean Corpuscular Hemoglobin 28.6 pg (26-34); Mean Corpuscular Volume 92.3 fl (80-100); Mean Platelet Volume 9.6 fl (7.4-10.4); Platelet Count Result 326 k/mm3 (150-375); Red Blood Count 2.87 M/mm3 (4.6-6.20); Red Cell Distribution Width 17.2 % (11.5-14.5); White Blood Count 13.2 K/mm3 (4.5-10.0)
--- NOTE | 2021-11-24 06:38 | PC.NURSE ---
Unable to do MRI stents in legs are fractured.
[2021-11-24 06:48] LABS: Anion Gap 8 mmol/L (8-16); Blood Urea Nitrogen 49 mg/dL (9-20); Carbon Dioxide 24 mmol/L (22-30); Chloride 100 mmol/L (98-107); Estimated CRCL calculation 46 ml/min; Estimated Glomerular Filt Rate > 60; Glucose 204 mg/dL (65-110); Magnesium 1.6 mg/dL (1.6-2.3); Potassium 4.8 mmol/L (3.4-5.0); Sodium 132 mmol/L (137-145)
[2021-11-24 07:40] LABS: Glucose Point of Care 224 mg/dl (65-105)
[2021-11-24] MEDS: PSYLLIUM SUGAR FREE POWDER PACKET 1 PACKET FEED TUBE ×2 (08:09→20:19)
[2021-11-24] MEDS: PANTOPRAZOLE 40 MG TABLET PO ×2 (08:09→17:05)
[2021-11-24] MEDS: FERROUS SULFATE 324 MG TABLET BY MOUTH (08:09)
[2021-11-24] MEDS: lisinopriL 5 MG TABLET FEED TUBE (08:09)
[2021-11-24] MEDS: SACCHAROMYCES BOULARDII 250 MG CAPSULE PO ×3 (08:09→17:05)
[2021-11-24] MEDS: ASPIRIN 81 MG CHEWABLE TABLET FEED TUBE (08:09)
[2021-11-24] MEDS: ENOXAPARIN 40 MG/0.4 ML SYRINGE SUB-Q (08:10)
[2021-11-24] MEDS: METOPROLOL SUCCINATE EXT REL 12.5 MG TABCR PO (08:11)
[2021-11-24] MEDS: TOLNAFTATE 1% POWDER 45 GM BTL 1 APPLIC TOPICAL ×2 (08:12→20:19)
[2021-11-24] MEDS: INSULIN ASPART (*BKC) 100 UNITS/ML SUB-Q (08:40)
[2021-11-24] MEDS: SILVERGEL (ELTA) 45 ML 1 APPLIC TOPICAL (11:35)
[2021-11-24 11:50] LABS: Glucose Point of Care 182 mg/dl (65-105)
--- NOTE | 2021-11-24 13:33 | PM.IMPN ---
Progress Note: A&P Assessment and Plan (1) Sepsis: Code(s): A41.9 - Sepsis, unspecified organism Status: Acute Assessment and Plan: Criteria for sepsis present on admission with leukocytosis, tachycardia in the setting of suspected UTI (ruled out) and possible osteomyelitis of sacral decubitus ulcer. Blood and urine cultures negative. Continue with primaxin [place] [id number] (2) Osteomyelitis of sacrum: Code(s): M46.28 - Osteomyelitis of vertebra, sacral and sacrococcygeal region Status: Acute Assessment and Plan: Continue iv antibiotics including primaxin and vancomycin. Still waiting to hear on possible MRI which would be most beneficial. May need bone biopsy to rule in or rule out. Wound VAC and wound management per General surgery. (3) Sacral decubitus ulcer: Onset Date: Unknown Qualifiers: Pressure injury stage: unspecified pressure injury stage Qualified Code(s): L89.159 - Pressure ulcer of sacral region, unspecified stage Code(s): L89.159 - Pressure ulcer of sacral region, unspecified stage Status: Acute Assessment and Plan: See above. (4) Diarrhea: Code(s): R19.7 - Diarrhea, unspecified Status: Acute Assessment and Plan: Patient had diarrhea for a couple of days Continue fecal management system and banatrol (5) Acute hyponatremia: Code(s): E87.1 - Hypo-osmolality and hyponatremia Status: Acute Assessment and Plan: Seems to be a chronic finding for the patient. Sodium was 129 on admission and is 132 today. Patient is drinking water but not eating well and was started on tube feeds per dietitian. (6) Nonhealing ulcer of lower extremity limited to breakdown of skin: Code(s): L97.901 - Non-pressure chronic ulcer of unspecified part of unspecified lower leg limited to breakdown of skin Status: Acute Assessment and Plan: Patient has significant peripheral vascular disease and chronic wounds. Followed by surgery and wound nurse. (7) DM type 2 (diabetes mellitus, type 2): Onset Date: Unknown Qualifiers: Diabetes mellitus snf insulin use: without terminal superintendent use Diabetes mellitus complication status: with skin complications Diabetes mellitus complication detail: with other skin ulcer Qualified Code(s): E11.622 - Type 2 diabetes mellitus with other skin ulcer Code(s): E11.9 - Type 2 diabetes mellitus without complications Status: Chronic Assessment and Plan: Continue to hold basal insulin given poor oral intake. Continue sliding scale insulin. Hypoglycemic protocol in place. 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 (9) Normocytic anemia: Code(s): D64.9 - Anemia, unspecified Status: Acute Assessment and Plan: Repeat H&H tomorrow and transfuse if indicated. (10) History of revascularization procedure of lower extremity: Code(s): Z98.62 - Peripheral vascular angioplasty status Status: Acute Assessment and Plan: Patient has known peripheral vascular disease. He has intermittent lower extremity pain with standing/walking but nothing acute. This should be done as an outpatient as soon as possible.
--- NOTE | 2021-11-24 14:04 | PCNFU ---
Nutrition Follow-Up Complete: Increased protein needs as related to wounds as evidenced by Stage IV Pressure Ulcer to saccrum and Deep Tissue on left heels. Goal: Meet estimated nutritional needs We will continue current goal. Pt current nutrition is tube feeding: Glucerna 1.2 at 70 ml/hr over 22 hours, oral diet: DBCC with Mildly thick liquids, level 2. Last recorded weight is 77.9 kg,no new weight to report. Bowel Motility:FMS Labs Reviewed:Glu 204, Na 132, BUN 49, Hgb 8.2,Hct 26.5 Meds Noted:Vancomycin, Ultram, Florastor, Metamucil, Protonix, Plavix, Lipitor, Lovenox, Lasix, Vancomycin, Prinivil, Toprol. Skin: stage IV-sacrum: wound vac. Additional Notes: Patient remains on tube feedings of Glucerna 1.2 at 70 ml/hr over 22 hours. Spoke with nursing today tolerating tube feedings. Patient only oral intake has been water. Tube feedings are providing 1848 kcals/92 gms protein/1240 ml water. Protein Modular of Brian BID for wound healing providing an additional 90 kcals and 2.5 gms protein. 30 ml free water flush q 4 hours. Agree with diet orders. Monitoring: Will monitor every Tuesday and Tuesday
--- NOTE | 2021-11-24 14:33 | PC.NURSE ---
On 11/24/21, the student, Angela Yost, provided care and completed [facility] documentation on this patient. I have reviewed the student's documentation and agree with the findings.
[2021-11-24 16:19] LABS: Glucose Point of Care 191 mg/dl (65-105)
[2021-11-24] MEDS: ATORVASTATIN 40 MG TABLET 80 MG FEED TUBE (20:18)
[2021-11-25 06:23] LABS: Glucose Point of Care 201 mg/dl (65-105)
[2021-11-25 06:30] VITALS: BP 142/71; PULSE 96; RESP 18; TEMP 36.1; O2SAT 100
[2021-11-25 06:54] LABS: Prealbumin 16.7 mg/dL (17.6-36.0)
[2021-11-25 07:17] LABS: Vancomycin Random 20.7 ug/mL (10-20)
[2021-11-25 07:42] LABS: Glucose Point of Care 211 mg/dl (65-105)
--- NOTE | 2021-11-25 08:15 | PM.IMPN ---
Progress Note: A&P Assessment and Plan (1) Sepsis: Code(s): A41.9 - Sepsis, unspecified organism Status: Acute Assessment and Plan: Criteria for sepsis present on admission with leukocytosis, tachycardia in the setting of suspected UTI (ruled out) and possible osteomyelitis of sacral decubitus ulcer. Blood and urine cultures negative. Continue with primaxin and vancomycin. [place] [place] [id number] 11/23/21 (2) Osteomyelitis of sacrum: Code(s): M46.28 - Osteomyelitis of vertebra, sacral and sacrococcygeal region Status: Acute Assessment and Plan: Continue iv antibiotics including primaxin and vancomycin. MRI unable to be obtained May need bone biopsy to rule in or rule out. Wound VAC and wound management per General surgery. (3) Sacral decubitus ulcer: Onset Date: Unknown Qualifiers: Pressure injury stage: unspecified pressure injury stage Qualified Code(s): L89.159 - Pressure ulcer of sacral region, unspecified stage Code(s): L89.159 - Pressure ulcer of sacral region, unspecified stage Status: Acute Assessment and Plan: See above. (4) Diarrhea: Code(s): R19.7 - Diarrhea, unspecified Status: Acute Assessment and Plan: Patient had diarrhea for a couple of days Continue fecal management system and banatrol (5) Acute hyponatremia: Code(s): E87.1 - Hypo-osmolality and hyponatremia Status: Acute Assessment and Plan: Seems to be a chronic finding for the patient. Sodium was 129 on admission and is 132 11/23/21 Patient is drinking water but not eating well and was started on tube feeds per dietitian. (6) Nonhealing ulcer of lower extremity limited to breakdown of skin: Code(s): L97.901 - Non-pressure chronic ulcer of unspecified part of unspecified lower leg limited to breakdown of skin Status: Acute Assessment and Plan: Patient has significant peripheral vascular disease and chronic wounds. Followed by surgery and wound nurse. (7) DM type 2 (diabetes mellitus, type 2): Onset Date: Unknown Qualifiers: Diabetes mellitus termite control representative insulin use: without intermediate use Diabetes mellitus complication status: with skin complications Diabetes mellitus complication detail: with other skin ulcer Qualified Code(s): E11.622 - Type 2 diabetes mellitus with other skin ulcer Code(s): E11.9 - Type 2 diabetes mellitus without complications Status: Chronic Assessment and Plan: Continue to hold basal insulin given poor oral intake. Continue sliding scale insulin. Hypoglycemic protocol in place. 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 (9) Normocytic anemia: Code(s): D64.9 - Anemia, unspecified Status: Acute Assessment and Plan: Repeat H&H tomorrow and transfuse if indicated. (10) History of revascularization procedure of lower extremity: Code(s): Z98.62 - Peripheral vascular angioplasty status Status: Acute Assessment and Plan: Patient has known peripheral vascular disease. He has intermittent lower extremity pain with standing/walking but nothing acute. This should be done as an outpatient as soon as possible. (11) [place]
[2021-11-25] MEDS: ASPIRIN 81 MG CHEWABLE TABLET FEED TUBE (08:38)
[2021-11-25] MEDS: ENOXAPARIN 40 MG/0.4 ML SYRINGE SUB-Q (08:38)
[2021-11-25] MEDS: FERROUS SULFATE 324 MG TABLET BY MOUTH (08:38)
[2021-11-25] MEDS: PANTOPRAZOLE 40 MG TABLET PO ×2 (08:38→16:07)
[2021-11-25] MEDS: lisinopriL 5 MG TABLET FEED TUBE (08:38)
[2021-11-25] MEDS: SACCHAROMYCES BOULARDII 250 MG CAPSULE PO ×3 (08:38→16:07)
[2021-11-25 08:40] VITALS: PULSE 100
[2021-11-25] MEDS: METOPROLOL SUCCINATE EXT REL 12.5 MG TABCR PO (08:40)
[2021-11-25] MEDS: INSULIN ASPART (*BKC) 100 UNITS/ML SUB-Q ×2 (08:40→11:49)
[2021-11-25] MEDS: SILVERGEL (ELTA) 45 ML 1 APPLIC TOPICAL (08:58)
[2021-11-25] MEDS: TOLNAFTATE 1% POWDER 45 GM BTL 1 APPLIC TOPICAL ×2 (08:59→21:13)
[2021-11-25] MEDS: PSYLLIUM SUGAR FREE POWDER PACKET 1 PACKET FEED TUBE ×2 (11:22→21:12)
[2021-11-25 11:47] LABS: Glucose Point of Care 201 mg/dl (65-105)
[2021-11-25] MEDS: SOD HYPOCHLORITE 1/4 STRENGTH 473 ML 1 APPLIC TOPICAL (11:49)
[2021-11-25] MEDS: traMADol HCL (*CRX) 50 MG TABLET PO (12:05)
[2021-11-25 15:24] VITALS: BP 126/65; PULSE 95; RESP 18; TEMP 36.6; O2SAT 99
[2021-11-25 16:33] LABS: Glucose Point of Care 170 mg/dl (65-105)
[2021-11-25 18:16] LABS: Add Urine Microscopic? YES; Appearance Urine Clear (Clear); Bacteria Urine Trace /hpf; Bilirubin Urine Negative (Negative); Blood Urine 3+ (Negative); Color Urine Yellow (Yellow); Glucose Urine UA Negative (Negative); Ketones Urine Negative (Negative); Leukocyte Esterase Ur 3+ LEU/UL (Negative); Nitrate Urine Negative (Negative); Protein Urine 1+ mg/dL (Negative); RBC Urine >75 /hpf (0-2); Specific Grav Ur 1.014 (1.001-1.035); Squamous Epithelial Cell Urine Rare /hpf (Few); Urobilinogen Urine Negative mg/dL (<2.0); WBC Urine 51-75 /hpf
[2021-11-25] MEDS: ATORVASTATIN 40 MG TABLET 80 MG FEED TUBE (21:13)
[2021-11-25 22:38] VITALS: BP 137/57; PULSE 91; RESP 16; TEMP 36.2; O2SAT 99
[2021-11-26 00:34] LABS: Glucose Point of Care 160 mg/dl (65-105)
[2021-11-26] MEDS: SOD HYPOCHLORITE 1/4 STRENGTH 473 ML 1 APPLIC TOPICAL ×3 (03:55→22:20)
[2021-11-26 04:26] VITALS: BP 111/51; PULSE 99; RESP 18; TEMP 36.9; O2SAT 100
[2021-11-26 06:59] LABS: Basophils Absolute Auto 0.1 K/mm3 (0.0-0.1); Basophils Percent Auto 0.5 % (0.2-1.2); Eosinophils Absolute Auto 0.5 K/mm3 (0-0.3); Eosinophils Percent Auto 3.7 % (0-4.4); Hematocrit 29.3 % (42.0-52.0); Hemoglobin 8.6 g/dL (14.0-18.0); Immature Granulocyte Absolute 0.17 K/mm3 (0.00-0.031); Immature Granulocyte Percent A 1.2 % (0-0.5); Immature Platelet Fraction Pct 1.6 % (0.9-11.2); Lymphocytes Absolute Auto 1.89 K/mm3 (0.9-3.2); Lymphocytes Percent Auto 13.6 % (18.3-44.2); Mean Corpuscular HGB Conc 29.4 g/dl (32-36); Mean Corpuscular Hemoglobin 29.1 pg (26-34); Mean Platelet Volume 9.7 fl (7.4-10.4); Monocytes Absolute Auto 0.6 K/mm3 (0.1-0.6); Monocytes Percent Auto 4.5 % (2.6-8.5); Neutrophils Absolute Auto 10.7 K/mm3 (1.3-6.7); Neutrophils Percent Auto 76.5 % (45.5-73.1); Platelet Count Result 307 k/mm3 (150-375); Red Blood Count 2.96 M/mm3 (4.6-6.20); Red Cell Distribution Width 17.3 % (11.5-14.5); White Blood Count 13.9 K/mm3 (4.5-10.0)
[2021-11-26 07:04] LABS: Alanine Aminotransferase 16 U/L (4-50); Albumin Level 2.9 g/dL (3.5-5.1); Alkaline Phosphatase 78 U/L (38-126); Anion Gap 5 mmol/L (8-16); Aspartate Amino Transferase 26 U/L (17-59); Bilirubin,Total 0.4 mg/dL (0.2-1.3); Blood Urea Nitrogen 50 mg/dL (9-20); Calcium 8.8 mg/dL (8.4-10.2); Carbon Dioxide 25 mmol/L (22-30); Chloride 100 mmol/L (98-107); Estimated CRCL calculation 62 ml/min; Estimated Glomerular Filt Rate > 60; Glucose 202 mg/dL (65-110); Magnesium 1.6 mg/dL (1.6-2.3); Potassium 5.2 mmol/L (3.4-5.0); Sodium 130 mmol/L (137-145)
[2021-11-26 07:07] LABS: Glucose Point of Care 205 mg/dl (65-105)
[2021-11-26 08:04] VITALS: PULSE 108
[2021-11-26] MEDS: SACCHAROMYCES BOULARDII 250 MG CAPSULE PO ×3 (08:04→16:36)
[2021-11-26] MEDS: lisinopriL 5 MG TABLET FEED TUBE (08:04)
[2021-11-26] MEDS: METOPROLOL SUCCINATE EXT REL 12.5 MG TABCR PO (08:04)
[2021-11-26] MEDS: PANTOPRAZOLE 40 MG TABLET PO ×2 (08:04→16:38)
[2021-11-26] MEDS: ASPIRIN 81 MG CHEWABLE TABLET FEED TUBE (08:04)
[2021-11-26] MEDS: ENOXAPARIN 40 MG/0.4 ML SYRINGE SUB-Q (08:04)
[2021-11-26] MEDS: SILVERGEL (ELTA) 45 ML 1 APPLIC TOPICAL (08:05)
[2021-11-26] MEDS: FERROUS SULFATE 324 MG TABLET BY MOUTH (08:05)
[2021-11-26] MEDS: PSYLLIUM SUGAR FREE POWDER PACKET 1 PACKET FEED TUBE ×2 (08:05→22:19)
[2021-11-26] MEDS: TOLNAFTATE 1% POWDER 45 GM BTL 1 APPLIC TOPICAL ×2 (08:05→22:20)
[2021-11-26] MEDS: SILVER NITRATE (*SP) STICK 1 EACH TOPICAL (08:06)
[2021-11-26] MEDS: INSULIN ASPART (*BKC) 100 UNITS/ML SUB-Q ×2 (08:34→12:38)
[2021-11-26 11:33] LABS: Glucose Point of Care 213 mg/dl (65-105)
--- NOTE | 2021-11-26 14:35 | PM.IMPN ---
Progress Note: A&P Assessment and Plan (1) Sepsis: Code(s): A41.9 - Sepsis, unspecified organism Status: Acute Assessment and Plan: Criteria for sepsis present on admission with leukocytosis, tachycardia in the setting of suspected UTI (ruled out) and possible osteomyelitis of sacral decubitus ulcer. Blood and urine cultures negative. Continue with primaxin and [place] [facility] [place] [id number] (2) Osteomyelitis of sacrum: Code(s): M46.28 - Osteomyelitis of vertebra, sacral and sacrococcygeal region Status: Acute Assessment and Plan: Continue iv antibiotics including primaxin and vancomycin. Still waiting to hear on possible MRI which would be most beneficial. May need bone biopsy to rule in or rule out. pt having regular dressing changes of sacrum (3) Sacral decubitus ulcer: Onset Date: Unknown Qualifiers: Pressure injury stage: unspecified pressure injury stage Qualified Code(s): L89.159 - Pressure ulcer of sacral region, unspecified stage Code(s): L89.159 - Pressure ulcer of sacral region, unspecified stage Status: Acute Assessment and Plan: See above. (4) Diarrhea: Code(s): R19.7 - Diarrhea, unspecified Status: Acute Assessment and Plan: Patient had diarrhea for a couple of days much improved (5) Acute hyponatremia: Code(s): E87.1 - Hypo-osmolality and hyponatremia Status: Acute Assessment and Plan: Seems to be a chronic finding for the patient. Sodium was 129 on admission and is 130 today (6) Nonhealing ulcer of lower extremity limited to breakdown of skin: Code(s): L97.901 - Non-pressure chronic ulcer of unspecified part of unspecified lower leg limited to breakdown of skin Status: Acute Assessment and Plan: Patient has significant peripheral vascular disease and chronic wounds. Followed by surgery and wound nurse. (7) DM type 2 (diabetes mellitus, type 2): Onset Date: Unknown Qualifiers: Diabetes mellitus residential insulin use: without residential use Diabetes mellitus complication status: with skin complications Diabetes mellitus complication detail: with other skin ulcer Qualified Code(s): E11.622 - Type 2 diabetes mellitus with other skin ulcer Code(s): E11.9 - Type 2 diabetes mellitus without complications Status: Chronic Assessment and Plan: Continue to hold basal insulin given poor oral intake. Continue sliding scale insulin. Hypoglycemic protocol in place. 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 (9) Normocytic anemia: Code(s): D64.9 - Anemia, unspecified Status: Acute Assessment and Plan: Repeat H&H tomorrow and transfuse if indicated. (10) History of revascularization procedure of lower extremity: Code(s): Z98.62 - Peripheral vascular angioplasty status Status: Acute Assessment and Plan: Patient has known peripheral vascular disease. He has intermittent lower extremity pain with standing/walking but nothing acute. This should be done as an outpatient as soon as possible. (11) Coronary artery disease: Code(s): I25.10 - Atherosclerotic heart disease of [place] coronary artery w
[2021-11-26 15:27] VITALS: BP 118/69; PULSE 95; RESP 18; TEMP 36.8; O2SAT 100
[2021-11-26 16:43] LABS: Glucose Point of Care 157 mg/dl (65-105)
--- NOTE | 2021-11-26 17:01 | PM.PNGS ---
Progress Note: A&P Assessment and Plan (1) Sacral decubitus ulcer: Onset Date: Unknown Qualifiers: Pressure injury stage: unspecified pressure injury stage Qualified Code(s): L89.159 - Pressure ulcer of sacral region, unspecified stage Code(s): L89.159 - Pressure ulcer of sacral region, unspecified stage Status: Acute Assessment and Plan: Stage IV large chronic sacral decubitus ulcer with possible osteomyelitis. Wound vac dressing not staying intact with stool leakage from the rectal tube into the dressing on Tuesday. We discontinued the wound vac and started daily dressing changes with silver gel and gauze packing on Tue. and then chaged to use of Dakin's solution to decrease the bacterial bulmaro; load in the wound on this week. Currently on a specialty mattress. The rectal tube was removed on 11/23 since his stool had started solidifying. Continue frequent turning. Since the patient was unable to since the patient was unable to a pelvic MR we did a bone biopsy today of the most prominent area of the sacrum underlying the granulation tissue within the wound. In general wound bed appeared healthy and granulating with nearly 98% granulation tissue throughout. (2) Osteomyelitis of sacrum: Code(s): M46.28 - Osteomyelitis of vertebra, sacral and sacrococcygeal region Status: Acute Assessment and Plan: Possible osteomyelitis suggested on CT, this could also be bony erosion from his stage IV sacral decubitus ulcer rather than truly osteomyelitis. MRI contraindicated due to metallic stents in the arteries of his lower extremity. Therefore today bone biopsy was completed and I worked with micro to send this for culture and pathology. Continue IV antibiotics for now. (3) Nonhealing ulcer of lower extremity limited to breakdown of skin: Code(s): L97.901 - Non-pressure chronic ulcer of unspecified part of unspecified lower leg limited to breakdown of skin Status: Acute Assessment and Plan: Chronic bilateral lower leg ulcers that are nonhealing. There is no active infection or necrotic tissue that would indicate surgical intervention at this time, and there does not appear to be cellulitis of his lower extremities. These are likely multifactorial from his chronic peripheral vascular (arterial and venous) disease, noncompliance with wound care, immobility, and potentially poor nutrition. Continue local wound care with silver gel dressing changes. Continue using waffle boots and keep his heels elevated off of the bed to reduce pressure. (4) Sepsis: Code(s): A41.9 - Sepsis, unspecified organism Status: Acute Assessment and Plan: Criteria met on admission with leukocytosis, tachycardia, and potential source of infection. Source UTI versus possible osteomyelitis. Blood cultures with no growth. Urine culture no growth. Awaiting MRI of pelvis. Continue IV Primaxin (Day 5) and Vancomycin (Day 6). (5) Peripheral arterial disease: Onset Date: Unknown Code(s): I73.9 - Peripheral vascular disease, unspecified Status: Acute Assessment and Plan: This could be contributing to the poor healing of his lower leg ulcers. ABIs were ordered last week but I still do not see that this has been done. Will look into this today. (6) Venous stasis dermatitis: Onset Date: Unknown Code(s): I87.2 - Venous insufficiency (chronic) (peripheral) Status: Chronic Assessment and Plan: Now using mild compression with ALEXANDREA wraps applied to his lower extremities to help with compression. (7) Urothelial carcinoma: Code(s): C68.9 - Malignant neoplasm of urinary organ, unspecified Status: Acute Assessment and Plan: Diagnosed in 2020, now with a chronic indwelling urinary catheter in place. Ortiz changed upon admission due to possible urinary tract infection, urine culture showed no growth. Since patient was still running elevated
--- NOTE | 2021-11-26 19:49 | W.PM.PROC2 ---
Procedure Note - Detailed Date of Procedure 11/26/21 Pre-op Diagnosis possible sacral osteomyelitis in decubitus ulcer Post-op Diagnosis same Procedure Performed Excision of granulation tissue and some superficial bone at the sacral prominence ---biopsy for pathology and culture to determine possible osteomyelitis. Surgeon Jose Clarke MD [employer] Superintendent Vickie SUBRAMANIAN Anesthesia none Indications Persistently elevated WBC in face of deep stage III sacral decubitus ulcer. Since there is the question Findings the wound has 98% red granulation tissue throughout. There is some prominence where 1 would expect the sacral bone to be period at the site where I did the biopsy there was slight whitish discoloration suggestive of bone just underneath granulation tissue. Description of Procedure The patient was placed in the right lateral decubitus position. After a surgical time out confirming patient and procedure the patient was prepped in the usual sterile fashion. I used sterile #8. Gloves. Directly overlying the sacrum there was a small area where with touching with a sterile glove I could feel a little bit of underlying bone. At this area I carefully cleansed with Betadine then took a bite with a rongeur obtained from surgery removing some overlying granulation tissue. Following this I then I took another bite and both of these specimens were put in a sterile urine cup. This will be sent for pathology and culture to see if the patient has signs of osteomyelitis. ( patient cannot have MRI due to the metallic stents in his arteries of the lower extremity). There was some oozing from the site of the biopsy. Pressure was applied with a 4 x 4 gauze and then also used 1 silver nitrate stick to apply some chemical cautery. This left the area slightly black. There was no oozing of purulent material from the bone when I took the biopsy. I talked directly with [facility] to determine which is the best order for this test. They gave me numbers to place on the specimen container so that they know that there is both some tissue and some bone with bone spicules possibly being on the sidewall of the container. They will mix this with sterile saline and send it to our micro biology facility. Pathology and microbiology will be appropriately done on the specimen after I talked with the to department at [facility] (Our microbiology contractor). Patient tolerated this well. Implants none Estimated Blood Loss 4 Drains No Packing Yes ( Site was redressed with Dakin's solution on unrolled Kerlix roll.) Pathology yes ( Tissue from the bed of a sacral decubitus ulcer.) Complications No immediate complications Condition stable Disposition no change
[2021-11-26 20:00] VITALS: PULSE 96; RESP 18; O2SAT 98
[2021-11-26] MEDS: ATORVASTATIN 40 MG TABLET 80 MG FEED TUBE (22:19)
[2021-11-26 22:24] VITALS: BP 126/61; PULSE 96; RESP 18; TEMP 36.7; O2SAT 98
[2021-11-27 00:52] LABS: Glucose Point of Care 178 mg/dl (65-105)
[2021-11-27 06:39] VITALS: BP 115/79; PULSE 89; RESP 18; TEMP 36.6; O2SAT 97
[2021-11-27 06:51] LABS: Hematocrit 26.2 % (42.0-52.0); Hemoglobin 8.4 g/dL (14.0-18.0); Mean Corpuscular HGB Conc 32.1 g/dl (32-36); Mean Corpuscular Hemoglobin 28.9 pg (26-34); Mean Platelet Volume 9.6 fl (7.4-10.4); Platelet Count Result 318 k/mm3 (150-375); Red Blood Count 2.91 M/mm3 (4.6-6.20); Red Cell Distribution Width 17.4 % (11.5-14.5); White Blood Count 11.9 K/mm3 (4.5-10.0)
[2021-11-27 07:04] LABS: Estimated CRCL calculation 62 ml/min; Estimated Glomerular Filt Rate > 60
[2021-11-27 07:10] LABS: Glucose Point of Care 188 mg/dl (65-105)
[2021-11-27 07:34] LABS: Vancomycin Trough 19.6 ug/mL (10.0-20.0)
[2021-11-27 08:20] VITALS: PULSE 89
[2021-11-27] MEDS: ASPIRIN 81 MG CHEWABLE TABLET FEED TUBE (08:20)
[2021-11-27] MEDS: FERROUS SULFATE 324 MG TABLET BY MOUTH (08:20)
[2021-11-27] MEDS: lisinopriL 5 MG TABLET FEED TUBE (08:20)
[2021-11-27] MEDS: ENOXAPARIN 40 MG/0.4 ML SYRINGE SUB-Q (08:20)
[2021-11-27] MEDS: METOPROLOL SUCCINATE EXT REL 12.5 MG TABCR PO (08:20)
[2021-11-27] MEDS: PSYLLIUM SUGAR FREE POWDER PACKET 1 PACKET FEED TUBE ×2 (08:21→20:53)
[2021-11-27] MEDS: SACCHAROMYCES BOULARDII 250 MG CAPSULE PO ×3 (08:21→17:13)
[2021-11-27] MEDS: PANTOPRAZOLE 40 MG TABLET PO ×2 (08:21→17:13)
[2021-11-27] MEDS: HYDROcodone/acetaminophen (*CRX) 5-325 MG TABLET 1 TAB PO (08:29)
--- NOTE | 2021-11-27 08:51 | PHAR ---
Spoke with MARYLU Salinas about renewing Tramadol & Avery - meds nearing auto-DC
[2021-11-27] MEDS: SOD HYPOCHLORITE 1/4 STRENGTH 473 ML 1 APPLIC TOPICAL ×2 (10:49→20:53)
--- NOTE | 2021-11-27 11:04 | PCPTNOTE ---
Patient refused any type of functional mobility at this date. TotalA to assist RN with rolling side to side to reposition patient.
[2021-11-27 12:00] VITALS: BP 131/53; PULSE 91; RESP 20; TEMP 36.1; O2SAT 100
--- NOTE | 2021-11-27 13:22 | PM.IMPN ---
Progress Note: A&P Assessment and Plan (1) Sepsis: Code(s): A41.9 - Sepsis, unspecified organism Status: Acute Assessment and Plan: Criteria for sepsis present on admission with leukocytosis, tachycardia in the setting of suspected UTI (ruled out) and possible osteomyelitis of sacral decubitus ulcer. Blood and urine cultures negative. Continue with primaxin and vancomycin. [facility] [place] [id number] (2) Osteomyelitis of sacrum: Code(s): M46.28 - Osteomyelitis of vertebra, sacral and sacrococcygeal region Status: Acute Assessment and Plan: Continue iv antibiotics including primaxin and vancomycin. Pt unable to have MRI Pt had bone biopsy and debridement yesterday under surgery team pt having regular dressing changes of sacrum (3) Sacral decubitus ulcer: Onset Date: Unknown Qualifiers: Pressure injury stage: unspecified pressure injury stage Qualified Code(s): L89.159 - Pressure ulcer of sacral region, unspecified stage Code(s): L89.159 - Pressure ulcer of sacral region, unspecified stage Status: Acute Assessment and Plan: See above. (4) Diarrhea: Code(s): R19.7 - Diarrhea, unspecified Status: Acute Assessment and Plan: Patient had diarrhea for a couple of days much improved (5) Acute hyponatremia: Code(s): E87.1 - Hypo-osmolality and hyponatremia Status: Acute Assessment and Plan: Seems to be a chronic finding for the patient. Sodium was 129 on admission and is 130 today (6) Nonhealing ulcer of lower extremity limited to breakdown of skin: Code(s): L97.901 - Non-pressure chronic ulcer of unspecified part of unspecified lower leg limited to breakdown of skin Status: Acute Assessment and Plan: Patient has significant peripheral vascular disease and chronic wounds. Followed by surgery and wound nurse. Pt has underlying vascular disease, pt benefits from going to [facility] or [facility] in the future, where they have vascular surgery. (7) DM type 2 (diabetes mellitus, type 2): Onset Date: Unknown Qualifiers: Diabetes mellitus snf insulin use: without terminal supervisor use Diabetes mellitus complication status: with skin complications Diabetes mellitus complication detail: with other skin ulcer Qualified Code(s): E11.622 - Type 2 diabetes mellitus with other skin ulcer Code(s): E11.9 - Type 2 diabetes mellitus without complications Status: Chronic Assessment and Plan: Continue to hold basal insulin given poor oral intake. Continue sliding scale insulin. Hypoglycemic protocol in place. 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 (9) Normocytic anemia: Code(s): D64.9 - Anemia, unspecified Status: Acute Assessment and Plan: Repeat H&H tomorrow (10) History of revascularization procedure of lower extremity: Code(s): Z98.62 - Peripheral vascular angioplasty status Status: Acute Assessment and Plan: Patient has known peripheral vascular disease. He has intermittent lower extremity pain with standing/walking but nothing acute. This should be done as an outpatient as soon as possible. (11) Coronary artery disea
[2021-11-27] MEDS: TOLNAFTATE 1% POWDER 45 GM BTL 1 APPLIC TOPICAL ×2 (13:50→20:54)
[2021-11-27 14:08] LABS: Glucose Point of Care 167 mg/dl (65-105)
--- NOTE | 2021-11-27 14:45 | PCNFU ---
Nutrition Follow-Up Complete: Increased protein needs as related to wounds as evidenced by Stage IV Pressure Ulcer to saccum and Deep Tissue on left heels. Goal: Meet estimated nutritional needs patient has limited progress towards goal. We will continue current goal. Pt current nutrition is DBCC with Mildly Thick liquids, Level 2. Last recorded weight is 77.9 kg, no new weight to report. Bowel Motility:+BM reported 11/26 Labs Reviewed:Hct 26.2,Hgb 8.4 Meds Noted:Protonix, Metamucil, Florastor, Ultram,Lipitor, Lasix, Prinivil, Toprol, Lovenox, Plavix, Vancomycin Skin: stage IV-sacrum Additional Notes: Patient tube feedings have been discontinued. PO intake has been encouraged. Lunch ordered today, 0% reported. Recommend patient to have either bolus feedings of Glucerna 1.2- 2 cans or 480 ml after each meal if patient does not eat greater than 50% of meals. This will provide 1728 kcals/ 86 gms protein/1160 ml water or Given oral diet during the day and begin night feedings of Glucerna 1.2 from 1800 hours to 0600 hours at 100 ml/hr, providing 1440 kcals/72 gms protein/966 ml water. Protein Modular of Brian BID given via tube for wound healing, providing an additional 90 kcals and 2.5 gms protein. Monitoring: Will monitor every Tuesday and Tuesday
[2021-11-27] MEDS: SODIUM POLYSTYRENE SULFONONATE 15 GM/60 ML BTL PO (14:56)
--- NOTE | 2021-11-27 16:57 | PM.PNGS ---
Progress Note: A&P Assessment and Plan (1) Sacral decubitus ulcer: Onset Date: Unknown Qualifiers: Pressure injury stage: unspecified pressure injury stage Qualified Code(s): L89.159 - Pressure ulcer of sacral region, unspecified stage Code(s): L89.159 - Pressure ulcer of sacral region, unspecified stage Status: Acute Assessment and Plan: Stage IV large chronic sacral decubitus ulcer with possible osteomyelitis. Wound vac dressing not staying intact with stool leakage from the rectal tube into the dressing on Tuesday therefore we discontinued the wound vac and started daily dressing changes with silver gel and gauze packing on and then changed to use of Dakin's solution to decrease the bacterial floral load in the wound on this week. Currently on a specialty mattress. The rectal tube was removed on 11/23 since his stool had started solidifying. Continue frequent turning. Agree with need for PT and OT but patient has refused in the past. ( talking to the patient in trying to encourage him to participate today). Since the patient was unable to have a pelvic MR we did a bone biopsy on11/26/21 of the most prominent area of the sacrum underlying the granulation tissue within the wound. In general the wound bed appeared healthy and granulating with nearly 98% granulation tissue throughout. (2) Osteomyelitis of sacrum: Code(s): M46.28 - Osteomyelitis of vertebra, sacral and sacrococcygeal region Status: Acute Assessment and Plan: Possible osteomyelitis suggested on CT, but this could also be bony erosion from his stage IV sacral decubitus ulcer rather than truly osteomyelitis. MRI contraindicated due to metallic stents in the arteries of his lower extremity. Therefore, on 11/26/21 a bone biopsy was completed and I worked with [place] to send this for culture and pathology. Continue IV antibiotics for now. (3) Nonhealing ulcer of lower extremity limited to breakdown of skin: Code(s): L97.901 - Non-pressure chronic ulcer of unspecified part of unspecified lower leg limited to breakdown of skin Status: Acute Assessment and Plan: Chronic bilateral lower leg ulcers that are nonhealing. There is no active infection or necrotic tissue that would indicate surgical intervention at this time, and there does not appear to be cellulitis of his lower extremities. These are likely multifactorial from his chronic peripheral vascular (arterial and venous) disease, noncompliance with wound care, immobility, and potentially poor nutrition. Continue local wound care with silver gel dressing changes. Continue using waffle boots and keep his heels elevated off of the bed to reduce pressure. discussed recent noninvasive vascular studies with patient, nursing, and his medicine hospitalist. Patient has decreased arterial inflow on the right which will probably compromise healing on the wounds below the level of the the knee. Continue current dressings. If patient goes back to extended care facility in the future if he needs to be transferred to a hospital he should be transferred to 1 that has vascular service surgery capabilities and be reassessed at that time for vascular inflow to his right lower extremity if he wants everything done possible. ( states that his vascular interventions for lower extremity peripheral vascular disease was done at [facility] in [place]. (4) Sepsis: Code(s): A41.9 - Sepsis, unspecified organism Status: Acute Assessment and Plan: Criteria met on admission with leukocytosis, tachycardia, and potential source of infection. Source UTI versus possible osteomyelitis. Blood cultures with no growth. Urine culture no growth for asecondtime this admission on 11/27. Continue IV Primaxin and Vancomycin And await pathology and cultures from sacral area. Of note today's white blood cell count is down to 11.6.. (5) Peripheral arterial d
[2021-11-27] MEDS: SILVERGEL (ELTA) 45 ML 1 APPLIC TOPICAL (17:00)
[2021-11-27 17:24] LABS: Glucose Point of Care 142 mg/dl (65-105)
[2021-11-27 20:00] VITALS: PULSE 91; RESP 20; O2SAT 95
[2021-11-27] MEDS: ATORVASTATIN 40 MG TABLET 80 MG FEED TUBE (20:53)
[2021-11-27 21:38] VITALS: O2SAT 95
[2021-11-27 22:00] VITALS: BP 130/49; PULSE 89; RESP 16; TEMP 34.9; O2SAT 99
[2021-11-27 22:27] LABS: Anion Gap 6 mmol/L (8-16); Blood Urea Nitrogen 37 mg/dL (9-20); Calcium 9.3 mg/dL (8.4-10.2); Carbon Dioxide 27 mmol/L (22-30); Chloride 100 mmol/L (98-107); Estimated CRCL calculation 62 ml/min; Estimated Glomerular Filt Rate > 60; Glucose 155 mg/dL (65-110); Potassium 4.7 mmol/L (3.4-5.0); Sodium 133 mmol/L (137-145)
[2021-11-27 22:35] LABS: Glucose Point of Care 134 mg/dl (65-105)
--- NOTE | 2021-11-28 08:42 | PCPTNOTE ---
Refused therapy in am, will attempt in pm.
[2021-11-28 08:45] LABS: Glucose Point of Care 144 mg/dl (65-105)
[2021-11-28] MEDS: ENOXAPARIN 40 MG/0.4 ML SYRINGE SUB-Q (09:19)
[2021-11-28 09:20] VITALS: PULSE 88
[2021-11-28] MEDS: PSYLLIUM SUGAR FREE POWDER PACKET 1 PACKET FEED TUBE ×2 (09:20→21:04)
[2021-11-28] MEDS: ASPIRIN 81 MG CHEWABLE TABLET FEED TUBE (09:20)
[2021-11-28] MEDS: SACCHAROMYCES BOULARDII 250 MG CAPSULE PO ×3 (09:20→17:23)
[2021-11-28] MEDS: METOPROLOL SUCCINATE EXT REL 12.5 MG TABCR PO (09:20)
[2021-11-28] MEDS: FERROUS SULFATE 324 MG TABLET BY MOUTH (09:20)
[2021-11-28] MEDS: PANTOPRAZOLE 40 MG TABLET PO ×2 (09:20→17:23)
[2021-11-28] MEDS: lisinopriL 5 MG TABLET FEED TUBE (09:20)
[2021-11-28] MEDS: TOLNAFTATE 1% POWDER 45 GM BTL 1 APPLIC TOPICAL ×2 (09:23→21:04)
[2021-11-28] MEDS: SOD HYPOCHLORITE 1/4 STRENGTH 473 ML 1 APPLIC TOPICAL ×2 (09:23→21:04)
[2021-11-28] MEDS: SILVERGEL (ELTA) 45 ML 1 APPLIC TOPICAL (09:24)
[2021-11-28] MEDS: CLOPIDOGREL BISULFATE 75 MG TABLET FEED TUBE (09:33)
--- NOTE | 2021-11-28 12:16 | PM.IMPN ---
Progress Note: A&P Assessment and Plan (1) Sepsis: Code(s): A41.9 - Sepsis, unspecified organism Status: Acute Assessment and Plan: Criteria for sepsis present on admission with leukocytosis, tachycardia in the setting of suspected UTI (ruled out) and possible osteomyelitis of sacral decubitus ulcer. Blood and urine cultures negative. Continue with primaxin and [place]comycin[place] [facility] [place] [id number] (2) Osteomyelitis of sacrum: Code(s): M46.28 - Osteomyelitis of vertebra, sacral and sacrococcygeal region Status: Acute Assessment and Plan: Continue iv antibiotics including primaxin and vancomycin. Pt unable to have MRI Pt had bone biopsy and debridement yesterday under surgery team pt having regular dressing changes of sacrum (3) Sacral decubitus ulcer: Onset Date: Unknown Qualifiers: Pressure injury stage: unspecified pressure injury stage Qualified Code(s): L89.159 - Pressure ulcer of sacral region, unspecified stage Code(s): L89.159 - Pressure ulcer of sacral region, unspecified stage Status: Acute Assessment and Plan: See above. (4) Diarrhea: Code(s): R19.7 - Diarrhea, unspecified Status: Acute Assessment and Plan: Patient had diarrhea for a couple of days much improved (5) Acute hyponatremia: Code(s): E87.1 - Hypo-osmolality and hyponatremia Status: Acute Assessment and Plan: Seems to be a chronic finding for the patient. Sodium was 129 on admission and is 133 today (6) Nonhealing ulcer of lower extremity limited to breakdown of skin: Code(s): L97.901 - Non-pressure chronic ulcer of unspecified part of unspecified lower leg limited to breakdown of skin Status: Acute Assessment and Plan: Patient has significant peripheral vascular disease and chronic wounds. Followed by surgery and wound nurse. Pt has underlying vascular disease, pt benefits from going to [facility] or [facility] in the future, where they have vascular surgery. (7) DM type 2 (diabetes mellitus, type 2): Onset Date: Unknown Qualifiers: Diabetes mellitus care home insulin use: without termite inspector use Diabetes mellitus complication status: with skin complications Diabetes mellitus complication detail: with other skin ulcer Qualified Code(s): E11.622 - Type 2 diabetes mellitus with other skin ulcer Code(s): E11.9 - Type 2 diabetes mellitus without complications Status: Chronic Assessment and Plan: Continue to hold basal insulin given poor oral intake. Continue sliding scale insulin. Hypoglycemic protocol in place. 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 (9) Normocytic anemia: Code(s): D64.9 - Anemia, unspecified Status: Acute Assessment and Plan: Repeat H&H periodically (10) History of revascularization procedure of lower extremity: Code(s): Z98.62 - Peripheral vascular angioplasty status Status: Acute Assessment and Plan: Patient has known peripheral vascular disease. He has intermittent lower extremity pain with standing/walking but nothing acute. This should be done as an outpatient as soon as possible. (11) Coronary artery d
[2021-11-28 12:17] LABS: Glucose Point of Care 175 mg/dl (65-105)
[2021-11-28 13:59] VITALS: BP 128/62; PULSE 86; RESP 14; TEMP 36.2; O2SAT 99
[2021-11-28] MEDS: INSULIN ASPART (*BKC) 100 UNITS/ML SUB-Q (17:23)
[2021-11-28 17:42] LABS: Glucose Point of Care 223 mg/dl (65-105)
[2021-11-28 20:43] LABS: Glucose Point of Care 151 mg/dl (65-105)
[2021-11-28 20:54] VITALS: BP 126/62; PULSE 95; RESP 16; TEMP 36.6; O2SAT 98
[2021-11-28] MEDS: ATORVASTATIN 40 MG TABLET 80 MG FEED TUBE (21:03)
[2021-11-28 21:40] VITALS: O2SAT 98
[2021-11-29 00:04] LABS: Glucose Point of Care 183 mg/dl (65-105)
[2021-11-29 05:40] LABS: Glucose Point of Care 175 mg/dl (65-105)
[2021-11-29 06:00] VITALS: BP 133/63; PULSE 95; RESP 16; TEMP 37.2; O2SAT 98
[2021-11-29 08:09] LABS: Glucose Point of Care 178 mg/dl (65-105)
--- NOTE | 2021-11-29 08:50 | PCPTNOTE ---
3rd attempted PT eval, refused. Will DC PT order. Pt is bedbound or use of wc at home
[2021-11-29 09:26] VITALS: PULSE 93
[2021-11-29] MEDS: METOPROLOL SUCCINATE EXT REL 12.5 MG TABCR PO (09:26)
[2021-11-29] MEDS: ASPIRIN 81 MG CHEWABLE TABLET FEED TUBE (09:27)
[2021-11-29] MEDS: FERROUS SULFATE 324 MG TABLET BY MOUTH (09:27)
[2021-11-29] MEDS: SERTRALINE HCL 25 MG TABLET PO (09:27)
[2021-11-29] MEDS: CLOPIDOGREL BISULFATE 75 MG TABLET FEED TUBE (09:27)
[2021-11-29] MEDS: lisinopriL 5 MG TABLET FEED TUBE (09:27)
[2021-11-29] MEDS: ENOXAPARIN 40 MG/0.4 ML SYRINGE SUB-Q (09:27)
[2021-11-29] MEDS: SACCHAROMYCES BOULARDII 250 MG CAPSULE PO ×3 (09:27→16:24)
[2021-11-29] MEDS: TOLNAFTATE 1% POWDER 45 GM BTL 1 APPLIC TOPICAL ×2 (09:29→20:37)
[2021-11-29] MEDS: SOD HYPOCHLORITE 1/4 STRENGTH 473 ML 1 APPLIC TOPICAL ×2 (09:30→20:37)
[2021-11-29] MEDS: PSYLLIUM SUGAR FREE POWDER PACKET 1 PACKET FEED TUBE ×2 (09:30→20:37)
[2021-11-29] MEDS: PANTOPRAZOLE 40 MG TABLET PO ×2 (10:55→16:24)
[2021-11-29 11:31] LABS: Hematocrit 26.2 % (42.0-52.0); Hemoglobin 8.4 g/dL (14.0-18.0); Mean Corpuscular HGB Conc 32.1 g/dl (32-36); Mean Corpuscular Hemoglobin 28.5 pg (26-34); Mean Corpuscular Volume 88.8 fl (80-100); Mean Platelet Volume 9.7 fl (7.4-10.4); Platelet Count Result 307 k/mm3 (150-375); Red Blood Count 2.95 M/mm3 (4.6-6.20); Red Cell Distribution Width 17.4 % (11.5-14.5); White Blood Count 11.3 K/mm3 (4.5-10.0)
[2021-11-29 11:41] LABS: Anion Gap 5 mmol/L (8-16); Blood Urea Nitrogen 43 mg/dL (9-20); Calcium 8.8 mg/dL (8.4-10.2); Carbon Dioxide 25 mmol/L (22-30); Chloride 99 mmol/L (98-107); Estimated CRCL calculation 62 ml/min; Estimated Glomerular Filt Rate > 60; Glucose 208 mg/dL (65-110); Potassium 4.5 mmol/L (3.4-5.0); Sodium 129 mmol/L (137-145)
[2021-11-29 12:01] LABS: Glucose Point of Care 200 mg/dl (65-105)
[2021-11-29] MEDS: SILVERGEL (ELTA) 45 ML 1 APPLIC TOPICAL (13:00)
--- NOTE | 2021-11-29 13:31 | PM.IMPN ---
Progress Note: A&P Assessment and Plan (1) Sepsis: Code(s): A41.9 - Sepsis, unspecified organism Status: Acute Assessment and Plan: Criteria for sepsis present on admission with leukocytosis, tachycardia in the setting of suspected UTI (ruled out) and possible osteomyelitis of sacral decubitus ulcer. Blood and urine cultures negative. Continue with primaxin and vancomycin. [facility] [place] [id number] (2) Osteomyelitis of sacrum: Code(s): M46.28 - Osteomyelitis of vertebra, sacral and sacrococcygeal region Status: Acute Assessment and Plan: Continue iv antibiotics including primaxin and vancomycin. Pt unable to have MRI Pt had bone biopsy and debridement under surgery team pt having regular dressing changes of sacrum (3) Sacral decubitus ulcer: Onset Date: Unknown Qualifiers: Pressure injury stage: unspecified pressure injury stage Qualified Code(s): L89.159 - Pressure ulcer of sacral region, unspecified stage Code(s): L89.159 - Pressure ulcer of sacral region, unspecified stage Status: Acute Assessment and Plan: See above. (4) Diarrhea: Code(s): R19.7 - Diarrhea, unspecified Status: Acute Assessment and Plan: Patient had diarrhea for a couple of days much improved (5) Acute hyponatremia: Code(s): E87.1 - Hypo-osmolality and hyponatremia Status: Acute Assessment and Plan: Seems to be a chronic finding for the patient. Sodium was 129 on admission and is 129 today (6) Nonhealing ulcer of lower extremity limited to breakdown of skin: Code(s): L97.901 - Non-pressure chronic ulcer of unspecified part of unspecified lower leg limited to breakdown of skin Status: Acute Assessment and Plan: Patient has significant peripheral vascular disease and chronic wounds. Followed by surgery and wound nurse. Pt has underlying vascular disease, pt benefits from going to [facility] or [facility] in the future, where they have vascular surgery. (7) DM type 2 (diabetes mellitus, type 2): Onset Date: Unknown Qualifiers: Diabetes mellitus picker insulin use: without [facility] use Diabetes mellitus complication status: with skin complications Diabetes mellitus complication detail: with other skin ulcer Qualified Code(s): E11.622 - Type 2 diabetes mellitus with other skin ulcer Code(s): E11.9 - Type 2 diabetes mellitus without complications Status: Chronic Assessment and Plan: Continue to hold basal insulin given poor oral intake. Continue sliding scale insulin. Hypoglycemic protocol in place. 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 (9) Normocytic anemia: Code(s): D64.9 - Anemia, unspecified Status: Acute Assessment and Plan: Repeat H&H periodically Hb is 8.4 (10) History of revascularization procedure of lower extremity: Code(s): Z98.62 - Peripheral vascular angioplasty status Status: Acute Assessment and Plan: Patient has known peripheral vascular disease. He has intermittent lower extremity pain with standing/walking but nothing acute. This should be done as an outpatient as soon as possible. (11) Coronary artery
[2021-11-29 15:12] VITALS: BP 118/48; PULSE 91; RESP 14; TEMP 36.4; O2SAT 99
[2021-11-29 16:58] LABS: Glucose Point of Care 178 mg/dl (65-105)
[2021-11-29] MEDS: ATORVASTATIN 40 MG TABLET 80 MG FEED TUBE (20:37)
[2021-11-29 20:52] VITALS: BP 133/72; PULSE 92; RESP 18; TEMP 36.7; O2SAT 98
[2021-11-29 21:16] LABS: Glucose Point of Care 177 mg/dl (65-105)
[2021-11-30 06:26] LABS: Anion Gap 5 mmol/L (8-16); Blood Urea Nitrogen 42 mg/dL (9-20); Calcium 8.8 mg/dL (8.4-10.2); Carbon Dioxide 24 mmol/L (22-30); Chloride 101 mmol/L (98-107); Estimated CRCL calculation 62 ml/min; Estimated Glomerular Filt Rate > 60; Glucose 158 mg/dL (65-110); Potassium 4.5 mmol/L (3.4-5.0); Sodium 130 mmol/L (137-145)
[2021-11-30 06:27] VITALS: BP 118/52; PULSE 93; RESP 17; TEMP 36.4; O2SAT 100
[2021-11-30 06:35] LABS: Prealbumin 16.5 mg/dL (17.6-36.0)
[2021-11-30 07:06] LABS: Glucose Point of Care 186 mg/dl (65-105)
[2021-11-30 08:13] VITALS: PULSE 100
[2021-11-30] MEDS: METOPROLOL SUCCINATE EXT REL 12.5 MG TABCR PO (08:13)
[2021-11-30] MEDS: SERTRALINE HCL 25 MG TABLET PO (08:14)
[2021-11-30] MEDS: FERROUS SULFATE 324 MG TABLET BY MOUTH (08:14)
[2021-11-30] MEDS: SILVERGEL (ELTA) 45 ML 1 APPLIC TOPICAL (08:14)
[2021-11-30] MEDS: ASPIRIN 81 MG CHEWABLE TABLET FEED TUBE (08:14)
[2021-11-30] MEDS: CLOPIDOGREL BISULFATE 75 MG TABLET FEED TUBE (08:14)
[2021-11-30] MEDS: PSYLLIUM SUGAR FREE POWDER PACKET 1 PACKET FEED TUBE ×2 (08:14→21:34)
[2021-11-30] MEDS: lisinopriL 5 MG TABLET FEED TUBE (08:14)
[2021-11-30] MEDS: PANTOPRAZOLE 40 MG TABLET PO (08:14)
[2021-11-30] MEDS: ENOXAPARIN 40 MG/0.4 ML SYRINGE SUB-Q (08:14)
[2021-11-30] MEDS: SACCHAROMYCES BOULARDII 250 MG CAPSULE PO ×3 (08:14→18:10)
[2021-11-30] MEDS: TOLNAFTATE 1% POWDER 45 GM BTL 1 APPLIC TOPICAL ×2 (08:15→21:34)
[2021-11-30] MEDS: SOD HYPOCHLORITE 1/4 STRENGTH 473 ML 1 APPLIC TOPICAL ×2 (08:15→21:34)
[2021-11-30 09:29] LABS: Glucose Point of Care 193 mg/dl (65-105)
--- NOTE | 2021-11-30 10:15 | PCNFU ---
Nutrition Follow-Up Complete: Increased protein needs as related to wounds as evidenced by Stage IV Pressure Ulcer to saccum and Deep Tissue on left heels. Goal: Meet estimated nutritional needs Patient will continue current goal. Pt current nutrition is DBCC/Moderately Thick liquids, Level 3 with PEG tube feedings of Glucerna 1.2 at 70 ml/hr over 22 hours. Last recorded weight is 77.9 kg-stable Bowel Motility:+BM reported 11/29 Labs Reviewed:Glu 158,BUN 42, Na 130 Meds Noted:Protonix, Metamucil, Florastor, Lipitor, Plavix, Lovenox, Lasix, Prinivil, Toprol, Vancomycin, Ferrous Sulfate. Skin: Stage IV-sacrum, Deep Tissue-left heel. Additional Notes: Patient started back on continuous tube feedings over the weekend. Spoke with nursing today, tolerating tube feedings of Glucerna 1.2 at 70 ml/hr over 22 hours providing 1848 kcals/92 gms protein/1240 ml water. Protein Modular of Brian BID flushed via tube for wound healing. Oral Intake has been very poor. Tube feeding meeting caloric needs. Free water flush 30 ml q 4 hours. Agree with diet orders. Monitoring: Will monitor every Tuesday and Tuesday
[2021-11-30 11:43] LABS: Glucose Point of Care 189 mg/dl (65-105)
--- NOTE | 2021-11-30 12:54 | PM.IMPN ---
Progress Note: A&P Assessment and Plan (1) Sepsis: Code(s): A41.9 - Sepsis, unspecified organism Status: Acute Assessment and Plan: Criteria for sepsis present on admission with leukocytosis, tachycardia in the setting of suspected UTI (ruled out) and possible osteomyelitis of sacral decubitus ulcer. Blood and urine cultures negative. Continue with primaxin and vancomycin. [facility] [place] [id number] (2) Osteomyelitis of sacrum: Code(s): M46.28 - Osteomyelitis of vertebra, sacral and sacrococcygeal region Status: Acute Assessment and Plan: Continue iv antibiotics including primaxin and vancomycin. Pt unable to have MRI Pt had bone biopsy and debridement under surgery team pt having regular dressing changes of sacrum (3) Sacral decubitus ulcer: Onset Date: Unknown Qualifiers: Pressure injury stage: unspecified pressure injury stage Qualified Code(s): L89.159 - Pressure ulcer of sacral region, unspecified stage Code(s): L89.159 - Pressure ulcer of sacral region, unspecified stage Status: Acute Assessment and Plan: See above. (4) Diarrhea: Code(s): R19.7 - Diarrhea, unspecified Status: Acute Assessment and Plan: Patient had diarrhea for a couple of days Much improved now. (5) Acute hyponatremia: Code(s): E87.1 - Hypo-osmolality and hyponatremia Status: Acute Assessment and Plan: Seems to be a chronic finding for the patient. Sodium was 129 on admission and is 130 today. (6) Nonhealing ulcer of lower extremity limited to breakdown of skin: Code(s): L97.901 - Non-pressure chronic ulcer of unspecified part of unspecified lower leg limited to breakdown of skin Status: Acute Assessment and Plan: Patient has significant peripheral vascular disease and chronic wounds. Followed by surgery and wound nurse. Pt has underlying vascular disease, pt benefits from going to [facility] or [facility] in the future, where they have vascular surgery. (7) DM type 2 (diabetes mellitus, type 2): Onset Date: Unknown Qualifiers: Diabetes mellitus [facility] insulin use: without ferry terminal supervisor use Diabetes mellitus complication status: with skin complications Diabetes mellitus complication detail: with other skin ulcer Qualified Code(s): E11.622 - Type 2 diabetes mellitus with other skin ulcer Code(s): E11.9 - Type 2 diabetes mellitus without complications Status: Chronic Assessment and Plan: Continue to hold basal insulin given poor oral intake. Continue sliding scale insulin. Hypoglycemic protocol in place. 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 (9) Normocytic anemia: Code(s): D64.9 - Anemia, unspecified Status: Acute Assessment and Plan: Repeat H&H periodically Hb is 8.4 (10) History of revascularization procedure of lower extremity: Code(s): Z98.62 - Peripheral vascular angioplasty status Status: Acute Assessment and Plan: Patient has known peripheral vascular disease. He has intermittent lower extremity pain with standing/walking but nothing acute. This should be done as an outpatient as soon as possible. (11) Coronary
[2021-11-30 14:31] VITALS: BP 120/70; PULSE 90; RESP 18; TEMP 36.2; O2SAT 100
--- NOTE | 2021-11-30 15:24 | PM.PNGS ---
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 Biopsy results returned on (11/30/2021) Now using Dakin's solution to decrease the bacterial floral load in the wound since Tu last week. Currently on a specialty mattress. The rectal tube was removed on 11/23 since his stool had started solidifying. Continue frequent turning. Agree with need for PT and OT but patient has refused in the past. ( talking to the patient in trying to encourage him to participate). family meeting with the and Dr. Wiggins was last Tuesday and patient decided he wanted everything done to get him better. Since the patient was unable to have a pelvic MR we did a bone biopsy on11/26/21 of the most prominent area of the sacrum underlying the granulation tissue within the wound. In general the wound bed has a healthy and granulating appearance with nearly 98% granulation tissue throughout. Also, since patient has stated that he wants everything done will have him evaluated by plastics for surgery for possible skin/muscle rotation flap to cover this wound which I do not believe probably will heal in his current state. This will probably have to wait until after his treatment for osteomyelitis however, since he is in the hospital it is reasonable to get them to begin evaluating the wound and making plans. (2) Osteomyelitis of sacrum: Code(s): M46.28 - Osteomyelitis of vertebra, sacral and sacrococcygeal region Status: Acute Assessment and Plan: Osteomyelitis suggested on CT, but this could also be bony erosion from his stage IV sacral decubitus ulcer rather than truly osteomyelitis. MRI contraindicated due to metallic stents in the arteries of his lower extremity. Therefore, on 11/26/21 a bone biopsy was completed and I worked with micro to send this for culture and pathology. Continue IV antibiotics for now. Culture just returned today showing Pseudomonas resistant to the antibiotic he had he is on imipenem. I will talk to pharmacy about considerations of changing this to once a day or once every 36 hour Levaquin which is it it is most sensitive to. Then because he has been on & off antibiotics quite a bit the last 2 months so we will use vancomycin 125 mg down the FT once a day to prophylax against to C diff. (3) Nonhealing ulcer of lower extremity limited to breakdown of skin: Code(s): L97.901 - Non-pressure chronic ulcer of unspecified part of unspecified lower leg limited to breakdown of skin Status: Acute Assessment and Plan: Chronic bilateral lower leg ulcers that are nonhealing. There is no active infection or necrotic tissue that would indicate surgical intervention at this time, and there does not appear to be cellulitis of his lower extremities. These are likely multifactorial from his chronic peripheral vascular (arterial and venous) disease, noncompliance with wound care, immobility, and potentially poor nutrition. Continue local wound care with silver gel dressing changes. Continue using waffle boots and keep his heels elevated off of the bed to reduce pressure. We discussed recent noninvasive vascular studies with patient, nursing, and his medicine hospitalist last Tue . Patient has decreased arterial inflow on the right which will probably compromise healing on the wounds below the level of the the knee. Continue current dressings. If patient goes back to extended care facility in the future if he needs to be transferred to a hospital he should be transferred to 1 that has vascular service surgery pascual
--- NOTE | 2021-11-30 15:40 | WPDCN ---
Assessment and Plan Assessment and plan (1) Sacral decubitus ulcer: Onset Date: Unknown Qualifiers: Pressure injury stage: stage 4 Qualified Code(s): L89.154 - Pressure ulcer of sacral region, stage 4 Code(s): L89.159 - Pressure ulcer of sacral region, unspecified stage Status: Acute Assessment and Plan: Stage IV sacral ulcer. I would recommend monitoring the sacral ulcer until he has evidence of healing prior to any closure options. Agree with: Local wound care Pressure relief Antibiotics for osteomyelitis Optimize nutrition / blood sugar Care per Dr. Clarke. Will see him as outpatient in wound care in the future to determine healing potential and if candidate for flap closure. Today's visit was 50 minutes including review of records, patient evaluation, and charting. Today we had a lengthy discussion about his options and care. This was a lengthy open ended conversation making sure he is well informed. He would like to proceed as above. Will follow as needed. Today (2) Nutrition disorder: Code(s): E63.9 - Nutritional deficiency, unspecified Status: Acute (3) Osteomyelitis of sacrum: Code(s): M46.28 - Osteomyelitis of vertebra, sacral and sacrococcygeal region Status: Acute (4) Peripheral arterial disease: Onset Date: Unknown Code(s): I73.9 - Peripheral vascular disease, unspecified Status: Acute (5) DM type 2 (diabetes mellitus, type 2): Onset Date: Unknown Qualifiers: Diabetes mellitus complication detail: with other skin ulcer Diabetes mellitus complication status: with skin complications Diabetes mellitus [facility] use: without [facility] use Qualified Code(s): E11.622 - Type 2 diabetes mellitus with other skin ulcer Code(s): E11.9 - Type 2 diabetes mellitus without complications Status: Chronic (6) History of revascularization procedure of lower extremity: Code(s): Z98.62 - Peripheral vascular angioplasty status Status: Acute (7) Urothelial carcinoma: Code(s): C68.9 - Malignant neoplasm of urinary organ, unspecified Status: Acute HPI Data of Consult Date/Time: 11/30/21 15:40 Requesting Physician: Jose Clarke MD Primary Care Provider: Reshma Morelos MD Consult Narrative Narrative: This is a 71-year-old male with an extensive list of multiple medical problems. He has a significant vascular history and has been followed by wound care for some time. He was hospitalized and discharged with daily wound care instructions with silver gel to bilateral leg wounds and saline soaked gauze to the sacral wound. He returned after sustaining a fall from his bed to the floor at the snf. Admitted to [facility] for additional evaluation. CT scan was completed. IMPRESSION: Large decubitus ulcer of the right buttock extending to the gluteus dana with possible osteomyelitic involvement of the sacrum and coccyx; consider MRI correlation as clinically appropriate. Unable to obtain MRI due to stents. Albumin 2.9 Prealbumin 16.5 Sacral bone cultures 11/26/2021 1. Pseudomonas aeruginosa The patient also has a history of peripheral arterial disease status post multiple arterial vascular interventions to bilateral lower extremities in the past 2 years. History of left-sided fem-pop bypass and peripheral stents placed most recently in 2020. He is currently on dual-antiplatelet therapy. He also has a history of lower extremity DVT and was on oral anticoagulation, which has been discontinued due to him being a high fall risk, with IVC filter placement. Patient discussed with Dr. Clarke and wound care. Review of Systems Review of Systems: All systems reviewed & are unremarkable except as noted in HPI and below PMFSH Past Medical History Medical History Coronary artery disease DM ty
[2021-11-30 16:36] LABS: Glucose Point of Care 167 mg/dl (65-105)
[2021-11-30 21:19] VITALS: BP 116/56; PULSE 88; RESP 16; TEMP 36.5; O2SAT 100
[2021-11-30] MEDS: ATORVASTATIN 40 MG TABLET 80 MG FEED TUBE (21:34)
[2021-12-01] VITALS (8 sets, daily range): BP systolic 106–133; BP diastolic 54–68; PULSE 75–97; RESP 16–20; TEMP 36–36.6; O2SAT 96–100
[2021-12-01 00:34] LABS: Glucose Point of Care 141 mg/dl (65-105)
[2021-12-01 06:03] LABS: Anion Gap 2 mmol/L (8-16); Blood Urea Nitrogen 44 mg/dL (9-20); Calcium 8.9 mg/dL (8.4-10.2); Carbon Dioxide 28 mmol/L (22-30); Chloride 100 mmol/L (98-107); Estimated CRCL calculation 56 ml/min; Estimated Glomerular Filt Rate > 60; Glucose 166 mg/dL (65-110); Magnesium 1.6 mg/dL (1.6-2.3); Potassium 4.7 mmol/L (3.4-5.0); Sodium 130 mmol/L (137-145)
[2021-12-01 06:10] LABS: Basophils Percent Auto 0.5 % (0.2-1.2); Eosinophils Absolute Auto 0.5 K/mm3 (0-0.3); Eosinophils Percent Auto 5.2 % (0-4.4); Hematocrit 29.5 % (42.0-52.0); Hemoglobin 8.9 g/dL (14.0-18.0); Immature Granulocyte Absolute 0.06 K/mm3 (0.00-0.031); Immature Granulocyte Percent A 0.7 % (0-0.5); Lymphocytes Absolute Auto 1.35 K/mm3 (0.9-3.2); Lymphocytes Percent Auto 15.5 % (18.3-44.2); Mean Corpuscular HGB Conc 30.2 g/dl (32-36); Mean Corpuscular Volume 96.1 fl (80-100); Mean Platelet Volume 9.7 fl (7.4-10.4); Monocytes Absolute Auto 0.6 K/mm3 (0.1-0.6); Monocytes Percent Auto 6.6 % (2.6-8.5); Neutrophils Absolute Auto 6.3 K/mm3 (1.3-6.7); Neutrophils Percent Auto 71.5 % (45.5-73.1); Platelet Count Result 284 k/mm3 (150-375); Red Blood Count 3.07 M/mm3 (4.6-6.20); Red Cell Distribution Width 17.6 % (11.5-14.5); White Blood Count 8.7 K/mm3 (4.5-10.0)
[2021-12-01 06:28] LABS: Glucose Point of Care 209 mg/dl (65-105)
--- NOTE | 2021-12-01 08:36 | PM.CNCAR ---
Assessment and Plan Assessment and plan (1) PAD (peripheral artery disease): Code(s): I73.9 - Peripheral vascular disease, unspecified Status: Acute Assessment and Plan: 71-year-old male with multiple medical problems-CAD, history of ? CABG; severe peripheral artery disease, history of multiple peripheral vascular interventions, history of left lower extremity surgical revascularization; chronic nonhealing ulcer of of lower extremity, diabetes mellitus on insulin, generalized debility. Patient admitted to the hospital after he had a fall. He has sacral decubitus ulcer with possible osteomyelitis, and is currently receiving antibiotics for presumed osteomyelitis. Patient is anticipated to undergo PICC line placement. He has been evaluated by surgery and Plastic surgery. From vascular standpoint, patient has known peripheral artery disease and history of lower extremity ulcers. Noninvasive vascular evaluation with ANTHONY/Doppler is limited, but suggestive of obstructive peripheral artery disease in the right lower extremity. He has history of right lower extremity intervention in May 2021. At this time, recommend continuation of medical treatment including dual antiplatelet therapy with aspirin and clopidogrel and statin. Recommend continuation of local wound care and assess for wound healing. Need for additional invasive workup with peripheral angiogram with an eye towards intervention can be determined as an outpatient. Plan discussed with the patient and the consulting physician-Dr. Clarke. (2) Sacral decubitus ulcer: Onset Date: Unknown Qualifiers: Pressure injury stage: stage 4 Qualified Code(s): L89.154 - Pressure ulcer of sacral region, stage 4 Code(s): L89.159 - Pressure ulcer of sacral region, unspecified stage Status: Acute Assessment and Plan: Management as per primary team, General surgery and Plastic surgery. Optimal diabetes control. (3) CAD (coronary artery disease): Code(s): I25.10 - Atherosclerotic heart disease of [place] coronary artery without angina pectoris Status: Acute Assessment and Plan: No active cardiac ischemic symptoms at present. Continue dual antiplatelet therapy, BB, ACEI, statin, History of Present Illness History of Present Illness Consult date/time: 12/01/21 08:36 DATE OF CONSULT:12/01/2021 REASON FOR CONSULT: peripheral artery disease REQUESTING PHYSICIAN:Jose Clarke MD CHIEF COMPLAINT: fall HPI: 71-year-old male with multiple medical problems-CAD, history of ? CABG; severe peripheral artery disease, history of multiple peripheral vascular interventions, history of left lower extremity surgical revascularization; chronic nonhealing ulcer of of lower extremity, diabetes mellitus on insulin, generalized debility. Patient was admitted to [facility] on 11/17/2021 after he had a fall. Patient denies chest pain, shortness of breath. He is essentially bed ridden. He reportedly had recent prolonged ICU stay due to pneumonia and septic shock with respiratory failure and ventilator support. Patient has been in the correction. He was found to have decubitus ulcer. CT abdomen and pelvis showed Large decubitus ulcer of the right buttock extending to the gluteus dana with possible osteomyelitic involvement of the sacrum and coccyx. Patient has been receiving antibiotics for presumed osteomyelitis. He is being managed by surgery, and has been seen by Plastic surgery as well. Patient's ANTHONY/Dopplers are limited examination due to inability of patient to tolerate pressure measurements at the ankles; reported Normal left ANTHONY of 0.98; abnormally low TBI of 0.41 on the right and 0.60 on the left. Patient is status post right lower extremity peripheral vascular intervention with balloon angioplasty of occluded right SFA and proximal popliteal artery using compliant balloon, followed by paclitaxel coated balloon with optimizatio
[2021-12-01] MEDS: LANSOPRAZOLE ORAL SUSP 30 MG/10 ML ORAL.SUSP FEED TUBE (09:25)
[2021-12-01] MEDS: SERTRALINE HCL 25 MG TABLET PO (09:26)
[2021-12-01] MEDS: FERROUS SULFATE 324 MG TABLET BY MOUTH (09:26)
[2021-12-01] MEDS: ENOXAPARIN 40 MG/0.4 ML SYRINGE SUB-Q (09:26)
[2021-12-01] MEDS: PSYLLIUM SUGAR FREE POWDER PACKET 1 PACKET FEED TUBE ×2 (09:26→20:39)
[2021-12-01] MEDS: lisinopriL 5 MG TABLET FEED TUBE (09:26)
[2021-12-01] MEDS: CLOPIDOGREL BISULFATE 75 MG TABLET FEED TUBE (09:26)
[2021-12-01] MEDS: ASPIRIN 81 MG CHEWABLE TABLET FEED TUBE (09:26)
[2021-12-01 09:27] LABS: Glucose Point of Care 201 mg/dl (65-105)
[2021-12-01] MEDS: SILVERGEL (ELTA) 45 ML 1 APPLIC TOPICAL (09:27)
[2021-12-01] MEDS: TOLNAFTATE 1% POWDER 45 GM BTL 1 APPLIC TOPICAL ×2 (09:27→20:40)
[2021-12-01] MEDS: SOD HYPOCHLORITE 1/4 STRENGTH 473 ML 1 APPLIC TOPICAL ×2 (09:27→20:40)
[2021-12-01] MEDS: VANCOMYCIN ORAL 125 MG/2.5 ML SYRUP FEED TUBE (09:27)
[2021-12-01] MEDS: INSULIN ASPART (*BKC) 100 UNITS/ML SUB-Q ×2 (09:33→18:44)
[2021-12-01 11:56] LABS: Glucose Point of Care 172 mg/dl (65-105)
[2021-12-01] MEDS: ACIDOPHILUS PACKET 1 PKT PACKET FEED TUBE ×3 (12:50→20:39)
[2021-12-01] MEDS: METOPROLOL TARTRATE 6.25 MG TABLET PO ×2 (12:50→20:39)
[2021-12-01] MEDS: traMADol HCL (*CRX) 50 MG TABLET PO (12:52)
--- NOTE | 2021-12-01 13:27 | PCNFU ---
Nutrition Follow-Up Complete: Increased protein needs as related to wounds as evidenced by Stage IV Pressure Ulcer to saccum and Deep Tissue on left heels. goal: Meet estimated nutritional needs Patient is progressing towards goal. We will continue current goal. Pt current nutrition is Glucerna 1.2 at 70 ml/hr over 22 hours. Last recorded weight is 77.9 kg-stable Bowel Motility:+BM reported 12/01 Labs Reviewed: Glu 166, BUN 44, Na 130, Hct 29.5,Hgb 8.9 Meds Noted:Plavix, Prinivil, Florastor, Ultram, Protonix, Lasix, Lovenox, Plavix. Skin: Stage IV-sacrum, Left heel-DT Additional Notes: Patient remains on tube feeding of Glucerna 1.2 at 70 ml/hr and tolerating. Current tube feeding is providing 1848 kcals/92 gms protein/ 1160 ml water. Protein Modular of Brian BID flushed via tube for wound healing. Oral Intake remains poor. Free water flush changed to Normal Saline flush 60 ml q 4 hours, Na 130 today. Will monitor every Tuesday and Tuesday
--- NOTE | 2021-12-01 15:17 | PC.NURSE ---
On 12/01/21, the student, Marcelina Horowitz, provided care and completed [facility] documentation on this patient. I have reviewed the student's documentation and agree with the findings.
--- NOTE | 2021-12-01 17:07 | PM.IMPN ---
Progress Note: A&P Assessment and Plan (1) Sepsis: Code(s): A41.9 - Sepsis, unspecified organism Status: Acute Assessment and Plan: Criteria for sepsis present on admission with leukocytosis, tachycardia in the setting of suspected UTI (ruled out) and possible osteomyelitis of sacral decubitus ulcer. Blood and urine cultures negative. Continue with primaxin and vancomycin. [facility] [place] [id number] 12/01/2021 interval history: patient with severe peripheral vascular disease is found to Pseudomonas osteomyelitis from sacral biopsy required levofloxacin for 6 weeks and oral vancomycin to prophylactically coverage against C diff, patient on G-tube and receiving flushes with free water will switch over to normal saline 60 cc q.6 as patient is getting hyponatremia will continue to monitor, patient is seen vascular, does not recommend any intervention suggested conservative management with dual anti-platelet therapy and statin, patient also seen by plastic surgeon recommended to continue present management with wound and pressure relief, once the wound is he may re-evaluate for the flap closure. (2) Osteomyelitis of sacrum: Code(s): M46.28 - Osteomyelitis of vertebra, sacral and sacrococcygeal region Status: Acute Assessment and Plan: Continue iv antibiotics including primaxin and vancomycin. Pt unable to have MRI Pt had bone biopsy and debridement under surgery team pt having regular dressing changes of sacrum (3) Sacral decubitus ulcer: Onset Date: Unknown Qualifiers: Pressure injury stage: stage 4 Qualified Code(s): L89.154 - Pressure ulcer of sacral region, stage 4 Code(s): L89.159 - Pressure ulcer of sacral region, unspecified stage Status: Acute Assessment and Plan: See above. (4) Diarrhea: Code(s): R19.7 - Diarrhea, unspecified Status: Acute Assessment and Plan: Patient had diarrhea for a couple of days Much improved now. (5) Acute hyponatremia: Code(s): E87.1 - Hypo-osmolality and hyponatremia Status: Acute Assessment and Plan: Seems to be a chronic finding for the patient. Sodium was 129 on admission and is 130 today. (6) Nonhealing ulcer of lower extremity limited to breakdown of skin: Code(s): L97.901 - Non-pressure chronic ulcer of unspecified part of unspecified lower leg limited to breakdown of skin Status: Acute Assessment and Plan: Patient has significant peripheral vascular disease and chronic wounds. Followed by surgery and wound nurse. Pt has underlying vascular disease, pt benefits from going to [facility] in the future, where they have vascular surgery. (7) DM type 2 (diabetes mellitus, type 2): Onset Date: Unknown Qualifiers: Diabetes mellitus superintendent terminal insulin use: without detention use Diabetes mellitus complication status: with skin complications Diabetes mellitus complication detail: with other skin ulcer Qualified Code(s): E11.622 - Type 2 diabetes mellitus with other skin ulcer Code(s): E11.9 - Type 2 diabetes mellitus without complications Status: Chronic Assessment and Plan: Continue to hold basal insulin given poor oral intake. Continue sliding scale insulin. Hypoglycemic protocol in place. 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
[2021-12-01 18:40] LABS: Glucose Point of Care 213 mg/dl (65-105)
[2021-12-01] MEDS: ATORVASTATIN 40 MG TABLET 80 MG FEED TUBE (20:39)
[2021-12-02 00:16] LABS: Glucose Point of Care 154 mg/dl (65-105)
[2021-12-02 05:55] LABS: Glucose Point of Care 194 mg/dl (65-105)
[2021-12-02 06:00] VITALS: BP 112/69; PULSE 91; RESP 18; TEMP 36.2; O2SAT 99
[2021-12-02 06:13] LABS: Anion Gap 4 mmol/L (8-16); Blood Urea Nitrogen 46 mg/dL (9-20); Calcium 8.9 mg/dL (8.4-10.2); Carbon Dioxide 28 mmol/L (22-30); Chloride 99 mmol/L (98-107); Estimated CRCL calculation 51 ml/min; Estimated Glomerular Filt Rate > 60; Glucose 214 mg/dL (65-110); Potassium 5.2 mmol/L (3.4-5.0); Sodium 131 mmol/L (137-145)
[2021-12-02] MEDS: LANSOPRAZOLE ORAL SUSP 30 MG/10 ML ORAL.SUSP FEED TUBE (06:13)
[2021-12-02 10:07] VITALS: PULSE 96
[2021-12-02] MEDS: CLOPIDOGREL BISULFATE 75 MG TABLET FEED TUBE (10:07)
[2021-12-02] MEDS: METOPROLOL TARTRATE 6.25 MG TABLET PO ×2 (10:07→22:02)
[2021-12-02] MEDS: lisinopriL 5 MG TABLET FEED TUBE (10:07)
[2021-12-02] MEDS: FERROUS SULFATE 324 MG TABLET BY MOUTH (10:07)
[2021-12-02] MEDS: ASPIRIN 81 MG CHEWABLE TABLET FEED TUBE (10:07)
[2021-12-02] MEDS: SOD HYPOCHLORITE 1/4 STRENGTH 473 ML 1 APPLIC TOPICAL ×2 (10:08→22:05)
[2021-12-02] MEDS: PSYLLIUM SUGAR FREE POWDER PACKET 1 PACKET FEED TUBE ×2 (10:08→22:02)
[2021-12-02] MEDS: ACIDOPHILUS PACKET 1 PKT PACKET FEED TUBE ×4 (10:08→22:05)
[2021-12-02] MEDS: SERTRALINE HCL 25 MG TABLET PO (10:08)
[2021-12-02] MEDS: ENOXAPARIN 40 MG/0.4 ML SYRINGE SUB-Q (10:08)
[2021-12-02] MEDS: SILVERGEL (ELTA) 45 ML 1 APPLIC TOPICAL (10:09)
[2021-12-02] MEDS: TOLNAFTATE 1% POWDER 45 GM BTL 1 APPLIC TOPICAL ×2 (10:09→22:05)
[2021-12-02] MEDS: VANCOMYCIN ORAL 125 MG/2.5 ML SYRUP FEED TUBE (10:10)
[2021-12-02] MEDS: LIDOCAINE HCL 1% PF INJ 5 ML VIAL INFILTRATE (10:30)
[2021-12-02] MEDS: CENTRAL LINE FLUSH 10 ML IV PUSH ×2 (13:12→22:01)
[2021-12-02 13:59] VITALS: BP 100/64; PULSE 90; RESP 18; TEMP 36.4; O2SAT 100
--- NOTE | 2021-12-02 15:32 | PM.IMPN ---
Progress Note: A&P Assessment and Plan (1) Sepsis: Code(s): A41.9 - Sepsis, unspecified organism Status: Acute Assessment and Plan: Criteria for sepsis present on admission with leukocytosis, tachycardia in the setting of suspected UTI (ruled out) and possible osteomyelitis of sacral decubitus ulcer. Blood and urine cultures negative. Continue with 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 12/02/2021 interval history: patient remains clinically stable will continue present management, childcare attendant as requested for SNF the patient and waiting for insurance authorization (2) Osteomyelitis of sacrum: Code(s): M46.28 - Osteomyelitis of vertebra, sacral and sacrococcygeal region Status: Acute Assessment and Plan: Continue iv antibiotics including primaxin and vancomycin. Pt unable to have MRI Pt had bone biopsy and debridement under surgery team pt having regular dressing changes of sacrum (3) Sacral decubitus ulcer: Onset Date: Unknown Qualifiers: Pressure injury stage: stage 4 Qualified Code(s): L89.154 - Pressure ulcer of sacral region, stage 4 Code(s): L89.159 - Pressure ulcer of sacral region, unspecified stage Status: Acute Assessment and Plan: See above. (4) Diarrhea: Code(s): R19.7 - Diarrhea, unspecified Status: Acute Assessment and Plan: Patient had diarrhea for a couple of days Much improved now. (5) Acute hyponatremia: Code(s): E87.1 - Hypo-osmolality and hyponatremia Status: Acute Assessment and Plan: Seems to be a chronic finding for the patient. Sodium was 129 on admission and is 130 today. (6) Nonhealing ulcer of lower extremity limited to breakdown of skin: Code(s): L97.901 - Non-pressure chronic ulcer of unspecified part of unspecified lower leg limited to breakdown of skin Status: Acute Assessment and Plan: Patient has significant peripheral vascular disease and chronic wounds. Followed by surgery and wound nurse. Pt has underlying vascular disease, pt benefits from going to [facility] or [facility] in the future, where they have vascular surgery. (7) DM type 2 (diabetes mellitus, type 2): Onset Date: Unknown Qualifiers: Diabetes mellitus assisted insulin use: without local intermodal truck driver use Diabetes mellitus complication status: with skin complications Diabetes mellitus complication detail: with other skin ulcer Qualified Code(s): E11.622 - Type 2 diabetes mellitus with other skin ulcer Code(s): E11.9 - Type 2 diabetes mellitus without complications Status: Chronic Assessment and Plan: Continue to hold basal insulin given poor oral intake. Continue sliding scale insulin. Hypoglycemic protocol in place. (8) Bladder tumor: Code(s): D49.4 - Neoplasm of unspecified beha
[2021-12-02 17:52] LABS: Glucose Point of Care 155 mg/dl (65-105)
--- NOTE | 2021-12-02 21:11 | PM.PNGS ---
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 Biopsy results returned on (11/30/2021) Now using Dakin's solution to decrease the bacterial floral load in the wound since last week. Currently on a specialty mattress. The rectal tube was removed on 11/23 since his stool had started solidifying. Continue frequent turning. Agree with need for PT and OT but patient has refused in the past. ( talking to the patient and trying to encourage him to participate). family meeting with the and Dr. Wiggins was last Tuesday and patient decided he wanted everything done to get him better. Since the patient was unable to have a pelvic MR we did a bone biopsy on11/26/21 of the most prominent area of the sacrum underlying the granulation tissue within the wound. In general the wound bed has a healthy and granulating appearance with nearly 98% granulation tissue throughout. Also, since patient has stated that he wants everything done will have him evaluated by plastics for surgery for possible skin/muscle rotation flap to cover this wound which I do not believe probably will heal in his current state. This will probably have to wait until after his treatment for osteomyelitis however, since he is in the hospital it is reasonable to get them to begin evaluating the wound and making plans. (2) Osteomyelitis of sacrum: Code(s): M46.28 - Osteomyelitis of vertebra, sacral and sacrococcygeal region Status: Acute Assessment and Plan: Osteomyelitis suggested on CT, but this could also be bony erosion from his stage IV sacral decubitus ulcer rather than truly osteomyelitis. MRI contraindicated due to metallic stents in the arteries of his lower extremity. Therefore, on 11/26/21 a bone biopsy was completed and I worked with micro to send this for culture and pathology. Continue IV antibiotics for now. Culture just returned today showing Pseudomonas resistant to the antibiotic he had he is on imipenem. I will talk to pharmacy about considerations of changing this to once a day or once every 36 hour Levaquin which is it it is most sensitive to. Then because he has been on & off antibiotics quite a bit the last 2 months so we will use vancomycin 125 mg down the FT once a day to prophylax against to C diff. (3) Nonhealing ulcer of lower extremity limited to breakdown of skin: Code(s): L97.901 - Non-pressure chronic ulcer of unspecified part of unspecified lower leg limited to breakdown of skin Status: Acute Assessment and Plan: Chronic bilateral lower leg ulcers that are nonhealing. There is no active infection or necrotic tissue that would indicate surgical intervention at this time, and there does not appear to be cellulitis of his lower extremities. These are likely multifactorial from his chronic peripheral vascular (arterial and venous) disease, noncompliance with wound care, immobility, and potentially poor nutrition. Continue local wound care with silver gel dressing changes. Continue using waffle boots and keep his heels elevated off of the bed to reduce pressure. We discussed recent noninvasive vascular studies with patient, nursing, and his medicine hospitalist last Tue . Patient has decreased arterial inflow on the right which will probably compromise healing on the wounds below the level of the the knee. Continue current dressings. If patient goes back to extended care facility in the future if he needs to be transferred to a hospital he should be transferred to 1 that has vascular service surgery capabilities and be reassessed at th
[2021-12-02 22:02] VITALS: PULSE 78
[2021-12-02 22:06] VITALS: BP 134/61; PULSE 102; RESP 18; TEMP 36.9; O2SAT 97
[2021-12-02] MEDS: ATORVASTATIN 40 MG TABLET 80 MG FEED TUBE (22:06)
[2021-12-03] VITALS (8 sets, daily range): BP systolic 105–133; BP diastolic 56–66; PULSE 71–100; RESP 16–20; TEMP 35.9–36.7; O2SAT 95–99
[2021-12-03 02:45] LABS: Glucose Point of Care 152 mg/dl (65-105)
[2021-12-03] MEDS: CENTRAL LINE FLUSH 10 ML IV PUSH ×3 (05:49→21:04)
[2021-12-03] MEDS: LANSOPRAZOLE ORAL SUSP 30 MG/10 ML ORAL.SUSP FEED TUBE (05:50)
[2021-12-03] MEDS: CENTRAL LINE FLUSH 20 ML IV PUSH (05:50)
[2021-12-03 06:10] LABS: Anion Gap 2 mmol/L (8-16); Blood Urea Nitrogen 43 mg/dL (9-20); Carbon Dioxide 29 mmol/L (22-30); Chloride 99 mmol/L (98-107); Estimated CRCL calculation 56 ml/min; Estimated Glomerular Filt Rate > 60; Glucose 175 mg/dL (65-110); Sodium 130 mmol/L (137-145)
[2021-12-03 07:59] LABS: Glucose Point of Care 172 mg/dl (65-105)
[2021-12-03] MEDS: ACIDOPHILUS PACKET 1 PKT PACKET FEED TUBE ×4 (08:10→20:57)
[2021-12-03] MEDS: SERTRALINE HCL 25 MG TABLET PO (08:10)
[2021-12-03] MEDS: FERROUS SULFATE 324 MG TABLET BY MOUTH (08:10)
[2021-12-03] MEDS: METOPROLOL TARTRATE 6.25 MG TABLET PO ×2 (08:10→20:59)
[2021-12-03] MEDS: PSYLLIUM SUGAR FREE POWDER PACKET 1 PACKET FEED TUBE ×2 (08:10→20:57)
[2021-12-03] MEDS: ASPIRIN 81 MG CHEWABLE TABLET FEED TUBE (08:10)
[2021-12-03] MEDS: ENOXAPARIN 40 MG/0.4 ML SYRINGE SUB-Q (08:10)
[2021-12-03] MEDS: lisinopriL 5 MG TABLET FEED TUBE (08:10)
[2021-12-03] MEDS: CLOPIDOGREL BISULFATE 75 MG TABLET FEED TUBE (08:10)
[2021-12-03] MEDS: SOD HYPOCHLORITE 1/4 STRENGTH 473 ML 1 APPLIC TOPICAL ×2 (08:11→20:58)
[2021-12-03] MEDS: TOLNAFTATE 1% POWDER 45 GM BTL 1 APPLIC TOPICAL ×2 (08:11→20:58)
[2021-12-03] MEDS: SILVERGEL (ELTA) 45 ML 1 APPLIC TOPICAL (08:11)
[2021-12-03] MEDS: VANCOMYCIN ORAL 125 MG/2.5 ML SYRUP FEED TUBE (08:12)
[2021-12-03 11:31] LABS: Glucose Point of Care 183 mg/dl (65-105)
--- NOTE | 2021-12-03 13:52 | PM.IMPN ---
Progress Note: A&P Assessment and Plan (1) Sepsis: Code(s): A41.9 - Sepsis, unspecified organism Status: Acute Assessment and Plan: Criteria for sepsis present on admission with leukocytosis, tachycardia in the setting of suspected UTI (ruled out) and possible osteomyelitis of sacral decubitus ulcer. Blood and urine cultures negative. Continue with [place] [id number] 12/01/2021 interval history: patient with severe peripheral vascular disease is found to Pseudomonas osteomyelitis from sacral biopsy required levofloxacin for 6 weeks and oral vancomycin to prophylactically coverage against C diff, patient on G-tube and receiving flushes with free water will switch over to normal saline 60 cc q.6 as patient is getting hyponatremia will continue to monitor, patient is seen vascular, does not recommend any intervention suggested conservative management with dual anti-platelet therapy and statin, patient also seen by plastic surgeon recommended to continue present management with wound and pressure relief, once the wound is he may re-evaluate for the flap closure. 12/02/2021 interval history: patient remains clinically stable will continue present management, zoo caretaker as requested for SNF the patient and waiting for insurance authorization 12/03/2021 interval history: patient remains clinically stable, patient was started on levofloxacin 750mg IV for 42 days will continue present management, zoo caretaker has requested for SNF the patient and waiting for insurance authorization (2) Osteomyelitis of sacrum: Code(s): M46.28 - Osteomyelitis of vertebra, sacral and sacrococcygeal region Status: Acute Assessment and Plan: Continue iv antibiotics including primaxin and vancomycin. Pt unable to have MRI Pt had bone biopsy and debridement under surgery team pt having regular dressing changes of sacrum (3) Sacral decubitus ulcer: Onset Date: Unknown Qualifiers: Pressure injury stage: stage 4 Qualified Code(s): L89.154 - Pressure ulcer of sacral region, stage 4 Code(s): L89.159 - Pressure ulcer of sacral region, unspecified stage Status: Acute Assessment and Plan: See above. (4) Diarrhea: Code(s): R19.7 - Diarrhea, unspecified Status: Acute Assessment and Plan: Patient had diarrhea for a couple of days Much improved now. (5) Acute hyponatremia: Code(s): E87.1 - Hypo-osmolality and hyponatremia Status: Acute Assessment and Plan: Seems to be a chronic finding for the patient. Sodium was 129 on admission and is 130 today. (6) Nonhealing ulcer of lower extremity limited to breakdown of skin: Code(s): L97.901 - Non-pressure chronic ulcer of unspecified part of unspecified lower leg limited to breakdown of skin Status: Acute Assessment and Plan: Patient has significant peripheral vascular disease and chronic wounds. Followed by surgery and wound nurse. Pt has underlying vascular disease, pt benefits from going to [facility] or [facility] in the future, where they have vascular surgery. (7) DM type 2 (diabetes mellitus, type 2): Onset Date: Unknown Qualifiers: Diabetes mellitus snf insulin use: without assistant terminal manager use Diabetes mellitus complication status: with skin complications Diabetes mellitus complication detail: with other skin ulcer Qualified Code(s): E11.622 - Type 2 diabetes mellitus with other skin ulcer Code(s): E11.9 - Type 2 diabetes mellitus without complications Status: Chronic Assessment and Plan:
--- NOTE | 2021-12-03 15:05 | PM.PNGS ---
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 Biopsy results returned on (11/30/2021) Now using Dakin's solution to decrease the bacterial floral load in the wound since Tu last week. Currently on a specialty mattress. The rectal tube was removed on 11/23 since his stool had started solidifying. Continue frequent turning. White count has come down to normal now that we have changed to an antibiotic that will cover the Pseudomonas (Levaquin 750 Q 24 hours). Agree with need for PT and OT but patient has refused in the past. ( talking to the patient and trying to encourage him to participate). family meeting with the and Dr. Wiggins was last Tuesday and patient decided he wanted everything done to get him better. Since the patient was unable to have a pelvic MR we did a bone biopsy on11/26/21 of the most prominent area of the sacrum underlying the granulation tissue within the wound. In general the wound bed has a healthy and granulating appearance with nearly 98% granulation tissue throughout. Also, since patient has stated that he wants everything done will have him evaluated by plastics for surgery for possible skin/muscle rotation flap to cover this wound which I do not believe probably will heal in his current state. This will probably have to wait until after his treatment for osteomyelitis however, since he is in the hospital it is reasonable to get them to begin evaluating the wound and making plans. care coordination is making plans for the patient's return to ECF. Worry goes they will need to be able take care the PICC line and administer the IV antibiotics for the next 6 weeks. He will then see Dr. Fletcher perales each and evaluate for possible flap closure of the chronic sacral decubitus. He will also need to make arrangements for him to see Dr. Posey and have further intervention on his right leg as noted in his consultation from 2 days ago. (2) Osteomyelitis of sacrum: Code(s): M46.28 - Osteomyelitis of vertebra, sacral and sacrococcygeal region Status: Acute Assessment and Plan: Osteomyelitis suggested on CT, but. MRI contraindicated due to metallic stents in the arteries of his lower extremity. Therefore, on 11/26/21 a bone biopsy was completed and I worked with micro to send this for culture and pathology. Continue IV antibiotics for now. Culture just returned today showing Pseudomonas resistant to the antibiotic he had been on --- imipenem. I talked to pharmacy about considerations of changing this to once a day or once every 36 hour Levaquin which is it it is most sensitive to. Then because he has been on & off antibiotics quite a bit the last 2 months so we will use vancomycin 125 mg down the FT once a day to prophylax against to C diff. This is the plan for the next 6 weeks when he goes to the [facility]. (3) Nonhealing ulcer of lower extremity limited to breakdown of skin: Code(s): L97.901 - Non-pressure chronic ulcer of unspecified part of unspecified lower leg limited to breakdown of skin Status: Acute Assessment and Plan: Chronic bilateral lower leg ulcers that are nonhealing. There is no active infection or necrotic tissue that would indicate surgical intervention at this time, and there does not appear to be cellulitis of his lower extremities. These are likely multifactorial from his chronic peripheral vascular (arterial and venous) disease, noncompliance with wound care, immobility, and potentially poor nutrition. Continue local wound care with silver gel dressing changes. Continue using waffle boot
[2021-12-03 16:56] LABS: Glucose Point of Care 185 mg/dl (65-105)
[2021-12-03] MEDS: ATORVASTATIN 40 MG TABLET 80 MG FEED TUBE (20:58)
[2021-12-04 00:37] LABS: Glucose Point of Care 158 mg/dl (65-105)
[2021-12-04] MEDS: CENTRAL LINE FLUSH 20 ML IV PUSH (04:30)
[2021-12-04 05:15] LABS: Anion Gap 4 mmol/L (8-16); Blood Urea Nitrogen 42 mg/dL (9-20); Carbon Dioxide 29 mmol/L (22-30); Chloride 99 mmol/L (98-107); Estimated CRCL calculation 56 ml/min; Estimated Glomerular Filt Rate > 60; Glucose 181 mg/dL (65-110); Potassium 4.6 mmol/L (3.4-5.0); Sodium 132 mmol/L (137-145)
[2021-12-04] MEDS: CENTRAL LINE FLUSH 10 ML IV PUSH ×2 (05:21→12:37)
[2021-12-04 06:10] VITALS: BP 141/60; PULSE 99; RESP 20; TEMP 36.2; O2SAT 100
[2021-12-04] MEDS: LANSOPRAZOLE ORAL SUSP 30 MG/10 ML ORAL.SUSP FEED TUBE (06:59)
[2021-12-04 08:08] LABS: Glucose Point of Care 162 mg/dl (65-105)
[2021-12-04 08:15] VITALS: PULSE 102
[2021-12-04] MEDS: SERTRALINE HCL 25 MG TABLET PO (08:15)
[2021-12-04] MEDS: ENOXAPARIN 40 MG/0.4 ML SYRINGE SUB-Q (08:15)
[2021-12-04] MEDS: METOPROLOL TARTRATE 6.25 MG TABLET PO (08:15)
[2021-12-04] MEDS: PSYLLIUM SUGAR FREE POWDER PACKET 1 PACKET FEED TUBE (08:16)
[2021-12-04] MEDS: FERROUS SULFATE 324 MG TABLET BY MOUTH (08:16)
[2021-12-04] MEDS: ASPIRIN 81 MG CHEWABLE TABLET FEED TUBE (08:16)
[2021-12-04] MEDS: lisinopriL 5 MG TABLET FEED TUBE (08:16)
[2021-12-04] MEDS: SILVERGEL (ELTA) 45 ML 1 APPLIC TOPICAL (08:16)
[2021-12-04] MEDS: SOD HYPOCHLORITE 1/4 STRENGTH 473 ML 1 APPLIC TOPICAL (08:16)
[2021-12-04] MEDS: ACIDOPHILUS PACKET 1 PKT PACKET FEED TUBE ×2 (08:16→12:37)
[2021-12-04] MEDS: TOLNAFTATE 1% POWDER 45 GM BTL 1 APPLIC TOPICAL (08:16)
[2021-12-04] MEDS: CLOPIDOGREL BISULFATE 75 MG TABLET FEED TUBE (08:16)
[2021-12-04] MEDS: VANCOMYCIN ORAL 125 MG/2.5 ML SYRUP FEED TUBE (08:18)
--- NOTE | 2021-12-04 09:36 | PM.PNGS ---
Subjective Subjective Date/Time Seen: 12/04/21 09:36 Objective Data Vital Signs Vital Signs: Vital Signs - 24 hr 12/03/21 13:03 12/03/21 20:59 12/03/21 21:38 Temperature 36.7 C 35.9 C L Pulse Rate 94 100 71 Respiratory Rate 16 20 Blood Pressure 133/66 121/62 Pulse Oximetry 99 97 12/03/21 21:45 12/03/21 21:51 12/04/21 06:10 Temperature 36.2 C L Pulse Rate 88 99 Respiratory Rate 20 20 Blood Pressure 141/60 H Pulse Oximetry 95 95 100 12/04/21 08:15 Temperature Pulse Rate 102 H Respiratory Rate Blood Pressure Pulse Oximetry Intake/Output Intake/Output: Intake & Output 12/01/21 12/02/21 12/03/21 12/04/21 23:59 23:59 23:59 23:59 Intake Total 420 1100 1200 1070 Output Total 1475 1700 2100 1100 [facility] -1055 -600 -900 -30 Meds/Results Medications: Active Medications Generic Name Dose Route Start Last Admin Trade Name Freq PRN Reason Stop Dose Admin Acetaminophen 650 mg 11/18/21 08:22 Acetaminophen 325 Mg Tablet FEED TUBE Q4H PRN Mild Pain (1-3) Or Fever Hydrocodone Bitart/Acetaminophen 1 tab 11/18/21 08:32 11/27/21 08:29 Hydrocodone/Acetaminophen (*Crx) 5-325 Mg Tablet PO 1 tab Q4H PRN Administration Pain Rated 7-10 Albuterol 2.5 mg 11/25/21 13:47 Albuterol Sulfate Neb 2.5 Mg/0.5 Ml Inh INHALATION Q6HRT PRN Shortness Of Breath Aspirin 81 mg 11/18/21 09:00 12/04/21 08:16 Aspirin 81 Mg Chewable Tablet FEED TUBE 12/18/21 08:59 81 mg DAILY ANNA Administration Atorvastatin Calcium 80 mg 11/18/21 21:00 12/03/21 20:58 Atorvastatin 40 Mg Tablet FEED TUBE 80 mg HS ANNA Administration Bisacodyl 10 mg 11/18/21 08:22 Bisacodyl 10 Mg Suppository RECTAL DAILY PRN Constipation Clopidogrel Bisulfate 75 mg 11/18/21 09:00 12/04/21 08:16 Clopidogrel Bisulfate 75 Mg Tablet FEED TUBE 75 mg DAILY ANNA Administration Dextrose 12.5 gm 11/18/21 08:36 Dextrose 50% 25 Gm/50 Ml Syringe IV PUSH PRN PRN Hypoglycemia Protocol Enoxaparin Sodium 40 mg 11/19/21 09:00 12/04/21 08:15 Enoxaparin 40 Mg/0.4 Ml Syringe SUB-Q 40 mg DAILY ANNA Administration Ferrous Sulfate 324 mg 11/18/21 09:00 12/04/21 08:16 Ferrous Sulfate 324 Mg Tablet BY MOUTH 324 mg DAILY ANNA Administration Furosemide 40 mg 11/18/21 09:00 11/19/21 08:15 Furosemide 40 Mg Tablet FEED TUBE 40 mg DAILY ANNA Administration Glucagon 1 mg 11/18/21 08:36 Glucagon For Inj 1 Mg Vial IM PRN PRN Hypoglycemia Protocol Glucose 15 gm 11/18/21 08:36 Glucose Oral Gel 15 Gm Of Glucse In 37.5 Gm Tube PO PRN PRN Hypoglycemia Protocol Dextrose 1,000 mls @ 100 mls/hr 11/18/21 08:36 Dextrose 5% 1,000 Ml IVPB PRN PRN Hypoglycemia Protocol Levofloxacin/Dextrose 750 mg in 150 mls @ 100 mls/hr 11/30/21 17:00 12/03/21 19:35 Levaquin 750 Mg/D5w 150 Ml IVPB 01/10/22 18:29 Infused Q24H ANNA Infusion Insulin Aspart 3 - 6 units 11/18/21 12:00 12/04/21 08:13 Insulin Aspart (*Bkc) 100 Units/Ml SUB-Q Not Given TIDWM ANNA Protocol Lactobacillus Acidophilus 1 pkt 12/01/21 09:00 12/04/21 08:16 Acidophilus Packet 1 Pkt Packet FEED TUBE 1 pkt QID ANNA Administration Lansoprazole 30 mg 12/01/21 06:30 12/04/21 06:59 Lansoprazole Oral Susp 30 Mg/10 Ml Oral.Susp FEED TUBE 30 mg DAILY@0630 ANNA Administration Lisinopril 5 mg 11/18/21 09:00 12/04/21 08:16 Lisinopril 5 Mg Tablet FEED TUBE 5 mg DAILY ANNA Administration Metoprolol Tartrate 6.25 mg 12/01/21 09:00 12/04/21 08:15 Metoprolol Tartrate 6.25 Mg Tablet PO 6.25 mg Q12HR ANNA Administration Ondansetron HCl 4 mg 11/18/21 02:58 Ondansetron Inj 4 Mg/2 Ml Vial IV PUSH Q4H PRN Nausea Psyllium Hydrophilic Mucilloid 1 packet 11/19/21 21:00 12/04/21 08:16 Psyllium Sugar Free Powder Packet FEED TUBE 1 packet Q12HR ANNA Administration
--- NOTE | 2021-12-04 11:17 | PCNFU ---
Nutrition Follow-Up Complete: Increased protein needs as related to wounds as evidenced by Stage IV Pressure Ulcer to saccum and Deep Tissue on left heels. goal: Meet estimated nutritional needs Patient will continue current goal. Pt current nutrition is Glucerna 1.2 at 70 ml/hr over 22 hours. Last recorded weight is 77.9 kg, no new weight to report. Recommend: new weight spoke with nursing today. Bowel Motility:+Bm reported 2/3 Labs Reviewed: Glu 181, BUN 42, Na 132 Meds Noted: Protonix, Metamucil, Florastor, Lopressor, Lipitor, Plavix, Lovenox, Prinivil, Toprol, Vancomycin. Skin: Stage IV -saccum. Deep Tissue-left heel. Additional Notes: Patient remains on continuous tube feedings of Glucerna 1.2 at 70 ml/hr over 22 hours. 60 ml NS flush q 4 hours. Protein Modular of Brian given via tube BID providing an additional 90 kcals and 2.5 gms protein. Tube feeding is providing 1848 kcals/ 92 gms protein/1240 ml water. Oral intake has been poor, diet order for DBCC/Moderately Thick liquids, Level 2. Agree with diet orders. Monitoring: Will monitor every Tuesday and Tuesday
--- NOTE | 2021-12-04 11:17 | PM.DS ---
DS: Admitting Diagnosis Discharge Date 12/04/2021 Admitting Diagnosis Fall DS: Discharge Diagnosis Discharge Diagnosis (1) Sepsis: Code(s): A41.9 - Sepsis, unspecified organism Status: Acute Assessment and Plan: Criteria for sepsis present on admission with leukocytosis, tachycardia in the setting of suspected UTI (ruled out) and possible osteomyelitis of sacral decubitus ulcer. Blood and urine cultures negative. Continue with [place] [id number] 12/01/2021 interval history: patient with severe peripheral vascular disease is found to Pseudomonas osteomyelitis from sacral biopsy required levofloxacin for 6 weeks and oral vancomycin to prophylactically coverage against C diff, patient on G-tube and receiving flushes with free water will switch over to normal saline 60 cc q.6 as patient is getting hyponatremia will continue to monitor, patient is seen vascular, does not recommend any intervention suggested conservative management with dual anti-platelet therapy and statin, patient also seen by plastic surgeon recommended to continue present management with wound and pressure relief, once the wound is he may re-evaluate for the flap closure. 12/02/2021 interval history: patient remains clinically stable will continue present management, healthcare network pricing consultant as requested for SNF the patient and waiting for insurance authorization 12/03/2021 interval history: patient remains clinically stable, patient was started on levofloxacin 750mg IV for 42 days will continue present management, healthcare network pricing consultant has requested for SNF the patient and waiting for insurance authorization (2) Osteomyelitis of sacrum: Code(s): M46.28 - Osteomyelitis of vertebra, sacral and sacrococcygeal region Status: Acute Assessment and Plan: Continue iv antibiotics including primaxin and vancomycin. Pt unable to have MRI Pt had bone biopsy and debridement under surgery team pt having regular dressing changes of sacrum (3) Sacral decubitus ulcer: Onset Date: Unknown Qualifiers: Pressure injury stage: stage 4 Qualified Code(s): L89.154 - Pressure ulcer of sacral region, stage 4 Code(s): L89.159 - Pressure ulcer of sacral region, unspecified stage Status: Acute Assessment and Plan: See above. (4) Diarrhea: Code(s): R19.7 - Diarrhea, unspecified Status: Acute Assessment and Plan: Patient had diarrhea for a couple of days Much improved now. (5) Acute hyponatremia: Code(s): E87.1 - Hypo-osmolality and hyponatremia Status: Acute Assessment and Plan: Seems to be a chronic finding for the patient. Sodium was 129 on admission and is 130 today. (6) Nonhealing ulcer of lower extremity limited to breakdown of skin: Code(s): L97.901 - Non-pressure chronic ulcer of unspecified part of unspecified lower leg limited to breakdown of skin Status: Acute Assessment and Plan: Patient has significant peripheral vascular disease and chronic wounds. Followed by surgery and wound nurse. Pt has underlying vascular disease, pt benefits from going to [facility] or [facility] in the future, where they have vascular surgery. (7) DM type 2 (diabetes mellitus, type 2): Onset Date: Unknown Qualifiers: Diabetes mellitus intermediate manager insulin use: without intermediate manager use Diabetes mellitus complication status: with skin complications Diabetes mellitus complication detail: with other skin ulcer Qualified Code(s): E11.622 - Type 2 diabetes mellitus with other skin ulcer Code(s): E11.9 - Type 2 diabete
[2021-12-04 11:56] LABS: Glucose Point of Care 202 mg/dl (65-105)
[2021-12-04] MEDS: INSULIN ASPART (*BKC) 100 UNITS/ML SUB-Q (12:36)
[2021-12-04 12:59] LABS: EDCOVIDSCREEN Negative (Negative)
== END 2021-12-04 15:45 | DRG 853 ==
LOC: ANHED 21:38 → ANH3MEDSUR 11-18 04:15 → ANH3MED 11-18 04:42
PROVIDERS: Family Medicine; Nurse Practitioner; Physician Assistant; Surgery; Admitting Provider Internal Medicine; Emergency Provider Emergency Medicine; PCP Internal Medicine; Visit Provider Family Medicine
DX: A41.9 Sepsis, unspecified organism (principal); L89.154 Pressure ulcer of sacral region, stage 4; M46.28 Osteomyelitis of vertebra, sacral and sacrococcygeal region; E87.1 Hypo-osmolality and hyponatremia; C68.9 Malignant neoplasm of urinary organ, unspecified; N17.9 Acute kidney failure, unspecified; L97.929 Non-pressure chronic ulcer of unspecified part of left lower leg with unspecified severity; L97.919 Non-pressure chronic ulcer of unspecified part of right lower leg with unspecified severity; B96.5 Pseudomonas (aeruginosa) (mallei) (pseudomallei) as the cause of diseases classified elsewhere; I25.10 Atherosclerotic heart disease of native coronary artery without angina pectoris; K21.9 Gastro-esophageal reflux disease without esophagitis; D63.8 Anemia in other chronic diseases classified elsewhere; S00.31XA Abrasion of nose, initial encounter; E11.22 Type 2 diabetes mellitus with diabetic chronic kidney disease; Z20.822 Contact with and (suspected) exposure to COVID-19; N18.9 Chronic kidney disease, unspecified; E87.5 Hyperkalemia; E63.9 Nutritional deficiency, unspecified; S61.211A Laceration without foreign body of left index finger without damage to nail, initial encounter; W06.XXXA Fall from bed, initial encounter; R19.7 Diarrhea, unspecified; F03.90 Unspecified dementia, unspecified severity, without behavioral disturbance, psychotic disturbance, mood disturbance, and anxiety; I87.2 Venous insufficiency (chronic) (peripheral); Z98.62 Peripheral vascular angioplasty status; Z86.718 Personal history of other venous thrombosis and embolism; Z79.02 Long term (current) use of antithrombotics/antiplatelets; Z95.1 Presence of aortocoronary bypass graft; Z91.19 Patient's noncompliance with other medical treatment and regimen; Z93.1 Gastrostomy status
CPT/HCPCS: 36415; 36569; 70450; 71045; 74177; 80048; 80053; 80202; 81001; 82565; 82948; 83735; 84132; 84134; 85014; 85018; 85025; 85027; 85055; 86140; 87040; 87070; 87075; 87077; 87086; 87102; 87186; 87205; 87206; 87426; 88305; 93922; 96361; 96365; 96372; 96375; 96376; 97163; 99285; A9270; C1751; C9803; G0378; J0743; J1650; J1815; J1956; J2270; J2543; J3370; J7030; Q9967

== ENCOUNTER 2022-01-13 08:55 | Inpatient (IN) | payer MEDICARE, MEDICAID, SELFPAY ==
--- NOTE | ~2022-01-13 | CT_ITS ---
EXAMINATION: CT abdomen pelvis wo/w con EXAM DATE: 01/19/2022 18:14 INDICATION: Bladder cancer. TECHNIQUE: Spiral CT of the abdomen and pelvis was performed without contrast. The patient was then injected with small bolus intravenous Omnipaque 350, followed by delay of approximately 10 minutes to allow collecting system to opacify. A post contrast scan abdomen and pelvis was performed during inj ection of remaining contrast. A total of 130 cc intravenous contrast was administered. The dose-lester th product (DLP) for this examination was 2748.22 mGy-cm. The exposure was tailored according to pat ient size (auto mA exposure control), and iterative reconstruction (ASIR) was used as additional dose reduction technique. Comparison is made to prior examination from 11/18/2021. FINDINGS: Kidneys enhance symmetrically. No hydronephrosis. Ureters are unremarkable. There is severe thickening of the anterior and right side bladder wall consistent with malignancy. No contrast extra vasation. Prostate normal in size. Again there is large decubitus ulceration. Again distal aspect of the sacrum demineralized, similar a ppearance to prior study. Normal appendix. Small gastroesophageal hiatal hernia. There is moderate sigmoid predominant colonic diverticulosis. There is no adjacent inflammatory change to suggest diverticulitis. No free intraper itoneal gas. There is a patent tube in position. Small right pleural effusion with adjacent subsegmen nyla atelectasis. Sternotomy wires. Borderline cardiomegaly. IVC filter. There are no osteoblastic or osteolytic lesions identified. IMPRESSION: 1. Bladder cancer. Ortiz in position. 2. Sacral decubitus ulcer with chronic distal sacral demineralization. 3. Moderate sigmoid predominant diverticulosis. 4. Small hiatal hernia. 5. Small right pleural effusion, adjacent atelectasis. Reviewed, dictated and finalized at location G.
--- NOTE | ~2022-01-13 | XR_ITS ---
EXAMINATION: XR abdomen/kub 1V DATE: 01/14/2022 14:26 INDICATION: Gross hematuria. TECHNIQUE: A supine view of the abdomen on 2 radiographs was obtained. COMPARISON: CT abdomen and pelvis 11/18/2021 FINDINGS: There are no dilated loops of bowel. There is a gastrostomy tube in expected position. Ther e is a filter in the inferior vena cava. Median sternotomy wires are noted. IMPRESSION: 1. No visible urolithiasis. Reviewed, dictated and finalized at location A. IMPRESSION: 1. No visible urolithiasis.
--- NOTE | ~2022-01-13 | XR_ITS ---
XR G tube evaluation w imaging DATE: 01/25/2022 19:23 INDICATION: Gastrostomy tube blockage, malfunction TECHNIQUE: Portable supine AP views of the abdomen COMPARISON: 01/19/2022 CT abdomen pelvis FINDINGS: A gastrostomy tube overlies the mid abdomen at the L2-3 level. There is radiopaque contrast material within the gastrostomy tube that none within the gastric lumen or abdomen. IVC filter is noted overlying the medial right midabdomen at L2-3 level. No evidence of bowel obstruction is noted. IMPRESSION: No radiopaque contrast material enters the gastric lumen or abdominal cavity from a gastr ostomy tube Reviewed, dictated and finalized at Location A. Reviewed, dictated and finalized at location A. IMPRESSION: No radiopaque contrast material enters the gastric lumen or abdomin al cavity from a gastrostomy tube
--- NOTE | ~2022-01-13 | XR_ITS ---
XR chest 1V portable 01/13/2022 09:51 Indication: Hypertension. Diabetes. Weakness. Procedure: AP portable chest Comparison: Comparison to multiple prior studies sequentially, with oldest reviewed study dated 03/13. Findings: Status post median sternotomy for CABG. Heart size normal. PICC line tip in the SVC. No foc al pneumonia, edema, pleural effusion or pneumothorax. No acute osseous abnormality. Impression: 1: No acute cardiopulmonary disease. Reviewed, dictated and finalized at location B. Impression: 1: No acute cardiopulmonary disease.
[2022-01-13 09:05] VITALS: BP 130/99; PULSE 102; RESP 24; TEMP 36.6; O2SAT 99
[2022-01-13 09:10] VITALS: PULSE 96
--- NOTE | 2022-01-13 09:22 | ECG_ITS ---
Measurements Intervals [place] Rate: 101 P: 24 WA: 120 QRS: 70 QRSD: 122 T: 46 QT: 346 QTc: 450 Interpretive Statements SINUS TACHYCARDIA WITH FREQUENT SUPRAVENTRICULAR PREMATURE COMPLEXES RIGHT BUNDLE BRANCH BLOCK [120+ ms QRS DURATION, UPRIGHT V1, 40+ ms S IN I/aVL/V4/V5/V6] COMPARED TO ECG 10/31/2021 07:24:43 SINUS TACHYCARDIA NOW PRESENT Electronically Signed On 01-13-2022 13:13:10 CDT by Jania Barton M.D.
[2022-01-13] MEDS: SODIUM CHLORIDE 0.9% IV 1,000 ML 999 ML IV CONT ×2 (09:35→11:16)
[2022-01-13 10:10] LABS: Basophils Absolute Auto 0.1 K/mm3 (0.0-0.1); Basophils Percent Auto 0.3 % (0.2-1.2); Eosinophils Absolute Auto 0.1 K/mm3 (0-0.3); Eosinophils Percent Auto 0.7 % (0-4.4); Hematocrit 27.7 % (42.0-52.0); Hemoglobin 8.1 g/dL (14.0-18.0); Immature Granulocyte Absolute 0.11 K/mm3 (0.00-0.031); Immature Granulocyte Percent A 0.6 % (0-0.5); Lymphocytes Absolute Auto 2.13 K/mm3 (0.9-3.2); Lymphocytes Percent Auto 11.5 % (18.3-44.2); Mean Corpuscular HGB Conc 29.2 g/dl (32-36); Mean Corpuscular Hemoglobin 28.3 pg (26-34); Mean Corpuscular Volume 96.9 fl (80-100); Mean Platelet Volume 11.2 fl (7.4-10.4); Monocytes Absolute Auto 1.2 K/mm3 (0.1-0.6); Monocytes Percent Auto 6.4 % (2.6-8.5); Neutrophils Absolute Auto 14.9 K/mm3 (1.3-6.7); Neutrophils Percent Auto 80.5 % (45.5-73.1); Platelet Count Result 226 k/mm3 (150-375); Red Blood Count 2.86 M/mm3 (4.6-6.20); Red Cell Distribution Width 18.2 % (11.5-14.5); White Blood Count 18.5 K/mm3 (4.5-10.0)
[2022-01-13 10:20] LABS: Add Urine Microscopic? YES; Appearance Urine Cloudy (Clear); Bilirubin Urine Negative (Negative); Blood Urine 3+ (Negative); Color Urine Amber (Yellow); Glucose Urine UA Negative (Negative); Ketones Urine Negative (Negative); Leukocyte Esterase Ur 2+ LEU/UL (Negative); Nitrate Urine Negative (Negative); Protein Urine 2+ mg/dL (Negative); RBC Urine >75 /hpf (0-2); Specific Grav Ur 1.016 (1.001-1.035); Urobilinogen Urine Negative mg/dL (<2.0); WBC Urine >75 /hpf
[2022-01-13 10:21] LABS: INR 1.2; Prothrombin Time 14.3 Seconds (11.1-14.7)
[2022-01-13 10:22] LABS: Partial Thromboplastin Time 25.8 SECONDS (22.3-36.8)
[2022-01-13 10:29] LABS: Lactic Acid Reflex 1.6 mmol/L (0.7-2.1)
[2022-01-13 10:32] LABS: Platelet Estimate Adequate (Adequate)
[2022-01-13 10:33] LABS: Anisocytosis 1+ (NORMAL); Hypochromasia 1+ (NORMAL); Ovalocytes 1+ (NORMAL)
--- NOTE | 2022-01-13 10:43 | ED.GENADULT ---
HPI - General Adult General Chief complaint: Unspecified Stated complaint: from [facility] Time Seen by Provider: 01/13/22 09:21 Source: EMS and RN notes reviewed Mode of arrival: EMS Limitations: altered mental status and clinical condition History of Present Illness HPI narrative: Patient is 71 years old white male came from [facility] with change of mental status and blood in the Ortiz catheter bag noticed in the last 24 hours. Related Data Home Medications Medication Instructions Recorded Confirmed atorvastatin 80 mg FEEDING TUBE HS 03/14/20 11/18/21 Hydrogel 1 ea MISCELLANEOUS DAILY 10/31/21 11/18/21 Lantus U-100 Insulin 30 unit SUBCUT HS 10/31/21 11/18/21 aspirin 81 mg PO DAILY 10/31/21 11/18/21 clopidogrel 75 mg FEEDING TUBE DAILY 10/31/21 11/18/21 ferrous sulfate 325 mg FEEDING TUBE DAILY 10/31/21 11/18/21 insulin lispro [Humalog U-100 15 unit SUBCUT BID 10/31/21 11/18/21 Insulin] metoprolol succinate 12.5 mg PO DAILY 10/31/21 11/18/21 pantoprazole 40 mg PO DAILY 10/31/21 11/18/21 acetaminophen [Mapap 650 mg FEEDING TUBE Q4H PRN 11/18/21 11/18/21 (acetaminophen)] bisacodyl 10 mg RECTAL DAILY PRN 11/18/21 11/18/21 furosemide [Lasix] 40 mg FEEDING TUBE DAILY 11/18/21 11/18/21 lisinopril 5 mg FEEDING TUBE DAILY 11/18/21 11/18/21 magnesium citrate [Citroma] 300 ml FEEDING TUBE DAILY PRN 11/18/21 11/18/21 magnesium hydroxide [Milk of 400 mg FEEDING TUBE DAILY PRN 11/18/21 11/18/21 Magnesia] silver sulfadiazine [Silvadene] 1 applic TOPICAL BID 11/18/21 11/18/21 tramadol 50 mg PO TID PRN 11/18/21 11/18/21 Allergies Allergy/AdvReac Type Severity Reaction Status Date / Time No Known Allergies Allergy Unknown Verified 11/25/21 09:33 Review of Systems Review of Systems: ROS unobtainable: Yes unobtainable due to mental status PMFSH Past Medical History Medical History Coronary artery disease DM type 2 (diabetes mellitus, type 2) (Unknown) DVT (deep venous thrombosis) S/p IVC filter, not on oral anticoagulation due to high fall risk GERD (gastroesophageal reflux disease) Hyperlipidemia Hypertension Peripheral arterial disease (Unknown) Sacral decubitus ulcer (Unknown) Urothelial carcinoma Venous stasis dermatitis (Unknown) Surgical History Surgical History H/O cardiac catheterization History of revascularization procedure of lower extremity Left fem-pop bypass Balloon angioplasty and tPA to lower ext - 02/2020 Lower extremity stent, possible left-sided? - 2020 Hx of CABG S/P IVC filter 2020 Family History Family History Sibling Family history of cardiovascular disease Father Family history of cardiovascular disease Son Depression Son Family history of seizure disorder Other Family history of seizure disorder Other Cerebrovascular accident Diabetes mellitus Family history of arthritis Family history of coronary artery disease Family history of hypercholesterolemia Family history of mental disorder Family history of obesity Hypertension Social History Social History Social History: The patient lives at home with his . He designates his as his surrogate decision maker. He is unwilling to disclose his code status to me, telling me my knows what I want. Additional social history obtained via review of records. Smoking status: Former smoker Tobacco type: cigarettes Second hand tobacco smoke exposure: Yes Smoking end date: 10/31/08 Alcohol intake: former Substance use: never Substance use type: does not use Gender identity (if verbalized by the patient): Male Spiritual care concerns: No Exam Narrative: General appearance: Well-developed, well-nourished, Skin: Extensive ecchymosis of the lower extremity bilaterally, superficial u
[2022-01-13 10:46] LABS: Alanine Aminotransferase 67 U/L (4-50); Albumin Level 3.1 g/dL (3.5-5.1); Alkaline Phosphatase 75 U/L (38-126); Anion Gap 7 mmol/L (8-16); Aspartate Amino Transferase 76 U/L (17-59); Bilirubin,Total 0.1 mg/dL (0.2-1.3); Calcium 8.7 mg/dL (8.4-10.2); Carbon Dioxide 26 mmol/L (22-30); Chloride 114 mmol/L (98-107); Estimated CRCL calculation 23 ml/min; Estimated Glomerular Filt Rate 28; Glucose 171 mg/dL (65-110); Sodium 147 mmol/L (137-145)
[2022-01-13 10:48] LABS: Blood Urea Nitrogen 139 mg/dL (9-20)
[2022-01-13 11:20] VITALS: BP 103/58; PULSE 95; RESP 22; O2SAT 99
--- NOTE | 2022-01-13 11:35 | PC.NURSE ---
Spoke with Phoebe at [facility], updated admission status and clarified that pt is a full code.
--- NOTE | 2022-01-13 13:05 | PC.NURSE ---
This patient, Ramana Gaines, was admitted to [facility] Surg Room 332-01. Patient/family oriented to hospital policies and general routines including ID bracelet, bed and alarms, visiting hours, pain management, procedures, bathroom and other care routines, personal items, smoking policy, room service/diet, and visiting hours. Information on how to activate the Rapid Response Team has been discussed. Patient/Family are encouraged to report perceived risks to care and to ask questions if they do not understand what they are told or what they should do. Report received from Izabela.
--- NOTE | 2022-01-13 13:18 | PC.NURSE ---
This patient, Ramana Gaines, was admitted to [facility] Surg Room 332-02 on 01/13/22 @ 1315. Patient/family oriented to hospital policies and general routines including ID bracelet, bed and alarms, visiting hours, pain management, procedures, bathroom and other care routines, personal items, smoking policy, room service/diet, and visiting hours. Information on how to activate the Rapid Response Team has been discussed. Patient/Family are encouraged to report perceived risks to care and to ask questions if they do not understand what they are told or what they should do.
[2022-01-13 13:25] VITALS: BP 125/41; PULSE 88; RESP 18; TEMP 35.9; O2SAT 100
--- NOTE | 2022-01-13 16:38 | PC.NURSE ---
Exact santiago date unknown. Called [facility], spoke with Ashley LYNNE and she does not know exact date and is supposed to call back with exact date and time. Estimated about first of the month as far as she could remember.
[2022-01-13] MEDS: SODIUM CHLORIDE 0.9% IV 1,000 ML 125 ML IV CONT (17:31)
--- NOTE | 2022-01-13 19:28 | PM.IMHP ---
H&P: HPI History of Present Illness Date/Time: Patient requires inpatient monitoring with expected length of stay to exceed 2 midnights for management of care. 01/13/22 19:28 Chief Complaint: Altered mental status Narrative: Mr. Gaines is a 71-year-old gentleman who presented from a local shelter with altered mental status. Patient is unable to give me any type of history so all history is coming from emergency room records and previous medical records. Per emergency room records patient was sent from the shelter because of altered mental status and it was noted that patient had a large amount of blood in his Ortiz catheter bag. Upon evaluation in emergency room patient was noted to have a significant urinary tract infection and be dehydrated. Patient was also noted to have acute kidney injury. Patient is unable to tell me if he has been eating or drinking well. Patient does have a very large decubitus ulcer to his coccyx as well as wounds to bilateral lower extremities. Patient has a known history of coronary artery disease, diabetes mellitus, DVT status post IVC filter not on a anticoagulation secondary to being a high risk of bleeding, GERD, hyperlipidemia, hypertension, peripheral arterial disease status post stent placement and history of fem-pop bypass, chronic kidney disease, chronic decubitus ulcer, atrial fibrillation, and history of systolic heart failure. Review of Systems Review of Systems: I am unable to obtain review of systems from patient secondary to patient's clinical condition. [facility] Past Medical History Medical History Coronary artery disease DM type 2 (diabetes mellitus, type 2) (Unknown) DVT (deep venous thrombosis) S/p IVC filter, not on oral anticoagulation due to high fall risk GERD (gastroesophageal reflux disease) Hyperlipidemia Hypertension Peripheral arterial disease (Unknown) Sacral decubitus ulcer (Unknown) Urothelial carcinoma Venous stasis dermatitis (Unknown) Surgical History Surgical History H/O cardiac catheterization History of revascularization procedure of lower extremity Left fem-pop bypass Balloon angioplasty and tPA to lower ext - 02/2020 Lower extremity stent, possible left-sided? - 2020 Hx of CABG S/P IVC filter 2020 Family History Family History Sibling Family history of cardiovascular disease Father Family history of cardiovascular disease Son Depression Son Family history of seizure disorder Other Family history of seizure disorder Other Cerebrovascular accident Diabetes mellitus Family history of arthritis Family history of coronary artery disease Family history of hypercholesterolemia Family history of mental disorder Family history of obesity Hypertension Social History Social History Social History: The patient lives at home with his . He designates his as his surrogate decision maker. He is unwilling to disclose his code status to me, telling me my knows what I want. Additional social history obtained via review of records. Smoking status: Former smoker Tobacco type: cigarettes Second hand tobacco smoke exposure: Yes Smoking end date: 10/31/08 Alcohol intake: never Substance use: never Substance use type: does not use Gender identity (if verbalized by the patient): Male Spiritual care concerns: No Meds Home Medications and Allergies Home Medications Medication Instructions Recorded Confirmed Type atorvastatin 80 mg FEEDING TUBE HS 03/14/20 01/13/22 History Hydrogel 1 ea MISCELLANEOUS DAILY 10/31/21 01/13/22 History Lantus U-100 Insulin 30 unit SUBCUT HS 10/31/21 01/13/22 History aspirin 81 mg PO DAILY 10/31/21 01/13/22 History clopidogrel 75 mg FEEDING TUBE DAILY 10/31/21 01/13/22 Histor
[2022-01-13 19:56] LABS: Alanine Aminotransferase 50 U/L (4-50); Alkaline Phosphatase 63 U/L (38-126); Anion Gap 11 mmol/L (8-16); Aspartate Amino Transferase 56 U/L (17-59); Bilirubin,Total 0.2 mg/dL (0.2-1.3); Blood Urea Nitrogen 115 mg/dL (9-20); Calcium 8.3 mg/dL (8.4-10.2); Carbon Dioxide 19 mmol/L (22-30); Chloride 118 mmol/L (98-107); Estimated CRCL calculation 27 ml/min; Estimated Glomerular Filt Rate 35; Glucose 233 mg/dL (65-110); Potassium 4.9 mmol/L (3.4-5.0); Sodium 148 mmol/L (137-145)
[2022-01-13 21:06] VITALS: O2SAT 99
[2022-01-13] MEDS: HEPARIN SODIUM 5,000 UNITS/ML VIAL 5000 UNITS SUB-Q (21:27)
[2022-01-13] MEDS: INSULIN GLARGINE (*BKC) 100 UNITS/ML 30 UNITS SUB-Q (21:28)
[2022-01-13] MEDS: LACTATED RINGERS 1,000 ML 125 ML IV CONT (21:28)
[2022-01-13 21:34] VITALS: BP 111/58; PULSE 89; RESP 14; TEMP 36.4; O2SAT 100
[2022-01-13] MEDS: ACIDOPHILUS PACKET 1 PKT PACKET FEED TUBE (21:45)
[2022-01-13] MEDS: CENTRAL LINE FLUSH 10 ML IV PUSH (21:45)
[2022-01-13] MEDS: PSYLLIUM SUGAR FREE POWDER PACKET 1 PACKET FEED TUBE (21:45)
[2022-01-13] MEDS: TOLNAFTATE 1% POWDER 45 GM BTL 1 APPLIC TOPICAL (21:46)
[2022-01-13 22:10] LABS: Glucose Point of Care 220 mg/dl (65-105)
[2022-01-13] MEDS: ATORVASTATIN 40 MG TABLET 80 MG FEED TUBE (23:54)
[2022-01-13] MEDS: INSULIN ASPART (*BKC) 100 UNITS/ML 15 UNITS SUB-Q (23:57)
[2022-01-14] VITALS (9 sets, daily range): BP systolic 89–116; BP diastolic 45–62; PULSE 67–85; RESP 14–19; TEMP 36.1–36.9; O2SAT 92–96; BMI 26.5
[2022-01-14] MEDS: LACTATED RINGERS 1,000 ML 125 ML IV CONT ×2 (05:48→20:44)
[2022-01-14] MEDS: CENTRAL LINE FLUSH 10 ML IV PUSH ×2 (05:49→22:00)
[2022-01-14 06:07] LABS: Basophils Percent Auto 0.2 % (0.2-1.2); Eosinophils Absolute Auto 0.3 K/mm3 (0-0.3); Eosinophils Percent Auto 2.7 % (0-4.4); Hematocrit 23.7 % (42.0-52.0); Immature Granulocyte Absolute 0.06 K/mm3 (0.00-0.031); Immature Granulocyte Percent A 0.5 % (0-0.5); Lymphocytes Percent Auto 12.8 % (18.3-44.2); Mean Corpuscular HGB Conc 28.7 g/dl (32-36); Mean Corpuscular Hemoglobin 28.3 pg (26-34); Mean Corpuscular Volume 98.8 fl (80-100); Mean Platelet Volume 10.6 fl (7.4-10.4); Monocytes Absolute Auto 0.7 K/mm3 (0.1-0.6); Monocytes Percent Auto 5.9 % (2.6-8.5); Neutrophils Absolute Auto 9.8 K/mm3 (1.3-6.7); Neutrophils Percent Auto 77.9 % (45.5-73.1); Platelet Count Result 172 k/mm3 (150-375); Red Cell Distribution Width 18.1 % (11.5-14.5); White Blood Count 12.5 K/mm3 (4.5-10.0)
[2022-01-14 06:24] LABS: Anion Gap 7 mmol/L (8-16); Blood Urea Nitrogen 98 mg/dL (9-20); Calcium 8.5 mg/dL (8.4-10.2); Carbon Dioxide 25 mmol/L (22-30); Chloride 117 mmol/L (98-107); Estimated CRCL calculation 30 ml/min; Estimated Glomerular Filt Rate 40; Glucose 82 mg/dL (65-110); Potassium 4.7 mmol/L (3.4-5.0); Sodium 149 mmol/L (137-145)
[2022-01-14 06:49] LABS: Hemoglobin 6.8 g/dL (14.0-18.0)
[2022-01-14 08:29] LABS: Glucose Point of Care 62 mg/dl (65-105)
[2022-01-14] MEDS: GLUCOSE ORAL GEL 15 GM OF GLUCSE IN 37.5 GM TUBE PO (08:44)
[2022-01-14 09:32] LABS: Glucose Point of Care 143 mg/dl (65-105)
[2022-01-14] MEDS: CLOPIDOGREL BISULFATE 75 MG TABLET FEED TUBE (09:33)
[2022-01-14] MEDS: ASCORBIC ACID 500 MG TABLET FEED TUBE (09:34)
[2022-01-14] MEDS: SERTRALINE HCL 25 MG TABLET PO (09:34)
[2022-01-14] MEDS: ACIDOPHILUS PACKET 1 PKT PACKET FEED TUBE ×3 (09:34→21:33)
[2022-01-14] MEDS: ASPIRIN 81 MG CHEWABLE TABLET PO (09:34)
[2022-01-14] MEDS: lisinopriL 5 MG TABLET FEED TUBE (09:34)
[2022-01-14] MEDS: MULTIVITAMINS THERAPEUTIC TAB (*BKC) 1 TABLET FEED TUBE (09:35)
[2022-01-14] MEDS: FERROUS SULFATE LIQUID 220 MG/5 ML ELIXIR FEED TUBE (09:35)
[2022-01-14] MEDS: HEPARIN SODIUM 5,000 UNITS/ML VIAL 5000 UNITS SUB-Q ×2 (09:35→21:36)
[2022-01-14] MEDS: PSYLLIUM SUGAR FREE POWDER PACKET 1 PACKET FEED TUBE (09:36)
[2022-01-14] MEDS: TOLNAFTATE 1% POWDER 45 GM BTL 1 APPLIC TOPICAL ×2 (09:36→21:59)
[2022-01-14] MEDS: HYDROcodone/acetaminophen (*CRX) 5-325 MG TABLET 1 TAB PO (09:46)
--- NOTE | 2022-01-14 11:39 | PM.IMPN ---
Progress Note: A&P Assessment and Plan (1) Urinary tract infection: Qualifiers: Hematuria presence: with hematuria Urinary tract infection type: site unspecified Qualified Code(s): N39.0 - Urinary tract infection, site not specified; R31.9 - Hematuria, unspecified Code(s): N39.0 - Urinary tract infection, site not specified Status: Acute Assessment and Plan: Patient had initially been placed on Rocephin in the emergency room for his urinary tract infection, but then after further investigation a very large decubitus ulcers noted on coccyx the patient was changed to vancomycin and Zosyn. Will continue with current medication treatment and await culture and sensitivity results. 01/14/2022 interval history: patient is a resident of nursing with dementia unable to provide detailed review of symptom, patient was sent to emergency department because patient developed acute mental status change is found to have UTI and hematuria, patient has a history of UTI with Pseudomonas and patient was started on Cefepime and vancomycin will follow-up on urine culture and sensitivity and further recommendation to follow, patient hemoglobin has dropped to 6.8 will give 1 unit of pack RBC and consult urologist for further recommendation, will have a PT OT evaluate the patient and will monitor. patient also has significant decubitus ulcer will consult wound management. (2) Acute dehydration: Code(s): E86.0 - Dehydration Status: Acute Assessment and Plan: Patient received 2 L of normal saline in the emergency room. Will continue to hydrate patient with lactated Ringer's and continue monitor sodium levels as well as BUN and creatinine. (3) Sacral decubitus ulcer: Onset Date: Unknown Qualifiers: Pressure injury stage: stage 4 Qualified Code(s): L89.154 - Pressure ulcer of sacral region, stage 4 Code(s): L89.159 - Pressure ulcer of sacral region, unspecified stage Status: Acute Assessment and Plan: Have consult Wound Care do appreciate further recommendations from Wound Care on decubitus ulcer as well as bilateral lower extremity wounds (4) Acute on chronic kidney failure: Code(s): N17.9 - Acute kidney failure, unspecified; N18.9 - Chronic kidney disease, unspecified Status: Acute Assessment and Plan: Patient's creatinine is significantly higher than it has been in the past. The patient appears to be dehydrated and acute kidney injury is most likely prerenal. Will continue to hydrate patient and monitor laboratories. Subjective Date/time seen: 01/14/22 11:39 HPI-Narrative: Mr. Gaines is a 71-year-old gentleman who presented from a local [facility] with altered mental status. Patient is unable to give me any type of history so all history is coming from emergency room records and previous medical records. Per emergency room records patient was [facility] because of altered mental status and it was noted that patient had a large amount of blood in his Ortiz catheter bag. Upon evaluation in emergency room patient was noted to have a significant urinary tract infection and be dehydrated. Patient was also noted to have acute kidney injury. Patient is unable to tell me if he has been eating or drinking well. Patient does have a very large decubitus ulcer to his coccyx as well as wounds to bilateral lower extremities. Patient has a known history of coronary artery disease, diabetes mellitus, DVT status post IVC filter not on a anticoagulation secondary to being a high risk of bleeding, GERD, hyperlipidemia, hypertension, peripheral arterial disease status post stent placement and history of fem-pop bypass, chronic kidney disease, chronic decubitus ulcer, atrial fibrillation, and history of systolic heart failure. 01/14/2022 interval history: patient is a resident of nursing with dementia unable to provide detailed review of symptom, patient was sent to emerg
[2022-01-14 11:53] LABS: Glucose Point of Care 233 mg/dl (65-105)
[2022-01-14] MEDS: INSULIN ASPART (*BKC) 100 UNITS/ML SUB-Q (12:29)
--- NOTE | 2022-01-14 14:10 | PC.NURSE ---
Pt hypotensive at 84/49. Md notified and orders received for NS 250 ml bolus.
[2022-01-14] MEDS: SODIUM CHLORIDE 0.9% IV 250 ML IV CONT (14:25)
--- NOTE | 2022-01-14 15:21 | WPDURCON ---
Assessment and Plan Assessment and plan (1) Urinary tract infection: Qualifiers: Hematuria presence: with hematuria Urinary tract infection type: site unspecified Qualified Code(s): N39.0 - Urinary tract infection, site not specified; R31.9 - Hematuria, unspecified Code(s): N39.0 - Urinary tract infection, site not specified Status: Acute Assessment and Plan: Continue IV antibiotics, tailor to culture results. (2) Anemia: Qualifiers: Anemia type: unspecified type Qualified Code(s): D64.9 - Anemia, unspecified Code(s): D64.9 - Anemia, unspecified Status: Acute (3) Bladder tumor: Code(s): D49.4 - Neoplasm of unspecified behavior of bladder Status: Chronic Assessment and Plan: TURBT not completed to our knowledge. Cysto on 03/18/2020 reveals tumors at the bladder neck and right lateral wall, they were not excised d/t being on anticoagulants at the time and patient has been non compliant in following up. (4) Hematuria: Code(s): R31.9 - Hematuria, unspecified Status: Acute Assessment and Plan: Secondary to UTI versus bladder tumors. I irrigated him with 320cc of NS at the bedside via catheter and 60cc catheter tip syringe and was able to remove several small-medium sized clots and clear the urine to a light pink. It was draining well but no CBI was connected or running. Get a CT scan to further evaluate. The patient is not a candidate for a cystoscopy at this time or TURBT d/t infection, hypotension and anemia. We will plan to scope him as an outpatient in the office once he is discharged and stable. Urology Consult Note HPI Date Seen: 01/14/22 Requesting Physician: Gail Ugalde MD Primary Care Provider: Reshma Morelos MD Consult Narrative Narrative: Ramana Gaines is a 71 year old male who presented to the ER initially for mental status changes and blood in his santiago catheter bag on 01/13/22. [facility]. He is a known patient of ours and has seen Dr. Doss and Dr. Feliz. He is hypotensive an anemic, requiring a blood transfusion currently. His WBC is 12.5, creatinine is 1.70 which is down from 1.90. His UA is suggestive of a UTI and a urine culture as well as blood culture is pending. A CT scan was done on 11/18/21 showing thickening and enhancement of the urinary bladder wall indicating likely urothelial carcinoma. The patient had a cystoscopy with Dr. Mir on 03/18/2020 which showed right anterior lateral wall tumors measuring >5cm and a tumor at the bladder neck at 2 o'clock measuring 2cm, however d/t being on anticoagulants at the time, he recommended scheduling a TURBT at a later date when it was safe to hold his anticoagulants. He did not return to the office for further follow up. Dr. Doss also saw him in the office on 07/17/19 for an elevated PSA of 25 that was up from previous PSA in 2017. He was told to return to the office for further follow up but again didn't come back to be seen. He is currently afebrile, but has extensive BLE ulcerations which required a switch of antibiotics from Rocephin to Vancomycin and Zosyn. The patient has very little medical history to offer and no family is at the bedside. He has a 24fr [address] santiago in currently, it is unknown where it was put in or when. The urine in the bag and tubing is red without clots and draining. Review of Systems Cardiovascular: Cardiovascular: Reports no additional cardiovascular complaints Respiratory: Respiratory: Reports no additional respiratory complaints Gastrointestinal: Gastrointestinal: Denies abdominal pain, Denies nausea and Denies vomiting Genitourinary: Genitourinary: Reports hematuria and Reports other (retention) [facility] Past Medical History Medical History Coronary artery disease DM type 2 (diabetes mellitus, type 2) (Unknown) DVT (deep venous thrombosis) S/p IV
--- NOTE | 2022-01-14 15:51 | PCDIET ---
SHUTDOWN COORDINATOR notified unable to currently send pt for STAT CT due to hypotension and IV bolus. Verbalized understanding.
[2022-01-14 16:38] LABS: Glucose Point of Care 146 mg/dl (65-105)
[2022-01-14] MEDS: SODIUM CHLORIDE 0.9% IV 250 ML 30 ML IV CONT (18:20)
[2022-01-14] MEDS: WATER FOR IRRIGATION, STERILE 1,000 ML BOTTLE 1000 ML (18:20)
[2022-01-14 21:06] LABS: Glucose Point of Care 136 mg/dl (65-105)
[2022-01-14] MEDS: ATORVASTATIN 40 MG TABLET 80 MG FEED TUBE (21:35)
[2022-01-14] MEDS: INSULIN GLARGINE (*BKC) 100 UNITS/ML 30 UNITS SUB-Q (21:37)
[2022-01-15 00:46] LABS: Glucose Point of Care 112 mg/dl (65-105)
[2022-01-15] MEDS: CENTRAL LINE FLUSH 10 ML IV PUSH ×2 (05:02→23:54)
[2022-01-15] MEDS: HYDROcodone/acetaminophen (*CRX) 5-325 MG TABLET 1 TAB PO (05:02)
[2022-01-15] MEDS: LACTATED RINGERS 1,000 ML 125 ML IV CONT ×3 (05:19→23:54)
[2022-01-15 05:52] LABS: Hematocrit 26.3 % (42.0-52.0); Hemoglobin 7.7 g/dL (14.0-18.0); Mean Corpuscular HGB Conc 29.3 g/dl (32-36); Mean Corpuscular Hemoglobin 27.4 pg (26-34); Mean Corpuscular Volume 93.6 fl (80-100); Mean Platelet Volume 11.2 fl (7.4-10.4); Platelet Count Result 169 k/mm3 (150-375); Red Blood Count 2.81 M/mm3 (4.6-6.20); Red Cell Distribution Width 19.4 % (11.5-14.5); White Blood Count 10.9 K/mm3 (4.5-10.0)
[2022-01-15 05:54] LABS: Albumin Level 2.6 g/dL (3.5-5.1); Anion Gap 6 mmol/L (8-16); Blood Urea Nitrogen 66 mg/dL (9-20); Calcium 8.2 mg/dL (8.4-10.2); Carbon Dioxide 23 mmol/L (22-30); Chloride 114 mmol/L (98-107); Estimated CRCL calculation 37 ml/min; Estimated Glomerular Filt Rate 50; Glucose 127 mg/dL (65-110); Magnesium 1.9 mg/dL (1.6-2.3); Phosphorus 4.1 mg/dL (2.5-4.5); Potassium 4.3 mmol/L (3.4-5.0); Sodium 143 mmol/L (137-145)
[2022-01-15 06:00] VITALS: BP 91/41; PULSE 84; RESP 16; TEMP 37.3; O2SAT 99
--- NOTE | 2022-01-15 07:22 | WPDUROPN2 ---
Progress Note: A&P Assessment and Plan (1) Hematuria: Code(s): R31.9 - Hematuria, unspecified Status: Acute (2) Urinary tract infection: Qualifiers: Hematuria presence: with hematuria Urinary tract infection type: site unspecified Qualified Code(s): N39.0 - Urinary tract infection, site not specified; R31.9 - Hematuria, unspecified Code(s): N39.0 - Urinary tract infection, site not specified Status: Acute Assessment and Plan: Pt. continues to refuse medical care as recommended - refused CT-abd/pelvis yesterday. Has know bladder neoplasm diagnosed in 2019 for which, to my knowledge, he's never complied with treatment recommendations. Also has know marked PSA elevation for which he's not attented to. Urine slightly red on CBI. Will continue that awaiting completion of cultures. Subjective Subjective Date/Time Seen: 01/15/22 07:22 Complaining of back pain Review of Systems Cardiovascular: Cardiovascular: Denies chest pain, Denies lightheadedness, Denies palpitations and Denies dyspnea Respiratory: Respiratory: Denies dyspnea Gastrointestinal: Gastrointestinal: Denies diarrhea, Denies nausea and Denies vomiting Genitourinary: Genitourinary: Reports hematuria and Denies dysuria Endocrine: Endocrine: Denies palpitations Exam Const: General: no acute distress Resp: Effort & Inspection: normal respiratory effort GI: Inspection: non-distended GI Palp: No abdominal tenderness and No Guarding due to palpation present (GI) Auscultation: normal bowel sounds Urinary Catheter: Urinary Catheter: patent and draining and urine pink Objective Data Vital Signs Vital Signs: Vital Signs - 24 hr 01/14/22 08:00 01/14/22 10:15 01/14/22 15:32 Temperature Pulse Rate 80 Respiratory Rate 19 Blood Pressure 106/45 L Pulse Oximetry 94 95 01/14/22 16:20 01/14/22 16:40 01/14/22 17:40 Temperature 98.2 F 96.9 F L 98.0 F Pulse Rate 80 69 80 Respiratory Rate 16 14 16 Blood Pressure 98/50 L 89/54 L 116/62 Pulse Oximetry 92 96 01/14/22 18:40 01/14/22 22:00 01/15/22 06:00 Temperature 98.4 F 98.2 F 99.2 F Pulse Rate 67 79 84 Respiratory Rate 15 16 16 Blood Pressure 109/60 116/55 L 91/41 L Pulse Oximetry 96 95 99 Intake/Output Intake/Output: Intake & Output 01/12/22 01/13/22 01/14/22 01/15/22 23:59 23:59 23:59 23:59 Intake Total 1175 2855 1200 Output Total 1000 3350 2300 Balance 175 -495 -1100 Meds/Results Medications: Active Medications Generic Name Dose Route Start Last Admin Trade Name Freq PRN Reason Stop Dose Admin Acetaminophen 650 mg 01/13/22 21:56 Acetaminophen Elixir 325 Mg/10.15 Ml Udc PO Q4H PRN Mild Pain (1-3) or Fever Hydrocodone Bitart/Acetaminophen 1 tab 01/13/22 19:20 01/15/22 05:02 Hydrocodone/Acetaminophen (*Crx) 5-325 Mg Tablet PO 1 tab Q4H PRN Administration Pain Rated 7-10 Albuterol 2.5 mg 01/13/22 19:20 Albuterol Sulfate Neb 2.5 Mg/0.5 Ml Inh INHALATION Q6HRT PRN Shortness Of Breath Ascorbic Acid 500 mg 01/14/22 09:00 01/14/22 18:21 Ascorbic Acid 500 Mg Tablet FEED TUBE 02/13/22 08:59 Not Given BID ANNA Aspirin 81 mg 01/14/22 09:00 01/14/22 09:34 Aspirin 81 Mg Chewable Tablet PO 02/13/22 08:59 81 mg DAILY ANNA Administration Atorvastatin Calcium 80 mg 01/13/22 21:00 01/14/22 21:35 Atorvastatin 40 Mg Tablet FEED TUBE 80 mg HS ANNA Administration Bisacodyl 10 mg 01/13/22 19:20 Bisacodyl 10 Mg Suppository RECTAL DAILY PRN Constipation Clopidogrel Bisulfate 75 mg 01/14/22 09:00 01/14/22 09:33 Clopidogrel Bisulfate 75 Mg Tablet FEED TUBE 75 mg DAILY ANNA Administration Dextrose 12.5 gm 01/13/22 19:13 Dextrose 50% 25 Gm/50 Ml Syringe IV PUSH PRN PRN Hypoglycemia Protocol Ferrous Sulfate 220 mg 01/14/22 09:00 01/14/22 09:35 Ferrous Sulfate Liquid 220 Mg/5 Ml Elixir FEED TUBE 02/13/22 08
[2022-01-15 08:00] VITALS: PULSE 84; RESP 16; O2SAT 95
[2022-01-15 08:15] LABS: Glucose Point of Care 126 mg/dl (65-105)
[2022-01-15] MEDS: PSYLLIUM SUGAR FREE POWDER PACKET 1 PACKET FEED TUBE ×2 (08:59→21:07)
[2022-01-15] MEDS: SILVERGEL (ELTA) 45 ML 1 APPLIC TOPICAL (09:00)
[2022-01-15] MEDS: CLOPIDOGREL BISULFATE 75 MG TABLET FEED TUBE (09:00)
[2022-01-15] MEDS: GENTAMICIN SULFATE 0.1% CR 15 GM TUBE 0.1 APPLIC TOPICAL (09:00)
[2022-01-15] MEDS: ASCORBIC ACID 500 MG TABLET FEED TUBE ×2 (09:01→17:29)
[2022-01-15] MEDS: ACIDOPHILUS PACKET 1 PKT PACKET FEED TUBE ×4 (09:01→21:07)
[2022-01-15] MEDS: ASPIRIN 81 MG CHEWABLE TABLET PO (09:01)
[2022-01-15] MEDS: MULTIVITAMINS THERAPEUTIC TAB (*BKC) 1 TABLET FEED TUBE (09:01)
[2022-01-15] MEDS: HEPARIN SODIUM 5,000 UNITS/ML VIAL 5000 UNITS SUB-Q ×2 (09:01→21:07)
[2022-01-15] MEDS: SERTRALINE HCL 25 MG TABLET PO (09:01)
[2022-01-15] MEDS: SILVER SULFADIAZINE 1% CR 50 GM JAR (*BKC) 1 APPLIC TOPICAL (09:02)
[2022-01-15] MEDS: TOLNAFTATE 1% POWDER 45 GM BTL 1 APPLIC TOPICAL ×2 (09:02→21:15)
[2022-01-15] MEDS: FERROUS SULFATE LIQUID 220 MG/5 ML ELIXIR FEED TUBE (09:02)
--- NOTE | 2022-01-15 09:10 | PC.NURSE ---
Pt alert to person and place. Knows the year but not the month. Encouraged to have CT test. Continues to refuse. Md aware.
[2022-01-15 09:22] VITALS: O2SAT 95
--- NOTE | 2022-01-15 09:49 | PTEVAL ---
Physical Therapy Evaluation Potential for Rehabilitation: Treatment Plan: I evaluated Ramana Gaines and recommend the outlined treatment plan:
[2022-01-15 12:18] LABS: Glucose Point of Care 179 mg/dl (65-105)
[2022-01-15 14:00] VITALS: BP 113/78; PULSE 95; RESP 18; TEMP 35.6; O2SAT 93
--- NOTE | 2022-01-15 15:09 | PCNFU ---
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 Goal:Improvement in wound status Pt is slowly progressing towards goal. Continue with current goal at this time. Pt current nutrition is Tube feeding of Glucerna 1.2, heart healthy/pureed, L4 diet and thicken liquids Last recorded weight is 72.4 kg, stable. Recommend re-weight prior to discharge. Bowel Motility: +BM reported 01/15/22 Labs Reviewed: Hgb 7.7, Hct 26.3, Alb 2.6, Cl 114, Ca 8.2, GFR 50, BUN 66, Cr 1.40, Glu 127 Meds Noted: [place], Vitamin C, Aspirin, Plavix, Ferrous Sulfate, Heparin Sodium, Lactated Ringers, Multivitamin, Lansoprazole, Zosyn, Metamucil, Vancomycin Skin: left lower leg ulcer - venous stasis, right lower leg ulcer - venous stasis, sacrum pressure ulcer - Stage IV Additional Notes: Current nutrition is a heart healthy/pureed L4 and thicken liquid diet with reported intake of 25%, 100%, 10%, and 30%. Pt also receiving nutrition from tube feeding of Glucerna 1.2 running at a rate of 85mL/hr over 22 hours to provide 2244kcal, 112g of protein, and 1505mL of water, meeting 92% of estimated kcal needs and 86% of estimated protein needs. Pt receiving additional nutrition from dietary supplements of Prostat BID providing an additional 100kcal and 15g of protein and Brian BID providing an additional 80kcal and 14g of protein. Agree with diet orders at this time. Will continue to follow. monitor and follow up on /Fridays
--- NOTE | 2022-01-15 16:38 | PM.IMPN ---
Progress Note: A&P Assessment and Plan (1) Urinary tract infection: Qualifiers: Hematuria presence: with hematuria Urinary tract infection type: site unspecified Qualified Code(s): N39.0 - Urinary tract infection, site not specified; R31.9 - Hematuria, unspecified Code(s): N39.0 - Urinary tract infection, site not specified Status: Acute Assessment and Plan: Patient had initially been placed on Rocephin in the emergency room for his urinary tract infection, but then after further investigation a very large decubitus ulcers noted on coccyx the patient was changed to vancomycin and Zosyn. Will continue with current medication treatment and await culture and sensitivity results. 01/14/2022 interval history: patient is a resident of nursing with dementia unable to provide detailed review of symptom, patient was sent to emergency department because patient developed acute mental status change is found to have UTI and hematuria, patient has a history of UTI with Pseudomonas and patient was started on Cefepime and vancomycin will follow-up on urine culture and sensitivity and further recommendation to follow, patient hemoglobin has dropped to 6.8 will give 1 unit of pack RBC and consult urologist for further recommendation, will have a PT OT evaluate the patient and will monitor. patient also has significant decubitus ulcer will consult wound management. 01/15/2022 interval history: patient presented with hematuria patient was seen by Urology patient has known history of bladder cancer however patient did not follow-up for further care with the urologist and patient is refusing the treatment, patient started on CBI for hematuria will continue to monitor, patient blood culture is growing Staph epidermis I suspect most likely contamination however to be safe side initially will order transthoracic cardiac echo if needed will order HONEY, patient has been refusing to work with PT OT, patient has severe dementia he may not comprehend severity of his illness, will continue to monitor. (2) Acute dehydration: Code(s): E86.0 - Dehydration Status: Acute Assessment and Plan: Patient received 2 L of normal saline in the emergency room. Will continue to hydrate patient with lactated Ringer's and continue monitor sodium levels as well as BUN and creatinine. (3) Sacral decubitus ulcer: Onset Date: Unknown Qualifiers: Pressure injury stage: stage 4 Qualified Code(s): L89.154 - Pressure ulcer of sacral region, stage 4 Code(s): L89.159 - Pressure ulcer of sacral region, unspecified stage Status: Acute Assessment and Plan: Have consult Wound Care do appreciate further recommendations from Wound Care on decubitus ulcer as well as bilateral lower extremity wounds (4) Acute on chronic kidney failure: Code(s): N17.9 - Acute kidney failure, unspecified; N18.9 - Chronic kidney disease, unspecified Status: Acute Assessment and Plan: Patient's creatinine is significantly higher than it has been in the past. The patient appears to be dehydrated and acute kidney injury is most likely prerenal. Will continue to hydrate patient and monitor laboratories. Subjective Date/time seen: 01/15/22 16:38 Patient had initially been placed on Rocephin in the emergency room for his urinary tract infection, but then after further investigation a very large decubitus ulcers noted on coccyx the patient was changed to vancomycin and Zosyn. Will continue with current medication treatment and await culture and sensitivity results. 01/14/2022 interval history: patient is a resident of nursing with dementia unable to provide detailed review of symptom, patient was sent to emergency department because patient developed acute mental status change is found to have UTI and hematuria, patient has a history of UTI with Pseudomonas and patient was started on Cefepime and vancomycin will follow-up on urine cu
[2022-01-15 16:43] LABS: Glucose Point of Care 127 mg/dl (65-105)
[2022-01-15] MEDS: INSULIN ASPART (*BKC) 100 UNITS/ML 15 UNITS SUB-Q (17:30)
[2022-01-15 20:44] LABS: Glucose Point of Care 139 mg/dl (65-105)
[2022-01-15] MEDS: ATORVASTATIN 40 MG TABLET 80 MG FEED TUBE (21:07)
[2022-01-15] MEDS: INSULIN GLARGINE (*BKC) 100 UNITS/ML 30 UNITS SUB-Q (21:08)
[2022-01-15 22:00] VITALS: BP 104/58; PULSE 79; RESP 24; TEMP 36.2; O2SAT 100
--- NOTE | 2022-01-16 | ECHO_ITS ---
Patient Info Name: Ramana Gaines Age: 71 years : 1950 Gender: Male Ht: 65 in Wt: 159 lbs BSA: 1.83 m2 HR: 78 bpm BP: 95 / 55 mmHg Heart Rhythm: Sinus Rhythm Technical Quality: Fair Exam Date: 01/16/2022 11:50 AM Exam Location: [facility] Room: 332 Patient Status: Inpatient Admit Date: 01/14/2022 Staff Ordering Physician: Gail Ugalde MD Engineering Technician: Marleny Rosas RDCS Attending Provider: Gail Ugalde MD Exam Type: CA echo dop color flow w con Study Info Indications - STAPH R/O VEGETATION Complete two-dimensional, color flow and Doppler transthoracic echocardiogram is performed with contrast to opacify the left ventricle and to improve the deliniation of the left ventricle endocardial borders. Contrast/Agitated Saline Contrast/Ag. Saline: Definity Amount: 2.00 ml Administered By: Marleny Rosas [facility] Existing IV Access: Yes IV Access Condition: patent with no signs of infiltration Summary 1. Left ventricular chamber dimension is normal. 2. Left ventricular systolic function is normal, estimated at 60-65%. 3. There is mildly increased left ventricular wall thickness. 4. The left ventricular diastolic function is grade I diastolic dysfunction. 5. The mid anteroseptal is hypokinetic. 6. There is mild mitral valve regurgitation. 7. there is poor visualization of most of the valves. No obvious vegetation is seen on the mitral valve. The tricuspid, aortic and pulmonic valves are not well visualized. This is not a definitive study for analysis of endocarditis. Left Ventricle Left ventricular chamber dimension is normal. Left ventricular systolic function is normal, estimated at 60-65%. There is mildly increased left ventricular wall thickness. The left ventricular diastolic function is grade I diastolic dysfunction. The mid anteroseptal is hypokinetic. The apex, inferior wall, anterior wall, inferoseptal wall, anterolateral wall, inferolateral wall, and basal anteroseptal are not scored. Right Ventricle Right ventricular chamber dimension is normal. Right ventricular systolic function is normal. Left Atria Left atrial chamber dimension is normal. Right Atria Right atrial chamber dimension is normal. Atrial Septum Intact interatrial septum visualized by color flow imaging. Aortic Valve The aortic valve is not well visualized. There is no aortic valve stenosis. There is trace aortic valve regurgitation. Pulmonic Valve The pulmonic valve is not well visualized. There is no pulmonic valve stenosis. Mitral Valve The mitral valve has normal leaflets. There is no mitral valve stenosis. There is mild mitral valve regurgitation. Tricuspid Valve The tricuspid valve leaflets are not well visualized. There is no significant tricuspid valve stenosis. There is trace tricuspid valve regurgitation. Other Findings there is poor visualization of most of the valves. No obvious vegetation is seen on the mitral valve. The tricuspid, aortic and pulmonic valves are not well visualized. This is not a definitive study for analysis of endocarditis. Pericardium/Pleural The pericardium appears normal. There is no pericardial effusion. Inferior Vena Cava Normal inferior vena cava with >50% collapse upon inspiration consistent with normal right atrial pressure, 8 mmHg. Aorta The aortic root size at the sinus of Valsalva is normal. There is mild aortic atheroscle
[2022-01-16 00:12] LABS: Glucose Point of Care 96 mg/dl (65-105)
[2022-01-16] MEDS: INSULIN ASPART (*BKC) 100 UNITS/ML 15 UNITS SUB-Q ×2 (00:20→17:53)
[2022-01-16 05:08] LABS: Hematocrit 25.9 % (42.0-52.0); Hemoglobin 7.7 g/dL (14.0-18.0); Mean Corpuscular HGB Conc 29.7 g/dl (32-36); Mean Corpuscular Hemoglobin 27.9 pg (26-34); Mean Corpuscular Volume 93.8 fl (80-100); Platelet Count Result 184 k/mm3 (150-375); Red Blood Count 2.76 M/mm3 (4.6-6.20); Red Cell Distribution Width 18.8 % (11.5-14.5); White Blood Count 13.3 K/mm3 (4.5-10.0)
[2022-01-16] MEDS: CENTRAL LINE FLUSH 10 ML IV PUSH ×3 (05:26→20:21)
[2022-01-16 05:42] LABS: Albumin Level 2.5 g/dL (3.5-5.1); Anion Gap 2 mmol/L (8-16); Blood Urea Nitrogen 56 mg/dL (9-20); Calcium 8.2 mg/dL (8.4-10.2); Carbon Dioxide 26 mmol/L (22-30); Chloride 112 mmol/L (98-107); Estimated CRCL calculation 43 ml/min; Estimated Glomerular Filt Rate 59; Glucose 60 mg/dL (65-110); Phosphorus 3.5 mg/dL (2.5-4.5); Potassium 4.5 mmol/L (3.4-5.0); Sodium 140 mmol/L (137-145)
[2022-01-16] MEDS: GLUCOSE ORAL GEL 15 GM OF GLUCSE IN 37.5 GM TUBE PO (05:47)
[2022-01-16 06:00] VITALS: BP 95/55; PULSE 78; RESP 24; TEMP 36.2; O2SAT 98
[2022-01-16] MEDS: DEXTROSE 50% 25 GM/50 ML SYRINGE IV PUSH (06:19)
[2022-01-16 06:48] LABS: Glucose Point of Care 132 mg/dl (65-105)
[2022-01-16 06:48] LABS: Glucose Point of Care 61 mg/dl (65-105)
[2022-01-16 07:57] LABS: Glucose Point of Care 89 mg/dl (65-105)
[2022-01-16] MEDS: LACTATED RINGERS 1,000 ML 125 ML IV CONT ×3 (09:14→23:18)
[2022-01-16] MEDS: FERROUS SULFATE LIQUID 220 MG/5 ML ELIXIR FEED TUBE (09:15)
[2022-01-16] MEDS: ASCORBIC ACID 500 MG TABLET FEED TUBE ×2 (09:15→17:53)
[2022-01-16] MEDS: ASPIRIN 81 MG CHEWABLE TABLET PO (09:15)
[2022-01-16] MEDS: CLOPIDOGREL BISULFATE 75 MG TABLET FEED TUBE (09:15)
[2022-01-16] MEDS: ACIDOPHILUS PACKET 1 PKT PACKET FEED TUBE ×4 (09:15→20:20)
[2022-01-16] MEDS: HEPARIN SODIUM 5,000 UNITS/ML VIAL 5000 UNITS SUB-Q ×2 (09:16→20:20)
[2022-01-16] MEDS: MULTIVITAMINS THERAPEUTIC TAB (*BKC) 1 TABLET FEED TUBE (09:16)
[2022-01-16] MEDS: GENTAMICIN SULFATE 0.1% CR 15 GM TUBE 0.1 APPLIC TOPICAL (09:16)
[2022-01-16] MEDS: SILVER SULFADIAZINE 1% CR 50 GM JAR (*BKC) 1 APPLIC TOPICAL (09:17)
[2022-01-16] MEDS: SILVERGEL (ELTA) 45 ML 1 APPLIC TOPICAL (09:17)
[2022-01-16] MEDS: SERTRALINE HCL 25 MG TABLET PO (09:17)
[2022-01-16] MEDS: TOLNAFTATE 1% POWDER 45 GM BTL 1 APPLIC TOPICAL ×2 (09:18→20:21)
[2022-01-16] MEDS: ACETAMINOPHEN ELIXIR 325 MG/10.15 ML UDC 650 MG PO (09:22)
[2022-01-16 10:45] LABS: Vancomycin Trough 18.7 ug/mL (10.0-20.0)
[2022-01-16 11:42] LABS: Glucose Point of Care 149 mg/dl (65-105)
--- NOTE | 2022-01-16 12:07 | PM.IMPN ---
Progress Note: A&P Assessment and Plan (1) Urinary tract infection: Qualifiers: Hematuria presence: with hematuria Urinary tract infection type: site unspecified Qualified Code(s): N39.0 - Urinary tract infection, site not specified; R31.9 - Hematuria, unspecified Code(s): N39.0 - Urinary tract infection, site not specified Status: Acute Assessment and Plan: Patient had initially been placed on Rocephin in the emergency room for his urinary tract infection, but then after further investigation a very large decubitus ulcers noted on coccyx the patient was changed to vancomycin and Zosyn. Will continue with current medication treatment and await culture and sensitivity results. 01/14/2022 interval history: patient is a resident of nursing with dementia unable to provide detailed review of symptom, patient was sent to emergency department because patient developed acute mental status change is found to have UTI and hematuria, patient has a history of UTI with Pseudomonas and patient was started on Cefepime and vancomycin will follow-up on urine culture and sensitivity and further recommendation to follow, patient hemoglobin has dropped to 6.8 will give 1 unit of pack RBC and consult urologist for further recommendation, will have a PT OT evaluate the patient and will monitor. patient also has significant decubitus ulcer will consult wound management. 01/15/2022 interval history: patient presented with hematuria patient was seen by Urology patient has known history of bladder cancer however patient did not follow-up for further care with the urologist and patient is refusing the treatment, patient started on CBI for hematuria will continue to monitor, patient blood culture is growing Staph epidermis I suspect most likely contamination however to be safe side initially will order transthoracic cardiac echo if needed will order HONEY, patient has been refusing to work with PT OT, patient has severe dementia he may not comprehend severity of his illness, will continue to monitor. 01/16/2022 interval history: patient presented with hematuria patient was seen by Urology patient has known history of bladder cancer however patient did not follow-up for further care with the urologist and patient is refusing the treatment, patient was started on CBI for hematuria will continue to monitor, patient blood culture is growing Staph epidermis I suspect most likely contamination however to be safe side initially will order transthoracic cardiac echo if needed will order HONEY, patient has been refusing to work with PT OT, patient has severe dementia he may not comprehend severity of his illness, will continue to monitor patient has decubitus ulcer and seen by wound team . (2) Acute dehydration: Code(s): E86.0 - Dehydration Status: Acute Assessment and Plan: Patient received 2 L of normal saline in the emergency room. Will continue to hydrate patient with lactated Ringer's and continue monitor sodium levels as well as BUN and creatinine. (3) Sacral decubitus ulcer: Onset Date: Unknown Qualifiers: Pressure injury stage: stage 4 Qualified Code(s): L89.154 - Pressure ulcer of sacral region, stage 4 Code(s): L89.159 - Pressure ulcer of sacral region, unspecified stage Status: Acute Assessment and Plan: Have consult Wound Care do appreciate further recommendations from Wound Care on decubitus ulcer as well as bilateral lower extremity wounds (4) Acute on chronic kidney failure: Code(s): N17.9 - Acute kidney failure, unspecified; N18.9 - Chronic kidney disease, unspecified Status: Acute Assessment and Plan: Patient's creatinine is significantly higher than it has been in the past. The patient appears to be dehydrated and acute kidney injury is most likely prerenal. Will continue to hydrate patient and monitor laboratories. Subjective Date/time seen: 01/16/22 12:07
[2022-01-16 14:00] VITALS: BP 108/51; PULSE 78; RESP 16; TEMP 36.2; O2SAT 99
[2022-01-16] MEDS: PERFLUTREN LIPID MICROSPHERES 1.5 ML VIAL DILUTED TO 10 ML TOTAL VOLUME IV PUSH (14:31)
--- NOTE | 2022-01-16 14:31 | IVDEFINITY ---
Prior to administration of IV Definity the patient was educated on the risks and benefits of the imaging enhancing agent including potential adverse side effects. The patient verbalized understanding. Allergies were verified. No exclusion criteria were identified and at least one of the following inclusion criteria were met: 1) physician request, 2) patient technically difficult to image (per the [place] [employer] guidelines of two or more segments not discernable within the apical view), or 3) questionable left ventricular function. ?
[2022-01-16 16:46] LABS: Glucose Point of Care 171 mg/dl (65-105)
[2022-01-16 20:18] LABS: Glucose Point of Care 131 mg/dl (65-105)
[2022-01-16] MEDS: ATORVASTATIN 40 MG TABLET 80 MG FEED TUBE (20:20)
[2022-01-16 22:00] VITALS: BP 111/42; PULSE 56; RESP 24; TEMP 36.1; O2SAT 90
[2022-01-16 23:15] LABS: Glucose Point of Care 81 mg/dl (65-105)
[2022-01-17 05:24] LABS: Hematocrit 26.9 % (42.0-52.0); Hemoglobin 7.9 g/dL (14.0-18.0); Mean Corpuscular HGB Conc 29.4 g/dl (32-36); Mean Corpuscular Hemoglobin 27.8 pg (26-34); Mean Corpuscular Volume 94.7 fl (80-100); Mean Platelet Volume 10.7 fl (7.4-10.4); Platelet Count Result 169 k/mm3 (150-375); Red Blood Count 2.84 M/mm3 (4.6-6.20); Red Cell Distribution Width 17.9 % (11.5-14.5); White Blood Count 10.2 K/mm3 (4.5-10.0)
[2022-01-17] MEDS: LACTATED RINGERS 1,000 ML 125 ML IV CONT ×3 (05:25→22:00)
[2022-01-17] MEDS: CENTRAL LINE FLUSH 10 ML IV PUSH ×3 (05:26→21:50)
[2022-01-17] MEDS: SILVERGEL (ELTA) 45 ML 1 APPLIC TOPICAL ×2 (05:27→08:49)
--- NOTE | 2022-01-17 05:32 | PC.NURSE ---
Changed dressings on bilateral lower extremities using silvergel, abd pads and kerlix.
[2022-01-17 05:46] LABS: Albumin Level 2.6 g/dL (3.5-5.1); Anion Gap 4 mmol/L (8-16); Blood Urea Nitrogen 37 mg/dL (9-20); Calcium 8.1 mg/dL (8.4-10.2); Carbon Dioxide 24 mmol/L (22-30); Chloride 107 mmol/L (98-107); Estimated CRCL calculation 46 ml/min; Estimated Glomerular Filt Rate > 60; Glucose 126 mg/dL (65-110); Phosphorus 3.7 mg/dL (2.5-4.5); Sodium 135 mmol/L (137-145)
[2022-01-17 06:00] VITALS: BP 111/55; PULSE 84; RESP 22; TEMP 36.1; O2SAT 98
[2022-01-17 08:35] LABS: Glucose Point of Care 133 mg/dl (65-105)
[2022-01-17] MEDS: ACIDOPHILUS PACKET 1 PKT PACKET FEED TUBE ×4 (08:43→21:48)
[2022-01-17] MEDS: CLOPIDOGREL BISULFATE 75 MG TABLET FEED TUBE (08:43)
[2022-01-17] MEDS: PSYLLIUM SUGAR FREE POWDER PACKET 1 PACKET FEED TUBE (08:43)
[2022-01-17] MEDS: ASPIRIN 81 MG CHEWABLE TABLET PO (08:43)
[2022-01-17] MEDS: ASCORBIC ACID 500 MG TABLET FEED TUBE ×2 (08:43→17:08)
[2022-01-17] MEDS: MULTIVITAMINS THERAPEUTIC TAB (*BKC) 1 TABLET FEED TUBE (08:44)
[2022-01-17] MEDS: SERTRALINE HCL 25 MG TABLET PO (08:45)
[2022-01-17] MEDS: HEPARIN SODIUM 5,000 UNITS/ML VIAL 5000 UNITS SUB-Q ×2 (08:45→21:49)
[2022-01-17] MEDS: TOLNAFTATE 1% POWDER 45 GM BTL 1 APPLIC TOPICAL ×2 (08:48→21:50)
[2022-01-17] MEDS: SILVER SULFADIAZINE 1% CR 50 GM JAR (*BKC) 1 APPLIC TOPICAL (08:49)
[2022-01-17] MEDS: GENTAMICIN SULFATE 0.1% CR 15 GM TUBE 0.1 APPLIC TOPICAL (08:50)
[2022-01-17] MEDS: FERROUS SULFATE LIQUID 220 MG/5 ML ELIXIR FEED TUBE (10:39)
--- NOTE | 2022-01-17 10:41 | WPDUROPN2 ---
Progress Note: A&P Assessment and Plan (1) Hematuria: Code(s): R31.9 - Hematuria, unspecified Status: Acute (2) Urinary tract infection: Qualifiers: Hematuria presence: with hematuria Urinary tract infection type: site unspecified Qualified Code(s): N39.0 - Urinary tract infection, site not specified; R31.9 - Hematuria, unspecified Code(s): N39.0 - Urinary tract infection, site not specified Status: Acute Assessment and Plan: - known untreated bladder cancer in a non compliant patient who has refused even CT imaging - urine clearing on CBI; cultures staph and enterococcus - can DC back to facility when safe to do so Subjective Subjective Date/Time Seen: 01/17/22 10:41 Urine clearing on CBI, drip is minimal. Blood cultures from 01/13 x2 growing staph epi and enterococcus, S to vanc. Review of Systems Review of Systems: All systems reviewed & are unremarkable except as noted in HPI and below Exam Narrative: alert, oriented, no distress, urine clear on slow drip cbi Objective Data Vital Signs Vital Signs: Vital Signs - 24 hr 01/16/22 14:00 01/16/22 22:00 01/17/22 06:00 Temperature 36.2 C L 36.1 C L 36.1 C L Pulse Rate 78 56 L 84 Respiratory Rate 16 24 H 22 H Blood Pressure 108/51 L 111/42 L 111/55 L Pulse Oximetry 99 90 98 Intake/Output Intake/Output: Intake & Output 01/14/22 01/15/22 01/16/22 01/17/22 23:59 23:59 23:59 23:59 Intake Total 3105 4040 19347 68377 Output Total 3350 5800 80289 50630 Balance -245 -1760 3128 -1600 Meds/Results Medications: Active Medications Generic Name Dose Route Start Last Admin Trade Name Freq PRN Reason Stop Dose Admin Acetaminophen 650 mg 01/13/22 21:56 01/16/22 09:22 Acetaminophen Elixir 325 Mg/10.15 Ml Udc PO 650 mg Q4H PRN Administration Mild Pain (1-3) or Fever Hydrocodone Bitart/Acetaminophen 1 tab 01/13/22 19:20 01/15/22 05:02 Hydrocodone/Acetaminophen (*Crx) 5-325 Mg Tablet PO 1 tab Q4H PRN Administration Pain Rated 7-10 Albuterol 2.5 mg 01/13/22 19:20 Albuterol Sulfate Neb 2.5 Mg/0.5 Ml Inh INHALATION Q6HRT PRN Shortness Of Breath Ascorbic Acid 500 mg 01/14/22 09:00 01/17/22 08:43 Ascorbic Acid 500 Mg Tablet FEED TUBE 02/13/22 08:59 500 mg BID ANNA Administration Aspirin 81 mg 01/14/22 09:00 01/17/22 08:43 Aspirin 81 Mg Chewable Tablet PO 02/13/22 08:59 81 mg DAILY ANNA Administration Atorvastatin Calcium 80 mg 01/13/22 21:00 01/16/22 20:20 Atorvastatin 40 Mg Tablet FEED TUBE 80 mg HS ANNA Administration Bisacodyl 10 mg 01/13/22 19:20 Bisacodyl 10 Mg Suppository RECTAL DAILY PRN Constipation Clopidogrel Bisulfate 75 mg 01/14/22 09:00 01/17/22 08:43 Clopidogrel Bisulfate 75 Mg Tablet FEED TUBE 75 mg DAILY ANNA Administration Dextrose 12.5 gm 01/13/22 19:13 01/16/22 06:19 Dextrose 50% 25 Gm/50 Ml Syringe IV PUSH 12.5 gm PRN PRN Administration Hypoglycemia Protocol Ferrous Sulfate 220 mg 01/14/22 09:00 01/17/22 10:39 Ferrous Sulfate Liquid 220 Mg/5 Ml Elixir FEED TUBE 02/13/22 08:59 220 mg DAILY ANNA Administration Gentamicin Sulfate 0.1 applic 01/14/22 09:00 01/17/22 08:50 Gentamicin Sulfate 0.1% Cr 15 Gm Tube TOPICAL 02/13/22 08:59 0.1 applic DAILY ANNA Administration Glucagon 1 mg 01/13/22 19:13 Glucagon For Inj 1 Mg Vial IM PRN PRN Hypoglycemia Protocol Glucose 15 gm 01/13/22 19:13 01/16/22 05:47 Glucose Oral Gel 15 Gm Of Glucse In 37.5 Gm Tube PO 15 gm PRN PRN Administration Hypoglycemia Protocol Heparin Sodium (Porcine) 5,000 units 01/13/22 21:00 01/17/22 08:45 Heparin Sodium 5,000 Units/Ml Vial SUB-Q 5,000 units Q12HR ANNA Administration Piperacillin/Tazobactam/Dextrose 3.375 gm in 50 mls @ 100 mls/hr 01/13/22 18:00 01/17/22 05:55 Zosyn 3.375 Gm/D5w 50ml Pm IVPB 100 mls/hr Q6HR ANNA Infusi
--- NOTE | 2022-01-17 11:00 | PCOTNOTE ---
Attempted OT evaluation this AM; pt. refused and did not want to attempt. RN notified
--- NOTE | 2022-01-17 11:56 | PCPTNOTE ---
Attempted physical therapy evaluation. Patient refused to participate in PT at this time without reason. RN aware.
[2022-01-17 11:59] LABS: Glucose Point of Care 192 mg/dl (65-105)
--- NOTE | 2022-01-17 13:16 | PM.IMPN ---
Progress Note: A&P Assessment and Plan (1) Urinary tract infection: Qualifiers: Hematuria presence: with hematuria Urinary tract infection type: site unspecified Qualified Code(s): N39.0 - Urinary tract infection, site not specified; R31.9 - Hematuria, unspecified Code(s): N39.0 - Urinary tract infection, site not specified Status: Acute Assessment and Plan: Patient had initially been placed on Rocephin in the emergency room for his urinary tract infection, but then after further investigation a very large decubitus ulcers noted on coccyx the patient was changed to vancomycin and Zosyn. Will continue with current medication treatment and await culture and sensitivity results. 01/14/2022 interval history: patient is a resident of nursing with dementia unable to provide detailed review of symptom, patient was sent to emergency department because patient developed acute mental status change is found to have UTI and hematuria, patient has a history of UTI with Pseudomonas and patient was started on Cefepime and vancomycin will follow-up on urine culture and sensitivity and further recommendation to follow, patient hemoglobin has dropped to 6.8 will give 1 unit of pack RBC and consult urologist for further recommendation, will have a PT OT evaluate the patient and will monitor. patient also has significant decubitus ulcer will consult wound management. 01/15/2022 interval history: patient presented with hematuria patient was seen by Urology patient has known history of bladder cancer however patient did not follow-up for further care with the urologist and patient is refusing the treatment, patient started on CBI for hematuria will continue to monitor, patient blood culture is growing Staph epidermis I suspect most likely contamination however to be safe side initially will order transthoracic cardiac echo if needed will order HONEY, patient has been refusing to work with PT OT, patient has severe dementia he may not comprehend severity of his illness, will continue to monitor. 01/16/2022 interval history: patient presented with hematuria patient was seen by Urology patient has known history of bladder cancer however patient did not follow-up for further care with the urologist and patient is refusing the treatment, patient was started on CBI for hematuria will continue to monitor, patient blood culture is growing Staph epidermis I suspect most likely contamination however to be safe side initially will order transthoracic cardiac echo if needed will order HONEY, patient has been refusing to work with PT OT, patient has severe dementia he may not comprehend severity of his illness, will continue to monitor patient has decubitus ulcer and seen by wound team. 01/17/2022 interval history: patient presented with hematuria patient was seen by Urology patient has known history of bladder cancer however patient did not follow-up for further care with the urologist and patient is refusing the treatment, patient was started on CBI for hematuria will continue to monitor, patient blood culture is growing Staph epidermis I suspect most likely contamination however to be safe side initially ordered transthoracic cardiac echo it is essentially normal does not show any sign of agitation however transthoracic ECHO is not diagnostic for vegetation, will repeat the blood culture if persistent and clinically warranted will order HONEY, patient has been refusing to work with PT OT, patient has severe dementia he may not comprehend severity of his illness, will continue to monitor patient has decubitus ulcer and seen by wound team and appreciate. (2) Acute dehydration: Code(s): E86.0 - Dehydration Status: Acute Assessment and Plan: Patient received 2 L of normal saline in the emergency room. Will continue to hydrate patient with lactated Ringer's and continue monitor sodium levels as well as BUN and creatinine. (3) Sacral
[2022-01-17 14:00] VITALS: BP 127/59; PULSE 89; RESP 20; TEMP 36.2; O2SAT 100
--- NOTE | 2022-01-17 14:39 | PCPTNOTE ---
Attempted Physical therapy evaluation, patient refused stating would you just get out not allowing therapist to educate patient RN and cupola charger Izabela aware of patient's refusal.
--- NOTE | 2022-01-17 15:08 | PCOTNOTE ---
Attempted OT evaluation, patient refused stating would you just get out not allowing therapist to educate patient RN aware of patient's refusal.
[2022-01-17 16:55] LABS: Glucose Point of Care 169 mg/dl (65-105)
[2022-01-17] MEDS: ATORVASTATIN 40 MG TABLET 80 MG FEED TUBE (21:48)
[2022-01-17 22:00] VITALS: BP 124/40; PULSE 83; RESP 22; TEMP 36.2; O2SAT 100
[2022-01-17 23:03] LABS: Glucose Point of Care 185 mg/dl (65-105)
[2022-01-17] MEDS: INSULIN ASPART (*BKC) 100 UNITS/ML 15 UNITS SUB-Q (23:04)
[2022-01-18] MEDS: LACTATED RINGERS 1,000 ML 125 ML IV CONT ×3 (02:19→17:56)
[2022-01-18 04:17] LABS: Hematocrit 24.9 % (42.0-52.0); Hemoglobin 7.3 g/dL (14.0-18.0); Mean Corpuscular HGB Conc 29.3 g/dl (32-36); Mean Corpuscular Hemoglobin 27.7 pg (26-34); Mean Corpuscular Volume 94.3 fl (80-100); Mean Platelet Volume 10.7 fl (7.4-10.4); Platelet Count Result 174 k/mm3 (150-375); Red Blood Count 2.64 M/mm3 (4.6-6.20); Red Cell Distribution Width 17.7 % (11.5-14.5); White Blood Count 9.2 K/mm3 (4.5-10.0)
[2022-01-18 04:27] LABS: Albumin Level 2.5 g/dL (3.5-5.1); Anion Gap 3 mmol/L (8-16); Blood Urea Nitrogen 31 mg/dL (9-20); Calcium 8.2 mg/dL (8.4-10.2); Carbon Dioxide 26 mmol/L (22-30); Chloride 107 mmol/L (98-107); Estimated CRCL calculation 51 ml/min; Estimated Glomerular Filt Rate > 60; Glucose 114 mg/dL (65-110); Phosphorus 3.6 mg/dL (2.5-4.5); Sodium 136 mmol/L (137-145)
[2022-01-18] MEDS: CENTRAL LINE FLUSH 10 ML IV PUSH ×3 (05:04→21:26)
[2022-01-18 06:00] VITALS: BP 119/63; PULSE 93; RESP 18; TEMP 36.4; O2SAT 100
[2022-01-18 06:01] LABS: Glucose Point of Care 178 mg/dl (65-105)
--- NOTE | 2022-01-18 06:50 | WPDUROPN2 ---
Progress Note: A&P Assessment and Plan (1) Hematuria: Code(s): R31.9 - Hematuria, unspecified Status: Acute (2) Urothelial carcinoma: Code(s): C68.9 - Malignant neoplasm of urinary organ, unspecified Status: Acute Assessment and Plan: Urine minimally bloody today. This morning pt. agreeable to CT scan today and possible cystoscopy tomorrow - will try again. Subjective Subjective Date/Time Seen: 01/18/22 06:50 Complaining of bilat. foot pain this morning. Review of Systems Cardiovascular: Cardiovascular: Denies chest pain, Denies lightheadedness, Denies palpitations and Denies dyspnea Respiratory: Respiratory: Denies dyspnea Gastrointestinal: Gastrointestinal: Denies diarrhea, Denies nausea and Denies vomiting Genitourinary: Genitourinary: Denies hematuria and Denies dysuria Endocrine: Endocrine: Denies palpitations Exam Const: General: no acute distress Resp: Effort & Inspection: normal respiratory effort GI: Inspection: non-distended GI Palp: No abdominal tenderness and No Guarding due to palpation present (GI) Auscultation: normal bowel sounds Objective Data Vital Signs Vital Signs: Vital Signs - 24 hr 01/17/22 14:00 01/17/22 22:00 01/18/22 06:00 Temperature 97.2 F L 97.2 F L 97.6 F Pulse Rate 89 83 93 Respiratory Rate 20 22 H 18 Blood Pressure 127/59 L 124/40 L 119/63 Pulse Oximetry 100 100 100 Intake/Output Intake/Output: Intake & Output 01/15/22 01/16/22 01/17/22 01/18/22 23:59 23:59 23:59 23:59 Intake Total 4040 60436 74246 89414 Output Total 5800 96315 55854 34239 Balance -1760 3128 8000 -700 Meds/Results Medications: Active Medications Generic Name Dose Route Start Last Admin Trade Name Freq PRN Reason Stop Dose Admin Acetaminophen 650 mg 01/13/22 21:56 01/16/22 09:22 Acetaminophen Elixir 325 Mg/10.15 Ml Udc PO 650 mg Q4H PRN Administration Mild Pain (1-3) or Fever Hydrocodone Bitart/Acetaminophen 1 tab 01/13/22 19:20 01/15/22 05:02 Hydrocodone/Acetaminophen (*Crx) 5-325 Mg Tablet PO 1 tab Q4H PRN Administration Pain Rated 7-10 Albuterol 2.5 mg 01/13/22 19:20 Albuterol Sulfate Neb 2.5 Mg/0.5 Ml Inh INHALATION Q6HRT PRN Shortness Of Breath Ascorbic Acid 500 mg 01/14/22 09:00 01/17/22 17:08 Ascorbic Acid 500 Mg Tablet FEED TUBE 02/13/22 08:59 500 mg BID ANNA Administration Aspirin 81 mg 01/14/22 09:00 01/17/22 08:43 Aspirin 81 Mg Chewable Tablet PO 02/13/22 08:59 81 mg DAILY ANNA Administration Atorvastatin Calcium 80 mg 01/13/22 21:00 01/17/22 21:48 Atorvastatin 40 Mg Tablet FEED TUBE 80 mg HS ANNA Administration Bisacodyl 10 mg 01/13/22 19:20 Bisacodyl 10 Mg Suppository RECTAL DAILY PRN Constipation Clopidogrel Bisulfate 75 mg 01/14/22 09:00 01/17/22 08:43 Clopidogrel Bisulfate 75 Mg Tablet FEED TUBE 75 mg DAILY ANNA Administration Dextrose 12.5 gm 01/13/22 19:13 01/16/22 06:19 Dextrose 50% 25 Gm/50 Ml Syringe IV PUSH 12.5 gm PRN PRN Administration Hypoglycemia Protocol Ferrous Sulfate 220 mg 01/14/22 09:00 01/17/22 10:39 Ferrous Sulfate Liquid 220 Mg/5 Ml Elixir FEED TUBE 02/13/22 08:59 220 mg DAILY ANNA Administration Gentamicin Sulfate 0.1 applic 01/14/22 09:00 01/17/22 08:50 Gentamicin Sulfate 0.1% Cr 15 Gm Tube TOPICAL 02/13/22 08:59 0.1 applic DAILY ANNA Administration Glucagon 1 mg 01/13/22 19:13 Glucagon For Inj 1 Mg Vial IM PRN PRN Hypoglycemia Protocol Glucose 15 gm 01/13/22 19:13 01/16/22 05:47 Glucose Oral Gel 15 Gm Of Glucse In 37.5 Gm Tube PO 15 gm PRN PRN Administration Hypoglycemia Protocol Heparin Sodium (Porcine) 5,000 units 01/13/22 21:00 01/17/22 21:49 Heparin Sodium 5,000 Units/Ml Vial SUB-Q 5,000 units Q12HR ANNA Administration Piperacillin/Tazobactam/Dextrose 3.375 gm in 50 mls @ 100 mls/hr 01/13/22 18:00
[2022-01-18 07:43] LABS: Glucose Point of Care 113 mg/dl (65-105)
[2022-01-18] MEDS: ACIDOPHILUS PACKET 1 PKT PACKET FEED TUBE ×4 (09:45→21:25)
[2022-01-18] MEDS: SERTRALINE HCL 25 MG TABLET PO (09:45)
[2022-01-18 09:46] VITALS: PULSE 96
[2022-01-18] MEDS: ASCORBIC ACID 500 MG TABLET FEED TUBE ×2 (09:46→17:53)
[2022-01-18] MEDS: METOPROLOL SUCCINATE EXT REL 12.5 MG TABCR PO (09:46)
[2022-01-18] MEDS: MULTIVITAMINS THERAPEUTIC TAB (*BKC) 1 TABLET FEED TUBE (09:46)
[2022-01-18] MEDS: PSYLLIUM SUGAR FREE POWDER PACKET 1 PACKET FEED TUBE (09:46)
[2022-01-18] MEDS: HEPARIN SODIUM 5,000 UNITS/ML VIAL 5000 UNITS SUB-Q ×2 (09:46→21:24)
[2022-01-18] MEDS: FERROUS SULFATE LIQUID 220 MG/5 ML ELIXIR FEED TUBE (09:46)
[2022-01-18] MEDS: CLOPIDOGREL BISULFATE 75 MG TABLET FEED TUBE (09:46)
[2022-01-18] MEDS: ASPIRIN 81 MG CHEWABLE TABLET PO (09:46)
[2022-01-18] MEDS: lisinopriL 5 MG TABLET FEED TUBE (09:46)
[2022-01-18] MEDS: TOLNAFTATE 1% POWDER 45 GM BTL 1 APPLIC TOPICAL ×2 (09:47→21:26)
[2022-01-18] MEDS: SILVER SULFADIAZINE 1% CR 50 GM JAR (*BKC) 1 APPLIC TOPICAL (09:48)
[2022-01-18] MEDS: GENTAMICIN SULFATE 0.1% CR 15 GM TUBE 0.1 APPLIC TOPICAL (09:48)
--- NOTE | 2022-01-18 11:05 | WPDCDIQUERY2 ---
CDI Query Clarification Request -ER physician documented: -Cellulitis -Qualifiers: - Site of cellulitis: extremity Site of cellulitis of extremity: lower extremity Laterality: unspecified laterality Qualified Code(s): L03.119 - Cellulitis of unspecified part of limb Please clarify if cellulitis has been ruled in or ruled out or unable to determine <Josephine Green - Last Filed: 01/18/22 11:10> Clarified Diagnosis (1) Cellulitis of both lower extremities: Code(s): L03.115 - Cellulitis of right lower limb; L03.116 - Cellulitis of left lower limb <Josephine Green - Last Filed: 01/18/22 11:10> Status: Acute <Josephine Green - Last Filed: 01/18/22 11:10> Assessment and Plan: Upon arrival bilateral lower extremity cellulitis and abrasion, patient is treated cefepime and vancomycin, will have wound team evaluate the patient and treat <Gail Ugalde MD - Last Filed: 01/29/22 08:15>
[2022-01-18 11:17] LABS: Glucose Point of Care 156 mg/dl (65-105)
--- NOTE | 2022-01-18 12:36 | PDONCCN ---
HPI - Date of Consult Date/Time: 01/18/22 12:36 Requesting Physician: Gail Ugalde MD Primary Care Provider: Reshma Morelos MD - Consult Narrative Reason for consult: Bladder cancer and anemia Narrative: Ramana Gaines is a 71 year old male with history of likely muscle invasive bladder cancer was seen in the office recently for leukocytosis. Patient has a Ortiz catheter placed since September 2021 at the time of discharge from [facility]. He distantly moved and currently staying in adverse old alf. Patient came into the hospital with mental status changes. Patient was diagnosed to have UTI and dehydration. Patient is also dealing with large decubitus ulcer as well as bilateral lower extremity cellulitis and wounds. Labs showed normal WBC count of 9.2 but hemoglobin of 7.3. Creatinine normal at 1.0. He is sitting comfortably and not able to give any history at this time. Review of Systems - Review of Systems All systems reviewed & are unremarkable except as noted in HPI and [facility] Medical History: Medical History (Last Reviewed 01/14/22 @ 15:33 by Marcelina Forbes APRN) Coronary artery disease DM type 2 (diabetes mellitus, type 2) Onset Date: Unknown DVT (deep venous thrombosis) S/p IVC filter, not on oral anticoagulation due to high fall risk GERD (gastroesophageal reflux disease) Hyperlipidemia Hypertension Peripheral arterial disease Onset Date: Unknown Sacral decubitus ulcer Onset Date: Unknown Urothelial carcinoma Venous stasis dermatitis Onset Date: Unknown Surgical History: Surgical History (Last Reviewed 01/14/22 @ 15:33 by Marcelina Forbes APRN) H/O cardiac catheterization History of revascularization procedure of lower extremity Left fem-pop bypass Balloon angioplasty and tPA to lower ext - 02/2020 Lower extremity stent, possible left-sided? - 2020 Hx of CABG S/P IVC filter 2020 Family History: Family History (Last Reviewed 01/14/22 @ 15:33 by Marcelina Forbes APRN) Sibling Family history of cardiovascular disease Father Family history of cardiovascular disease Son Depression Son Family history of seizure disorder Other Family history of seizure disorder Other Cerebrovascular accident Diabetes mellitus Family history of arthritis Family history of coronary artery disease Family history of hypercholesterolemia Family history of mental disorder Family history of obesity Hypertension - Social History Social History: Social History (Last Reviewed 01/14/22 @ 15:33 by SHANDRA Hayes Gender Identity: Gender identity (if verbalized by the patient): Male Alcohol Use: Alcohol intake: never Substance Use: Substance use: never Substance use type: does not use Others: Spiritual care concerns: No Smoking Status: Smoking status: Former smoker Tobacco type: cigarettes Second hand tobacco smoke exposure: Yes Smoking end date: 10/31/08 Meds Home Medications Medication Instructions Recorded Confirmed Type atorvastatin 80 mg FEEDING TUBE HS 03/14/20 01/13/22 History Hydrogel 1 ea MISCELLANEOUS DAILY 10/31/21 01/13/22 History Lantus U-100 Insulin 30 unit SUBCUT HS 10/31/21 01/13/22 History aspirin 81 mg PO DAILY 10/31/21 01/13/22 History clopidogrel 75 mg FEEDING TUBE DAILY 10/31/21 01/13/22 History insulin lispro [Humalog U-100 15 unit SUBCUT BID 10/31/21 01/13/22 History Insulin] metoprolol succinate 12.5 mg PO DAILY 10/31/21 01/13/22 History acetaminophen [Mapap 650 mg FEEDING TUBE Q4H PRN 11/18/21 01/13/22 History (acetaminophen)] bisacodyl 10 mg RECTAL DAILY PRN 11/18/21 01/13/22 History furosemide [Lasix] 20 mg FEEDING TUBE DAILY 11/18/21 01/13/22 History lisinopril 5 mg FEEDING TUBE DAILY 11/18/21 01/13/22 History magnesium citrate [Citroma] 300 ml FEEDING TUBE DAILY PRN 11/18/21 01/13/22 History magnesium hydroxide [Milk of 30 ml FEEDING TUBE DAILY
--- NOTE | 2022-01-18 12:49 | PCOTNOTE ---
Attempted OT evaluation, despite patient reporting he will work with therapy, when attempting to move head of bed or blankets patient screamed stop that! . Due to patient's x3 refusals will discharge from skilled OT at this time.
--- NOTE | 2022-01-18 12:52 | PCPTNOTE ---
Attempted PT evaluation, despite patient reporting he will work with therapy, when attempting to move head of bed or blankets patient screamed stop that! . Due to patient's x3 refusals will discharge from skilled PT at this time.
[2022-01-18 13:09] LABS: Iron 42 ug/dL (49-181)
[2022-01-18 13:19] LABS: Percent Iron Saturation 17 % (20-50)
--- NOTE | 2022-01-18 13:49 | PM.IMPN ---
Progress Note: A&P Assessment and Plan (1) Urinary tract infection: Qualifiers: Hematuria presence: with hematuria Urinary tract infection type: site unspecified Qualified Code(s): N39.0 - Urinary tract infection, site not specified; R31.9 - Hematuria, unspecified Code(s): N39.0 - Urinary tract infection, site not specified Status: Acute Assessment and Plan: Patient had initially been placed on Rocephin in the emergency room for his urinary tract infection, but then after further investigation a very large decubitus ulcers noted on coccyx the patient was changed to vancomycin and Zosyn. Will continue with current medication treatment and await culture and sensitivity results. 01/14/2022 interval history: patient is a resident of nursing with dementia unable to provide detailed review of symptom, patient was sent to emergency department because patient developed acute mental status change is found to have UTI and hematuria, patient has a history of UTI with Pseudomonas and patient was started on Cefepime and vancomycin will follow-up on urine culture and sensitivity and further recommendation to follow, patient hemoglobin has dropped to 6.8 will give 1 unit of pack RBC and consult urologist for further recommendation, will have a PT OT evaluate the patient and will monitor. patient also has significant decubitus ulcer will consult wound management. 01/15/2022 interval history: patient presented with hematuria patient was seen by Urology patient has known history of bladder cancer however patient did not follow-up for further care with the urologist and patient is refusing the treatment, patient started on CBI for hematuria will continue to monitor, patient blood culture is growing Staph epidermis I suspect most likely contamination however to be safe side initially will order transthoracic cardiac echo if needed will order HONEY, patient has been refusing to work with PT OT, patient has severe dementia he may not comprehend severity of his illness, will continue to monitor. 01/16/2022 interval history: patient presented with hematuria patient was seen by Urology patient has known history of bladder cancer however patient did not follow-up for further care with the urologist and patient is refusing the treatment, patient was started on CBI for hematuria will continue to monitor, patient blood culture is growing Staph epidermis I suspect most likely contamination however to be safe side initially will order transthoracic cardiac echo if needed will order HONEY, patient has been refusing to work with PT OT, patient has severe dementia he may not comprehend severity of his illness, will continue to monitor patient has decubitus ulcer and seen by wound team. 01/17/2022 interval history: patient presented with hematuria patient was seen by Urology patient has known history of bladder cancer however patient did not follow-up for further care with the urologist and patient is refusing the treatment, patient was started on CBI for hematuria will continue to monitor, patient blood culture is growing Staph epidermis I suspect most likely contamination however to be safe side initially ordered transthoracic cardiac echo it is essentially normal does not show any sign of agitation however transthoracic ECHO is not diagnostic for vegetation, will repeat the blood culture if persistent and clinically warranted will order HONEY, patient has been refusing to work with PT OT, patient has severe dementia he may not comprehend severity of his illness, will continue to monitor patient has decubitus ulcer and seen by wound team and appreciate. 01/18/2022 interval history: patient presented with hematuria patient was seen by Urology patient has known history of bladder cancer however patient did not follow-up for further care with the urologist and oncologist patient is refusing the treatment, today patient was seen by his oncology to further evalua
[2022-01-18 14:00] VITALS: BP 106/62; PULSE 83; RESP 20; TEMP 35.8; O2SAT 92
[2022-01-18 14:16] LABS: Folic Acid 19.3 ng/mL (2.76->20)
[2022-01-18 16:54] LABS: Glucose Point of Care 137 mg/dl (65-105)
[2022-01-18] MEDS: INSULIN ASPART (*BKC) 100 UNITS/ML 15 UNITS SUB-Q (17:52)
[2022-01-18] MEDS: ATORVASTATIN 40 MG TABLET 80 MG FEED TUBE (21:24)
[2022-01-18 21:52] LABS: Glucose Point of Care 130 mg/dl (65-105)
[2022-01-18 22:00] VITALS: BP 101/55; PULSE 79; RESP 16; TEMP 37.6; O2SAT 100
[2022-01-19] VITALS (12 sets, daily range): BP systolic 99–145; BP diastolic 45–81; PULSE 77–101; RESP 15–21; TEMP 35.7–37.4; O2SAT 95–100
[2022-01-19 00:22] LABS: Glucose Point of Care 111 mg/dl (65-105)
[2022-01-19] MEDS: LACTATED RINGERS 1,000 ML 125 ML IV CONT ×2 (02:55→15:18)
[2022-01-19] MEDS: CENTRAL LINE FLUSH 10 ML IV PUSH ×3 (05:22→20:41)
[2022-01-19 05:37] LABS: Hematocrit 22.2 % (42.0-52.0); Mean Corpuscular HGB Conc 30.2 g/dl (32-36); Mean Corpuscular Hemoglobin 28.9 pg (26-34); Mean Corpuscular Volume 95.7 fl (80-100); Mean Platelet Volume 10.6 fl (7.4-10.4); Platelet Count Result 160 k/mm3 (150-375); Red Blood Count 2.32 M/mm3 (4.6-6.20); Red Cell Distribution Width 17.8 % (11.5-14.5); White Blood Count 7.7 K/mm3 (4.5-10.0)
[2022-01-19 05:47] LABS: Hemoglobin 6.7 g/dL (14.0-18.0)
[2022-01-19 05:51] LABS: Albumin Level 2.4 g/dL (3.5-5.1); Anion Gap 3 mmol/L (8-16); Blood Urea Nitrogen 23 mg/dL (9-20); Calcium 8.2 mg/dL (8.4-10.2); Carbon Dioxide 25 mmol/L (22-30); Chloride 105 mmol/L (98-107); Estimated CRCL calculation 51 ml/min; Estimated Glomerular Filt Rate > 60; Glucose 125 mg/dL (65-110); Phosphorus 3.4 mg/dL (2.5-4.5); Potassium 4.7 mmol/L (3.4-5.0); Sodium 133 mmol/L (137-145)
--- NOTE | 2022-01-19 07:19 | WPDHPUPDATE1 ---
History and Physical Update Update Date/Time: 01/19/22 07:19 History and Physical has been reviewed, including an updated exam of the patient. There are NO changes in the patient's condition. Risks, benefits, and alternatives have been discussed and questions answered. Patient agrees to proceed with procedure.
[2022-01-19 08:01] LABS: Glucose Point of Care 135 mg/dl (65-105)
--- NOTE | 2022-01-19 11:25 | PCNFU ---
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 Goal: Improvement in wound status Minimal improvement towards goal. VIOLETTA BID started per rec, prostat BID continues Pt current nutrition is NPO. Last recorded weight is 72.4 kg - stable Bowel Motility: last BM 01/19 Labs Reviewed: NA:133 Meds Noted: Skin: continues with stage IV to coccyx Additional Notes: Recommend to resume TF and diet order post procedure. Pt was tolerating well, meeting estimated needs. monitor and follow up on /Fridays
--- NOTE | 2022-01-19 11:33 | PC.NURSE ---
1130 pt off floor via stretcher for surgery.
--- NOTE | 2022-01-19 11:40 | PM.IMPN ---
Progress Note: A&P Assessment and Plan (1) Urinary tract infection: Qualifiers: Hematuria presence: with hematuria Urinary tract infection type: site unspecified Qualified Code(s): N39.0 - Urinary tract infection, site not specified; R31.9 - Hematuria, unspecified Code(s): N39.0 - Urinary tract infection, site not specified Status: Acute Assessment and Plan: Blood culture positive for Enterococcus and Staph epidermis repeat culture negative Patient had initially been placed on Rocephin in the emergency room for his urinary tract infection, but then after further investigation a very large decubitus ulcers noted on coccyx the patient was changed to vancomycin and Zosyn. Will continue with current medication treatment and consider ID evaluation (2) Acute dehydration: Code(s): E86.0 - Dehydration Status: Acute Assessment and Plan: Patient received 2 L of normal saline in the emergency room. Will continue to hydrate patient with lactated Ringer's and continue monitor sodium levels as well as BUN and creatinine. (3) Sacral decubitus ulcer: Onset Date: Unknown Qualifiers: Pressure injury stage: stage 4 Qualified Code(s): L89.154 - Pressure ulcer of sacral region, stage 4 Code(s): L89.159 - Pressure ulcer of sacral region, unspecified stage Status: Acute Assessment and Plan: Have consult Wound Care do appreciate further recommendations from Wound Care on decubitus ulcer as well as bilateral lower extremity wounds (4) Acute on chronic kidney failure: Code(s): N17.9 - Acute kidney failure, unspecified; N18.9 - Chronic kidney disease, unspecified Status: Acute Assessment and Plan: Patient's creatinine is significantly higher than it has been in the past. The patient appears to be dehydrated and acute kidney injury is most likely prerenal. Will continue to hydrate patient and monitor laboratories. (5) Positive blood culture: Code(s): R78.81 - Bacteremia Status: Acute Assessment and Plan: Positive for Enterococcus 1/2 positive for Staph epidermis probably contaminant But patient has significant multiple comorbidities Luis Manuel Consider ID evaluation (6) Urothelial carcinoma: Code(s): C68.9 - Malignant neoplasm of urinary organ, unspecified Status: Acute Assessment and Plan: Urology consult Associated with acute blood loss anemia secondary to hematuria Subjective Date/time seen: 01/19/22 11:40 Exam Narrative: Patient is comfortable, NAD HEENT: eyes are clear and none icteric LUNGS: normal respiratory effort ABD: distended Lower extremities: no edema SKIN: nonjaundiced Neuro: grossly intact. Objective Data Vital Signs Vital Signs: Vital Signs - 24 hr 01/18/22 14:00 01/18/22 22:00 01/19/22 05:59 Temperature 96.4 F L 99.7 F H 99.4 F Pulse Rate 83 79 77 Respiratory Rate 20 16 16 Blood Pressure 106/62 101/55 L 102/45 L Pulse Oximetry 92 100 100 01/19/22 08:10 01/19/22 11:21 Temperature 97.1 F L 96.3 F L Pulse Rate 80 85 Respiratory Rate 20 18 Blood Pressure 118/50 L 108/50 L Pulse Oximetry 99 100 Intake/Output Intake/Output: Intake & Output 01/16/22 01/17/22 01/18/22 01/19/22 23:59 23:59 23:59 23:59 Intake Total 51753 11184 28745 4100 Output Total 44424 34680 12294 9800 Balance 3128 2165 -12 -7642 Meds/Results Medications: Active Medications Generic Name Dose Route Start Last Admin Trade Name Freq PRN Reason Stop Dose Admin Acetaminophen 650 mg 01/13/22 21:56 01/16/22 09:22 Acetaminophen Elixir 325 Mg/10.15 Ml Udc PO 650 mg Q4H PRN Administration Mild Pain (1-3) or Fever Hydrocodone Bitart/Acetaminophen 1 tab 01/13/22 19:20 01/15/22 05:02 Hydrocodone/Acetaminophen (*Crx) 5-325 Mg Tablet PO 1 tab Q4H PRN Administration Pain Rated 7-10 Albuterol 2.5 mg 01/13/22 19:20 Albuterol Sulfate Neb 2.5 Mg/0.5 Ml Inh INHALATION
--- NOTE | 2022-01-19 11:42 | WPDANESEPPF ---
Anes - Initial Pre Proc Eval Procedure: Operation Date: 01/19/22 15:00 Proposed Procedures p Cystoscopy, Evacuation Bladder Clots - Mendez Doss MD Date/Time: 01/19/22 11:42 Surgeon: Gail Ugalde MD Pre Op Diagnosis: Cellulitis/decubitus ulcer/urinary tract infection Patient Data Age: 71 Gender: M Height: 1.65 m Weight: 72.4 kg Last Vital Signs Temp 35.7 C L 01/19/22 11:21 Pulse 85 01/19/22 11:21 Resp 18 01/19/22 11:21 BP 108/50 L 01/19/22 11:21 Pulse Ox 100 01/19/22 11:21 Allergies Allergy/AdvReac Type Severity Reaction Status Date / Time No Known Allergies Allergy Unknown Verified 01/13/22 15:06 Home Medications Medication Instructions Recorded Confirmed Type atorvastatin 80 mg FEEDING TUBE HS 03/14/20 01/13/22 History Hydrogel 1 ea MISCELLANEOUS DAILY 10/31/21 01/13/22 History Lantus U-100 Insulin 30 unit SUBCUT HS 10/31/21 01/13/22 History aspirin 81 mg PO DAILY 10/31/21 01/13/22 History clopidogrel 75 mg FEEDING TUBE DAILY 10/31/21 01/13/22 History insulin lispro [Humalog U-100 15 unit SUBCUT BID 10/31/21 01/13/22 History Insulin] metoprolol succinate 12.5 mg PO DAILY 10/31/21 01/13/22 History acetaminophen [Mapap 650 mg FEEDING TUBE Q4H PRN 11/18/21 01/13/22 History (acetaminophen)] bisacodyl 10 mg RECTAL DAILY PRN 11/18/21 01/13/22 History furosemide [Lasix] 20 mg FEEDING TUBE DAILY 11/18/21 01/13/22 History lisinopril 5 mg FEEDING TUBE DAILY 11/18/21 01/13/22 History magnesium citrate [Citroma] 300 ml FEEDING TUBE DAILY PRN 11/18/21 01/13/22 History magnesium hydroxide [Milk of 30 ml FEEDING TUBE DAILY PRN 11/18/21 01/13/22 History Magnesia] silver sulfadiazine [Silvadene] 1 applic TOPICAL DAILY 11/18/21 01/13/22 History tramadol 50 mg FEEDING TUBE TID PRN 11/18/21 01/13/22 History Lactobacillus acidoph-L.bulgar 1 pkt FEEDING TUBE QID #120 tablet 12/04/21 01/13/22 Rx [Lactinex] albuterol sulfate 2.5 mg INHALATION Q6HRT PRN #30 ea 12/04/21 01/13/22 Rx hydrocodone-acetaminophen 1 tablet PO Q4H PRN #12 tablet 12/04/21 01/13/22 Rx psyllium husk (aspartame) 1 packet FEEDING TUBE Q12HR #30 ea 12/04/21 01/13/22 Rx [Metamucil Fiber Singles] sertraline [Zoloft] 25 mg PO QAM #30 tablet 12/04/21 01/13/22 Rx tolnaftate 1 applic TOPICAL Q12HR #120 g 12/04/21 01/13/22 Rx Adults Multivitamin 1 tablet PO DAILY 01/13/22 01/13/22 History DermaSeptin 1 strip TOPICAL BID 01/13/22 01/13/22 History Fleet Enema 1 applic RECTAL DAILY PRN 01/13/22 01/13/22 History ascorbic acid (vitamin C) 500 mg G-TUBE BID 01/13/22 01/13/22 History calcium alginate 01/13/22 01/13/22 History ferrous sulfate 7 ml G-TUBE DAILY 01/13/22 01/13/22 History gentamicin sulfate (PF) 0.1 % TOPICAL DAILY 01/13/22 01/13/22 History omeprazole 10 mg FEEDING TUBE DAILY 01/13/22 01/13/22 History Laboratory Tests 01/16/22 01/18/22 01/18/22 10:05 04:06 16:51 WBC RBC Hgb Hct MCV MCH MCHC RDW Plt Count MPV Sodium Potassium Chloride Carbon Dioxide Anion Gap BUN Creatinine Estim Creat Clear Calc Estimated GFR Glucose POC Capillary Glucose 137 mg/dl H mg/dl (65-105) Calcium Phosphorus Iron 42 ug/dL L ug/dL (49-181) TIBC 242 ug/dL L ug/dL (265-497) % Saturation 17 % L % (20-50) Ferritin 83.90 ng/mL ng/mL (11.1-264) Albumin Vitamin B12 516.0 pg/mL pg/mL (239-931) Folate 19.3 ng/mL ng/mL (2.76->20) 01/18/22 01/19/22 01/19/22 21:17 00:18 05:31 WBC RBC Hgb Hct MCV MCH MCHC RDW Plt Count MPV Sodium 133 mmol/L L mmol/L
[2022-01-19] MEDS: LACTATED RINGERS 1,000 ML 30 ML IV CONT (12:00)
[2022-01-19] MEDS: LIDOCAINE HCL 2% GEL UROJET 10 ML PKG MUCOUS MEM (12:45)
--- NOTE | 2022-01-19 12:55 | W.PM.PROC2 ---
Procedure Note - Detailed Date of Procedure 01/19/22 Pre-op Diagnosis Hematuria, muscle-invasive bladder cancer Post-op Diagnosis Same Procedure Performed Cystoscopy, clot evacuation Surgeon Mendez Doss MD Anesthesia General Description of Procedure Patient is brought to the op suite prepped draped in routine sterile fashion while in dorsal lithotomy position. Systemic sedation is administered per Anesthesia into % lidocaine jelly was introduced intraurethrally. Cystoscopy is undertaken with a 21 F rigid cystoscope. Moderate amount of clot is evacuated with a Mireya syringe. Inspection of the bladder reveals a sessile neoplasm probably measures 4 cm in diameter in the right anterior lateral bladder wall. The remainder of the bladder mucosa is normal. This has been biopsied in an outside site in his consistent with known muscle invasive bladder cancer. Because patient is on aspirin and Persantine I opted not to pursue any additional transurethral resection. He is undergoing evaluation for possible cystectomy and /or chemoradiation. Estimated Blood Loss 0 Urine Output 1,050 Drains Yes Packing No Pathology None sent Complications No immediate complications Condition Stable Disposition PACU
[2022-01-19] MEDS: fentaNYL CITRATE INJ (*CRX) 100 MCG/2 ML VIAL 25 MCG IV PUSH ×4 (13:15→14:09)
[2022-01-19 14:05] LABS: Glucose Point of Care 136 mg/dl (65-105)
--- NOTE | 2022-01-19 15:02 | PC.NURSE ---
1445 pt back in room via stretcher.
--- NOTE | 2022-01-19 15:16 | PC.NURSE ---
On 01/19/22, the student, Michelle Rajan, provided care and completed [facility] documentation on this patient. I have reviewed the student's documentation and agree with the findings.
[2022-01-19] MEDS: TOLNAFTATE 1% POWDER 45 GM BTL 1 APPLIC TOPICAL ×2 (15:26→20:44)
[2022-01-19] MEDS: GENTAMICIN SULFATE 0.1% CR 15 GM TUBE 0.1 APPLIC TOPICAL (15:26)
[2022-01-19] MEDS: SILVER SULFADIAZINE 1% CR 50 GM JAR (*BKC) 1 APPLIC TOPICAL (15:26)
[2022-01-19] MEDS: SILVERGEL (ELTA) 45 ML 1 APPLIC TOPICAL (15:27)
[2022-01-19 16:30] LABS: Glucose Point of Care 148 mg/dl (65-105)
[2022-01-19] MEDS: AMPICILLIN 2 GM/NS 100 ML 2 GM/100 ML BAG IVPB (17:26)
[2022-01-19] MEDS: ACIDOPHILUS PACKET 1 PKT PACKET FEED TUBE ×2 (18:19→20:41)
[2022-01-19] MEDS: ASCORBIC ACID 500 MG TABLET FEED TUBE (18:20)
[2022-01-19 19:58] LABS: Glucose Point of Care 141 mg/dl (65-105)
[2022-01-19] MEDS: PSYLLIUM SUGAR FREE POWDER PACKET 1 PACKET FEED TUBE (20:40)
[2022-01-19] MEDS: ATORVASTATIN 40 MG TABLET 80 MG FEED TUBE (20:40)
[2022-01-19] MEDS: HEPARIN SODIUM 5,000 UNITS/ML VIAL 5000 UNITS SUB-Q (20:40)
[2022-01-19] MEDS: INSULIN GLARGINE (*BKC) 100 UNITS/ML 30 UNITS SUB-Q (20:41)
[2022-01-20] VITALS (7 sets, daily range): BP systolic 111–125; BP diastolic 47–67; PULSE 76–96; RESP 16–20; TEMP 35.6–37; O2SAT 96–100
[2022-01-20] MEDS: AMPICILLIN 2 GM/NS 100 ML 2 GM/100 ML BAG IVPB ×2 (00:47→06:15)
[2022-01-20] MEDS: INSULIN ASPART (*BKC) 100 UNITS/ML 15 UNITS SUB-Q ×2 (01:11→19:01)
[2022-01-20] MEDS: LACTATED RINGERS 1,000 ML 125 ML IV CONT ×2 (03:09→13:38)
[2022-01-20] MEDS: CENTRAL LINE FLUSH 10 ML IV PUSH ×3 (06:15→21:02)
--- NOTE | 2022-01-20 06:34 | WPDUROPN2 ---
Progress Note: A&P Assessment and Plan (1) Hematuria: Code(s): R31.9 - Hematuria, unspecified Status: Acute (2) Cancer of overlapping sites of bladder: Code(s): C67.8 - Malignant neoplasm of overlapping sites of bladder Status: Acute Assessment and Plan: Urine clear after clot evacuation. Will stop CBI / voiding trial tomorrow if urine remains clear. Residual muscle invasive bladder cancer. CT-abd/pelvis and CXR without metastatic findings. Definitive care, as outlined by Dr. Leigh (neoadjuvant chemo./cystectomy vs. chemoradiation), will be difficult due to patients significant comorbidities. Subjective Subjective Date/Time Seen: 01/20/22 06:34 No complaints Urine clear Review of Systems Cardiovascular: Cardiovascular: Denies chest pain, Denies lightheadedness, Denies palpitations and Denies dyspnea Respiratory: Respiratory: Denies dyspnea Gastrointestinal: Gastrointestinal: Denies diarrhea, Denies nausea and Denies vomiting Genitourinary: Genitourinary: Denies hematuria and Denies dysuria Endocrine: Endocrine: Denies palpitations Exam Const: General: no acute distress Resp: Effort & Inspection: normal respiratory effort GI: Inspection: non-distended GI Palp: No abdominal tenderness and No Guarding due to palpation present (GI) Auscultation: normal bowel sounds Urinary Catheter: Urinary Catheter: patent and draining and urine clear Objective Data Vital Signs Vital Signs: Vital Signs - 24 hr 01/19/22 08:10 01/19/22 11:21 01/19/22 11:37 Temperature 97.1 F L 96.3 F L 97.1 F L Pulse Rate 80 85 88 Respiratory Rate 20 18 20 Blood Pressure 118/50 L 108/50 L 115/48 L Pulse Oximetry 99 100 100 01/19/22 13:05 01/19/22 13:20 01/19/22 13:35 Temperature 97.4 F L Pulse Rate 85 89 88 Respiratory Rate 21 H 20 20 Blood Pressure 115/67 145/78 H 102/57 L Pulse Oximetry 99 100 100 01/19/22 13:50 01/19/22 14:05 01/19/22 14:20 Temperature Pulse Rate 91 90 83 Respiratory Rate 16 16 15 Blood Pressure 117/81 99/51 L 106/55 L Pulse Oximetry 95 95 96 01/19/22 15:25 01/19/22 22:00 01/20/22 05:53 Temperature 96.8 F L 97.6 F 98.2 F Pulse Rate 101 H 92 82 Respiratory Rate 18 20 18 Blood Pressure 111/67 113/52 L 111/58 L Pulse Oximetry 100 97 98 Intake/Output Intake/Output: Intake & Output 01/17/22 01/18/22 01/19/22 01/20/22 23:59 23:59 23:59 23:59 Intake Total 85741 31259 26415 100 Output Total 10079 03207 31729 Balance 7200 -75 2600 100 Meds/Results Medications: Active Medications Generic Name Dose Route Start Last Admin Trade Name Freq PRN Reason Stop Dose Admin Acetaminophen 650 mg 01/13/22 21:56 01/16/22 09:22 Acetaminophen Elixir 325 Mg/10.15 Ml Udc PO 650 mg Q4H PRN Administration Mild Pain (1-3) or Fever Hydrocodone Bitart/Acetaminophen 1 tab 01/13/22 19:20 01/15/22 05:02 Hydrocodone/Acetaminophen (*Crx) 5-325 Mg Tablet PO 1 tab Q4H PRN Administration Pain Rated 7-10 Albuterol 2.5 mg 01/13/22 19:20 Albuterol Sulfate Neb 2.5 Mg/0.5 Ml Inh INHALATION Q6HRT PRN Shortness Of Breath Ascorbic Acid 500 mg 01/14/22 09:00 01/19/22 18:20 Ascorbic Acid 500 Mg Tablet FEED TUBE 02/13/22 08:59 500 mg BID ANNA Administration Aspirin 81 mg 01/14/22 09:00 01/19/22 15:47 Aspirin 81 Mg Chewable Tablet PO 02/13/22 08:59 Not Given DAILY ANNA Atorvastatin Calcium 80 mg 01/13/22 21:00 01/19/22 20:40 Atorvastatin 40 Mg Tablet FEED TUBE 80 mg HS ANNA Administration Bisacodyl 10 mg 01/13/22 19:20 Bisacodyl 10 Mg Suppository RECTAL DAILY PRN Constipation Clopidogrel Bisulfate 75 mg 01/14/22 09:00 01/19/22 15:47 Clopidogrel Bisulfate 75 Mg Tablet FEED TUBE Not Given DAILY ANNA Dextrose 12.5 gm 01/13/22 19:13 01/16/22 06:19 Dextrose 50% 25 Gm/50 Ml Syringe IV PUSH 12.5 gm PRN PRN Administration Hypoglycemia Protocol Fentanyl Citrate
[2022-01-20 06:48] LABS: Albumin Level 2.6 g/dL (3.5-5.1); Anion Gap 3 mmol/L (8-16); Blood Urea Nitrogen 19 mg/dL (9-20); Calcium 8.6 mg/dL (8.4-10.2); Carbon Dioxide 26 mmol/L (22-30); Chloride 108 mmol/L (98-107); Estimated CRCL calculation 56 ml/min; Estimated Glomerular Filt Rate > 60; Glucose 74 mg/dL (65-110); Phosphorus 3.4 mg/dL (2.5-4.5); Potassium 4.5 mmol/L (3.4-5.0); Sodium 137 mmol/L (137-145)
[2022-01-20 06:53] LABS: Hematocrit 23.4 % (42.0-52.0); Mean Corpuscular HGB Conc 29.5 g/dl (32-36); Mean Corpuscular Volume 95.1 fl (80-100); Mean Platelet Volume 10.8 fl (7.4-10.4); Platelet Count Result 191 k/mm3 (150-375); Red Blood Count 2.46 M/mm3 (4.6-6.20); Red Cell Distribution Width 18.2 % (11.5-14.5); White Blood Count 7.1 K/mm3 (4.5-10.0)
[2022-01-20 07:05] LABS: Hemoglobin 6.9 g/dL (14.0-18.0)
--- NOTE | 2022-01-20 07:45 | WPDANESPN ---
Anes - Prog Note Post-Op Date/Time: 01/20/22 07:45 Cardiovascular status: other Respiratory status: normal Airway patency: baseline Mental status: baseline Post-Op hydration status: other Vital Signs: Last Vital Signs Temp 98.2 F 01/20/22 05:53 Pulse 82 01/20/22 05:53 Resp 18 01/20/22 05:53 BP 111/58 L 01/20/22 05:53 Pulse Ox 98 01/20/22 05:53 Pain Score (VAS): 11/09 I/O: Intake & Output 01/19/22 01/19/22 01/20/22 15:59 23:59 07:59 Intake Total 59837 93443 81882 Output Total 47039 6600 1550 Balance 600 6500 79986 Laboratory Tests 01/20/22 06:23 01/20/22 06:23 01/19/22 01/19/22 01/19/22 07:44 14:02 16:23 WBC RBC Hgb Hct MCV MCH MCHC RDW Plt Count MPV Sodium Potassium Chloride Carbon Dioxide Anion Gap BUN Creatinine Estim Creat Clear Calc Estimated GFR Glucose POC Capillary Glucose 135 H 136 H 148 H Calcium Phosphorus Albumin 01/19/22 01/20/22 01/20/22 19:51 06:23 06:23 WBC 7.1 RBC 2.46 L Hgb 6.9 L* Hct 23.4 L MCV 95.1 MCH 28.0 MCHC 29.5 L RDW 18.2 H Plt Count 191 MPV 10.8 H Sodium 137 Potassium 4.5 Chloride 108 H Carbon Dioxide 26 Anion Gap 3 L BUN 19 Creatinine 0.90 Estim Creat Clear Calc 56 Estimated GFR > 60 Glucose 74 POC Capillary Glucose 141 H Calcium 8.6 Phosphorus 3.4 Albumin 2.6 L Post-procedural complaints: none Patient Feedback: Patient satisfied with anesthetic care.
[2022-01-20 08:08] LABS: Glucose Point of Care 84 mg/dl (65-105)
[2022-01-20] MEDS: METOPROLOL SUCCINATE EXT REL 12.5 MG TABCR PO (10:22)
[2022-01-20] MEDS: ASPIRIN 81 MG CHEWABLE TABLET PO (10:22)
[2022-01-20] MEDS: lisinopriL 5 MG TABLET FEED TUBE (10:22)
[2022-01-20] MEDS: SERTRALINE HCL 25 MG TABLET PO (10:22)
[2022-01-20] MEDS: CLOPIDOGREL BISULFATE 75 MG TABLET FEED TUBE (10:23)
[2022-01-20] MEDS: ASCORBIC ACID 500 MG TABLET FEED TUBE ×2 (10:23→19:01)
[2022-01-20] MEDS: ACIDOPHILUS PACKET 1 PKT PACKET FEED TUBE ×3 (10:23→20:59)
[2022-01-20] MEDS: FERROUS SULFATE LIQUID 220 MG/5 ML ELIXIR FEED TUBE (10:23)
[2022-01-20] MEDS: MULTIVITAMINS THERAPEUTIC TAB (*BKC) 1 TABLET FEED TUBE (10:23)
[2022-01-20] MEDS: PSYLLIUM SUGAR FREE POWDER PACKET 1 PACKET FEED TUBE ×2 (10:23→20:58)
[2022-01-20] MEDS: SILVERGEL (ELTA) 45 ML 1 APPLIC TOPICAL (10:24)
[2022-01-20] MEDS: GENTAMICIN SULFATE 0.1% CR 15 GM TUBE 0.1 APPLIC TOPICAL (10:24)
[2022-01-20] MEDS: SILVER SULFADIAZINE 1% CR 50 GM JAR (*BKC) 1 APPLIC TOPICAL (10:24)
[2022-01-20] MEDS: HEPARIN SODIUM 5,000 UNITS/ML VIAL 5000 UNITS SUB-Q (10:24)
[2022-01-20] MEDS: TOLNAFTATE 1% POWDER 45 GM BTL 1 APPLIC TOPICAL ×2 (10:24→21:02)
[2022-01-20 11:40] LABS: Vancomycin Trough 15.7 ug/mL (10.0-20.0)
[2022-01-20 11:58] LABS: Glucose Point of Care 136 mg/dl (65-105)
--- NOTE | 2022-01-20 14:55 | PC.NURSE ---
On 01/20/22, the student, Lety Zhang, provided care and completed [facility] documentation on this patient. I have reviewed the student's documentation and agree with the findings.
--- NOTE | 2022-01-20 15:04 | PM.IMPN ---
Progress Note: A&P Additional Plan 71-year-old gentleman who presented from a local correction with altered mental status. It was noted that patient had a large amount of blood in his Ortiz catheter bag. Upon evaluation in emergency room patient was noted to have a significant urinary tract infection and be dehydrated. Patient does have a very large decubitus ulcer to his coccyx as well as wounds to bilateral lower extremities. 1) Hematuria 2/2 Malignancy of Bladder: s/p cystoscopy and clot evacuation on 01/19 Appreciate Urology help Urine clear after clot evacuation. Plan stop CBI / voiding trial tomorrow if urine remains clear. Residual muscle invasive bladder cancer. CT-abd/pelvis and CXR without metastatic findings. Definitive care, as outlined by Dr. Leigh (neoadjuvant chemo./cystectomy vs. chemoradiation), will be difficult due to patients significant comorbidities. 2) Bacteremia Positive for Enterococcus 1/2 positive for Staph epidermis probably contaminant But patient has significant multiple comorbidities c/w Vancomycin No need for Cefepime and ampicillin as of now Repeat blood culture negative till date Echo was negative for vegetation, if had persistent bacteremia then would have considered HONEY 3)Sacral decubitus ulcer: Pressure injury stage: stage 4 Have consult Wound Care do appreciate further recommendations from Wound Care on decubitus ulcer as well as bilateral lower extremity wounds 4)Acute Anemia Will transfuse 1 unit of PRBC today 5)VIRGILIO:resolved 6)DVT px: SCD 7)Code:Full 8)Dispo:pending improvement Time Spent With Patient Time with patient: 25 - 35 minutes Subjective Date/time seen: 01/20/22 15:04 no major change/events overnight Review of Systems Review of Systems: ROS unobtainable: Yes unobtainable due to mental status Exam Const: General: no acute distress HENMT: Mouth: Yes dry mucous membranes Eyes: Pupils: Equal, round and reactive pupils present Resp: Other: decreased breath sounds B/L Cardio: Rate: regular rate Rhythm: regular rhythm GI: GI Palp: Yes Soft to palpation Auscultation: normal bowel sounds Other: G tube in situ Extrem: General: edema Other: Dressing over both legs Objective Data Vital Signs Vital Signs: Vital Signs - 24 hr 01/19/22 15:25 01/19/22 22:00 01/20/22 05:53 Temperature 96.8 F L 97.6 F 98.2 F Pulse Rate 101 H 92 82 Respiratory Rate 18 20 18 Blood Pressure 111/67 113/52 L 111/58 L Pulse Oximetry 100 97 98 Intake/Output Intake/Output: Intake & Output 01/17/22 01/18/22 01/19/22 01/20/22 23:59 23:59 23:59 23:59 Intake Total 36279 08096 81925 13982 Output Total 55353 48770 75843 3400 Balance 7200 -75 2600 49628 Meds/Results Medications: Active Medications Generic Name Dose Route Start Last Admin Trade Name Freq PRN Reason Stop Dose Admin Acetaminophen 650 mg 01/13/22 21:56 01/16/22 09:22 Acetaminophen Elixir 325 Mg/10.15 Ml Udc PO 650 mg Q4H PRN Administration Mild Pain (1-3) or Fever Hydrocodone Bitart/Acetaminophen 1 tab 01/13/22 19:20 01/15/22 05:02 Hydrocodone/Acetaminophen (*Crx) 5-325 Mg Tablet PO 1 tab Q4H PRN Administration Pain Rated 7-10 Albuterol 2.5 mg 01/13/22 19:20 Albuterol Sulfate Neb 2.5 Mg/0.5 Ml Inh INHALATION Q6HRT PRN Shortness Of Breath Ascorbic Acid 500 mg 01/14/22 09:00 01/20/22 10:23 Ascorbic Acid 500 Mg Tablet FEED TUBE 02/13/22 08:59 500 mg BID ANNA Administration Aspirin 81 mg 01/14/22 09:00 01/20/22 10:22 Aspirin 81 Mg Chewable Tablet PO 02/13/22 08:59 81 mg DAILY ANNA Administration Atorvastatin Calcium 80 mg 01/13/22 21:00 01/19/22 20:40 Atorvastatin 40 Mg Tablet FEED TUBE 80 mg HS ANNA Administration Bisacodyl 10 mg 01/13/22 19:20 Bisacodyl 10 Mg Suppository RECTAL DAILY PRN Constipation Clopidogrel Bisulfate 75 mg 01/14/22 09:00 01/20/22 10:23 Clopidogrel Bisulfate 75 Mg Tablet FE
[2022-01-20 16:52] LABS: Glucose Point of Care 138 mg/dl (65-105)
[2022-01-20] MEDS: SODIUM CHLORIDE 0.9% IV 250 ML 30 ML IV CONT (19:01)
[2022-01-20] MEDS: TUBING, BLOOD PLUM PUMP TUBING 1 EACH XX (19:02)
[2022-01-20 20:24] LABS: Glucose Point of Care 148 mg/dl (65-105)
[2022-01-20] MEDS: ATORVASTATIN 40 MG TABLET 80 MG FEED TUBE (20:59)
[2022-01-20] MEDS: INSULIN GLARGINE (*BKC) 100 UNITS/ML 30 UNITS SUB-Q (20:59)
[2022-01-21] MEDS: LACTATED RINGERS 1,000 ML 125 ML IV CONT ×2 (00:25→06:30)
[2022-01-21 00:26] VITALS: BP 110/74; PULSE 81; RESP 16; TEMP 37.1; O2SAT 100
[2022-01-21] MEDS: CENTRAL LINE FLUSH 10 ML IV PUSH ×3 (05:36→21:30)
[2022-01-21 05:40] VITALS: BP 126/54; PULSE 84; RESP 16; TEMP 36.8; O2SAT 100
[2022-01-21 05:59] LABS: Hematocrit 25.9 % (42.0-52.0); Hemoglobin 7.7 g/dL (14.0-18.0); Mean Corpuscular HGB Conc 29.7 g/dl (32-36); Mean Corpuscular Hemoglobin 27.8 pg (26-34); Mean Corpuscular Volume 93.5 fl (80-100); Mean Platelet Volume 10.6 fl (7.4-10.4); Platelet Count Result 186 k/mm3 (150-375); Red Blood Count 2.77 M/mm3 (4.6-6.20); Red Cell Distribution Width 17.5 % (11.5-14.5); White Blood Count 6.8 K/mm3 (4.5-10.0)
[2022-01-21 06:00] LABS: Albumin Level 2.5 g/dL (3.5-5.1); Anion Gap 1 mmol/L (8-16); Blood Urea Nitrogen 19 mg/dL (9-20); Calcium 8.1 mg/dL (8.4-10.2); Carbon Dioxide 26 mmol/L (22-30); Chloride 106 mmol/L (98-107); Estimated CRCL calculation 56 ml/min; Estimated Glomerular Filt Rate > 60; Glucose 79 mg/dL (65-110); Phosphorus 3.3 mg/dL (2.5-4.5); Potassium 4.7 mmol/L (3.4-5.0); Sodium 133 mmol/L (137-145)
--- NOTE | 2022-01-21 07:11 | WPDUROPN2 ---
Progress Note: A&P Assessment and Plan (1) Hematuria: Code(s): R31.9 - Hematuria, unspecified Status: Acute (2) Urinary tract infection: Qualifiers: Hematuria presence: with hematuria Urinary tract infection type: site unspecified Qualified Code(s): N39.0 - Urinary tract infection, site not specified; R31.9 - Hematuria, unspecified Code(s): N39.0 - Urinary tract infection, site not specified Status: Acute (3) Cancer of overlapping sites of bladder: Code(s): C67.8 - Malignant neoplasm of overlapping sites of bladder Status: Acute Assessment and Plan: Urine clear on slow CBI (CBI not stopped yesterday) Voiding trial tomorrow if urine still clear. Subjective Subjective Date/Time Seen: 01/21/22 07:11 No events overnight Review of Systems Cardiovascular: Cardiovascular: Denies chest pain, Denies lightheadedness, Denies palpitations and Denies dyspnea Respiratory: Respiratory: Denies dyspnea Gastrointestinal: Gastrointestinal: Denies diarrhea, Denies nausea and Denies vomiting Genitourinary: Genitourinary: Denies hematuria and Denies dysuria Endocrine: Endocrine: Denies palpitations Exam Const: General: no acute distress Resp: Effort & Inspection: normal respiratory effort GI: Inspection: non-distended GI Palp: No abdominal tenderness and No Guarding due to palpation present (GI) Auscultation: normal bowel sounds Objective Data Vital Signs Vital Signs: Vital Signs - 24 hr 01/20/22 14:00 01/20/22 21:49 01/20/22 22:05 Temperature 96.0 F L 97.0 F L 96.7 F L Pulse Rate 96 81 91 Respiratory Rate 20 16 20 Blood Pressure 125/67 123/52 L 123/47 L Pulse Oximetry 99 100 96 01/20/22 22:06 01/20/22 23:24 01/20/22 23:26 Temperature 97.3 F L 98.6 F 97.6 F Pulse Rate 82 79 76 Respiratory Rate 18 16 16 Blood Pressure 112/47 L 114/50 L 117/62 Pulse Oximetry 98 99 100 01/21/22 00:26 01/21/22 05:40 Temperature 98.8 F 98.3 F Pulse Rate 81 84 Respiratory Rate 16 16 Blood Pressure 110/74 126/54 L Pulse Oximetry 100 100 Intake/Output Intake/Output: Intake & Output 03/21/22 03/22/22 03/23/22 03/24/22 23:59 23:59 23:59 23:59 Intake Total 51568 61170 21533 3830 Output Total 35141 98942 80997 25122 Balance -75 2600 5200 -0958 Meds/Results Medications: Active Medications Generic Name Dose Route Start Last Admin Trade Name Freq PRN Reason Stop Dose Admin Acetaminophen 650 mg 01/13/22 21:56 01/16/22 09:22 Acetaminophen Elixir 325 Mg/10.15 Ml Udc PO 650 mg Q4H PRN Administration Mild Pain (1-3) or Fever Hydrocodone Bitart/Acetaminophen 1 tab 01/13/22 19:20 01/15/22 05:02 Hydrocodone/Acetaminophen (*Crx) 5-325 Mg Tablet PO 1 tab Q4H PRN Administration Pain Rated 7-10 Albuterol 2.5 mg 01/13/22 19:20 Albuterol Sulfate Neb 2.5 Mg/0.5 Ml Inh INHALATION Q6HRT PRN Shortness Of Breath Ascorbic Acid 500 mg 01/14/22 09:00 01/20/22 19:01 Ascorbic Acid 500 Mg Tablet FEED TUBE 02/13/22 08:59 500 mg BID ANNA Administration Aspirin 81 mg 01/14/22 09:00 01/20/22 10:22 Aspirin 81 Mg Chewable Tablet PO 02/13/22 08:59 81 mg DAILY ANNA Administration Atorvastatin Calcium 80 mg 01/13/22 21:00 01/20/22 20:59 Atorvastatin 40 Mg Tablet FEED TUBE 80 mg HS ANNA Administration Bisacodyl 10 mg 01/13/22 19:20 Bisacodyl 10 Mg Suppository RECTAL DAILY PRN Constipation Clopidogrel Bisulfate 75 mg 01/14/22 09:00 01/20/22 10:23 Clopidogrel Bisulfate 75 Mg Tablet FEED TUBE 75 mg DAILY ANNA Administration Dextrose 12.5 gm 01/13/22 19:13 01/16/22 06:19 Dextrose 50% 25 Gm/50 Ml Syringe IV PUSH 12.5 gm PRN PRN Administration Hypoglycemia Protocol Fentanyl Citrate 25 mcg 01/19/22 11:41 01/19/22 14:09 Fentanyl Citrate Inj (*Crx) 100 Mcg/2 Ml Vial IV PUSH 25 mcg Q2M PRN Administration Pain Ferrous Sulfate 220 mg 01/14/22 09:00 12/30
[2022-01-21 08:03] LABS: Glucose Point of Care 81 mg/dl (65-105)
[2022-01-21 10:43] VITALS: PULSE 84
[2022-01-21] MEDS: METOPROLOL SUCCINATE EXT REL 12.5 MG TABCR PO (10:43)
[2022-01-21] MEDS: ASPIRIN 81 MG CHEWABLE TABLET PO (10:43)
[2022-01-21] MEDS: lisinopriL 5 MG TABLET FEED TUBE (10:44)
[2022-01-21] MEDS: PSYLLIUM SUGAR FREE POWDER PACKET 1 PACKET FEED TUBE (10:44)
[2022-01-21] MEDS: ACIDOPHILUS PACKET 1 PKT PACKET FEED TUBE ×4 (10:44→21:29)
[2022-01-21] MEDS: MULTIVITAMINS THERAPEUTIC TAB (*BKC) 1 TABLET FEED TUBE (10:44)
[2022-01-21] MEDS: ASCORBIC ACID 500 MG TABLET FEED TUBE ×2 (10:44→18:14)
[2022-01-21] MEDS: CLOPIDOGREL BISULFATE 75 MG TABLET FEED TUBE (10:44)
[2022-01-21] MEDS: SERTRALINE HCL 25 MG TABLET PO (10:44)
[2022-01-21] MEDS: FERROUS SULFATE LIQUID 220 MG/5 ML ELIXIR FEED TUBE (10:45)
[2022-01-21] MEDS: SILVERGEL (ELTA) 45 ML 1 APPLIC TOPICAL (10:46)
[2022-01-21] MEDS: GENTAMICIN SULFATE 0.1% CR 15 GM TUBE 0.1 APPLIC TOPICAL (10:46)
[2022-01-21] MEDS: SILVER SULFADIAZINE 1% CR 50 GM JAR (*BKC) 1 APPLIC TOPICAL (10:46)
[2022-01-21] MEDS: TOLNAFTATE 1% POWDER 45 GM BTL 1 APPLIC TOPICAL ×2 (10:46→21:49)
[2022-01-21 11:36] LABS: Glucose Point of Care 135 mg/dl (65-105)
--- NOTE | 2022-01-21 12:12 | PM.IMPN ---
Progress Note: A&P Assessment and Plan (1) Urinary tract infection: Qualifiers: Hematuria presence: with hematuria Urinary tract infection type: site unspecified Qualified Code(s): N39.0 - Urinary tract infection, site not specified; R31.9 - Hematuria, unspecified Code(s): N39.0 - Urinary tract infection, site not specified Status: Acute Assessment and Plan: Blood culture positive for Enterococcus and Staph epidermis, repeat culture negative Patient had initially been placed on Rocephin in the emergency room for his urinary tract infection, but then after further investigation a very large decubitus ulcers noted on coccyx the patient was changed to vancomycin and Zosyn. Will continue with current medication treatment and consider ID evaluation (2) Acute dehydration: Code(s): E86.0 - Dehydration Status: Acute Assessment and Plan: Patient received 2 L of normal saline in the emergency room. Will continue to hydrate patient with lactated Ringer's and continue monitor sodium levels as well as BUN and creatinine. Presented with VIRGILIO she is now resolved (3) Sacral decubitus ulcer: Onset Date: Unknown Qualifiers: Pressure injury stage: stage 4 Qualified Code(s): L89.154 - Pressure ulcer of sacral region, stage 4 Code(s): L89.159 - Pressure ulcer of sacral region, unspecified stage Status: Acute Assessment and Plan: Have consult Wound Care do appreciate further recommendations from Wound Care on decubitus ulcer as well as bilateral lower extremity wounds (4) Acute on chronic kidney failure: Code(s): N17.9 - Acute kidney failure, unspecified; N18.9 - Chronic kidney disease, unspecified Status: Acute Assessment and Plan: Patient's creatinine is significantly higher than it has been in the past on admission. Creatinine at 2.3. The patient appears to be dehydrated and acute kidney injury is most likely prerenal. Will continue to hydrate patient and monitor laboratories. Renal failure has resolved now (5) Positive blood culture: Code(s): R78.81 - Bacteremia Status: Acute Assessment and Plan: Positive for Enterococcus 1/2 positive for Staph epidermis probably contaminant But patient has significant multiple comorbidities Luis Manuel Consider ID evaluation Chest x-ray was negative (6) Urothelial carcinoma: Code(s): C68.9 - Malignant neoplasm of urinary organ, unspecified Status: Acute Assessment and Plan: Urology consult Associated with acute blood loss anemia secondary to hematuria Additional Plan 71-year-old gentleman who presented from a local prison with altered mental status. It was noted that patient had a large amount of blood in his Ortiz catheter bag. Upon evaluation in emergency room patient was noted to have a significant urinary tract infection and be dehydrated. Patient does have a very large decubitus ulcer to his coccyx as well as wounds to bilateral lower extremities. 1) Hematuria 2/2 Malignancy of Bladder: s/p cystoscopy and clot evacuation on 01/19 Appreciate Urology help Urine clear after clot evacuation. Plan stop CBI / voiding trial tomorrow if urine remains clear. Residual muscle invasive bladder cancer. CT-abd/pelvis and CXR without metastatic findings. Definitive care, as outlined by Dr. Leigh (neoadjuvant chemo./cystectomy vs. chemoradiation), will be difficult due to patients significant comorbidities. 2) Bacteremia Positive for Enterococcus 1/2 positive for Staph epidermis probably contaminant But patient has significant multiple comorbidities c/w Vancomycin No need for Cefepime and ampicillin as of now Repeat blood culture negative till date Echo was negative for vegetation, if had persistent bacteremia then would have considered LUIS MANUEL 3)Sacral decubitus ulcer: Pressure injury stage: stage 4 Have consult Wound Care do appreciate further recommendations from Wound Care o
[2022-01-21 15:11] VITALS: BP 128/53; PULSE 75; RESP 20; TEMP 36.2; O2SAT 98
[2022-01-21 16:37] LABS: Glucose Point of Care 153 mg/dl (65-105)
[2022-01-21] MEDS: INSULIN ASPART (*BKC) 100 UNITS/ML 15 UNITS SUB-Q (18:14)
[2022-01-21] MEDS: DEXTROSE 50% 25 GM/50 ML SYRINGE IV PUSH (21:24)
[2022-01-21] MEDS: ATORVASTATIN 40 MG TABLET 80 MG FEED TUBE (21:29)
[2022-01-21 22:21] VITALS: BP 114/53; PULSE 81; RESP 16; TEMP 37.3; O2SAT 96
[2022-01-21 22:42] LABS: Glucose Point of Care 109 mg/dl (65-105)
[2022-01-21 22:42] LABS: Glucose Point of Care 68 mg/dl (65-105)
--- NOTE | 2022-01-21 23:13 | PC.NURSE ---
Upon HS blood sugar check, the pts blood sugar was 68. Pt asymptomatic. Medication given per hypogylcemia protocol as shown in MAR. Upon recheck pts blood sugar was 109. Will continue to monitor.
[2022-01-21 23:58] LABS: Glucose Point of Care 88 mg/dl (65-105)
[2022-01-22 05:43] LABS: Hematocrit 30.2 % (42.0-52.0); Hemoglobin 8.9 g/dL (14.0-18.0); Mean Corpuscular HGB Conc 29.5 g/dl (32-36); Mean Corpuscular Hemoglobin 27.9 pg (26-34); Mean Corpuscular Volume 94.7 fl (80-100); Mean Platelet Volume 9.9 fl (7.4-10.4); Platelet Count Result 210 k/mm3 (150-375); Red Blood Count 3.19 M/mm3 (4.6-6.20); Red Cell Distribution Width 18.1 % (11.5-14.5); White Blood Count 9.2 K/mm3 (4.5-10.0)
[2022-01-22] MEDS: CENTRAL LINE FLUSH 10 ML IV PUSH ×3 (05:44→20:44)
[2022-01-22 05:50] VITALS: BP 134/62; PULSE 85; RESP 16; TEMP 36.4; O2SAT 96
[2022-01-22 05:55] LABS: Alanine Aminotransferase 19 U/L (4-50); Albumin Level 2.8 g/dL (3.5-5.1); Alkaline Phosphatase 88 U/L (38-126); Anion Gap 3 mmol/L (8-16); Aspartate Amino Transferase 24 U/L (17-59); Bilirubin,Total 0.2 mg/dL (0.2-1.3); Blood Urea Nitrogen 19 mg/dL (9-20); Calcium 8.5 mg/dL (8.4-10.2); Carbon Dioxide 25 mmol/L (22-30); Chloride 106 mmol/L (98-107); Estimated CRCL calculation 56 ml/min; Estimated Glomerular Filt Rate > 60; Glucose 126 mg/dL (65-110); Magnesium 1.5 mg/dL (1.6-2.3); Phosphorus 3.3 mg/dL (2.5-4.5); Potassium 4.7 mmol/L (3.4-5.0); Sodium 134 mmol/L (137-145)
--- NOTE | 2022-01-22 07:02 | WPDUROPN2 ---
Progress Note: A&P Assessment and Plan (1) Cancer of overlapping sites of bladder: Code(s): C67.8 - Malignant neoplasm of overlapping sites of bladder Status: Acute (2) Hematuria: Code(s): R31.9 - Hematuria, unspecified Status: Acute Assessment and Plan: Urine remains clear off CBI. Discussion with pt. this morning - he prefers indwelling catheter currently due to his lack of mobility. Subjective Subjective Date/Time Seen: 01/22/22 07:02 Urine clear, no complaints Review of Systems Cardiovascular: Cardiovascular: Denies chest pain, Denies lightheadedness, Denies palpitations and Denies dyspnea Respiratory: Respiratory: Denies dyspnea Gastrointestinal: Gastrointestinal: Denies diarrhea, Denies nausea and Denies vomiting Genitourinary: Genitourinary: Denies hematuria and Denies dysuria Endocrine: Endocrine: Denies palpitations Exam Const: General: no acute distress Resp: Effort & Inspection: normal respiratory effort GI: Inspection: non-distended GI Palp: No abdominal tenderness and No Guarding due to palpation present (GI) Auscultation: normal bowel sounds Objective Data Vital Signs Vital Signs: Vital Signs - 24 hr 01/21/22 10:43 01/21/22 15:11 01/21/22 22:21 Temperature 97.1 F L 99.1 F Pulse Rate 84 75 81 Respiratory Rate 20 16 Blood Pressure 128/53 L 114/53 L Pulse Oximetry 98 96 01/22/22 05:50 Temperature 97.6 F Pulse Rate 85 Respiratory Rate 16 Blood Pressure 134/62 Pulse Oximetry 96 Intake/Output Intake/Output: Intake & Output 01/19/22 01/20/22 01/21/22 01/22/22 23:59 23:59 23:59 23:59 Intake Total 36773 15409 5260 260 Output Total 25631 42858 91852 1450 Balance 2600 0368 -84028 -6860 Meds/Results Medications: Active Medications Generic Name Dose Route Start Last Admin Trade Name Freq PRN Reason Stop Dose Admin Acetaminophen 650 mg 01/13/22 21:56 01/16/22 09:22 Acetaminophen Elixir 325 Mg/10.15 Ml Udc PO 650 mg Q4H PRN Administration Mild Pain (1-3) or Fever Hydrocodone Bitart/Acetaminophen 1 tab 01/13/22 19:20 01/15/22 05:02 Hydrocodone/Acetaminophen (*Crx) 5-325 Mg Tablet PO 1 tab Q4H PRN Administration Pain Rated 7-10 Albuterol 2.5 mg 01/13/22 19:20 Albuterol Sulfate Neb 2.5 Mg/0.5 Ml Inh INHALATION Q6HRT PRN Shortness Of Breath Ascorbic Acid 500 mg 01/14/22 09:00 01/21/22 18:14 Ascorbic Acid 500 Mg Tablet FEED TUBE 02/13/22 08:59 500 mg BID ANNA Administration Aspirin 81 mg 01/14/22 09:00 01/21/22 10:43 Aspirin 81 Mg Chewable Tablet PO 02/13/22 08:59 81 mg DAILY ANNA Administration Atorvastatin Calcium 80 mg 01/13/22 21:00 01/21/22 21:29 Atorvastatin 40 Mg Tablet FEED TUBE 80 mg HS ANNA Administration Bisacodyl 10 mg 01/13/22 19:20 Bisacodyl 10 Mg Suppository RECTAL DAILY PRN Constipation Clopidogrel Bisulfate 75 mg 01/14/22 09:00 01/21/22 10:44 Clopidogrel Bisulfate 75 Mg Tablet FEED TUBE 75 mg DAILY ANNA Administration Dextrose 12.5 gm 01/13/22 19:13 01/21/22 21:24 Dextrose 50% 25 Gm/50 Ml Syringe IV PUSH 12.5 gm PRN PRN Administration Hypoglycemia Protocol Fentanyl Citrate 25 mcg 01/19/22 11:41 01/19/22 14:09 Fentanyl Citrate Inj (*Crx) 100 Mcg/2 Ml Vial IV PUSH 25 mcg Q2M PRN Administration Pain Ferrous Sulfate 220 mg 01/14/22 09:00 01/21/22 10:45 Ferrous Sulfate Liquid 220 Mg/5 Ml Elixir FEED TUBE 02/13/22 08:59 220 mg DAILY ANNA Administration Gentamicin Sulfate 0.1 applic 01/14/22 09:00 01/21/22 10:46 Gentamicin Sulfate 0.1% Cr 15 Gm Tube TOPICAL 02/13/22 08:59 0.1 applic DAILY ANNA Administration Glucagon 1 mg 01/13/22 19:13 Glucagon For Inj 1 Mg Vial IM PRN PRN Hypoglycemia Protocol Glucose 15 gm 01/13/22 19:13 01/16/22 05:47 Glucose Oral Gel 15 Gm Of Glucse In 37.5 Gm Tube PO 15 gm PRN PRN Administration Hypogly
[2022-01-22 08:23] LABS: Glucose Point of Care 151 mg/dl (65-105)
[2022-01-22] MEDS: MAGNESIUM SULF 2 GM/WATER 50ML 2 GM/50 ML BAG IVPB (09:18)
[2022-01-22] MEDS: ASCORBIC ACID 500 MG TABLET FEED TUBE ×2 (09:19→17:48)
[2022-01-22] MEDS: CLOPIDOGREL BISULFATE 75 MG TABLET FEED TUBE (09:19)
[2022-01-22] MEDS: MULTIVITAMINS THERAPEUTIC TAB (*BKC) 1 TABLET FEED TUBE (09:19)
[2022-01-22] MEDS: SERTRALINE HCL 25 MG TABLET PO (09:19)
[2022-01-22] MEDS: ACIDOPHILUS PACKET 1 PKT PACKET FEED TUBE ×4 (09:19→20:44)
[2022-01-22] MEDS: FERROUS SULFATE LIQUID 220 MG/5 ML ELIXIR FEED TUBE (09:19)
[2022-01-22 09:20] VITALS: PULSE 76
[2022-01-22] MEDS: ASPIRIN 81 MG CHEWABLE TABLET PO (09:20)
[2022-01-22] MEDS: METOPROLOL SUCCINATE EXT REL 12.5 MG TABCR PO (09:20)
[2022-01-22] MEDS: lisinopriL 5 MG TABLET FEED TUBE (09:20)
[2022-01-22] MEDS: SILVERGEL (ELTA) 45 ML 1 APPLIC TOPICAL (09:23)
[2022-01-22] MEDS: TOLNAFTATE 1% POWDER 45 GM BTL 1 APPLIC TOPICAL ×2 (09:23→20:44)
[2022-01-22] MEDS: GENTAMICIN SULFATE 0.1% CR 15 GM TUBE 0.1 APPLIC TOPICAL (09:23)
[2022-01-22] MEDS: SILVER SULFADIAZINE 1% CR 50 GM JAR (*BKC) 1 APPLIC TOPICAL (09:26)
[2022-01-22 11:49] LABS: Glucose Point of Care 169 mg/dl (65-105)
[2022-01-22] MEDS: PSYLLIUM SUGAR FREE POWDER PACKET 1 PACKET FEED TUBE ×2 (12:26→20:44)
[2022-01-22 14:00] VITALS: BP 122/67; PULSE 83; RESP 14; TEMP 36.6; O2SAT 99
--- NOTE | 2022-01-22 14:02 | PCNFU ---
Nutrition Follow-Up Complete: Pt continues on tube feed, diet has been restarted as Heart healthy pureed. Increased nutrient needs related to altered skin integrity as evidenced by stage IV wound to sacrum. Goal:Improvement in wound status Pt current nutrition is tube feed of Glucerna 1.2 at 85ml/hr along with po diet as pureed. Pt is stable. Nutrition recommendation: Continue with current plan of care. 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
--- NOTE | 2022-01-22 16:11 | PM.IMPN ---
Progress Note: A&P Assessment and Plan (1) Urinary tract infection: Qualifiers: Hematuria presence: with hematuria Urinary tract infection type: site unspecified Qualified Code(s): N39.0 - Urinary tract infection, site not specified; R31.9 - Hematuria, unspecified Code(s): N39.0 - Urinary tract infection, site not specified Status: Acute Assessment and Plan: Blood culture positive for Enterococcus and Staph epidermis, repeat culture negative Patient had initially been placed on Rocephin in the emergency room for his urinary tract infection, but then after further investigation a very large decubitus ulcers noted on coccyx the patient was changed to vancomycin and Zosyn. Will continue with current medication treatment. Ideally needs an ID evaluation for long-term antibiotic course however ID not available. Bacteremia has resolved now with a staphylococcal epidermidis and Enterococcus faecalis. Sacral decubitus ulcer is also healing as it reveals in wound picture that I reviewed. I will personally reviewed the wound and coordinated with the nursing staff while doing the dressing change. I plan to continue vancomycin for at least 2 weeks for more of soft tissue wound infection. Vancomycin start date 0 01/14/2022 (2) Acute dehydration: Code(s): E86.0 - Dehydration Status: Acute Assessment and Plan: Patient received 2 L of normal saline in the emergency room. Will continue to hydrate patient with lactated Ringer's and continue monitor sodium levels as well as BUN and creatinine. Presented with VIRGILIO she is now resolved (3) Sacral decubitus ulcer: Onset Date: Unknown Qualifiers: Pressure injury stage: stage 4 Qualified Code(s): L89.154 - Pressure ulcer of sacral region, stage 4 Code(s): L89.159 - Pressure ulcer of sacral region, unspecified stage Status: Acute Assessment and Plan: Have consult Wound Care do appreciate further recommendations from Wound Care on decubitus ulcer as well as bilateral lower extremity wounds On vancomycin IV since 01/14/2022 (4) Acute on chronic kidney failure: Code(s): N17.9 - Acute kidney failure, unspecified; N18.9 - Chronic kidney disease, unspecified Status: Acute Assessment and Plan: Patient's creatinine is significantly higher than it has been in the past on admission. Creatinine at 2.3. The patient appears to be dehydrated and acute kidney injury is most likely prerenal. Will continue to hydrate patient and monitor laboratories. Renal failure has resolved now (5) Positive blood culture: Code(s): R78.81 - Bacteremia Status: Acute Assessment and Plan: Positive for Enterococcus 1/2 positive for Staph epidermis probably contaminant But patient has significant multiple comorbidities Luis Manuel Consider ID evaluation Chest x-ray was negative (6) Urothelial carcinoma: Code(s): C68.9 - Malignant neoplasm of urinary organ, unspecified Status: Acute Assessment and Plan: Urology consult Associated with acute blood loss anemia secondary to hematuria Additional Plan 71-year-old gentleman who presented from a local correction with altered mental status. It was noted that patient had a large amount of blood in his Ortiz catheter bag. Upon evaluation in emergency room patient was noted to have a significant urinary tract infection and be dehydrated. Patient does have a very large decubitus ulcer to his coccyx as well as wounds to bilateral lower extremities. 1) Hematuria 2/2 Malignancy of Bladder: s/p cystoscopy and clot evacuation on 01/19 Appreciate Urology help Urine clear after clot evacuation. Plan stop CBI / voiding trial tomorrow if urine remains clear. Residual muscle invasive bladder cancer. CT-abd/pelvis and CXR without metastatic findings. Definitive care, as outlined by Dr. Leigh (neoadjuvant chemo./cystectomy vs. chemoradiation), will be difficult due to patient
[2022-01-22 16:50] LABS: Glucose Point of Care 156 mg/dl (65-105)
[2022-01-22] MEDS: INSULIN ASPART (*BKC) 100 UNITS/ML 15 UNITS SUB-Q (17:48)
[2022-01-22 20:31] LABS: Glucose Point of Care 113 mg/dl (65-105)
[2022-01-22] MEDS: ATORVASTATIN 40 MG TABLET 80 MG FEED TUBE (20:44)
[2022-01-22 21:58] VITALS: BP 137/63; PULSE 80; RESP 16; TEMP 36.9; O2SAT 100
[2022-01-23 00:06] LABS: Glucose Point of Care 98 mg/dl (65-105)
[2022-01-23 05:22] LABS: Hematocrit 29.4 % (42.0-52.0); Mean Corpuscular HGB Conc 30.6 g/dl (32-36); Mean Corpuscular Hemoglobin 28.8 pg (26-34); Mean Corpuscular Volume 93.9 fl (80-100); Mean Platelet Volume 10.1 fl (7.4-10.4); Platelet Count Result 233 k/mm3 (150-375); Red Blood Count 3.13 M/mm3 (4.6-6.20); Red Cell Distribution Width 18.7 % (11.5-14.5); White Blood Count 10.8 K/mm3 (4.5-10.0)
[2022-01-23 05:35] LABS: Alanine Aminotransferase 18 U/L (4-50); Albumin Level 2.8 g/dL (3.5-5.1); Alkaline Phosphatase 78 U/L (38-126); Anion Gap 4 mmol/L (8-16); Aspartate Amino Transferase 25 U/L (17-59); Bilirubin,Total 0.3 mg/dL (0.2-1.3); Blood Urea Nitrogen 23 mg/dL (9-20); CRP 2.9 mg/dL (<1.0); Calcium 8.6 mg/dL (8.4-10.2); Carbon Dioxide 25 mmol/L (22-30); Chloride 103 mmol/L (98-107); Estimated CRCL calculation 62 ml/min; Estimated Glomerular Filt Rate > 60; Glucose 153 mg/dL (65-110); Magnesium 1.9 mg/dL (1.6-2.3); Phosphorus 3.6 mg/dL (2.5-4.5); Sodium 132 mmol/L (137-145)
[2022-01-23] MEDS: CENTRAL LINE FLUSH 10 ML IV PUSH ×3 (06:41→22:39)
[2022-01-23 07:53] LABS: Glucose Point of Care 153 mg/dl (65-105)
[2022-01-23 09:22] VITALS: PULSE 80
[2022-01-23] MEDS: METOPROLOL SUCCINATE EXT REL 12.5 MG TABCR PO (09:22)
[2022-01-23] MEDS: ASCORBIC ACID 500 MG TABLET FEED TUBE ×2 (09:22→17:29)
[2022-01-23] MEDS: PSYLLIUM SUGAR FREE POWDER PACKET 1 PACKET FEED TUBE ×2 (09:22→21:00)
[2022-01-23] MEDS: ASPIRIN 81 MG CHEWABLE TABLET PO (09:22)
[2022-01-23] MEDS: ACIDOPHILUS PACKET 1 PKT PACKET FEED TUBE ×4 (09:22→21:00)
[2022-01-23] MEDS: CLOPIDOGREL BISULFATE 75 MG TABLET FEED TUBE (09:22)
[2022-01-23] MEDS: FERROUS SULFATE LIQUID 220 MG/5 ML ELIXIR FEED TUBE (09:22)
[2022-01-23] MEDS: MULTIVITAMINS THERAPEUTIC TAB (*BKC) 1 TABLET FEED TUBE (09:24)
[2022-01-23] MEDS: SERTRALINE HCL 25 MG TABLET PO (09:24)
[2022-01-23] MEDS: lisinopriL 5 MG TABLET FEED TUBE (09:24)
[2022-01-23 11:44] LABS: Glucose Point of Care 152 mg/dl (65-105)
[2022-01-23 12:20] LABS: Vancomycin Trough 17.5 ug/mL (10.0-20.0)
[2022-01-23 14:00] VITALS: BP 100/50; PULSE 85; RESP 14; TEMP 36.8; O2SAT 97
[2022-01-23] MEDS: GENTAMICIN SULFATE 0.1% CR 15 GM TUBE 0.1 APPLIC TOPICAL (14:26)
[2022-01-23] MEDS: SILVER SULFADIAZINE 1% CR 50 GM JAR (*BKC) 1 APPLIC TOPICAL (14:27)
[2022-01-23] MEDS: TOLNAFTATE 1% POWDER 45 GM BTL 1 APPLIC TOPICAL ×2 (14:27→21:00)
[2022-01-23] MEDS: SILVERGEL (ELTA) 45 ML 1 APPLIC TOPICAL (14:27)
--- NOTE | 2022-01-23 14:44 | P.PNIM_ITS ---
Progress Note: A&P Assessment and Plan (1) Urinary tract infection: Qualifiers: Hematuria presence: with hematuria Urinary tract infection type: site unspecified Qualified Code(s): N39.0 - Urinary tract infection, site not specified; R31.9 - Hematuria, unspecified Code(s): N39.0 - Urinary tract infection, site not specified Status: Acute Assessment and Plan: Blood culture positive for Enterococcus and Staph epidermis, repeat culture negative Patient had initially been placed on Rocephin in the emergency room for his urinary tract infection, but then after further investigation a very large decubitus ulcers noted on coccyx the patient was changed to vancomycin and Zosyn. Will continue with current medication treatment. Ideally needs an ID evaluation for long-term antibiotic course however ID not available. Bacteremia has resolved now with a staphylococcal epidermidis and Enterococcus faecalis. Sacral decubitus ulcer is also healing as it reveals in wound picture that I reviewed. I will personally reviewed the wound and coordinated with the nursing staff while doing the dressing change. I plan to continue vancomycin for at least 2 weeks for more of soft tissue wound infection. Vancomycin start date 0 01/14/2022 Wound evaluated today on 01/23/2022 for deep-seated soft tissue infection I would plan to continue vancomycin for 4 weeks total course started a vancomycin 01/14/2022 (2) Acute dehydration: Code(s): E86.0 - Dehydration Status: Acute Assessment and Plan: Patient received 2 L of normal saline in the emergency room. Will continue to hydrate patient with lactated Ringer's and continue monitor sodium levels as well as BUN and creatinine. Presented with VIRGILIO she is now resolved (3) Sacral decubitus ulcer: Onset Date: Unknown Qualifiers: Pressure injury stage: stage 4 Qualified Code(s): L89.154 - Pressure ulcer of sacral region, stage 4 Code(s): L89.159 - Pressure ulcer of sacral region, unspecified stage Status: Acute Assessment and Plan: Have consult Wound Care do appreciate further recommendations from Wound Care on decubitus ulcer as well as bilateral lower extremity wounds On vancomycin IV since 01/14/2022 (4) Acute on chronic kidney failure: Code(s): N17.9 - Acute kidney failure, unspecified; N18.9 - Chronic kidney disease, unspecified Status: Acute Assessment and Plan: Patient's creatinine is significantly higher than it has been in the past on admission. Creatinine at 2.3. The patient appears to be dehydrated and acute kidney injury is most likely prerenal. Will continue to hydrate patient and monitor laboratories. Renal failure has resolved now (5) Positive blood culture: Code(s): R78.81 - Bacteremia Status: Acute Assessment and Plan: Positive for Enterococcus 1/2 positive for Staph epidermis probably contaminant But patient has significant multiple comorbidities Luis Manuel Consider ID evaluation Chest x-ray was negative (6) Urothelial carcinoma: Code(s): C68.9 - Malignant neoplasm of urinary organ, unspecified Status: Acute Assessment and Plan: Urology consult Associated with acute blood loss anemia secondary to hematuria Additional Plan 71-year-old gentleman who presented from a local residential with altered mental status. It was noted that patient had a large amount of blood in his Ortiz catheter bag. Upon evaluation in emergency room patient was noted to have a significant urinary tract infection and be dehydrated. Patient does have a very large decubitus ulcer to his coccyx as well a
[2022-01-23 16:57] LABS: Glucose Point of Care 158 mg/dl (65-105)
[2022-01-23] MEDS: INSULIN ASPART (*BKC) 100 UNITS/ML 15 UNITS SUB-Q (17:30)
[2022-01-23 20:15] LABS: Glucose Point of Care 85 mg/dl (65-105)
[2022-01-23] MEDS: ATORVASTATIN 40 MG TABLET 80 MG FEED TUBE (21:01)
[2022-01-23 22:00] VITALS: BP 120/62; PULSE 89; RESP 16; TEMP 37.5; O2SAT 94
[2022-01-24] MEDS: ACETAMINOPHEN ELIXIR 325 MG/10.15 ML UDC 650 MG PO ×2 (00:48→16:54)
[2022-01-24 05:48] VITALS: BP 150/46; PULSE 58; RESP 16; TEMP 36.4; O2SAT 100
[2022-01-24 06:26] LABS: Hematocrit 28.7 % (42.0-52.0); Hemoglobin 8.9 g/dL (14.0-18.0); Mean Corpuscular Hemoglobin 28.4 pg (26-34); Mean Corpuscular Volume 91.7 fl (80-100); Platelet Count Result 237 k/mm3 (150-375); Red Blood Count 3.13 M/mm3 (4.6-6.20); Red Cell Distribution Width 18.6 % (11.5-14.5); White Blood Count 8.4 K/mm3 (4.5-10.0)
[2022-01-24 06:37] LABS: Albumin Level 2.8 g/dL (3.5-5.1); Anion Gap 3 mmol/L (8-16); Blood Urea Nitrogen 33 mg/dL (9-20); Calcium 8.5 mg/dL (8.4-10.2); Carbon Dioxide 27 mmol/L (22-30); Chloride 102 mmol/L (98-107); Estimated CRCL calculation 62 ml/min; Estimated Glomerular Filt Rate > 60; Glucose 134 mg/dL (65-110); Potassium 4.7 mmol/L (3.4-5.0); Sodium 132 mmol/L (137-145)
[2022-01-24 07:22] LABS: Glucose Point of Care 133 mg/dl (65-105)
[2022-01-24] MEDS: ACIDOPHILUS PACKET 1 PKT PACKET FEED TUBE ×4 (09:19→20:57)
[2022-01-24] MEDS: FERROUS SULFATE LIQUID 220 MG/5 ML ELIXIR FEED TUBE (09:19)
[2022-01-24] MEDS: MULTIVITAMINS THERAPEUTIC TAB (*BKC) 1 TABLET FEED TUBE (09:19)
[2022-01-24 09:20] VITALS: PULSE 76
[2022-01-24] MEDS: METOPROLOL SUCCINATE EXT REL 12.5 MG TABCR PO (09:20)
[2022-01-24] MEDS: lisinopriL 5 MG TABLET FEED TUBE (09:21)
[2022-01-24] MEDS: CLOPIDOGREL BISULFATE 75 MG TABLET FEED TUBE (09:21)
[2022-01-24] MEDS: SERTRALINE HCL 25 MG TABLET PO (09:21)
[2022-01-24] MEDS: PSYLLIUM SUGAR FREE POWDER PACKET 1 PACKET FEED TUBE ×2 (09:21→20:57)
[2022-01-24] MEDS: ASCORBIC ACID 500 MG TABLET FEED TUBE ×2 (09:21→16:56)
[2022-01-24] MEDS: ASPIRIN 81 MG CHEWABLE TABLET PO (09:21)
[2022-01-24] MEDS: SILVERGEL (ELTA) 45 ML 1 APPLIC TOPICAL (09:22)
[2022-01-24] MEDS: CENTRAL LINE FLUSH 10 ML IV PUSH ×3 (09:23→21:00)
[2022-01-24] MEDS: GENTAMICIN SULFATE 0.1% CR 15 GM TUBE 0.1 APPLIC TOPICAL (09:39)
[2022-01-24] MEDS: TOLNAFTATE 1% POWDER 45 GM BTL 1 APPLIC TOPICAL ×2 (09:39→20:58)
[2022-01-24 12:04] LABS: Glucose Point of Care 184 mg/dl (65-105)
[2022-01-24 14:00] VITALS: BP 129/61; PULSE 81; RESP 18; TEMP 36.2; O2SAT 100
[2022-01-24 17:00] LABS: Glucose Point of Care 165 mg/dl (65-105)
[2022-01-24] MEDS: INSULIN ASPART (*BKC) 100 UNITS/ML 15 UNITS SUB-Q (17:30)
[2022-01-24 20:17] LABS: Glucose Point of Care 115 mg/dl (65-105)
[2022-01-24] MEDS: ATORVASTATIN 40 MG TABLET 80 MG FEED TUBE (20:57)
[2022-01-24 21:41] VITALS: BP 105/55; PULSE 81; RESP 18; TEMP 36.6; O2SAT 98
[2022-01-25 06:00] VITALS: BP 112/67; PULSE 80; RESP 18; TEMP 36.4; O2SAT 99
[2022-01-25 06:24] LABS: Basophils Percent Auto 0.3 % (0.2-1.2); Eosinophils Absolute Auto 0.5 K/mm3 (0-0.3); Eosinophils Percent Auto 4.8 % (0-4.4); Hematocrit 30.7 % (42.0-52.0); Hemoglobin 9.5 g/dL (14.0-18.0); Immature Granulocyte Absolute 0.07 K/mm3 (0.00-0.031); Immature Granulocyte Percent A 0.6 % (0-0.5); Mean Corpuscular HGB Conc 30.9 g/dl (32-36); Mean Corpuscular Hemoglobin 28.4 pg (26-34); Mean Corpuscular Volume 91.9 fl (80-100); Mean Platelet Volume 9.9 fl (7.4-10.4); Monocytes Absolute Auto 0.6 K/mm3 (0.1-0.6); Monocytes Percent Auto 5.1 % (2.6-8.5); Neutrophils Absolute Auto 7.2 K/mm3 (1.3-6.7); Neutrophils Percent Auto 66.2 % (45.5-73.1); Platelet Count Result 271 k/mm3 (150-375); Red Blood Count 3.34 M/mm3 (4.6-6.20); Red Cell Distribution Width 18.1 % (11.5-14.5); White Blood Count 10.9 K/mm3 (4.5-10.0)
--- NOTE | 2022-01-25 06:33 | WPDUROPN2 ---
Progress Note: A&P Assessment and Plan (1) Cancer of overlapping sites of bladder: Code(s): C67.8 - Malignant neoplasm of overlapping sites of bladder Status: Acute (2) Hematuria: Code(s): R31.9 - Hematuria, unspecified Status: Acute Assessment and Plan: Hematuria (which has recurred slightly) will likely be an ongoing/intermittent problem until he receives definitive care for muscle-invasive bladder cancer. Subjective Subjective Date/Time Seen: 01/25/22 06:33 Awake, c/o buttock pain this morning Review of Systems Cardiovascular: Cardiovascular: Denies chest pain, Denies lightheadedness, Denies palpitations and Denies dyspnea Respiratory: Respiratory: Denies dyspnea Gastrointestinal: Gastrointestinal: Denies diarrhea, Denies nausea and Denies vomiting Genitourinary: Genitourinary: Denies hematuria and Denies dysuria Endocrine: Endocrine: Denies palpitations Exam Const: General: no acute distress Resp: Effort & Inspection: normal respiratory effort GI: Inspection: non-distended GI Palp: No abdominal tenderness and No Guarding due to palpation present (GI) Auscultation: normal bowel sounds Urinary Catheter: Urinary Catheter: urine pink Objective Data Vital Signs Vital Signs: Vital Signs - 24 hr 01/24/22 09:20 01/24/22 14:00 01/24/22 21:41 Temperature 97.2 F L 97.9 F Pulse Rate 76 81 81 Respiratory Rate 18 18 Blood Pressure 129/61 105/55 L Pulse Oximetry 100 98 01/25/22 06:00 Temperature 97.5 F L Pulse Rate 80 Respiratory Rate 18 Blood Pressure 112/67 Pulse Oximetry 99 Intake/Output Intake/Output: Intake & Output 01/22/22 01/23/22 01/24/22 01/25/22 23:59 23:59 23:59 23:59 Intake Total 8348 1568 4156 200 Output Total 2900 3000 3525 2000 Balance 1299 -6900 631 -1800 Meds/Results Medications: Active Medications Generic Name Dose Route Start Last Admin Trade Name Freq PRN Reason Stop Dose Admin Acetaminophen 650 mg 01/13/22 21:56 01/24/22 16:54 Acetaminophen Elixir 325 Mg/10.15 Ml Udc PO 650 mg Q4H PRN Administration Mild Pain (1-3) or Fever Albuterol 2.5 mg 01/13/22 19:20 Albuterol Sulfate Neb 2.5 Mg/0.5 Ml Inh INHALATION Q6HRT PRN Shortness Of Breath Ascorbic Acid 500 mg 01/14/22 09:00 01/24/22 16:56 Ascorbic Acid 500 Mg Tablet FEED TUBE 02/13/22 08:59 500 mg BID ANNA Administration Aspirin 81 mg 01/14/22 09:00 01/24/22 09:21 Aspirin 81 Mg Chewable Tablet PO 02/13/22 08:59 81 mg DAILY ANNA Administration Atorvastatin Calcium 80 mg 01/13/22 21:00 01/24/22 20:57 Atorvastatin 40 Mg Tablet FEED TUBE 80 mg HS ANNA Administration Bisacodyl 10 mg 01/13/22 19:20 Bisacodyl 10 Mg Suppository RECTAL DAILY PRN Constipation Clopidogrel Bisulfate 75 mg 01/14/22 09:00 01/24/22 09:21 Clopidogrel Bisulfate 75 Mg Tablet FEED TUBE 75 mg DAILY ANNA Administration Dextrose 12.5 gm 01/13/22 19:13 01/21/22 21:24 Dextrose 50% 25 Gm/50 Ml Syringe IV PUSH 12.5 gm PRN PRN Administration Hypoglycemia Protocol Fentanyl Citrate 25 mcg 01/19/22 11:41 01/19/22 14:09 Fentanyl Citrate Inj (*Crx) 100 Mcg/2 Ml Vial IV PUSH 25 mcg Q2M PRN Administration Pain Ferrous Sulfate 220 mg 01/14/22 09:00 01/24/22 09:19 Ferrous Sulfate Liquid 220 Mg/5 Ml Elixir FEED TUBE 02/13/22 08:59 220 mg DAILY ANNA Administration Gentamicin Sulfate 0.1 applic 01/14/22 09:00 01/24/22 09:39 Gentamicin Sulfate 0.1% Cr 15 Gm Tube TOPICAL 02/13/22 08:59 0.1 applic DAILY ANNA Administration Glucagon 1 mg 01/13/22 19:13 Glucagon For Inj 1 Mg Vial IM PRN PRN Hypoglycemia Protocol Glucose 15 gm 01/13/22 19:13 01/16/22 05:47 Glucose Oral Gel 15 Gm Of Glucse In 37.5 Gm Tube PO 15 gm PRN PRN Administration Hypoglycemia Protocol Vancomycin HCl 1,000 mg in 250 mls @ 250 mls/hr 01/14/22 11:00 01/24/22 13:17 Vanc
[2022-01-25 06:36] LABS: Albumin Level 3.2 g/dL (3.5-5.1); Anion Gap 7 mmol/L (8-16); Blood Urea Nitrogen 38 mg/dL (9-20); Calcium 8.7 mg/dL (8.4-10.2); Carbon Dioxide 25 mmol/L (22-30); Chloride 102 mmol/L (98-107); Estimated CRCL calculation 62 ml/min; Estimated Glomerular Filt Rate > 60; Glucose 131 mg/dL (65-110); Phosphorus 4.5 mg/dL (2.5-4.5); Potassium 4.9 mmol/L (3.4-5.0); Sodium 134 mmol/L (137-145)
[2022-01-25 08:07] LABS: Glucose Point of Care 146 mg/dl (65-105)
[2022-01-25 09:32] VITALS: PULSE 69
[2022-01-25] MEDS: METOPROLOL SUCCINATE EXT REL 12.5 MG TABCR PO (09:32)
[2022-01-25] MEDS: lisinopriL 5 MG TABLET FEED TUBE (09:33)
[2022-01-25] MEDS: MULTIVITAMINS THERAPEUTIC TAB (*BKC) 1 TABLET FEED TUBE (09:33)
[2022-01-25] MEDS: ACIDOPHILUS PACKET 1 PKT PACKET FEED TUBE ×3 (09:33→17:43)
[2022-01-25] MEDS: PSYLLIUM SUGAR FREE POWDER PACKET 1 PACKET FEED TUBE (09:33)
[2022-01-25] MEDS: ASCORBIC ACID 500 MG TABLET FEED TUBE ×2 (09:33→17:43)
[2022-01-25] MEDS: FERROUS SULFATE LIQUID 220 MG/5 ML ELIXIR FEED TUBE (09:33)
[2022-01-25] MEDS: CLOPIDOGREL BISULFATE 75 MG TABLET FEED TUBE (09:33)
[2022-01-25] MEDS: ASPIRIN 81 MG CHEWABLE TABLET PO (09:33)
[2022-01-25] MEDS: CENTRAL LINE FLUSH 10 ML IV PUSH ×3 (09:33→22:25)
[2022-01-25] MEDS: SERTRALINE HCL 25 MG TABLET PO (09:33)
[2022-01-25] MEDS: TOLNAFTATE 1% POWDER 45 GM BTL 1 APPLIC TOPICAL ×2 (09:34→22:25)
[2022-01-25] MEDS: SILVERGEL (ELTA) 45 ML 1 APPLIC TOPICAL (09:34)
[2022-01-25] MEDS: GENTAMICIN SULFATE 0.1% CR 15 GM TUBE 0.1 APPLIC TOPICAL (09:34)
[2022-01-25 11:45] LABS: Glucose Point of Care 132 mg/dl (65-105)
[2022-01-25 14:00] VITALS: BP 107/74; PULSE 81; RESP 18; TEMP 36.8; O2SAT 97
--- NOTE | 2022-01-25 14:08 | PM.IMPN ---
Progress Note: A&P Assessment and Plan (1) Urinary tract infection: Qualifiers: Hematuria presence: with hematuria Urinary tract infection type: site unspecified Qualified Code(s): N39.0 - Urinary tract infection, site not specified; R31.9 - Hematuria, unspecified Code(s): N39.0 - Urinary tract infection, site not specified Status: Acute Assessment and Plan: Blood culture positive for Enterococcus and Staph epidermis, repeat culture negative Patient had initially been placed on Rocephin in the emergency room for his urinary tract infection, but then after further investigation a very large decubitus ulcers noted on coccyx the patient was changed to vancomycin and Zosyn. Will continue with current medication treatment. Ideally needs an ID evaluation for long-term antibiotic course however ID not available. Bacteremia has resolved now with a staphylococcal epidermidis and Enterococcus faecalis. Sacral decubitus ulcer is also healing as it reveals in wound picture that I reviewed. I will personally reviewed the wound and coordinated with the nursing staff while doing the dressing change. I plan to continue vancomycin for at least 2 weeks for more of soft tissue wound infection. Vancomycin start date 0 01/14/2022 Wound evaluated today on 01/23/2022 for deep-seated soft tissue infection I would plan to continue vancomycin for 4 weeks total course started a vancomycin 01/14/2022 (2) Acute dehydration: Code(s): E86.0 - Dehydration Status: Acute Assessment and Plan: Patient received 2 L of normal saline in the emergency room. Will continue to hydrate patient with lactated Ringer's and continue monitor sodium levels as well as BUN and creatinine. Presented with VIRGILIO she is now resolved (3) Sacral decubitus ulcer: Onset Date: Unknown Qualifiers: Pressure injury stage: stage 4 Qualified Code(s): L89.154 - Pressure ulcer of sacral region, stage 4 Code(s): L89.159 - Pressure ulcer of sacral region, unspecified stage Status: Acute Assessment and Plan: Have consult Wound Care do appreciate further recommendations from Wound Care on decubitus ulcer as well as bilateral lower extremity wounds On vancomycin IV since 01/14/2022 (4) Acute on chronic kidney failure: Code(s): N17.9 - Acute kidney failure, unspecified; N18.9 - Chronic kidney disease, unspecified Status: Acute Assessment and Plan: Patient's creatinine is significantly higher than it has been in the past on admission. Creatinine at 2.3. The patient appears to be dehydrated and acute kidney injury is most likely prerenal. Will continue to hydrate patient and monitor laboratories. Renal failure has resolved now (5) Positive blood culture: Code(s): R78.81 - Bacteremia Status: Acute Assessment and Plan: Positive for Enterococcus 1/2 positive for Staph epidermis probably contaminant But patient has significant multiple comorbidities Consider ID evaluation Chest x-ray was negative (6) Urothelial carcinoma: Code(s): C68.9 - Malignant neoplasm of urinary organ, unspecified Status: Acute Assessment and Plan: Urology consult Associated with acute blood loss anemia secondary to hematuria Additional Plan 71-year-old gentleman who presented from a local skilled nursing with altered mental status. It was noted that patient had a large amount of blood in his Ortiz catheter bag. Upon evaluation in emergency room patient was noted to have a significant urinary tract infection and be dehydrated. Patient does have a very large decubitus ulcer to his coccyx as well as wounds to bilateral lower extremities. 1) Hematuria 2/2 Malignancy of Bladder: s/p cystoscopy and clot evacuation on 01/19 Appreciate Urology help Urine clear after clot evacuation. Plan stop CBI / voiding trial tomorrow if urine remains clear. Residual muscle invasive bladder cancer. CT-abd/pelvis and
[2022-01-25 17:11] LABS: Glucose Point of Care 139 mg/dl (65-105)
--- NOTE | 2022-01-25 18:35 | PM.CNGS ---
Assessment and Plan Assessment and plan (1) Sacral decubitus ulcer: Onset Date: Unknown Qualifiers: Pressure injury stage: stage 4 Qualified Code(s): L89.154 - Pressure ulcer of sacral region, stage 4 Code(s): L89.159 - Pressure ulcer of sacral region, unspecified stage Status: Acute Assessment and Plan: Decubitus ulcer appears to be adequately treated at this time. There does not appear to be any necrotic tissue within the base. No further debridement is needed at this time. I would recommend continuing current wound care. Keeping wound clean of stool or urine will help prevent any infection or further breakdown of tissue. Offloading pressure with specialty bed and frequent position changes will help. Will continue to follow along with patient is needed, but no surgical intervention needed at this time. (2) Cancer of overlapping sites of bladder: Code(s): C67.8 - Malignant neoplasm of overlapping sites of bladder Status: Acute (3) Urinary tract infection: Qualifiers: Hematuria presence: with hematuria Urinary tract infection type: site unspecified Qualified Code(s): N39.0 - Urinary tract infection, site not specified; R31.9 - Hematuria, unspecified Code(s): N39.0 - Urinary tract infection, site not specified Status: Acute (4) Hematuria: Code(s): R31.9 - Hematuria, unspecified Status: Acute History of Present Illness Consult details Consult date: 01/25/22 Reason for consult: wound care Requesting physician: Vijay Malagon MD Narrative: This is a 71-year-old man who I am asked to see for evaluation of his sacral decubitus ulcer. He was previously seen by my partner back in late October and early December. He underwent debridement of the sacral wound on 11/26/[address] Clarke. He was discharged on 12/04/2021. He was then readmitted on 01/13/2022. He has multiple medical problems including recurrent urinary tract infection, hematuria, and bladder cancer. History is difficult to obtain from patient. Most of the history is obtained from the chart. Review of Systems Review of Systems: All systems reviewed & are unremarkable except as noted in HPI and below Constitutional: Constitutional: Denies chills and Denies fever(s) Cardiovascular: Cardiovascular: Denies chest pain and Denies dyspnea Respiratory: Respiratory: Denies dyspnea Gastrointestinal: Gastrointestinal: Reports as per HPI Integumentary/Breasts: Skin/Breast: Reports as per HPI [facility] Past Medical History Medical History Coronary artery disease DM type 2 (diabetes mellitus, type 2) (Unknown) DVT (deep venous thrombosis) S/p IVC filter, not on oral anticoagulation due to high fall risk GERD (gastroesophageal reflux disease) Hyperlipidemia Hypertension Peripheral arterial disease (Unknown) Sacral decubitus ulcer (Unknown) Urothelial carcinoma Venous stasis dermatitis (Unknown) Surgical History Surgical History H/O cardiac catheterization History of revascularization procedure of lower extremity Left fem-pop bypass Balloon angioplasty and tPA to lower ext - 02/2020 Lower extremity stent, possible left-sided? - 2020 Hx of CABG S/P IVC filter 2020 Family History Family History Sibling Family history of cardiovascular disease Father Family history of cardiovascular disease Son Depression Son Family history of seizure disorder Other Family history of seizure disorder Other Cerebrovascular accident Diabetes mellitus Family history of arthritis Family history of coronary artery disease Family history of hypercholesterolemia Family history of mental disorder Family history of obesity Hypertension Social History Social History (Reviewed 01/25/22 @ 18:42 by Burt Jeter
[2022-01-25 21:22] VITALS: BP 132/70; PULSE 97; RESP 18; TEMP 36.6; O2SAT 100
[2022-01-26 06:00] VITALS: BP 114/64; PULSE 94; RESP 18; TEMP 36.3; O2SAT 100
[2022-01-26] MEDS: CENTRAL LINE FLUSH 10 ML IV PUSH ×3 (06:08→21:16)
[2022-01-26 06:21] LABS: Hematocrit 28.9 % (42.0-52.0); Hemoglobin 8.7 g/dL (14.0-18.0); Mean Corpuscular HGB Conc 30.1 g/dl (32-36); Mean Corpuscular Hemoglobin 28.4 pg (26-34); Mean Corpuscular Volume 94.4 fl (80-100); Mean Platelet Volume 9.7 fl (7.4-10.4); Platelet Count Result 242 k/mm3 (150-375); Red Blood Count 3.06 M/mm3 (4.6-6.20); Red Cell Distribution Width 18.1 % (11.5-14.5); White Blood Count 8.5 K/mm3 (4.5-10.0)
[2022-01-26 06:37] LABS: Alanine Aminotransferase 13 U/L (4-50); Albumin Level 2.8 g/dL (3.5-5.1); Alkaline Phosphatase 71 U/L (38-126); Anion Gap 5 mmol/L (8-16); Aspartate Amino Transferase 22 U/L (17-59); Bilirubin,Total 0.4 mg/dL (0.2-1.3); Blood Urea Nitrogen 34 mg/dL (9-20); Calcium 8.7 mg/dL (8.4-10.2); Carbon Dioxide 28 mmol/L (22-30); Chloride 101 mmol/L (98-107); Estimated CRCL calculation 51 ml/min; Estimated Glomerular Filt Rate > 60; Glucose 127 mg/dL (65-110); Phosphorus 5.1 mg/dL (2.5-4.5); Potassium 4.7 mmol/L (3.4-5.0); Sodium 134 mmol/L (137-145)
[2022-01-26 08:03] LABS: Glucose Point of Care 143 mg/dl (65-105)
[2022-01-26] MEDS: CENTRAL LINE FLUSH 20 ML IV PUSH (10:43)
[2022-01-26 10:48] VITALS: PULSE 80
[2022-01-26] MEDS: METOPROLOL SUCCINATE EXT REL 12.5 MG TABCR PO (10:48)
[2022-01-26] MEDS: FERROUS SULFATE LIQUID 220 MG/5 ML ELIXIR FEED TUBE (10:49)
[2022-01-26] MEDS: lisinopriL 5 MG TABLET FEED TUBE (10:50)
[2022-01-26] MEDS: ASCORBIC ACID 500 MG TABLET FEED TUBE ×2 (10:50→17:31)
[2022-01-26] MEDS: CLOPIDOGREL BISULFATE 75 MG TABLET FEED TUBE (10:50)
[2022-01-26] MEDS: ASPIRIN 81 MG CHEWABLE TABLET PO (10:50)
[2022-01-26] MEDS: PSYLLIUM SUGAR FREE POWDER PACKET 1 PACKET FEED TUBE ×2 (10:50→21:15)
[2022-01-26] MEDS: SERTRALINE HCL 25 MG TABLET PO (10:50)
[2022-01-26] MEDS: MULTIVITAMINS THERAPEUTIC TAB (*BKC) 1 TABLET FEED TUBE (10:50)
[2022-01-26] MEDS: ACIDOPHILUS PACKET 1 PKT PACKET FEED TUBE ×3 (11:00→21:14)
[2022-01-26 11:21] LABS: Glucose Point of Care 129 mg/dl (65-105)
[2022-01-26 11:23] LABS: Vancomycin Trough 20.8 ug/mL (10.0-20.0)
--- NOTE | 2022-01-26 11:39 | WPDUROPN2 ---
Progress Note: A&P Assessment and Plan (1) Cancer of overlapping sites of bladder: Code(s): C67.8 - Malignant neoplasm of overlapping sites of bladder Status: Acute Assessment and Plan: Gross hematuria and clots are going to continue to be a problem for this patient until bladder cancer is addressed. (2) Hematuria: Code(s): R31.9 - Hematuria, unspecified Status: Acute Assessment and Plan: I irrigated him with 240cc of NS 0.9% at the bedside via 60cc catheter tip syringe. I was able to clear multiple large clots from his bladder and get catheter cleared to run. He will need to restart CBI. Ok to wean to off if urine clears, if bleeding restarts, then restart CBI. (3) Urinary retention: Code(s): R33.9 - Retention of urine, unspecified Status: Acute Subjective Subjective Date/Time Seen: 01/26/22 11:39 Gross Hematuria with clots, catheter clogging. Patient's catheter stopped draining this morning. The staff has manually irrigated him but he continues to clot off. Review of Systems Cardiovascular: Cardiovascular: Denies chest pain Respiratory: Respiratory: Reports no additional respiratory complaints Gastrointestinal: Gastrointestinal: Reports abdominal pain, Denies nausea and Denies vomiting Genitourinary: Genitourinary: Reports hematuria and Denies flank pain Exam Resp: Effort & Inspection: normal respiratory effort Cardio: Rate: regular rate GI: GI Palp: Yes Soft to palpation and Yes Tenderness to palpation present (GI) (suprapubic) : General: Yes no CVA tenderness Urinary Catheter: Urinary Catheter: urine red, urine with clots and other (not draining) Extrem: General: edema (mild) bilateral Objective Data Vital Signs Vital Signs: Vital Signs - 24 hr 01/25/22 14:00 01/25/22 21:22 01/26/22 06:00 Temperature 98.2 F 97.9 F 97.4 F L Pulse Rate 81 97 94 Respiratory Rate 18 18 18 Blood Pressure 107/74 132/70 114/64 Pulse Oximetry 97 100 100 01/26/22 10:48 Temperature Pulse Rate 80 Respiratory Rate Blood Pressure Pulse Oximetry Intake/Output Intake/Output: Intake & Output 01/23/22 01/24/22 01/25/22 01/26/22 23:59 23:59 23:59 23:59 Intake Total 1568 4156 700 50 Output Total 3000 4025 3100 600 Balance -1432 823 -7709 -855 Meds/Results Medications: Active Medications Generic Name Dose Route Start Last Admin Trade Name Freq PRN Reason Stop Dose Admin Acetaminophen 650 mg 01/13/22 21:56 01/24/22 16:54 Acetaminophen Elixir 325 Mg/10.15 Ml Udc PO 650 mg Q4H PRN Administration Mild Pain (1-3) or Fever Albuterol 2.5 mg 01/13/22 19:20 Albuterol Sulfate Neb 2.5 Mg/0.5 Ml Inh INHALATION Q6HRT PRN Shortness Of Breath Ascorbic Acid 500 mg 01/14/22 09:00 01/26/22 10:50 Ascorbic Acid 500 Mg Tablet FEED TUBE 02/13/22 08:59 500 mg BID ANNA Administration Aspirin 81 mg 01/14/22 09:00 01/26/22 10:50 Aspirin 81 Mg Chewable Tablet PO 02/13/22 08:59 81 mg DAILY ANNA Administration Atorvastatin Calcium 80 mg 01/13/22 21:00 01/25/22 22:23 Atorvastatin 40 Mg Tablet FEED TUBE Not Given HS ANNA Bisacodyl 10 mg 01/13/22 19:20 Bisacodyl 10 Mg Suppository RECTAL DAILY PRN Constipation Clopidogrel Bisulfate 75 mg 01/14/22 09:00 01/26/22 10:50 Clopidogrel Bisulfate 75 Mg Tablet FEED TUBE 75 mg DAILY ANNA Administration Dextrose 12.5 gm 01/13/22 19:13 01/21/22 21:24 Dextrose 50% 25 Gm/50 Ml Syringe IV PUSH 12.5 gm PRN PRN Administration Hypoglycemia Protocol Ferrous Sulfate 220 mg 01/14/22 09:00 01/26/22 10:49 Ferrous Sulfate Liquid 220 Mg/5 Ml Elixir FEED TUBE 02/13/22 08:59 220 mg DAILY ANNA Administration Gentamicin Sulfate 0.1 applic 01/14/22 09:00 01/25/22 09:34 Gentamicin Sulfate 0.1% Cr 15 Gm Tube TOPICAL 02/13/22 08:59 0.1 applic DAILY ANNA Administration Glucagon 1 mg 01/13/22 19:13 Glucagon For Inj 1 Mg
--- NOTE | 2022-01-26 12:03 | PCNFU ---
Nutrition Follow-Up Complete: Increased nutrient needs related to altered skin integrity as evidenced by stage IV wound to sacrum. Goal:Improvement in wound status Pt is progressing towards goal. Pt current nutrition is Pureed diet, thickened liquids, TF: glucerna 1.2 @85ml/hr still. Nutrition recommendation: Continue with current plan of care. Last recorded weight is 67.1 kg - shows a 6kg loss, unsure of accuracy. Nursing to reweigh Bowel Motility: Multiple large BMs, daily Labs Reviewed:NA:134, Gluc: 129 Meds Noted: Skin: Stage IV continues Additional Notes: TF was on hold yesterday due to a clog. Is now resumed, Pt tolerating well, po intake remains minimal and for pleasure. Noted wt loss, will monitor. Supplements remain in place for wound healing per recommendation. monitor wt. labs, and follow up on /Fridays
[2022-01-26] MEDS: ACETAMINOPHEN ELIXIR 325 MG/10.15 ML UDC 650 MG PO (13:21)
--- NOTE | 2022-01-26 13:51 | PM.PNGS ---
Progress Note: A&P Assessment and Plan (1) Decubitus ulcer: Qualifiers: Laterality: unspecified laterality Pressure injury location: buttock Pressure injury stage: unstageable Qualified Code(s): L89.300 - Pressure ulcer of unspecified buttock, unstageable Code(s): L89.90 - Pressure ulcer of unspecified site, unspecified stage Status: Acute Assessment and Plan: Evaluation of the sacral decubitus today reveals significant improvement compared to when I saw it more than 6 weeks ago. There is no exposed tendon or bone at this time and I doubt that this was the source of the current episode of sepsis. It is much improved compared to when I saw at 6 weeks ago and is now granulated enough probably to be considered for possible flap repair/ skin coverage, however patient may be better off having his cystectomy and considering a diverting colostomy at the same time since he does not get out of bed and move and he continues to have problems with liquid bowel movements getting in the wound related to his tube feedings. (2) PAD (peripheral artery disease): Code(s): I73.9 - Peripheral vascular disease, unspecified Status: Acute Assessment and Plan: Patient continues on Plavix. He was seen by Dr. Posey (PVD/cardiology) regarding his poor flow to his right lower extremity on his last admission. I believe the plan was to eventually get him to go in for further testing at [facility] under Dr. Posey's direction. Please see his consult from December. Right now patient is having difficulty healing the superficial wounds on his legs due to very thin skin and a combination of venous stasis and poor arterial inflow. I have discussed continuing current dressing changes with silver gel adding a nonstick Vaseline gauze over this so that the dry gauze does not peel off more skin when the nurses change the dressings daily. Otherwise these do not appear to be infected. Even the normal skin of his both lower extremities is very thin and crusty and he needs lotion on these areas to protect the skin. (These things were ordered by our wound care nurse). (3) Urinary retention: Code(s): R33.9 - Retention of urine, unspecified Status: Acute (4) Cancer of overlapping sites of bladder: Code(s): C67.8 - Malignant neoplasm of overlapping sites of bladder Status: Acute Assessment and Plan: Patient is apparently planning to see a urologist regarding possible cystectomy patient states that he does want to proceed in that manner. Since his sepsis apparently now is under control could consider transferring him to their care whenever they could except him especially in view of his continuing bleeding and inability to go up Plavix for fear of clotting off his grafts to his lower extremity. (5) Hematuria: Code(s): R31.9 - Hematuria, unspecified Status: Acute Assessment and Plan: See note above under bladder cancer (6) CAD (coronary artery disease): Code(s): I25.10 - Atherosclerotic heart disease of [place] coronary artery without angina pectoris Status: Acute Assessment and Plan: This is a complication /compounding factor concerning for any need for general anesthesia but cardiology could be asked to see the patient for the perioperative period if needed. Time Spent With Patient Time with patient: 15 - 25 minutes Subjective Subjective Date/Time Seen: 01/26/22 13:51 Patient lying flat on his back in bed when we arrived in the room. He is complaining about soreness in both feet. (He has known for vascular circulation dot dot arterial to the lower extremities from previous interventions and atherosclerotic disease. I let patient know that I had reviewed Dr. Mendez's note from yesterday and discussed the situation with the wound care nurses and agree with continued dressing changes for now. He will continue to have trouble difficulties with the wounds on h
[2022-01-26 14:00] VITALS: BP 115/46; PULSE 81; RESP 18; TEMP 36.7; O2SAT 97
[2022-01-26] MEDS: TOLNAFTATE 1% POWDER 45 GM BTL 1 APPLIC TOPICAL ×2 (14:13→21:17)
[2022-01-26] MEDS: SILVERGEL (ELTA) 45 ML 1 APPLIC TOPICAL (14:14)
[2022-01-26] MEDS: GENTAMICIN SULFATE 0.1% CR 15 GM TUBE 0.1 APPLIC TOPICAL (14:14)
[2022-01-26] MEDS: SILVER SULFADIAZINE 1% CR 50 GM JAR (*BKC) 1 APPLIC TOPICAL (14:31)
--- NOTE | 2022-01-26 14:52 | PM.IMPN ---
Progress Note: A&P Assessment and Plan (1) Urinary tract infection: Qualifiers: Hematuria presence: with hematuria Urinary tract infection type: site unspecified Qualified Code(s): N39.0 - Urinary tract infection, site not specified; R31.9 - Hematuria, unspecified Code(s): N39.0 - Urinary tract infection, site not specified Status: Acute Assessment and Plan: Blood culture positive for Enterococcus and Staph epidermis, repeat culture negative Patient had initially been placed on Rocephin in the emergency room for his urinary tract infection, but then after further investigation a very large decubitus ulcers noted on coccyx the patient was changed to vancomycin and Zosyn. Will continue with current medication treatment. Ideally needs an ID evaluation for long-term antibiotic course however ID not available. Bacteremia has resolved now with a staphylococcal epidermidis and Enterococcus faecalis. Sacral decubitus ulcer is also healing as it reveals in wound picture that I reviewed. I will personally reviewed the wound and coordinated with the nursing staff while doing the dressing change. I plan to continue vancomycin for at least 2 weeks for more of soft tissue wound infection. Vancomycin start date 0 01/14/2022 Wound evaluated today on 01/23/2022 for deep-seated soft tissue infection I would plan to continue vancomycin for 4 weeks total course started a vancomycin 01/14/2022 Dr Clarke has evaluated the wound and suggest ongoing wound care and improvement (2) Acute dehydration: Code(s): E86.0 - Dehydration Status: Acute Assessment and Plan: Patient received 2 L of normal saline in the emergency room. Will continue to hydrate patient with lactated Ringer's and continue monitor sodium levels as well as BUN and creatinine. Presented with VIRGILIO she is now resolved (3) Sacral decubitus ulcer: Onset Date: Unknown Qualifiers: Pressure injury stage: stage 4 Qualified Code(s): L89.154 - Pressure ulcer of sacral region, stage 4 Code(s): L89.159 - Pressure ulcer of sacral region, unspecified stage Status: Acute Assessment and Plan: Have consult Wound Care do appreciate further recommendations from Wound Care on decubitus ulcer as well as bilateral lower extremity wounds On vancomycin IV since 01/14/2022 (4) Acute on chronic kidney failure: Code(s): N17.9 - Acute kidney failure, unspecified; N18.9 - Chronic kidney disease, unspecified Status: Acute Assessment and Plan: Patient's creatinine is significantly higher than it has been in the past on admission. Creatinine at 2.3. The patient appears to be dehydrated and acute kidney injury is most likely prerenal. Will continue to hydrate patient and monitor laboratories. Renal failure has resolved now (5) Positive blood culture: Code(s): R78.81 - Bacteremia Status: Acute Assessment and Plan: Positive for Enterococcus 1/2 positive for Staph epidermis probably contaminant But patient has significant multiple comorbidities Consider ID evaluation Chest x-ray was negative (6) Urothelial carcinoma: Code(s): C68.9 - Malignant neoplasm of urinary organ, unspecified Status: Acute Assessment and Plan: Urology consult Associated with acute blood loss anemia secondary to hematuria Reappearance of gross hematuria. CBI getting restarted Additional Plan 71-year-old gentleman who presented from a local long term with altered mental status. It was noted that patient had a large amount of blood in his Ortiz catheter bag. Upon evaluation in emergency room patient was noted to have a significant urinary tract infection and be dehydrated. Patient does have a very large decubitus ulcer to his coccyx as well as wounds to bilateral lower extremities. 1) Hematuria 2/2 Malignancy of Bladder: s/p cystoscopy and clot evacuation on 01/19 Appreciate Urology help Urine clear after cl
[2022-01-26 16:23] LABS: Glucose Point of Care 156 mg/dl (65-105)
[2022-01-26 20:15] VITALS: PULSE 89; RESP 16; O2SAT 98
[2022-01-26] MEDS: ATORVASTATIN 40 MG TABLET 80 MG FEED TUBE (21:15)
[2022-01-26] MEDS: INSULIN GLARGINE (*BKC) 100 UNITS/ML 30 UNITS SUB-Q (21:40)
[2022-01-26 22:00] VITALS: BP 128/115; PULSE 89; RESP 16; TEMP 36.7; O2SAT 98
[2022-01-26 22:55] LABS: Glucose Point of Care 138 mg/dl (65-105)
[2022-01-27] VITALS (8 sets, daily range): BP systolic 97–121; BP diastolic 46–71; PULSE 83–90; RESP 14–16; TEMP 36.6–36.9; O2SAT 98–99
[2022-01-27] MEDS: INSULIN ASPART (*BKC) 100 UNITS/ML 8 UNITS SUB-Q ×2 (01:20→18:11)
[2022-01-27 01:27] LABS: Glucose Point of Care 140 mg/dl (65-105)
[2022-01-27 07:00] LABS: Basophils Absolute Auto 0.1 K/mm3 (0.0-0.1); Basophils Percent Auto 0.5 % (0.2-1.2); Eosinophils Absolute Auto 0.6 K/mm3 (0-0.3); Eosinophils Percent Auto 5.7 % (0-4.4); Hematocrit 29.1 % (42.0-52.0); Immature Granulocyte Absolute 0.04 K/mm3 (0.00-0.031); Immature Granulocyte Percent A 0.4 % (0-0.5); Lymphocytes Absolute Auto 2.23 K/mm3 (0.9-3.2); Lymphocytes Percent Auto 21.9 % (18.3-44.2); Mean Corpuscular HGB Conc 30.9 g/dl (32-36); Mean Corpuscular Hemoglobin 28.4 pg (26-34); Mean Corpuscular Volume 91.8 fl (80-100); Mean Platelet Volume 10.2 fl (7.4-10.4); Monocytes Absolute Auto 0.6 K/mm3 (0.1-0.6); Monocytes Percent Auto 5.9 % (2.6-8.5); Neutrophils Absolute Auto 6.7 K/mm3 (1.3-6.7); Neutrophils Percent Auto 65.6 % (45.5-73.1); Platelet Count Result 281 k/mm3 (150-375); Red Blood Count 3.17 M/mm3 (4.6-6.20); Red Cell Distribution Width 17.5 % (11.5-14.5); White Blood Count 10.2 K/mm3 (4.5-10.0)
[2022-01-27 07:22] LABS: Alanine Aminotransferase 14 U/L (4-50); Alkaline Phosphatase 82 U/L (38-126); Anion Gap 7 mmol/L (8-16); Aspartate Amino Transferase 25 U/L (17-59); Bilirubin,Total 0.3 mg/dL (0.2-1.3); Blood Urea Nitrogen 47 mg/dL (9-20); Calcium 8.7 mg/dL (8.4-10.2); Carbon Dioxide 26 mmol/L (22-30); Chloride 98 mmol/L (98-107); Estimated CRCL calculation 62 ml/min; Estimated Glomerular Filt Rate > 60; Glucose 102 mg/dL (65-110); Magnesium 1.7 mg/dL (1.6-2.3); Potassium 4.8 mmol/L (3.4-5.0); Sodium 131 mmol/L (137-145)
[2022-01-27 08:19] LABS: Glucose Point of Care 133 mg/dl (65-105)
[2022-01-27] MEDS: ACIDOPHILUS PACKET 1 PKT PACKET FEED TUBE ×4 (09:05→22:11)
[2022-01-27] MEDS: PSYLLIUM SUGAR FREE POWDER PACKET 1 PACKET FEED TUBE ×2 (09:06→22:09)
[2022-01-27] MEDS: MULTIVITAMINS THERAPEUTIC TAB (*BKC) 1 TABLET FEED TUBE (09:07)
[2022-01-27] MEDS: ASCORBIC ACID 500 MG TABLET FEED TUBE ×2 (09:07→18:09)
[2022-01-27] MEDS: SERTRALINE HCL 25 MG TABLET PO (09:07)
[2022-01-27] MEDS: ASPIRIN 81 MG CHEWABLE TABLET PO (09:08)
[2022-01-27] MEDS: FERROUS SULFATE LIQUID 220 MG/5 ML ELIXIR FEED TUBE (09:08)
[2022-01-27] MEDS: CLOPIDOGREL BISULFATE 75 MG TABLET FEED TUBE (09:08)
[2022-01-27] MEDS: SILVERGEL (ELTA) 45 ML 1 APPLIC TOPICAL (09:09)
[2022-01-27] MEDS: TOLNAFTATE 1% POWDER 45 GM BTL 1 APPLIC TOPICAL ×2 (09:09→22:14)
[2022-01-27] MEDS: SILVER SULFADIAZINE 1% CR 50 GM JAR (*BKC) 1 APPLIC TOPICAL (09:09)
[2022-01-27] MEDS: GENTAMICIN SULFATE 0.1% CR 15 GM TUBE 0.1 APPLIC TOPICAL (09:14)
[2022-01-27] MEDS: CENTRAL LINE FLUSH 10 ML IV PUSH ×3 (09:16→22:15)
--- NOTE | 2022-01-27 09:47 | WPDUROPN2 ---
Progress Note: A&P Assessment and Plan (1) Urinary retention: Code(s): R33.9 - Retention of urine, unspecified Status: Acute (2) Cancer of overlapping sites of bladder: Code(s): C67.8 - Malignant neoplasm of overlapping sites of bladder Status: Acute (3) Hematuria: Code(s): R31.9 - Hematuria, unspecified Status: Acute Assessment and Plan: Continue CBI until urine clears, then wean to off. Likely will continue to be a problem, d/t bladder cancer. Subjective Subjective Date/Time Seen: 01/27/22 09:47 Gross Hematuria with clots, catheter draining on CBI. Patient has hypotension this morning. Review of Systems Cardiovascular: Cardiovascular: Denies chest pain Respiratory: Respiratory: Reports no additional respiratory complaints Gastrointestinal: Gastrointestinal: Denies abdominal pain, Denies nausea and Denies vomiting Genitourinary: Genitourinary: Reports hematuria and Denies flank pain Exam Resp: Effort & Inspection: normal respiratory effort GI: GI Palp: Yes Soft to palpation and Yes Tenderness to palpation present (GI) : General: Yes no CVA tenderness Urinary Catheter: Urinary Catheter: patent and draining, urine red and urine with clots Extrem: General: edema bilateral Objective Data Vital Signs Vital Signs: Vital Signs - 24 hr 01/26/22 10:48 01/26/22 14:00 01/26/22 20:15 Temperature 98.1 F Pulse Rate 80 81 89 Respiratory Rate 18 16 Blood Pressure 115/46 L Pulse Oximetry 97 98 01/26/22 22:00 01/27/22 05:42 01/27/22 09:13 Temperature 98.1 F 97.8 F Pulse Rate 89 85 84 Respiratory Rate 16 16 Blood Pressure 128/115 H 112/48 L Pulse Oximetry 98 98 Intake/Output Intake/Output: Intake & Output 01/24/22 01/25/22 01/26/22 01/27/22 23:59 23:59 23:59 23:59 Intake Total 4156 700 925 Output Total 8830 2836 2256 18575 Balance 611 -8762 -325 -14631 Meds/Results Medications: Active Medications Generic Name Dose Route Start Last Admin Trade Name Freq PRN Reason Stop Dose Admin Acetaminophen 650 mg 01/13/22 21:56 01/26/22 13:21 Acetaminophen Elixir 325 Mg/10.15 Ml Udc PO 650 mg Q4H PRN Administration Mild Pain (1-3) or Fever Albuterol 2.5 mg 01/13/22 19:20 Albuterol Sulfate Neb 2.5 Mg/0.5 Ml Inh INHALATION Q6HRT PRN Shortness Of Breath Ascorbic Acid 500 mg 01/14/22 09:00 01/27/22 09:07 Ascorbic Acid 500 Mg Tablet FEED TUBE 02/13/22 08:59 500 mg BID ANNA Administration Aspirin 81 mg 01/14/22 09:00 01/27/22 09:08 Aspirin 81 Mg Chewable Tablet PO 02/13/22 08:59 81 mg DAILY ANNA Administration Atorvastatin Calcium 80 mg 01/13/22 21:00 01/26/22 21:15 Atorvastatin 40 Mg Tablet FEED TUBE 80 mg HS ANNA Administration Bisacodyl 10 mg 01/13/22 19:20 Bisacodyl 10 Mg Suppository RECTAL DAILY PRN Constipation Clopidogrel Bisulfate 75 mg 01/14/22 09:00 01/27/22 09:08 Clopidogrel Bisulfate 75 Mg Tablet FEED TUBE 75 mg DAILY ANNA Administration Dextrose 12.5 gm 01/13/22 19:13 01/21/22 21:24 Dextrose 50% 25 Gm/50 Ml Syringe IV PUSH 12.5 gm PRN PRN Administration Hypoglycemia Protocol Ferrous Sulfate 220 mg 01/14/22 09:00 01/27/22 09:08 Ferrous Sulfate Liquid 220 Mg/5 Ml Elixir FEED TUBE 02/13/22 08:59 220 mg DAILY ANNA Administration Gentamicin Sulfate 0.1 applic 01/14/22 09:00 01/27/22 09:14 Gentamicin Sulfate 0.1% Cr 15 Gm Tube TOPICAL 02/13/22 08:59 0.1 applic DAILY ANNA Administration Glucagon 1 mg 01/13/22 19:13 Glucagon For Inj 1 Mg Vial IM PRN PRN Hypoglycemia Protocol Glucose 15 gm 01/13/22 19:13 01/16/22 05:47 Glucose Oral Gel 15 Gm Of Glucse In 37.5 Gm Tube PO 15 gm PRN PRN Administration Hypoglycemia Protocol Dextrose 1,000 mls @ 100 mls/hr 01/13/22 19:13 Dextrose 5% 1,000 Ml IVPB PRN PRN Hypoglycemia Protocol Vancomycin HCl 1,000
[2022-01-27 12:02] LABS: Glucose Point of Care 166 mg/dl (65-105)
[2022-01-27 17:25] LABS: Glucose Point of Care 134 mg/dl (65-105)
--- NOTE | 2022-01-27 17:33 | P.PNIM_ITS ---
Progress Note: A&P Assessment and Plan (1) Urinary tract infection: Qualifiers: Hematuria presence: with hematuria Urinary tract infection type: site unspecified Qualified Code(s): N39.0 - Urinary tract infection, site not specified; R31.9 - Hematuria, unspecified Code(s): N39.0 - Urinary tract infection, site not specified Status: Acute Assessment and Plan: Blood culture positive for Enterococcus and Staph epidermis, repeat culture negative Patient had initially been placed on Rocephin in the emergency room for his urinary tract infection, but then after further investigation a very large decubitus ulcers noted on coccyx the patient was changed to vancomycin and Zosyn. Will continue with current medication treatment. Ideally needs an ID evaluation for long-term antibiotic course however ID not available. Bacteremia has resolved now with a staphylococcal epidermidis and Enterococcus faecalis. Sacral decubitus ulcer is also healing as it reveals in wound picture that I reviewed. I will personally reviewed the wound and coordinated with the nursing staff while doing the dressing change. I plan to continue vancomycin for at least 2 weeks for more of soft tissue wound infection. Vancomycin start date 0 01/14/2022 Wound evaluated today on 01/23/2022 for deep-seated soft tissue infection I would plan to continue vancomycin for 4 weeks total course started a vancomycin 01/14/2022 Dr Clarke has evaluated the wound and suggest ongoing wound care and improvement (2) Acute dehydration: Code(s): E86.0 - Dehydration Status: Acute Assessment and Plan: Patient received 2 L of normal saline in the emergency room. Will continue to hydrate patient with lactated Ringer's and continue monitor sodium levels as well as BUN and creatinine. Presented with VIGRILIO she is now resolved (3) Sacral decubitus ulcer: Onset Date: Unknown Qualifiers: Pressure injury stage: stage 4 Qualified Code(s): L89.154 - Pressure ulcer of sacral region, stage 4 Code(s): L89.159 - Pressure ulcer of sacral region, unspecified stage Status: Acute Assessment and Plan: Have consult Wound Care do appreciate further recommendations from Wound Care on decubitus ulcer as well as bilateral lower extremity wounds On vancomycin IV since 01/14/2022 (4) Acute on chronic kidney failure: Code(s): N17.9 - Acute kidney failure, unspecified; N18.9 - Chronic kidney disease, unspecified Status: Acute Assessment and Plan: Patient's creatinine is significantly higher than it has been in the past on admission. Creatinine at 2.3. The patient appears to be dehydrated and acute kidney injury is most likely prerenal. Will continue to hydrate patient and monitor laboratories. Renal failure has resolved now (5) Positive blood culture: Code(s): R78.81 - Bacteremia Status: Acute Assessment and Plan: Positive for Enterococcus 1/2 positive for Staph epidermis probably contaminant But patient has significant multiple comorbidities Consider ID evaluation Chest x-ray was negative (6) Urothelial carcinoma: Code(s): C68.9 - Malignant neoplasm of urinary organ, unspecified Status: Acute Assessment and Plan: Urology consult Associated with acute blood loss anemia secondary to hematuria Reappearance of gross hematuria. CBI getting restarted Additional Plan 71-year-old gentleman who presented from a local half-way with altered mental status. It was noted that patient had a large amount of blood in his Ortiz catheter bag. Upon evaluation in emergency room patient was noted t
[2022-01-27] MEDS: INSULIN GLARGINE (*BKC) 100 UNITS/ML 30 UNITS SUB-Q (22:02)
[2022-01-27] MEDS: METOPROLOL TARTRATE 12.5 MG TABLET PO (22:10)
[2022-01-27] MEDS: ATORVASTATIN 40 MG TABLET 80 MG FEED TUBE (22:11)
[2022-01-28 00:51] LABS: Glucose Point of Care 119 mg/dl (65-105)
[2022-01-28 00:51] LABS: Glucose Point of Care 136 mg/dl (65-105)
[2022-01-28] MEDS: INSULIN ASPART (*BKC) 100 UNITS/ML 8 UNITS SUB-Q ×2 (01:01→17:38)
[2022-01-28 05:21] LABS: Hematocrit 32.2 % (42.0-52.0); Hemoglobin 9.6 g/dL (14.0-18.0); Mean Corpuscular HGB Conc 29.8 g/dl (32-36); Mean Corpuscular Volume 93.9 fl (80-100); Mean Platelet Volume 10.3 fl (7.4-10.4); Platelet Count Result 314 k/mm3 (150-375); Red Blood Count 3.43 M/mm3 (4.6-6.20); Red Cell Distribution Width 17.5 % (11.5-14.5); White Blood Count 12.4 K/mm3 (4.5-10.0)
[2022-01-28] MEDS: CENTRAL LINE FLUSH 10 ML IV PUSH ×3 (05:32→21:22)
[2022-01-28 05:41] LABS: Anion Gap 8 mmol/L (8-16); Blood Urea Nitrogen 42 mg/dL (9-20); Calcium 9.3 mg/dL (8.4-10.2); Carbon Dioxide 27 mmol/L (22-30); Chloride 100 mmol/L (98-107); Estimated CRCL calculation 56 ml/min; Estimated Glomerular Filt Rate > 60; Glucose 109 mg/dL (65-110); Magnesium 1.8 mg/dL (1.6-2.3); Potassium 4.7 mmol/L (3.4-5.0); Sodium 135 mmol/L (137-145)
[2022-01-28 06:00] VITALS: BP 111/56; PULSE 88; RESP 16; TEMP 37.3; O2SAT 99
--- NOTE | 2022-01-28 07:17 | WPDUROPN2 ---
Progress Note: A&P Assessment and Plan (1) Cancer of overlapping sites of bladder: Code(s): C67.8 - Malignant neoplasm of overlapping sites of bladder Status: Acute (2) Hematuria: Code(s): R31.9 - Hematuria, unspecified Status: Acute Additional Plan Urine clear on slow CBI. Underlying muscle invasive bladder cancer will be difficult, if not impossible, to definitively treat given patients other medical issues. Subjective Subjective Date/Time Seen: 01/28/22 07:17 Comfortable, urine clear on slow CBI Review of Systems Cardiovascular: Cardiovascular: Denies chest pain, Denies lightheadedness, Denies palpitations and Denies dyspnea Respiratory: Respiratory: Denies dyspnea Gastrointestinal: Gastrointestinal: Denies diarrhea, Denies nausea and Denies vomiting Genitourinary: Genitourinary: Denies hematuria and Denies dysuria Endocrine: Endocrine: Denies palpitations Exam Const: General: no acute distress Resp: Effort & Inspection: normal respiratory effort GI: Inspection: non-distended GI Palp: No abdominal tenderness and No Guarding due to palpation present (GI) Auscultation: normal bowel sounds Urinary Catheter: Urinary Catheter: patent and draining and urine clear Objective Data Vital Signs Vital Signs: Vital Signs - 24 hr 01/27/22 08:00 01/27/22 08:54 01/27/22 09:13 Temperature 98.1 F Pulse Rate 84 84 Respiratory Rate 14 Blood Pressure 97/61 L Pulse Oximetry 98 98 01/27/22 14:00 01/27/22 20:00 01/27/22 21:49 Temperature 98.1 F 98.5 F Pulse Rate 83 90 86 Respiratory Rate 16 16 16 Blood Pressure 115/46 L 121/71 Pulse Oximetry 98 99 99 01/27/22 22:10 01/28/22 06:00 Temperature 99.1 F Pulse Rate 90 88 Respiratory Rate 16 Blood Pressure 111/56 L Pulse Oximetry 99 Intake/Output Intake/Output: Intake & Output 01/25/22 01/26/22 01/27/22 01/28/22 23:59 23:59 23:59 23:59 Intake Total 276 650 7399 Output Total 3100 1250 [id number] 8782 Balance -1310 -154 -17034 -5897 Meds/Results Medications: Active Medications Generic Name Dose Route Start Last Admin Trade Name Freq PRN Reason Stop Dose Admin Acetaminophen 650 mg 01/13/22 21:56 01/26/22 13:21 Acetaminophen Elixir 325 Mg/10.15 Ml Udc PO 650 mg Q4H PRN Administration Mild Pain (1-3) or Fever Albuterol 2.5 mg 01/13/22 19:20 Albuterol Sulfate Neb 2.5 Mg/0.5 Ml Inh INHALATION Q6HRT PRN Shortness Of Breath Ascorbic Acid 500 mg 01/14/22 09:00 01/27/22 18:09 Ascorbic Acid 500 Mg Tablet FEED TUBE 02/13/22 08:59 500 mg BID ANNA Administration Aspirin 81 mg 01/14/22 09:00 01/27/22 09:08 Aspirin 81 Mg Chewable Tablet PO 02/13/22 08:59 81 mg DAILY ANNA Administration Atorvastatin Calcium 80 mg 01/13/22 21:00 01/27/22 22:11 Atorvastatin 40 Mg Tablet FEED TUBE 80 mg HS ANNA Administration Bisacodyl 10 mg 01/13/22 19:20 Bisacodyl 10 Mg Suppository RECTAL DAILY PRN Constipation Clopidogrel Bisulfate 75 mg 01/14/22 09:00 01/27/22 09:08 Clopidogrel Bisulfate 75 Mg Tablet FEED TUBE 75 mg DAILY ANNA Administration Dextrose 12.5 gm 01/13/22 19:13 01/21/22 21:24 Dextrose 50% 25 Gm/50 Ml Syringe IV PUSH 12.5 gm PRN PRN Administration Hypoglycemia Protocol Ferrous Sulfate 220 mg 01/14/22 09:00 01/27/22 09:08 Ferrous Sulfate Liquid 220 Mg/5 Ml Elixir FEED TUBE 02/13/22 08:59 220 mg DAILY ANNA Administration Gentamicin Sulfate 0.1 applic 01/14/22 09:00 01/27/22 09:14 Gentamicin Sulfate 0.1% Cr 15 Gm Tube TOPICAL 02/13/22 08:59 0.1 applic DAILY ANNA Administration Glucagon 1 mg 01/13/22 19:13 Glucagon For Inj 1 Mg Vial IM PRN PRN Hypoglycemia Protocol Glucose 15 gm 01/13/22 19:13 01/16/22 05:47 Glucose Oral Gel 15 Gm Of Glucse In 37.5 Gm Tube PO 15 gm PRN PRN Administration Hypoglycemia Protocol Dextrose 1,000 mls @ 100 mls/hr 01/13/22 1
[2022-01-28 08:39] LABS: Glucose Point of Care 147 mg/dl (65-105)
[2022-01-28] MEDS: ACIDOPHILUS PACKET 1 PKT PACKET FEED TUBE ×3 (10:16→21:16)
[2022-01-28 10:17] VITALS: PULSE 88
[2022-01-28] MEDS: MULTIVITAMINS THERAPEUTIC TAB (*BKC) 1 TABLET FEED TUBE (10:17)
[2022-01-28] MEDS: CLOPIDOGREL BISULFATE 75 MG TABLET FEED TUBE (10:17)
[2022-01-28] MEDS: lisinopriL 5 MG TABLET FEED TUBE (10:17)
[2022-01-28] MEDS: METOPROLOL TARTRATE 12.5 MG TABLET PO ×2 (10:17→21:19)
[2022-01-28] MEDS: PSYLLIUM SUGAR FREE POWDER PACKET 1 PACKET FEED TUBE ×2 (10:17→21:17)
[2022-01-28] MEDS: ASPIRIN 81 MG CHEWABLE TABLET PO (10:19)
[2022-01-28] MEDS: FERROUS SULFATE LIQUID 220 MG/5 ML ELIXIR FEED TUBE (10:19)
[2022-01-28] MEDS: ASCORBIC ACID 500 MG TABLET FEED TUBE ×2 (10:19→17:36)
[2022-01-28] MEDS: SERTRALINE HCL 25 MG TABLET PO (10:19)
[2022-01-28] MEDS: GENTAMICIN SULFATE 0.1% CR 15 GM TUBE 0.1 APPLIC TOPICAL (10:22)
[2022-01-28] MEDS: SILVER SULFADIAZINE 1% CR 50 GM JAR (*BKC) 1 APPLIC TOPICAL (10:22)
[2022-01-28] MEDS: TOLNAFTATE 1% POWDER 45 GM BTL 1 APPLIC TOPICAL ×2 (10:23→21:21)
[2022-01-28] MEDS: SILVERGEL (ELTA) 45 ML 1 APPLIC TOPICAL (10:23)
[2022-01-28 10:45] LABS: Vancomycin Trough 15.9 ug/mL (10.0-20.0)
[2022-01-28 11:54] LABS: Glucose Point of Care 160 mg/dl (65-105)
[2022-01-28 14:00] VITALS: BP 113/52; PULSE 83; RESP 18; TEMP 36.6; O2SAT 98
[2022-01-28 19:50] VITALS: PULSE 84; RESP 18; O2SAT 98
[2022-01-28] MEDS: ATORVASTATIN 40 MG TABLET 80 MG FEED TUBE (21:16)
[2022-01-28 21:19] VITALS: PULSE 84
[2022-01-28] MEDS: INSULIN GLARGINE (*BKC) 100 UNITS/ML 30 UNITS SUB-Q (21:30)
[2022-01-28 21:31] LABS: Glucose Point of Care 143 mg/dl (65-105)
[2022-01-28 22:00] VITALS: BP 112/51; PULSE 85; RESP 18; TEMP 36.6; O2SAT 98
[2022-01-29] MEDS: INSULIN ASPART (*BKC) 100 UNITS/ML 8 UNITS SUB-Q ×2 (01:09→16:59)
[2022-01-29 01:28] LABS: Glucose Point of Care 156 mg/dl (65-105)
[2022-01-29 04:40] LABS: Hematocrit 30.2 % (42.0-52.0); Hemoglobin 9.1 g/dL (14.0-18.0); Mean Corpuscular HGB Conc 30.1 g/dl (32-36); Mean Corpuscular Hemoglobin 28.1 pg (26-34); Mean Corpuscular Volume 93.2 fl (80-100); Mean Platelet Volume 9.8 fl (7.4-10.4); Platelet Count Result 265 k/mm3 (150-375); Red Blood Count 3.24 M/mm3 (4.6-6.20); Red Cell Distribution Width 17.5 % (11.5-14.5); White Blood Count 9.5 K/mm3 (4.5-10.0)
[2022-01-29] MEDS: CENTRAL LINE FLUSH 10 ML IV PUSH ×3 (04:50→22:16)
[2022-01-29 04:56] LABS: Anion Gap 6 mmol/L (8-16); Blood Urea Nitrogen 42 mg/dL (9-20); Carbon Dioxide 28 mmol/L (22-30); Chloride 100 mmol/L (98-107); Estimated CRCL calculation 56 ml/min; Estimated Glomerular Filt Rate > 60; Glucose 95 mg/dL (65-110); Potassium 4.7 mmol/L (3.4-5.0); Sodium 134 mmol/L (137-145)
[2022-01-29 05:59] VITALS: BP 120/60; PULSE 83; RESP 18; TEMP 36.3; O2SAT 99
[2022-01-29 08:22] LABS: Glucose Point of Care 126 mg/dl (65-105)
[2022-01-29] MEDS: PSYLLIUM SUGAR FREE POWDER PACKET 1 PACKET FEED TUBE ×2 (08:33→22:12)
[2022-01-29] MEDS: MULTIVITAMINS THERAPEUTIC TAB (*BKC) 1 TABLET FEED TUBE (08:33)
[2022-01-29] MEDS: CLOPIDOGREL BISULFATE 75 MG TABLET FEED TUBE (08:33)
[2022-01-29] MEDS: lisinopriL 5 MG TABLET FEED TUBE (08:33)
[2022-01-29] MEDS: FERROUS SULFATE LIQUID 220 MG/5 ML ELIXIR FEED TUBE (08:33)
[2022-01-29] MEDS: ASPIRIN 81 MG CHEWABLE TABLET PO (08:33)
[2022-01-29] MEDS: SERTRALINE HCL 25 MG TABLET PO (08:33)
[2022-01-29] MEDS: ACIDOPHILUS PACKET 1 PKT PACKET FEED TUBE ×4 (08:33→22:17)
[2022-01-29 08:34] VITALS: PULSE 90
[2022-01-29] MEDS: METOPROLOL TARTRATE 12.5 MG TABLET PO ×2 (08:34→22:13)
[2022-01-29] MEDS: ASCORBIC ACID 500 MG TABLET FEED TUBE ×2 (08:34→16:58)
[2022-01-29] MEDS: TOLNAFTATE 1% POWDER 45 GM BTL 1 APPLIC TOPICAL ×2 (08:36→22:15)
[2022-01-29] MEDS: SILVERGEL (ELTA) 45 ML 1 APPLIC TOPICAL (08:37)
[2022-01-29] MEDS: SILVER SULFADIAZINE 1% CR 50 GM JAR (*BKC) 1 APPLIC TOPICAL (08:37)
[2022-01-29] MEDS: GENTAMICIN SULFATE 0.1% CR 15 GM TUBE 0.1 APPLIC TOPICAL (08:37)
--- NOTE | 2022-01-29 11:30 | PCNFU ---
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 Goal: Improvement in wound status Pt is progressing towards goal. No new goal at this time. Pt current nutrition is Heart healthy/Pureed, L4/Thicken liquid diet and TF of Glucerna 1.2 running at 85mL/hr over 22 hours Last recorded weight is 67.1 kg, stable. Recommend re-weighing prior to discharge. Bowel Motility: +BM reported 01/29/22 Labs Reviewed: Hgb 9.1, Hct 30.2, Na 134, BUN 42, Glu 126 Meds Noted: Vitamin C, Aspirin, Plavix, Ferrous Sulfate, Novolog, Lactinex, Prinivil, Lopressor, Multivitamin, Lansoprazole, Metamucil, Zoloft Skin: bilateral buttock maceration, bilateral heel blister, left lower leg ulcer - venous stasis, right lower leg ulcer - venous stasis, sacrum pressure ulcer - stage IV Additional Notes: Spoke with nursing who reports that pt remains on TF diet of Glucerna 1.2 running at 85mL/hr over 22 hours. TF well tolerated. PO intake remains minimal and for pleasure. Reported intake is 0% x5. Pt receiving dietary supplement of Brian BID via tube to provide an additional 70kcal and 14g of protein to aid in wound healing. TF diet and dietary supplement meeting pt needs. Agree with diet orders at this time. Will continue to follow. monitor and follow up on /Fridays
[2022-01-29 12:21] LABS: Glucose Point of Care 166 mg/dl (65-105)
[2022-01-29] MEDS: GABAPENTIN 100 MG CAPSULE PO ×2 (13:26→16:59)
[2022-01-29] MEDS: ACETAMINOPHEN ELIXIR 325 MG/10.15 ML UDC 650 MG PO (13:26)
[2022-01-29 14:00] VITALS: BP 101/50; PULSE 81; RESP 18; TEMP 36.2; O2SAT 99
--- NOTE | 2022-01-29 15:32 | PM.IMPN ---
Progress Note: A&P Assessment and Plan (1) Cellulitis of both lower extremities: Code(s): L03.115 - Cellulitis of right lower limb; L03.116 - Cellulitis of left lower limb Status: Acute Assessment and Plan: Upon arrival bilateral lower extremity cellulitis and abrasion, patient is treated cefepime and vancomycin, will have wound team evaluate the patient and treat Additional Plan 71-year-old gentleman who presented from a local intermediate with altered mental status. It was noted that patient had a large amount of blood in his Ortiz catheter bag. Upon evaluation in emergency room patient was noted to have a significant urinary tract infection and be dehydrated. Patient does have a very large decubitus ulcer to his coccyx as well as wounds to bilateral lower extremities. 1) Hematuria 2/2 Malignancy of Bladder: s/p cystoscopy and clot evacuation on 01/19 Appreciate Urology help Urine clear after clot evacuation. Plan stop CBI / voiding trial tomorrow if urine remains clear. Residual muscle invasive bladder cancer. CT-abd/pelvis and CXR without metastatic findings. Definitive care, as outlined by Dr. Leigh (neoadjuvant chemo./cystectomy vs. chemoradiation), will be difficult due to patients significant comorbidities. 2) Bacteremia Positive for Enterococcus 1/2 positive for Staph epidermis probably contaminant But patient has significant multiple comorbidities c/w Vancomycin No need for Cefepime and ampicillin as of now Repeat blood culture negative till date Echo was negative for vegetation, if had persistent bacteremia then would have considered HONEY 3)Sacral decubitus ulcer: Pressure injury stage: stage 4 Have consult Wound Care do appreciate further recommendations from Wound Care on decubitus ulcer as well as bilateral lower extremity wounds 4)Acute Anemia No signs of bleeding except for hematuria. Transfusion appropriate rise today continue to monitor 5)VIRGILIO:resolved will stop his IV fluids 6)DVT px: SCD 7)Code:Full 8)Dispo:pending improvement. PT OT to see # [place] resident # Status post G tube placmeent. tube feeds going at goal rate. # history of DVT status post IVC filter placement. # Diabetes mellitus type 2 on insulin # coronary artery disease status post CABG # History of septic shock secondary to MRSA bacteremia and cavitary Klebsiella pneumoniae 08/20 # peripheral artery disease status post lower extremity stents # Chronic bilateral lower extremity also has # Hypertension # Hyperlipidemia # GERD # Chronic systolic heart failure LVEF 35-39% in the past. EF has improved to 60 65% grade 1 diastolic dysfunction 01/16/2022 Insurance authorization awaited. Await evaluation by the general surgical team for the decubitus ulcer in further plan on that. Intermittent hematuria still persists. Urology following expected due to underlying bladder cancer Subjective Date/time seen: 01/29/22 15:32 Interval history: 01/22/2022 No overnight events. Discussed with the nursing staff. Denies any complaints. No pain shortness of breath or chest pain. No hematuria. CBI has been discontinued wound pictures reviewed he was recently on 6 weeks course of antibiotic with Levaquin for wound culture grown from bone culture of Pseudomonas which is pansensitive. He had 3-4 loose bowel movements overnight but none this afternoon 01/23/2022 no overnight events. No further diarrhea noted. Wound was evaluated today no fever chills vitals remained stable 01/24/2022 no overnight events. Had 2 liquidy stool this afternoon. Otherwise doing okay discussed with the nursing staff no fever chills vital stable 01/25/2022 some blood in his urine noted. No other complaints per patient. Diarrhea has slowed down. No shortness of breath or chest pain 01/26/2021 he is passing blood in his urine with some clots now. Reports having difficulty urinating due to potentially clots in the way. No other overnight events. 01/27/2022 int
[2022-01-29 17:12] LABS: Glucose Point of Care 132 mg/dl (65-105)
[2022-01-29 20:40] VITALS: PULSE 76; RESP 18; O2SAT 100
[2022-01-29 22:00] VITALS: BP 120/60; PULSE 80; RESP 18; TEMP 37.4; O2SAT 100
[2022-01-29 22:13] VITALS: PULSE 76
[2022-01-29] MEDS: ATORVASTATIN 40 MG TABLET 80 MG FEED TUBE (22:17)
[2022-01-29] MEDS: INSULIN GLARGINE (*BKC) 100 UNITS/ML 30 UNITS SUB-Q (22:18)
[2022-01-29 22:46] LABS: Glucose Point of Care 113 mg/dl (65-105)
[2022-01-29 23:42] LABS: Glucose Point of Care 86 mg/dl (65-105)
[2022-01-30 05:15] LABS: Hematocrit 27.6 % (42.0-52.0); Hemoglobin 8.4 g/dL (14.0-18.0); Mean Corpuscular HGB Conc 30.4 g/dl (32-36); Mean Corpuscular Hemoglobin 28.3 pg (26-34); Mean Corpuscular Volume 92.9 fl (80-100); Mean Platelet Volume 10.1 fl (7.4-10.4); Platelet Count Result 259 k/mm3 (150-375); Red Blood Count 2.97 M/mm3 (4.6-6.20); Red Cell Distribution Width 17.3 % (11.5-14.5); White Blood Count 8.6 K/mm3 (4.5-10.0)
[2022-01-30 05:24] LABS: Anion Gap 5 mmol/L (8-16); Blood Urea Nitrogen 44 mg/dL (9-20); Calcium 8.6 mg/dL (8.4-10.2); Carbon Dioxide 29 mmol/L (22-30); Chloride 98 mmol/L (98-107); Estimated CRCL calculation 56 ml/min; Estimated Glomerular Filt Rate > 60; Glucose 92 mg/dL (65-110); Potassium 4.3 mmol/L (3.4-5.0); Sodium 132 mmol/L (137-145)
[2022-01-30 06:00] VITALS: BP 111/61; PULSE 84; RESP 16; TEMP 37.1; O2SAT 97
[2022-01-30] MEDS: CENTRAL LINE FLUSH 10 ML IV PUSH ×3 (06:11→20:07)
[2022-01-30 07:57] LABS: Glucose Point of Care 111 mg/dl (65-105)
[2022-01-30 08:10] VITALS: PULSE 76
[2022-01-30] MEDS: ASPIRIN 81 MG CHEWABLE TABLET PO (08:10)
[2022-01-30] MEDS: ASCORBIC ACID 500 MG TABLET FEED TUBE ×2 (08:10→17:16)
[2022-01-30] MEDS: FERROUS SULFATE LIQUID 220 MG/5 ML ELIXIR FEED TUBE (08:10)
[2022-01-30] MEDS: METOPROLOL TARTRATE 12.5 MG TABLET PO ×2 (08:10→20:07)
[2022-01-30] MEDS: ACIDOPHILUS PACKET 1 PKT PACKET FEED TUBE ×4 (08:10→20:07)
[2022-01-30] MEDS: PSYLLIUM SUGAR FREE POWDER PACKET 1 PACKET FEED TUBE ×2 (08:10→20:07)
[2022-01-30] MEDS: MULTIVITAMINS THERAPEUTIC TAB (*BKC) 1 TABLET FEED TUBE (08:10)
[2022-01-30] MEDS: CLOPIDOGREL BISULFATE 75 MG TABLET FEED TUBE (08:10)
[2022-01-30] MEDS: SERTRALINE HCL 25 MG TABLET PO (08:10)
[2022-01-30] MEDS: lisinopriL 5 MG TABLET FEED TUBE (08:11)
[2022-01-30] MEDS: GENTAMICIN SULFATE 0.1% CR 15 GM TUBE 0.1 APPLIC TOPICAL (08:11)
[2022-01-30] MEDS: SILVERGEL (ELTA) 45 ML 1 APPLIC TOPICAL (08:11)
[2022-01-30] MEDS: GABAPENTIN 100 MG CAPSULE PO ×3 (08:11→17:17)
[2022-01-30] MEDS: SILVER SULFADIAZINE 1% CR 50 GM JAR (*BKC) 1 APPLIC TOPICAL (08:12)
[2022-01-30] MEDS: TOLNAFTATE 1% POWDER 45 GM BTL 1 APPLIC TOPICAL ×2 (08:12→20:08)
--- NOTE | 2022-01-30 10:43 | PM.IMPN ---
Progress Note: A&P Assessment and Plan (1) Cellulitis of both lower extremities: Code(s): L03.115 - Cellulitis of right lower limb; L03.116 - Cellulitis of left lower limb Status: Acute Assessment and Plan: Upon arrival bilateral lower extremity cellulitis and abrasion, patient is treated cefepime and vancomycin, will have wound team evaluate the patient and treat Additional Plan 71-year-old gentleman who presented from a local prison with altered mental status. It was noted that patient had a large amount of blood in his Ortiz catheter bag. Upon evaluation in emergency room patient was noted to have a significant urinary tract infection and be dehydrated. Patient does have a very large decubitus ulcer to his coccyx as well as wounds to bilateral lower extremities. 1) Hematuria 2/2 Malignancy of Bladder: s/p cystoscopy and clot evacuation on 01/19 Appreciate Urology help Urine clear after clot evacuation. Plan stop CBI / voiding trial tomorrow if urine remains clear. Residual muscle invasive bladder cancer. CT-abd/pelvis and CXR without metastatic findings. Definitive care, as outlined by Dr. Leigh (neoadjuvant chemo./cystectomy vs. chemoradiation), will be difficult due to patients significant comorbidities. 2) Bacteremia Positive for Enterococcus 1/2 positive for Staph epidermis probably contaminant But patient has significant multiple comorbidities c/w Vancomycin No need for Cefepime and ampicillin as of now Repeat blood culture negative till date Echo was negative for vegetation, if had persistent bacteremia then would have considered HONEY 3)Sacral decubitus ulcer: Pressure injury stage: stage 4 Have consult Wound Care do appreciate further recommendations from Wound Care on decubitus ulcer as well as bilateral lower extremity wounds 4)Acute Anemia No signs of bleeding except for hematuria. Transfusion appropriate rise today continue to monitor 5)VIRGILIO:resolved will stop his IV fluids 6)DVT px: SCD 7)Code:Full 8)Dispo:pending improvement. PT OT to see # [place] resident # Status post G tube placmeent. tube feeds going at goal rate. # history of DVT status post IVC filter placement. # Diabetes mellitus type 2 on insulin # coronary artery disease status post CABG # History of septic shock secondary to MRSA bacteremia and cavitary Klebsiella pneumoniae 08/20 # peripheral artery disease status post lower extremity stents # Chronic bilateral lower extremity also has # Hypertension # Hyperlipidemia # GERD # Chronic systolic heart failure LVEF 35-39% in the past. EF has improved to 60 65% grade 1 diastolic dysfunction 01/16/2022 Insurance authorization awaited. Await evaluation by the general surgical team for the decubitus ulcer in further plan on that. Intermittent hematuria still persists. Urology following expected due to underlying bladder cancer Subjective Date/time seen: 01/30/22 10:43 Interval history: 01/22/2022 No overnight events. Discussed with the nursing staff. Denies any complaints. No pain shortness of breath or chest pain. No hematuria. CBI has been discontinued wound pictures reviewed he was recently on 6 weeks course of antibiotic with Levaquin for wound culture grown from bone culture of Pseudomonas which is pansensitive. He had 3-4 loose bowel movements overnight but none this afternoon 01/23/2022 no overnight events. No further diarrhea noted. Wound was evaluated today no fever chills vitals remained stable 01/24/2022 no overnight events. Had 2 liquidy stool this afternoon. Otherwise doing okay discussed with the nursing staff no fever chills vital stable 01/25/2022 some blood in his urine noted. No other complaints per patient. Diarrhea has slowed down. No shortness of breath or chest pain 01/26/2021 he is passing blood in his urine with some clots now. Reports having difficulty urinating due to potentially clots in the way. No other overnight events. 01/27/2022 int
[2022-01-30 11:18] LABS: Glucose Point of Care 134 mg/dl (65-105)
[2022-01-30 13:23] VITALS: BP 102/52; PULSE 88; RESP 16; TEMP 36.6; O2SAT 97
[2022-01-30 16:29] LABS: Glucose Point of Care 144 mg/dl (65-105)
[2022-01-30] MEDS: INSULIN ASPART (*BKC) 100 UNITS/ML 8 UNITS SUB-Q (17:17)
[2022-01-30] MEDS: INSULIN GLARGINE (*BKC) 100 UNITS/ML 30 UNITS SUB-Q (20:06)
[2022-01-30 20:07] VITALS: PULSE 100
[2022-01-30] MEDS: ATORVASTATIN 40 MG TABLET 80 MG FEED TUBE (20:07)
[2022-01-30 20:28] LABS: Glucose Point of Care 148 mg/dl (65-105)
[2022-01-30 22:00] VITALS: BP 104/57; PULSE 81; RESP 16; TEMP 37.5; O2SAT 97
[2022-01-31 02:09] LABS: Glucose Point of Care 134 mg/dl (65-105)
[2022-01-31] MEDS: CENTRAL LINE FLUSH 10 ML IV PUSH ×3 (05:28→20:10)
[2022-01-31 05:33] LABS: Hematocrit 28.4 % (42.0-52.0); Hemoglobin 8.9 g/dL (14.0-18.0); Mean Corpuscular HGB Conc 31.3 g/dl (32-36); Mean Corpuscular Hemoglobin 28.2 pg (26-34); Mean Corpuscular Volume 89.9 fl (80-100); Mean Platelet Volume 10.1 fl (7.4-10.4); Platelet Count Result 256 k/mm3 (150-375); Red Blood Count 3.16 M/mm3 (4.6-6.20); Red Cell Distribution Width 17.2 % (11.5-14.5); White Blood Count 10.7 K/mm3 (4.5-10.0)
[2022-01-31 06:00] VITALS: BP 118/61; PULSE 87; RESP 16; TEMP 37.4; O2SAT 94
[2022-01-31 06:03] LABS: Anion Gap 6 mmol/L (8-16); Blood Urea Nitrogen 63 mg/dL (9-20); Calcium 8.8 mg/dL (8.4-10.2); Carbon Dioxide 28 mmol/L (22-30); Chloride 96 mmol/L (98-107); Estimated CRCL calculation 56 ml/min; Estimated Glomerular Filt Rate > 60; Glucose 120 mg/dL (65-110); Potassium 4.9 mmol/L (3.4-5.0); Sodium 130 mmol/L (137-145)
[2022-01-31 08:12] LABS: Glucose Point of Care 131 mg/dl (65-105)
[2022-01-31] MEDS: SERTRALINE HCL 25 MG TABLET PO (08:13)
[2022-01-31] MEDS: FERROUS SULFATE LIQUID 220 MG/5 ML ELIXIR FEED TUBE (08:13)
[2022-01-31] MEDS: ACIDOPHILUS PACKET 1 PKT PACKET FEED TUBE ×4 (08:13→20:08)
[2022-01-31] MEDS: MULTIVITAMINS THERAPEUTIC TAB (*BKC) 1 TABLET FEED TUBE (08:13)
[2022-01-31] MEDS: ASCORBIC ACID 500 MG TABLET FEED TUBE ×2 (08:13→17:20)
[2022-01-31] MEDS: GABAPENTIN 100 MG CAPSULE PO ×3 (08:13→17:18)
[2022-01-31] MEDS: PSYLLIUM SUGAR FREE POWDER PACKET 1 PACKET FEED TUBE ×2 (08:13→20:09)
[2022-01-31 08:14] VITALS: PULSE 88
[2022-01-31] MEDS: SILVERGEL (ELTA) 45 ML 1 APPLIC TOPICAL (08:14)
[2022-01-31] MEDS: CLOPIDOGREL BISULFATE 75 MG TABLET FEED TUBE (08:14)
[2022-01-31] MEDS: SILVER SULFADIAZINE 1% CR 50 GM JAR (*BKC) 1 APPLIC TOPICAL (08:14)
[2022-01-31] MEDS: lisinopriL 5 MG TABLET FEED TUBE (08:14)
[2022-01-31] MEDS: GENTAMICIN SULFATE 0.1% CR 15 GM TUBE 0.1 APPLIC TOPICAL (08:14)
[2022-01-31] MEDS: METOPROLOL TARTRATE 12.5 MG TABLET PO ×2 (08:14→20:08)
[2022-01-31] MEDS: ASPIRIN 81 MG CHEWABLE TABLET PO (08:14)
[2022-01-31] MEDS: TOLNAFTATE 1% POWDER 45 GM BTL 1 APPLIC TOPICAL ×2 (08:15→20:11)
[2022-01-31 09:57] LABS: Vancomycin Trough 13.6 ug/mL (10.0-20.0)
[2022-01-31 11:56] LABS: Glucose Point of Care 141 mg/dl (65-105)
--- NOTE | 2022-01-31 13:40 | PM.IMPN ---
Progress Note: A&P Assessment and Plan (1) Cellulitis of both lower extremities: Code(s): L03.115 - Cellulitis of right lower limb; L03.116 - Cellulitis of left lower limb Status: Acute Assessment and Plan: Upon arrival bilateral lower extremity cellulitis and abrasion, patient is treated cefepime and vancomycin, will have wound team evaluate the patient and treat Additional Plan 71-year-old gentleman who presented from a local skilled nursing with altered mental status. It was noted that patient had a large amount of blood in his Ortiz catheter bag. Upon evaluation in emergency room patient was noted to have a significant urinary tract infection and be dehydrated. Patient does have a very large decubitus ulcer to his coccyx as well as wounds to bilateral lower extremities. 1) Hematuria 2/2 Malignancy of Bladder: s/p cystoscopy and clot evacuation on 01/19 Appreciate Urology help Urine clear after clot evacuation. Plan stop CBI / voiding trial tomorrow if urine remains clear. Residual muscle invasive bladder cancer. CT-abd/pelvis and CXR without metastatic findings. Definitive care, as outlined by Dr. Leigh (neoadjuvant chemo./cystectomy vs. chemoradiation), will be difficult due to patients significant comorbidities. 2) Bacteremia Positive for Enterococcus 1/2 positive for Staph epidermis probably contaminant But patient has significant multiple comorbidities c/w Vancomycin No need for Cefepime and ampicillin as of now Repeat blood culture negative till date Echo was negative for vegetation, if had persistent bacteremia then would have considered HONEY 3)Sacral decubitus ulcer: Pressure injury stage: stage 4 Have consult Wound Care do appreciate further recommendations from Wound Care on decubitus ulcer as well as bilateral lower extremity wounds 4)Acute Anemia No signs of bleeding except for hematuria. Transfusion appropriate rise today continue to monitor 5)VIRGILIO:resolved will stop his IV fluids 6)DVT px: SCD 7)Code:Full 8)Dispo:pending improvement. PT OT to see # [place] resident # Status post G tube placmeent. tube feeds going at goal rate. # history of DVT status post IVC filter placement. # Diabetes mellitus type 2 on insulin # coronary artery disease status post CABG # History of septic shock secondary to MRSA bacteremia and cavitary Klebsiella pneumoniae 08/20 # peripheral artery disease status post lower extremity stents # Chronic bilateral lower extremity also has # Hypertension # Hyperlipidemia # GERD # Chronic systolic heart failure LVEF 35-39% in the past. EF has improved to 60 65% grade 1 diastolic dysfunction 01/16/2022 Insurance authorization awaited. Await evaluation by the general surgical team for the decubitus ulcer in further plan on that. Intermittent hematuria still persists. Urology following expected due to underlying bladder cancer Subjective Date/time seen: 01/31/22 13:40 Interval history: 01/22/2022 No overnight events. Discussed with the nursing staff. Denies any complaints. No pain shortness of breath or chest pain. No hematuria. CBI has been discontinued wound pictures reviewed he was recently on 6 weeks course of antibiotic with Levaquin for wound culture grown from bone culture of Pseudomonas which is pansensitive. He had 3-4 loose bowel movements overnight but none this afternoon 01/23/2022 no overnight events. No further diarrhea noted. Wound was evaluated today no fever chills vitals remained stable 01/24/2022 no overnight events. Had 2 liquidy stool this afternoon. Otherwise doing okay discussed with the nursing staff no fever chills vital stable 01/25/2022 some blood in his urine noted. No other complaints per patient. Diarrhea has slowed down. No shortness of breath or chest pain 01/26/2021 he is passing blood in his urine with some clots now. Reports having difficulty urinating due to potentially clots in the way. No other overnight events. 01/27/2022 int
[2022-01-31 14:00] VITALS: BP 104/46; PULSE 79; RESP 20; TEMP 36.6; O2SAT 97
[2022-01-31 17:02] LABS: Glucose Point of Care 137 mg/dl (65-105)
[2022-01-31] MEDS: INSULIN ASPART (*BKC) 100 UNITS/ML 8 UNITS SUB-Q ×2 (17:20)
[2022-01-31 20:08] VITALS: PULSE 72
[2022-01-31] MEDS: ATORVASTATIN 40 MG TABLET 80 MG FEED TUBE (20:08)
[2022-01-31] MEDS: INSULIN GLARGINE (*BKC) 100 UNITS/ML 30 UNITS SUB-Q (20:08)
[2022-01-31 21:04] LABS: Glucose Point of Care 92 mg/dl (65-105)
[2022-01-31 22:00] VITALS: BP 102/42; PULSE 84; RESP 18; TEMP 36.6; O2SAT 99
[2022-02-01] VITALS (7 sets, daily range): BP systolic 113–153; BP diastolic 50–60; PULSE 65–88; RESP 16–19; TEMP 36.4–37.2; O2SAT 97–100
[2022-02-01] MEDS: INSULIN ASPART (*BKC) 100 UNITS/ML 8 UNITS SUB-Q ×2 (00:04→17:53)
[2022-02-01 00:10] LABS: Glucose Point of Care 115 mg/dl (65-105)
[2022-02-01] MEDS: CENTRAL LINE FLUSH 10 ML IV PUSH ×3 (05:46→21:46)
[2022-02-01 06:07] LABS: Hemoglobin 8.3 g/dL (14.0-18.0); Mean Corpuscular HGB Conc 30.7 g/dl (32-36); Mean Corpuscular Hemoglobin 28.3 pg (26-34); Mean Corpuscular Volume 92.2 fl (80-100); Mean Platelet Volume 10.2 fl (7.4-10.4); Platelet Count Result 243 k/mm3 (150-375); Red Blood Count 2.93 M/mm3 (4.6-6.20); Red Cell Distribution Width 17.2 % (11.5-14.5); White Blood Count 9.9 K/mm3 (4.5-10.0)
[2022-02-01 06:19] LABS: Anion Gap 5 mmol/L (8-16); Blood Urea Nitrogen 58 mg/dL (9-20); Calcium 8.5 mg/dL (8.4-10.2); Carbon Dioxide 29 mmol/L (22-30); Chloride 97 mmol/L (98-107); Estimated CRCL calculation 56 ml/min; Estimated Glomerular Filt Rate > 60; Glucose 118 mg/dL (65-110); Potassium 4.6 mmol/L (3.4-5.0); Sodium 131 mmol/L (137-145)
[2022-02-01 08:19] LABS: Glucose Point of Care 135 mg/dl (65-105)
[2022-02-01] MEDS: SILVER SULFADIAZINE 1% CR 50 GM JAR (*BKC) 1 APPLIC TOPICAL (08:23)
[2022-02-01] MEDS: GENTAMICIN SULFATE 0.1% CR 15 GM TUBE 0.1 APPLIC TOPICAL (08:24)
[2022-02-01] MEDS: SILVERGEL (ELTA) 45 ML 1 APPLIC TOPICAL (08:24)
[2022-02-01] MEDS: TOLNAFTATE 1% POWDER 45 GM BTL 1 APPLIC TOPICAL ×2 (08:24→21:47)
[2022-02-01] MEDS: FERROUS SULFATE LIQUID 220 MG/5 ML ELIXIR FEED TUBE (08:25)
[2022-02-01] MEDS: PSYLLIUM SUGAR FREE POWDER PACKET 1 PACKET FEED TUBE ×2 (08:25→21:45)
[2022-02-01] MEDS: ACIDOPHILUS PACKET 1 PKT PACKET FEED TUBE ×4 (08:25→21:43)
[2022-02-01] MEDS: METOPROLOL TARTRATE 12.5 MG TABLET PO ×2 (08:25→21:44)
[2022-02-01] MEDS: CLOPIDOGREL BISULFATE 75 MG TABLET FEED TUBE (08:26)
[2022-02-01] MEDS: SERTRALINE HCL 25 MG TABLET PO (08:26)
[2022-02-01] MEDS: ASCORBIC ACID 500 MG TABLET FEED TUBE ×2 (08:26→17:54)
[2022-02-01] MEDS: MULTIVITAMINS THERAPEUTIC TAB (*BKC) 1 TABLET FEED TUBE (08:26)
[2022-02-01] MEDS: ASPIRIN 81 MG CHEWABLE TABLET PO (08:26)
[2022-02-01] MEDS: GABAPENTIN 100 MG CAPSULE PO ×3 (08:26→17:54)
[2022-02-01] MEDS: lisinopriL 5 MG TABLET FEED TUBE (08:26)
[2022-02-01 12:00] LABS: Glucose Point of Care 150 mg/dl (65-105)
--- NOTE | 2022-02-01 15:59 | PM.IMPN ---
Progress Note: A&P Assessment and Plan (1) Cellulitis of both lower extremities: Code(s): L03.115 - Cellulitis of right lower limb; L03.116 - Cellulitis of left lower limb Status: Acute Assessment and Plan: Upon arrival bilateral lower extremity cellulitis and abrasion, patient is treated cefepime and vancomycin, will have wound team evaluate the patient and treat Additional Plan 71-year-old gentleman who presented from a local [facility] with altered mental status. It was noted that patient had a large amount of blood in his Ortiz catheter bag. Upon evaluation in emergency room patient was noted to have a significant urinary tract infection and be dehydrated. Patient does have a very large decubitus ulcer to his coccyx as well as wounds to bilateral lower extremities. 1) Hematuria 2/2 Malignancy of Bladder: s/p cystoscopy and clot evacuation on 01/19 Appreciate Urology help Urine clear after clot evacuation. Plan stop CBI / voiding trial tomorrow if urine remains clear. Residual muscle invasive bladder cancer. CT-abd/pelvis and CXR without metastatic findings. Definitive care, as outlined by Dr. Leigh (neoadjuvant chemo./cystectomy vs. chemoradiation), will be difficult due to patients significant comorbidities. 2) Bacteremia Positive for Enterococcus 1/2 positive for Staph epidermis probably contaminant But patient has significant multiple comorbidities c/w Vancomycin No need for Cefepime and ampicillin as of now Repeat blood culture negative till date Echo was negative for vegetation, if had persistent bacteremia then would have considered HONEY 3)Sacral decubitus ulcer: Pressure injury stage: stage 4 Have consult Wound Care do appreciate further recommendations from Wound Care on decubitus ulcer as well as bilateral lower extremity wounds 4)Acute Anemia No signs of bleeding except for hematuria. Transfusion appropriate rise today continue to monitor 5)VIRGILIO:resolved will stop his IV fluids 6)DVT px: SCD 7)Code:Full 8)Dispo:pending improvement. PT OT to see # [place] resident # Status post G tube placmeent. tube feeds going at goal rate. # history of DVT status post IVC filter placement. # Diabetes mellitus type 2 on insulin # coronary artery disease status post CABG # History of septic shock secondary to MRSA bacteremia and cavitary Klebsiella pneumoniae 08/20 # peripheral artery disease status post lower extremity stents # Chronic bilateral lower extremity also has # Hypertension # Hyperlipidemia # GERD # Chronic systolic heart failure LVEF 35-39% in the past. EF has improved to 60 65% grade 1 diastolic dysfunction 01/16/2022 Insurance authorization awaited. Await evaluation by the general surgical team for the decubitus ulcer in further plan on that. Intermittent hematuria still persists. Urology following expected due to underlying bladder cancer Subjective Date/time seen: 02/01/22 15:59 Interval history: 01/22/2022 No overnight events. Discussed with the nursing staff. Denies any complaints. No pain shortness of breath or chest pain. No hematuria. CBI has been discontinued wound pictures reviewed he was recently on 6 weeks course of antibiotic with Levaquin for wound culture grown from bone culture of Pseudomonas which is pansensitive. He had 3-4 loose bowel movements overnight but none this afternoon 01/23/2022 no overnight events. No further diarrhea noted. Wound was evaluated today no fever chills vitals remained stable 01/24/2022 no overnight events. Had 2 liquidy stool this afternoon. Otherwise doing okay discussed with the nursing staff no fever chills vital stable 01/25/2022 some blood in his urine noted. No other complaints per patient. Diarrhea has slowed down. No shortness of breath or chest pain 01/26/2021 he is passing blood in his urine with some clots now. Reports having difficulty urinating due to potentially clots in the way. No other overnight events. 01/27/2022 int
[2022-02-01 17:05] LABS: Glucose Point of Care 150 mg/dl (65-105)
[2022-02-01 21:41] LABS: Glucose Point of Care 93 mg/dl (65-105)
[2022-02-01] MEDS: ATORVASTATIN 40 MG TABLET 80 MG FEED TUBE (21:42)
[2022-02-01] MEDS: INSULIN GLARGINE (*BKC) 100 UNITS/ML 15 UNITS SUB-Q (22:39)
[2022-02-02] VITALS (8 sets, daily range): BP systolic 98–123; BP diastolic 40–61; PULSE 68–88; RESP 18–20; TEMP 36.3–36.7; O2SAT 97–99
[2022-02-02 00:22] LABS: Glucose Point of Care 127 mg/dl (65-105)
[2022-02-02] MEDS: INSULIN ASPART (*BKC) 100 UNITS/ML 8 UNITS SUB-Q ×2 (00:23→17:45)
[2022-02-02] MEDS: CENTRAL LINE FLUSH 10 ML IV PUSH ×3 (05:33→20:31)
[2022-02-02 05:38] LABS: Hemoglobin 8.4 g/dL (14.0-18.0); Mean Corpuscular Hemoglobin 27.5 pg (26-34); Mean Corpuscular Volume 91.8 fl (80-100); Mean Platelet Volume 10.2 fl (7.4-10.4); Platelet Count Result 230 k/mm3 (150-375); Red Blood Count 3.05 M/mm3 (4.6-6.20); Red Cell Distribution Width 17.2 % (11.5-14.5); White Blood Count 9.1 K/mm3 (4.5-10.0)
[2022-02-02 05:42] LABS: Anion Gap 4 mmol/L (8-16); Blood Urea Nitrogen 54 mg/dL (9-20); Carbon Dioxide 31 mmol/L (22-30); Chloride 100 mmol/L (98-107); Estimated CRCL calculation 51 ml/min; Estimated Glomerular Filt Rate > 60; Glucose 87 mg/dL (65-110); Potassium 4.6 mmol/L (3.4-5.0); Sodium 135 mmol/L (137-145)
--- NOTE | 2022-02-02 07:08 | WPDUROPN2 ---
Progress Note: A&P Assessment and Plan (1) Cancer of overlapping sites of bladder: Code(s): C67.8 - Malignant neoplasm of overlapping sites of bladder Status: Acute (2) Hematuria: Code(s): R31.9 - Hematuria, unspecified Status: Acute Assessment and Plan: Plans for supportive care/hospice noted. Urine clear off CBI this morning. Subjective Subjective Date/Time Seen: 02/02/22 07:08 Comfortable, urine clear off CBI Review of Systems Cardiovascular: Cardiovascular: Denies chest pain, Denies lightheadedness, Denies palpitations and Denies dyspnea Respiratory: Respiratory: Denies dyspnea Gastrointestinal: Gastrointestinal: Denies diarrhea, Denies nausea and Denies vomiting Genitourinary: Genitourinary: Denies hematuria and Denies dysuria Endocrine: Endocrine: Denies palpitations Exam Const: General: no acute distress Resp: Effort & Inspection: normal respiratory effort GI: Inspection: non-distended GI Palp: No abdominal tenderness and No Guarding due to palpation present (GI) Auscultation: normal bowel sounds Objective Data Vital Signs Vital Signs: Vital Signs - 24 hr 02/01/22 08:25 02/01/22 14:00 02/01/22 20:30 Temperature 98.9 F Pulse Rate 65 88 84 Respiratory Rate 19 16 Blood Pressure 129/59 L Pulse Oximetry 97 100 02/01/22 21:44 02/01/22 21:48 02/01/22 22:00 Temperature 98.1 F 98.1 F Pulse Rate 84 84 84 Respiratory Rate 16 16 Blood Pressure 153/60 H 153/60 H Pulse Oximetry 100 100 02/02/22 05:54 Temperature 98.1 F Pulse Rate 85 Respiratory Rate 18 Blood Pressure 123/40 L Pulse Oximetry 98 Intake/Output Intake/Output: Intake & Output 01/30/22 01/31/22 02/01/22 02/02/22 23:59 23:59 23:59 23:59 Intake Total 7430 72653 0 Output Total 61206 01965 4350 2500 Balance -2820 2160 -4350 -2500 Meds/Results Medications: Active Medications Generic Name Dose Route Start Last Admin Trade Name Freq PRN Reason Stop Dose Admin Acetaminophen 650 mg 01/13/22 21:56 01/29/22 13:26 Acetaminophen Elixir 325 Mg/10.15 Ml Udc PO 650 mg Q4H PRN Administration Mild Pain (1-3) or Fever Albuterol 2.5 mg 01/13/22 19:20 Albuterol Sulfate Neb 2.5 Mg/0.5 Ml Inh INHALATION Q6HRT PRN Shortness Of Breath Ascorbic Acid 500 mg 01/14/22 09:00 02/01/22 17:54 Ascorbic Acid 500 Mg Tablet FEED TUBE 02/13/22 08:59 500 mg BID ANNA Administration Aspirin 81 mg 01/14/22 09:00 02/01/22 08:26 Aspirin 81 Mg Chewable Tablet PO 02/13/22 08:59 81 mg DAILY ANNA Administration Atorvastatin Calcium 80 mg 01/13/22 21:00 02/01/22 21:42 Atorvastatin 40 Mg Tablet FEED TUBE 80 mg HS ANNA Administration Bisacodyl 10 mg 01/13/22 19:20 Bisacodyl 10 Mg Suppository RECTAL DAILY PRN Constipation Clopidogrel Bisulfate 75 mg 01/14/22 09:00 02/01/22 08:26 Clopidogrel Bisulfate 75 Mg Tablet FEED TUBE 75 mg DAILY ANNA Administration Dextrose 12.5 gm 01/13/22 19:13 01/21/22 21:24 Dextrose 50% 25 Gm/50 Ml Syringe IV PUSH 12.5 gm PRN PRN Administration Hypoglycemia Protocol Ferrous Sulfate 220 mg 01/14/22 09:00 02/01/22 08:25 Ferrous Sulfate Liquid 220 Mg/5 Ml Elixir FEED TUBE 02/13/22 08:59 220 mg DAILY ANNA Administration Gabapentin 100 mg 01/29/22 13:00 02/01/22 17:54 Gabapentin 100 Mg Capsule PO 100 mg TID ANNA Administration Gentamicin Sulfate 0.1 applic 01/14/22 09:00 02/01/22 08:24 Gentamicin Sulfate 0.1% Cr 15 Gm Tube TOPICAL 02/13/22 08:59 0.1 applic DAILY ANNA Administration Glucagon 1 mg 01/13/22 19:13 Glucagon For Inj 1 Mg Vial IM PRN PRN Hypoglycemia Protocol Glucose 15 gm 01/13/22 19:13 01/16/22 05:47 Glucose Oral Gel 15 Gm Of Glucse In 37.5 Gm Tube PO 15 gm PRN PRN Administration Hypoglycemia Protocol Dextrose 1,000 mls @ 100 mls/hr 01/13/22 19:13 Dextrose 5% 1,000 Ml IVPB PRN PRN
[2022-02-02 07:37] LABS: Glucose Point of Care 127 mg/dl (65-105)
[2022-02-02] MEDS: METOPROLOL TARTRATE 12.5 MG TABLET PO ×2 (08:52→20:24)
[2022-02-02] MEDS: PSYLLIUM SUGAR FREE POWDER PACKET 1 PACKET FEED TUBE ×2 (08:52→20:26)
[2022-02-02] MEDS: FERROUS SULFATE LIQUID 220 MG/5 ML ELIXIR FEED TUBE (08:52)
[2022-02-02] MEDS: CLOPIDOGREL BISULFATE 75 MG TABLET FEED TUBE (08:52)
[2022-02-02] MEDS: MULTIVITAMINS THERAPEUTIC TAB (*BKC) 1 TABLET FEED TUBE (08:52)
[2022-02-02] MEDS: ASCORBIC ACID 500 MG TABLET FEED TUBE ×2 (08:53→17:29)
[2022-02-02] MEDS: ASPIRIN 81 MG CHEWABLE TABLET PO (08:53)
[2022-02-02] MEDS: lisinopriL 5 MG TABLET FEED TUBE (08:54)
[2022-02-02] MEDS: ACIDOPHILUS PACKET 1 PKT PACKET FEED TUBE ×4 (08:54→20:23)
[2022-02-02] MEDS: GABAPENTIN 100 MG CAPSULE PO ×3 (08:54→17:29)
[2022-02-02] MEDS: SERTRALINE HCL 25 MG TABLET PO (08:54)
[2022-02-02] MEDS: ACETAMINOPHEN ELIXIR 325 MG/10.15 ML UDC 650 MG PO (09:05)
[2022-02-02] MEDS: TOLNAFTATE 1% POWDER 45 GM BTL 1 APPLIC TOPICAL ×2 (09:25→20:27)
[2022-02-02] MEDS: GENTAMICIN SULFATE 0.1% CR 15 GM TUBE 0.1 APPLIC TOPICAL (09:26)
[2022-02-02] MEDS: SILVERGEL (ELTA) 45 ML 1 APPLIC TOPICAL (09:26)
[2022-02-02] MEDS: SILVER SULFADIAZINE 1% CR 50 GM JAR (*BKC) 1 APPLIC TOPICAL (11:01)
[2022-02-02] MEDS: GENTAMICIN SULFATE 0.1% CR 15 GM TUBE 1 APPLIC TOPICAL (11:01)
--- NOTE | 2022-02-02 11:36 | PCNFU ---
Nutrition Follow-Up Complete: Increased nutrient needs related to altered skin integrity as evidenced by stage IV wound to sacrum. Goal:Improvement in wound status Pt is progressing towards goal with improvement to skin. Pt current nutrition is Pureed, heart healthy diet with thickened liquids. TF: glucerna 1.2 at 85ml/hr - pt tolerating well. Nutrition recommendation: Continue with current plan of care. Last recorded weight is 66.2 kg - wt stable at this time. Bowel Motility: +BM / Labs Reviewed:NA: 135, BUN:54 Meds Noted: Skin: Multiple wounds continue but nursing reports are improving well. Additional Notes: Pt tolerating TF well, wt stable at this time. Wounds improving. Monitor and follow up on /Fridays
[2022-02-02 12:40] LABS: Glucose Point of Care 155 mg/dl (65-105)
--- NOTE | 2022-02-02 12:52 | PM.IMPN ---
Progress Note: A&P Assessment and Plan (1) Cellulitis of both lower extremities: Code(s): L03.115 - Cellulitis of right lower limb; L03.116 - Cellulitis of left lower limb Status: Acute (2) Urinary retention: Code(s): R33.9 - Retention of urine, unspecified Status: Acute (3) Cancer of overlapping sites of bladder: Code(s): C67.8 - Malignant neoplasm of overlapping sites of bladder Status: Acute (4) Positive blood culture: Code(s): R78.81 - Bacteremia Status: Acute (5) Hematuria: Code(s): R31.9 - Hematuria, unspecified Status: Acute (6) Urinary tract infection: Qualifiers: Hematuria presence: with hematuria Urinary tract infection type: site unspecified Qualified Code(s): N39.0 - Urinary tract infection, site not specified; R31.9 - Hematuria, unspecified Code(s): N39.0 - Urinary tract infection, site not specified Status: Acute (7) Acute dehydration: Code(s): E86.0 - Dehydration Status: Acute (8) Anemia: Qualifiers: Anemia type: unspecified type Qualified Code(s): D64.9 - Anemia, unspecified Code(s): D64.9 - Anemia, unspecified Status: Acute (9) Decubitus ulcer: Qualifiers: Laterality: unspecified laterality Pressure injury location: buttock Pressure injury stage: unstageable Qualified Code(s): L89.300 - Pressure ulcer of unspecified buttock, unstageable Code(s): L89.90 - Pressure ulcer of unspecified site, unspecified stage Status: Acute (10) Cellulitis: Qualifiers: Laterality: unspecified laterality Site of cellulitis: extremity Site of cellulitis of extremity: lower extremity Qualified Code(s): L03.119 - Cellulitis of unspecified part of limb Code(s): L03.90 - Cellulitis, unspecified Status: Resolved (11) CAD (coronary artery disease): Code(s): I25.10 - Atherosclerotic heart disease of [place] coronary artery without angina pectoris Status: Acute (12) PAD (peripheral artery disease): Code(s): I73.9 - Peripheral vascular disease, unspecified Status: Acute (13) Nutrition disorder: Code(s): E63.9 - Nutritional deficiency, unspecified Status: Acute (14) Diarrhea: Code(s): R19.7 - Diarrhea, unspecified Status: Acute (15) Antiplatelet or antithrombotic long-term use: Code(s): Z79.02 - director long term care (current) use of antithrombotics/antiplatelets Status: Acute (16) Sepsis: Code(s): A41.9 - Sepsis, unspecified organism Status: Acute (17) Venous stasis dermatitis: Onset Date: Unknown Code(s): I87.2 - Venous insufficiency (chronic) (peripheral) Status: Chronic (18) Sacral decubitus ulcer: Onset Date: Unknown Qualifiers: Pressure injury stage: stage 4 Qualified Code(s): L89.154 - Pressure ulcer of sacral region, stage 4 Code(s): L89.159 - Pressure ulcer of sacral region, unspecified stage Status: Acute (19) Urothelial carcinoma: Code(s): C68.9 - Malignant neoplasm of urinary organ, unspecified Status: Acute (20) Osteomyelitis of sacrum: Code(s): M46.28 - Osteomyelitis of vertebra, sacral and sacrococcygeal region Status: Acute (21) GERD (gastroesophageal reflux disease): Code(s): K21.9 - Gastro-esophageal reflux disease without esophagitis Status: Acute (22) Bladder tumor: Code(s): D49.4 - Neoplasm of unspecified behavior of bladder Status: Chronic (23) Physical deconditioning: Code(s): R53.81 - Other malaise Status: Chronic (24) DM type 2 (diabetes mellitus, type 2): Onset Date: Unknown Qualifiers: Diabetes mellitus director long term care insulin use: without halfway use Diabetes mellitus complication status: with skin complications Diabetes mellitus complication detail: with other skin ulcer Qualified Code(s): E11.622 - Type 2 diabetes
--- NOTE | 2022-02-02 14:39 | PC.NURSE ---
On 02/02/22, the student, Liliana Whitley, provided care and completed [facility] documentation on this patient. I have reviewed the student's documentation and agree with the findings.
[2022-02-02 17:51] LABS: Glucose Point of Care 149 mg/dl (65-105)
[2022-02-02] MEDS: ATORVASTATIN 40 MG TABLET 80 MG FEED TUBE (20:23)
[2022-02-02] MEDS: INSULIN GLARGINE (*BKC) 100 UNITS/ML 30 UNITS SUB-Q (20:32)
[2022-02-02 20:52] LABS: Glucose Point of Care 116 mg/dl (65-105)
[2022-02-03 01:07] LABS: Glucose Point of Care 106 mg/dl (65-105)
[2022-02-03] MEDS: INSULIN ASPART (*BKC) 100 UNITS/ML 8 UNITS SUB-Q ×2 (01:10→18:19)
[2022-02-03 06:00] VITALS: BP 119/56; PULSE 89; RESP 18; TEMP 36.8; O2SAT 94
[2022-02-03] MEDS: CENTRAL LINE FLUSH 10 ML IV PUSH ×3 (06:39→22:11)
[2022-02-03 06:59] LABS: Hematocrit 26.5 % (42.0-52.0); Hemoglobin 8.2 g/dL (14.0-18.0); Mean Corpuscular HGB Conc 30.9 g/dl (32-36); Mean Corpuscular Hemoglobin 28.3 pg (26-34); Mean Corpuscular Volume 91.4 fl (80-100); Mean Platelet Volume 10.1 fl (7.4-10.4); Platelet Count Result 230 k/mm3 (150-375); White Blood Count 10.9 K/mm3 (4.5-10.0)
[2022-02-03 07:07] LABS: Anion Gap 5 mmol/L (8-16); Blood Urea Nitrogen 61 mg/dL (9-20); Calcium 8.8 mg/dL (8.4-10.2); Carbon Dioxide 30 mmol/L (22-30); Chloride 97 mmol/L (98-107); Estimated CRCL calculation 51 ml/min; Estimated Glomerular Filt Rate > 60; Glucose 131 mg/dL (65-110); Potassium 4.8 mmol/L (3.4-5.0); Sodium 132 mmol/L (137-145)
[2022-02-03 08:04] LABS: Glucose Point of Care 125 mg/dl (65-105)
[2022-02-03] MEDS: ASCORBIC ACID 500 MG TABLET FEED TUBE ×2 (09:43→18:16)
[2022-02-03] MEDS: ACIDOPHILUS PACKET 1 PKT PACKET FEED TUBE ×4 (09:43→21:50)
[2022-02-03] MEDS: SERTRALINE HCL 25 MG TABLET PO (09:43)
[2022-02-03] MEDS: PSYLLIUM SUGAR FREE POWDER PACKET 1 PACKET FEED TUBE ×2 (09:43→21:57)
[2022-02-03] MEDS: CLOPIDOGREL BISULFATE 75 MG TABLET FEED TUBE (09:44)
[2022-02-03] MEDS: lisinopriL 5 MG TABLET FEED TUBE (09:44)
[2022-02-03] MEDS: MULTIVITAMINS THERAPEUTIC TAB (*BKC) 1 TABLET FEED TUBE (09:44)
[2022-02-03] MEDS: ASPIRIN 81 MG CHEWABLE TABLET PO (09:44)
[2022-02-03] MEDS: GABAPENTIN 100 MG CAPSULE PO ×3 (09:44→18:17)
[2022-02-03] MEDS: FERROUS SULFATE LIQUID 220 MG/5 ML ELIXIR FEED TUBE (09:44)
[2022-02-03 09:45] VITALS: PULSE 76
[2022-02-03] MEDS: METOPROLOL TARTRATE 12.5 MG TABLET PO ×2 (09:45→21:57)
[2022-02-03] MEDS: SILVERGEL (ELTA) 45 ML 1 APPLIC TOPICAL (09:46)
[2022-02-03] MEDS: TOLNAFTATE 1% POWDER 45 GM BTL 1 APPLIC TOPICAL ×2 (09:46→22:11)
[2022-02-03] MEDS: GENTAMICIN SULFATE 0.1% CR 15 GM TUBE 1 APPLIC TOPICAL (09:46)
[2022-02-03] MEDS: SILVER SULFADIAZINE 1% CR 50 GM JAR (*BKC) 1 APPLIC TOPICAL (09:46)
[2022-02-03 10:39] LABS: Vancomycin Trough 20.4 ug/mL (10.0-20.0)
[2022-02-03 11:54] LABS: Glucose Point of Care 150 mg/dl (65-105)
[2022-02-03 14:00] VITALS: BP 113/66; PULSE 77; RESP 22; TEMP 36.5; O2SAT 98
--- NOTE | 2022-02-03 15:45 | PM.IMPN ---
Progress Note: A&P Assessment and Plan (1) Cellulitis of both lower extremities: Code(s): L03.115 - Cellulitis of right lower limb; L03.116 - Cellulitis of left lower limb Status: Acute (2) Urinary retention: Code(s): R33.9 - Retention of urine, unspecified Status: Acute (3) Cancer of overlapping sites of bladder: Code(s): C67.8 - Malignant neoplasm of overlapping sites of bladder Status: Acute (4) Positive blood culture: Code(s): R78.81 - Bacteremia Status: Acute (5) Hematuria: Code(s): R31.9 - Hematuria, unspecified Status: Acute (6) Urinary tract infection: Qualifiers: Hematuria presence: with hematuria Urinary tract infection type: site unspecified Qualified Code(s): N39.0 - Urinary tract infection, site not specified; R31.9 - Hematuria, unspecified Code(s): N39.0 - Urinary tract infection, site not specified Status: Acute (7) Acute dehydration: Code(s): E86.0 - Dehydration Status: Acute (8) Anemia: Qualifiers: Anemia type: unspecified type Qualified Code(s): D64.9 - Anemia, unspecified Code(s): D64.9 - Anemia, unspecified Status: Acute (9) Decubitus ulcer: Qualifiers: Laterality: unspecified laterality Pressure injury location: buttock Pressure injury stage: unstageable Qualified Code(s): L89.300 - Pressure ulcer of unspecified buttock, unstageable Code(s): L89.90 - Pressure ulcer of unspecified site, unspecified stage Status: Acute (10) Cellulitis: Qualifiers: Laterality: unspecified laterality Site of cellulitis: extremity Site of cellulitis of extremity: lower extremity Qualified Code(s): L03.119 - Cellulitis of unspecified part of limb Code(s): L03.90 - Cellulitis, unspecified Status: Resolved (11) CAD (coronary artery disease): Code(s): I25.10 - Atherosclerotic heart disease of [place] coronary artery without angina pectoris Status: Acute (12) PAD (peripheral artery disease): Code(s): I73.9 - Peripheral vascular disease, unspecified Status: Acute (13) Nutrition disorder: Code(s): E63.9 - Nutritional deficiency, unspecified Status: Acute (14) Diarrhea: Code(s): R19.7 - Diarrhea, unspecified Status: Acute (15) Antiplatelet or antithrombotic long-term use: Code(s): Z79.02 - manager intermediate (current) use of antithrombotics/antiplatelets Status: Acute (16) Sepsis: Code(s): A41.9 - Sepsis, unspecified organism Status: Acute (17) Venous stasis dermatitis: Onset Date: Unknown Code(s): I87.2 - Venous insufficiency (chronic) (peripheral) Status: Chronic (18) Sacral decubitus ulcer: Onset Date: Unknown Qualifiers: Pressure injury stage: stage 4 Qualified Code(s): L89.154 - Pressure ulcer of sacral region, stage 4 Code(s): L89.159 - Pressure ulcer of sacral region, unspecified stage Status: Acute (19) Urothelial carcinoma: Code(s): C68.9 - Malignant neoplasm of urinary organ, unspecified Status: Acute (20) Osteomyelitis of sacrum: Code(s): M46.28 - Osteomyelitis of vertebra, sacral and sacrococcygeal region Status: Acute (21) GERD (gastroesophageal reflux disease): Code(s): K21.9 - Gastro-esophageal reflux disease without esophagitis Status: Acute (22) Bladder tumor: Code(s): D49.4 - Neoplasm of unspecified behavior of bladder Status: Chronic (23) Physical deconditioning: Code(s): R53.81 - Other malaise Status: Chronic (24) DM type 2 (diabetes mellitus, type 2): Onset Date: Unknown Qualifiers: Diabetes mellitus assistant terminal manager insulin use: without residential use Diabetes mellitus complication status: with skin complications Diabetes mellitus complication detail: with other skin ulcer Qualified Code(s): E11.622 - Type 2 diabetes
[2022-02-03 16:52] LABS: Glucose Point of Care 149 mg/dl (65-105)
[2022-02-03 20:00] VITALS: PULSE 88; RESP 18; O2SAT 97
[2022-02-03 21:24] VITALS: BP 108/48; PULSE 86; RESP 18; TEMP 36.7; O2SAT 97
[2022-02-03] MEDS: ATORVASTATIN 40 MG TABLET 80 MG FEED TUBE (21:50)
[2022-02-03 21:57] VITALS: PULSE 88
[2022-02-03] MEDS: INSULIN GLARGINE (*BKC) 100 UNITS/ML 30 UNITS SUB-Q (22:00)
[2022-02-03 22:18] LABS: Glucose Point of Care 114 mg/dl (65-105)
[2022-02-04] MEDS: INSULIN ASPART (*BKC) 100 UNITS/ML 8 UNITS SUB-Q (00:54)
[2022-02-04 01:01] LABS: Glucose Point of Care 127 mg/dl (65-105)
[2022-02-04] MEDS: CENTRAL LINE FLUSH 10 ML IV PUSH ×3 (04:16→20:45)
[2022-02-04 04:28] LABS: Hematocrit 27.9 % (42.0-52.0); Hemoglobin 8.8 g/dL (14.0-18.0); Mean Corpuscular HGB Conc 31.5 g/dl (32-36); Mean Corpuscular Volume 88.9 fl (80-100); Mean Platelet Volume 10.3 fl (7.4-10.4); Platelet Count Result 255 k/mm3 (150-375); Red Blood Count 3.14 M/mm3 (4.6-6.20); Red Cell Distribution Width 16.8 % (11.5-14.5); White Blood Count 12.5 K/mm3 (4.5-10.0)
[2022-02-04 04:43] LABS: Anion Gap 5 mmol/L (8-16); Blood Urea Nitrogen 60 mg/dL (9-20); Carbon Dioxide 29 mmol/L (22-30); Chloride 96 mmol/L (98-107); Estimated CRCL calculation 51 ml/min; Estimated Glomerular Filt Rate > 60; Glucose 112 mg/dL (65-110); Sodium 130 mmol/L (137-145)
[2022-02-04 05:41] VITALS: BP 125/49; PULSE 89; RESP 18; TEMP 36.9; O2SAT 99
[2022-02-04 07:56] LABS: Glucose Point of Care 125 mg/dl (65-105)
[2022-02-04 11:33] LABS: Glucose Point of Care 115 mg/dl (65-105)
[2022-02-04 11:36] VITALS: PULSE 88
[2022-02-04] MEDS: METOPROLOL TARTRATE 12.5 MG TABLET PO ×2 (11:36→20:43)
[2022-02-04] MEDS: ASCORBIC ACID 500 MG TABLET FEED TUBE ×2 (11:37→17:06)
[2022-02-04] MEDS: FERROUS SULFATE LIQUID 220 MG/5 ML ELIXIR FEED TUBE (11:37)
[2022-02-04] MEDS: MULTIVITAMINS THERAPEUTIC TAB (*BKC) 1 TABLET FEED TUBE (11:37)
[2022-02-04] MEDS: lisinopriL 5 MG TABLET FEED TUBE (11:37)
[2022-02-04] MEDS: ASPIRIN 81 MG CHEWABLE TABLET PO (11:37)
[2022-02-04] MEDS: ACIDOPHILUS PACKET 1 PKT PACKET FEED TUBE ×3 (11:37→20:41)
[2022-02-04] MEDS: CLOPIDOGREL BISULFATE 75 MG TABLET FEED TUBE (11:38)
[2022-02-04] MEDS: GABAPENTIN 100 MG CAPSULE PO ×2 (11:38→17:06)
[2022-02-04] MEDS: GENTAMICIN SULFATE 0.1% CR 15 GM TUBE 1 APPLIC TOPICAL (11:38)
[2022-02-04] MEDS: PSYLLIUM SUGAR FREE POWDER PACKET 1 PACKET FEED TUBE ×2 (11:38→20:44)
[2022-02-04] MEDS: SILVER SULFADIAZINE 1% CR 50 GM JAR (*BKC) 1 APPLIC TOPICAL (11:39)
[2022-02-04] MEDS: SERTRALINE HCL 25 MG TABLET PO (11:39)
[2022-02-04] MEDS: SILVERGEL (ELTA) 45 ML 1 APPLIC TOPICAL (11:39)
[2022-02-04] MEDS: TOLNAFTATE 1% POWDER 45 GM BTL 1 APPLIC TOPICAL ×2 (11:39→20:45)
[2022-02-04 14:00] VITALS: BP 113/50; PULSE 83; RESP 19; TEMP 36.1; O2SAT 99
[2022-02-04 16:39] LABS: Glucose Point of Care 171 mg/dl (65-105)
--- NOTE | 2022-02-04 17:58 | PM.IMPN ---
Progress Note: A&P Assessment and Plan (1) Cellulitis of both lower extremities: Code(s): L03.115 - Cellulitis of right lower limb; L03.116 - Cellulitis of left lower limb Status: Acute (2) Urinary retention: Code(s): R33.9 - Retention of urine, unspecified Status: Acute (3) Cancer of overlapping sites of bladder: Code(s): C67.8 - Malignant neoplasm of overlapping sites of bladder Status: Acute (4) Positive blood culture: Code(s): R78.81 - Bacteremia Status: Acute (5) Hematuria: Code(s): R31.9 - Hematuria, unspecified Status: Acute (6) Urinary tract infection: Qualifiers: Hematuria presence: with hematuria Urinary tract infection type: site unspecified Qualified Code(s): N39.0 - Urinary tract infection, site not specified; R31.9 - Hematuria, unspecified Code(s): N39.0 - Urinary tract infection, site not specified Status: Acute (7) Acute dehydration: Code(s): E86.0 - Dehydration Status: Acute (8) Anemia: Qualifiers: Anemia type: unspecified type Qualified Code(s): D64.9 - Anemia, unspecified Code(s): D64.9 - Anemia, unspecified Status: Acute (9) Decubitus ulcer: Qualifiers: Laterality: unspecified laterality Pressure injury location: buttock Pressure injury stage: unstageable Qualified Code(s): L89.300 - Pressure ulcer of unspecified buttock, unstageable Code(s): L89.90 - Pressure ulcer of unspecified site, unspecified stage Status: Acute (10) Cellulitis: Qualifiers: Laterality: unspecified laterality Site of cellulitis: extremity Site of cellulitis of extremity: lower extremity Qualified Code(s): L03.119 - Cellulitis of unspecified part of limb Code(s): L03.90 - Cellulitis, unspecified Status: Resolved (11) CAD (coronary artery disease): Code(s): I25.10 - Atherosclerotic heart disease of [place] coronary artery without angina pectoris Status: Acute (12) PAD (peripheral artery disease): Code(s): I73.9 - Peripheral vascular disease, unspecified Status: Acute (13) Nutrition disorder: Code(s): E63.9 - Nutritional deficiency, unspecified Status: Acute (14) Diarrhea: Code(s): R19.7 - Diarrhea, unspecified Status: Acute (15) Antiplatelet or antithrombotic long-term use: Code(s): Z79.02 - intermodal owner operator truck driver (current) use of antithrombotics/antiplatelets Status: Acute (16) Sepsis: Code(s): A41.9 - Sepsis, unspecified organism Status: Acute (17) Venous stasis dermatitis: Onset Date: Unknown Code(s): I87.2 - Venous insufficiency (chronic) (peripheral) Status: Chronic (18) Sacral decubitus ulcer: Onset Date: Unknown Qualifiers: Pressure injury stage: stage 4 Qualified Code(s): L89.154 - Pressure ulcer of sacral region, stage 4 Code(s): L89.159 - Pressure ulcer of sacral region, unspecified stage Status: Acute (19) Urothelial carcinoma: Code(s): C68.9 - Malignant neoplasm of urinary organ, unspecified Status: Acute (20) Osteomyelitis of sacrum: Code(s): M46.28 - Osteomyelitis of vertebra, sacral and sacrococcygeal region Status: Acute (21) GERD (gastroesophageal reflux disease): Code(s): K21.9 - Gastro-esophageal reflux disease without esophagitis Status: Acute (22) Bladder tumor: Code(s): D49.4 - Neoplasm of unspecified behavior of bladder Status: Chronic (23) Physical deconditioning: Code(s): R53.81 - Other malaise Status: Chronic (24) DM type 2 (diabetes mellitus, type 2): Onset Date: Unknown Qualifiers: Diabetes mellitus marine oil terminal superintendent insulin use: without senior care use Diabetes mellitus complication status: with skin complications Diabetes mellitus complication detail: with other skin ulcer Qualified Code(s): E11.622 - Type 2 diabetes
[2022-02-04 20:07] LABS: Glucose Point of Care 163 mg/dl (65-105)
[2022-02-04] MEDS: ATORVASTATIN 40 MG TABLET 80 MG FEED TUBE (20:42)
[2022-02-04 20:43] VITALS: PULSE 88
[2022-02-04] MEDS: INSULIN GLARGINE (*BKC) 100 UNITS/ML 30 UNITS SUB-Q (20:47)
[2022-02-04 21:58] VITALS: BP 99/51; PULSE 84; RESP 18; TEMP 37.4; O2SAT 99
[2022-02-05] MEDS: INSULIN ASPART (*BKC) 100 UNITS/ML 8 UNITS SUB-Q (00:42)
[2022-02-05 00:50] LABS: Glucose Point of Care 145 mg/dl (65-105)
[2022-02-05] MEDS: CENTRAL LINE FLUSH 10 ML IV PUSH (05:20)
[2022-02-05 05:37] LABS: Hematocrit 27.1 % (42.0-52.0); Hemoglobin 8.4 g/dL (14.0-18.0); Mean Corpuscular Hemoglobin 28.1 pg (26-34); Mean Corpuscular Volume 90.6 fl (80-100); Mean Platelet Volume 10.3 fl (7.4-10.4); Platelet Count Result 251 k/mm3 (150-375); Red Blood Count 2.99 M/mm3 (4.6-6.20); Red Cell Distribution Width 16.7 % (11.5-14.5); White Blood Count 10.4 K/mm3 (4.5-10.0)
[2022-02-05 05:39] VITALS: BP 97/54; PULSE 92; RESP 17; TEMP 36.3; O2SAT 97
[2022-02-05 05:48] LABS: Anion Gap 5 mmol/L (8-16); Blood Urea Nitrogen 57 mg/dL (9-20); Calcium 8.8 mg/dL (8.4-10.2); Carbon Dioxide 29 mmol/L (22-30); Chloride 97 mmol/L (98-107); Estimated CRCL calculation 51 ml/min; Estimated Glomerular Filt Rate > 60; Glucose 117 mg/dL (65-110); Potassium 4.7 mmol/L (3.4-5.0); Sodium 131 mmol/L (137-145)
[2022-02-05 07:39] LABS: Glucose Point of Care 128 mg/dl (65-105)
[2022-02-05] MEDS: ASCORBIC ACID 500 MG TABLET FEED TUBE (08:14)
[2022-02-05] MEDS: MULTIVITAMINS THERAPEUTIC TAB (*BKC) 1 TABLET FEED TUBE (08:14)
[2022-02-05] MEDS: FERROUS SULFATE LIQUID 220 MG/5 ML ELIXIR FEED TUBE (08:14)
[2022-02-05] MEDS: CLOPIDOGREL BISULFATE 75 MG TABLET FEED TUBE (08:14)
[2022-02-05] MEDS: ASPIRIN 81 MG CHEWABLE TABLET PO (08:14)
[2022-02-05] MEDS: SERTRALINE HCL 25 MG TABLET PO (08:14)
[2022-02-05] MEDS: ACIDOPHILUS PACKET 1 PKT PACKET FEED TUBE ×2 (08:14→12:07)
[2022-02-05] MEDS: lisinopriL 5 MG TABLET FEED TUBE (08:15)
[2022-02-05] MEDS: GABAPENTIN 100 MG CAPSULE PO ×2 (08:15→12:07)
[2022-02-05] MEDS: GENTAMICIN SULFATE 0.1% CR 15 GM TUBE 1 APPLIC TOPICAL (08:15)
[2022-02-05 08:16] VITALS: PULSE 88
[2022-02-05] MEDS: METOPROLOL TARTRATE 12.5 MG TABLET PO (08:16)
[2022-02-05] MEDS: PSYLLIUM SUGAR FREE POWDER PACKET 1 PACKET FEED TUBE (08:16)
[2022-02-05] MEDS: SILVERGEL (ELTA) 45 ML 1 APPLIC TOPICAL (08:16)
[2022-02-05] MEDS: TOLNAFTATE 1% POWDER 45 GM BTL 1 APPLIC TOPICAL (08:19)
--- NOTE | 2022-02-05 10:27 | PM.DS ---
DS: Admitting Diagnosis Discharge Date 02/05/22 Admitting Diagnosis (1) Urinary tract infection: Qualifiers: Hematuria presence: with hematuria Urinary tract infection type: site unspecified Qualified Code(s): N39.0 - Urinary (2) Acute dehydration: Code(s): E86.0 - Dehydration (3) Sacral decubitus ulcer: Onset Date: Unknown (4) Acute on chronic kidney failure: Code(s): N17.9 - Acute kidney failure, unspecified; N18.9 - Chronic kidney disease, unspecified Status: Acute DS: Discharge Diagnosis Discharge Diagnosis (1) Cellulitis of both lower extremities: Code(s): L03.115 - Cellulitis of right lower limb; L03.116 - Cellulitis of left lower limb Status: Acute (2) Urinary retention: Code(s): R33.9 - Retention of urine, unspecified Status: Acute (3) Cancer of overlapping sites of bladder: Code(s): C67.8 - Malignant neoplasm of overlapping sites of bladder Status: Acute (4) Positive blood culture: Code(s): R78.81 - Bacteremia Status: Acute (5) Hematuria: Code(s): R31.9 - Hematuria, unspecified Status: Acute (6) Urinary tract infection: Qualifiers: Hematuria presence: with hematuria Urinary tract infection type: site unspecified Qualified Code(s): N39.0 - Urinary tract infection, site not specified; R31.9 - Hematuria, unspecified Code(s): N39.0 - Urinary tract infection, site not specified Status: Acute (7) Acute dehydration: Code(s): E86.0 - Dehydration Status: Acute (8) Anemia: Qualifiers: Anemia type: unspecified type Qualified Code(s): D64.9 - Anemia, unspecified Code(s): D64.9 - Anemia, unspecified Status: Acute (9) Decubitus ulcer: Qualifiers: Laterality: unspecified laterality Pressure injury location: buttock Pressure injury stage: unstageable Qualified Code(s): L89.300 - Pressure ulcer of unspecified buttock, unstageable Code(s): L89.90 - Pressure ulcer of unspecified site, unspecified stage Status: Acute (10) Cellulitis: Qualifiers: Laterality: unspecified laterality Site of cellulitis: extremity Site of cellulitis of extremity: lower extremity Qualified Code(s): L03.119 - Cellulitis of unspecified part of limb Code(s): L03.90 - Cellulitis, unspecified Status: Resolved (11) CAD (coronary artery disease): Code(s): I25.10 - Atherosclerotic heart disease of [place] coronary artery without angina pectoris Status: Acute (12) PAD (peripheral artery disease): Code(s): I73.9 - Peripheral vascular disease, unspecified Status: Acute (13) Nutrition disorder: Code(s): E63.9 - Nutritional deficiency, unspecified Status: Acute (14) Diarrhea: Code(s): R19.7 - Diarrhea, unspecified Status: Acute (15) Antiplatelet or antithrombotic long-term use: Code(s): Z79.02 - joint terminal attack controller (current) use of antithrombotics/antiplatelets Status: Acute (16) Sepsis: Code(s): A41.9 - Sepsis, unspecified organism Status: Acute (17) Venous stasis dermatitis: Onset Date: Unknown Code(s): I87.2 - Venous insufficiency (chronic) (peripheral) Status: Chronic (18) Sacral decubitus ulcer: Onset Date: Unknown Qualifiers: Pressure injury stage: stage 4 Qualified Code(s): L89.154 - Pressure ulcer of sacral region, stage 4 Code(s): L89.159 - Pressure ulcer of sacral region, unspecified stage Status: Acute (19) Urothelial carcinoma: Code(s): C68.9 - Malignant neoplasm of urinary organ, unspecified Status: Acute (20) Osteomyelitis of sacrum: Code(s): M46.28 - Osteomyelitis of vertebra, sacral and sacrococcygeal region Status: Acute (21) GERD (gastroesophageal reflux disease): Code(s): K21.9 - Gastro-esophageal reflux disease without esophagitis Status: Acute
[2022-02-05 11:58] LABS: Glucose Point of Care 153 mg/dl (65-105)
== END 2022-02-05 14:15 | disposition hospice, home (50) | DRG 689 ==
LOC: ANHED 11:06 → ANH3MEDSUR 14:38
PROVIDERS: Internal Medicine; Internal Medicine Hematology & Oncology; Nurse Practitioner Adult Health; Urology; Admitting Provider Family Medicine; Emergency Provider Emergency Medicine; PCP Internal Medicine; Visit Provider Hospitalist
PROC: 0TCB8ZZ Extirpation of Matter from Bladder, Via Natural or Artificial Opening Endoscopic (ICD-10-PCS; CPT 52001; principal; 2022-01-19 15:00)
DX: N39.0 Urinary tract infection, site not specified (principal); L89.154 Pressure ulcer of sacral region, stage 4; N17.9 Acute kidney failure, unspecified; L03.115 Cellulitis of right lower limb; L03.116 Cellulitis of left lower limb; I50.22 Chronic systolic (congestive) heart failure; I13.0 Hypertensive heart and chronic kidney disease with heart failure and stage 1 through stage 4 chronic kidney disease, or unspecified chronic kidney disease; R78.81 Bacteremia; R31.9 Hematuria, unspecified; Z87.440 Personal history of urinary (tract) infections; E86.0 Dehydration; Z87.891 Personal history of nicotine dependence; Z95.1 Presence of aortocoronary bypass graft; K21.9 Gastro-esophageal reflux disease without esophagitis; E78.5 Hyperlipidemia, unspecified; Z51.5 Encounter for palliative care; I25.10 Atherosclerotic heart disease of native coronary artery without angina pectoris; I87.8 Other specified disorders of veins; E11.51 Type 2 diabetes mellitus with diabetic peripheral angiopathy without gangrene; Z86.718 Personal history of other venous thrombosis and embolism; Z95.828 Presence of other vascular implants and grafts; Z82.49 Family history of ischemic heart disease and other diseases of the circulatory system; Z95.820 Peripheral vascular angioplasty status with implants and grafts; Z83.3 Family history of diabetes mellitus; Z91.19 Patient's noncompliance with other medical treatment and regimen; D64.9 Anemia, unspecified; F03.90 Unspecified dementia, unspecified severity, without behavioral disturbance, psychotic disturbance, mood disturbance, and anxiety; Z82.0 Family history of epilepsy and other diseases of the nervous system; Z79.899 Other long term (current) drug therapy; Z79.4 Long term (current) use of insulin; Z79.2 Long term (current) use of antibiotics; Z53.29 Procedure and treatment not carried out because of patient's decision for other reasons; B95.2 Enterococcus as the cause of diseases classified elsewhere; B95.8 Unspecified staphylococcus as the cause of diseases classified elsewhere; C67.8 Malignant neoplasm of overlapping sites of bladder; R33.9 Retention of urine, unspecified; R19.7 Diarrhea, unspecified; E11.22 Type 2 diabetes mellitus with diabetic chronic kidney disease; N18.9 Chronic kidney disease, unspecified; B96.5 Pseudomonas (aeruginosa) (mallei) (pseudomallei) as the cause of diseases classified elsewhere; L89.300 Pressure ulcer of unspecified buttock, unstageable; I87.2 Venous insufficiency (chronic) (peripheral); R53.81 Other malaise; E11.622 Type 2 diabetes mellitus with other skin ulcer; Z74.01 Bed confinement status
CPT/HCPCS: 36415; 36430; 49465; 71045; 74018; 74178; 80048; 80053; 80069; 80202; 81001; 82607; 82728; 82746; 82948; 83540; 83550; 83605; 83735; 84100; 85025; 85027; 85610; 85730; 86140; 86850; 86900; 86901; 86920; 87040; 87077; 87086; 87186; 93005; 96361; 96365; 96366; 96367; 96372; 96376; 97163; 97167; 99285; A9270; C1757; C8929; G0378; J0290; J0692; J1644; J1756; J1815; J2543; J2704; J3010; J3370; J3475; J7030; J7050; J7120; P9016; Q9957; Q9967